=== PATIENT | female | born 1980 | race African-American/Black ===

== ENCOUNTER 2017-09-10 02:08 | Emergency (ER) | payer BC ==
[2017-09-10] MEDS ORDERED: Ketorolac INJ* 30 MG/ML 1 ML VIAL IV PUSH PRN (02:29)
[2017-09-10] MEDS ORDERED: Metoclopramide IV* 5 MG/ML 2 ML VIAL IV SLOW PU ONE (02:30)
[2017-09-10] MEDS ORDERED: NS 0.9% 1000 ML* 1,000 ML IV ONE (02:30)
[2017-09-10] MEDS ORDERED: diPHENhydraMINE IV* 50 MG/ML 1 ml VIAL (BENADRYL) IV ONE (02:30)
[2017-09-10] MEDS ORDERED: Ketorolac INJ* 30 MG/ML 1 ML VIAL IV PUSH ONE (03:07)
--- NOTE | 2017-09-10 05:26 | ED ---
Max Newman Tecjoon, scribed for La Sinclair MD on 09/10/17 at 0257 . Headache - HPI Summary HPI Summary: This patient is a 36 year old female BIBA to [facility] with a chief complaint of headache since 0030 today. Patient states she woke up with an excruciating headache on the right side of her head. The pain is rated 9/10 in severity. Symptoms aggravated by nothing. Symptoms alleviated by nothing. 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 Patient has a hx of headache. - History Of Current Complaint Chief Complaint: EDHeadache Stated Complaint: HEADACHE/NAUSEA Time Seen by Provider: 09/10/17 02:15 Hx Obtained From: Patient Hx Last Menstrual Period: 06/29/12 Onset/Duration: Sudden Onset, Started hours ago, Still Present Currently Pain Is: Current Pain Scale(0-10)= - 9, Severe Timing: Constant Location of Headache: Other: - right side of head Aggravating Factor: Nothing Allevating Factors: Nothing - Allergies/Home Medications Allergies/Adverse Reactions: Allergies Allergy/AdvReac Type Severity Reaction Status Date / Time etodolac Allergy See Comment Verified 09/10/17 02:20 shrimp Allergy Itching Verified 09/10/17 02:19 ENVIRONMENTAL/SEASONAL Allergy Severe Unknown Uncoded 06/24/16 11:26 Reaction Details PMH/Surg Hx/FS Hx/Imm Hx Previously Healthy: No Endocrine/Hematology History: Reports: Hx Diabetes - IDDM Cardiovascular History: Reports: Hx Hypertension - ON MEDS Denies: Hx Pacemaker/ICD, Other Cardiovascular Problems/Disorders Respiratory History: Reports: Hx Asthma - WILL BRING INHALERS, Other Respiratory Problems/Disorders - FREQUENT SINUS TROUBLE, POST NASAL DRIP GI History: Reports: Hx Gastroesophageal Reflux Disease Denies: Other GI Disorders History: Reports: Other Problems/Disorders - SOMETIMES PROTIEN IN URINE Denies: Hx Renal Disease Musculoskeletal History: Reports: Other Musculoskeletal History - TRIGGER FINGERS BILAT Sensory History: Denies: Hx Contacts or Glasses, Hx Hearing Aid Opthamlomology History: Denies: Hx Contacts or Glasses Neurological History: Reports: Hx Seizures - ONE SEIZURE MANY YEARS AGO, Other Neuro Impairments/Disorders - trigger finger LUZ WITH SURGERY Psychiatric History: Denies: Hx Panic Disorder - Surgical History Surgery Procedure, Year, and Place: triger finger surg [facility]. 2013 S[facility]US [facility]. 2012, [facility], [facility]. 2-3 MORE SINUS SURGERY. C SECTION 02/2016 Hx Anesthesia Reactions: No - Immunization History Date of Tetanus Vaccine: utd Date of Influenza Vaccine: fall 2016 Infectious Disease History: No Infectious Disease History: Denies: Traveled Outside the [place] in Last 30 Days - Family History Family History: Denies FHx of malignant hyperthermia or anesthesia reaction. - Social History Alcohol Use: None Hx Substance Use: No Substance Use Type: Reports: None Hx Tobacco Use: No Smoking Status (MU): Never Smoked Tobacco Have You Smoked in the Last Year: No Review of Systems Negative: Fever Positive: Headache All Other Systems Reviewed And Are Negative: Yes Physical Exam - Summary Physical Exam Summary: VITAL SIGNS: Reviewed. GENERAL: Patient is a well-developed and nourished female who is lying comfortable in the stretcher. Patient is not in any acute respiratory distress. HEAD AND FACE: No signs of trauma. No ecchymosis, hematomas or skull depressions. No sinus tenderness. EYES: PERRLA, EOMI x 2, No injected conjunctiva, no nystagmus. EARS: Hearing grossly intact. Ear canals and tympanic membranes are within normal limits. MOUTH: Oropharynx within normal limits. NECK: Supple, trachea is midline, no adenopathy, no JVD, no carotid bruit, no c- spine tenderness, neck with full ROM. CHEST: Symmetric, no tenderness at palpation LUNGS: Clear to auscultation bilaterally. No wheezing or crackles. CVS: Regular rate and rhythm, S1 and S2 present, no murmurs or gallops appreciated. ABDOMEN: Soft, non-tender. No signs of distention. No rebound no guarding, and no masses palpated. Bowel sounds are normal. EXTREMITIES: FROM in all major joints, no edema, no cyanosis or clubbing. NEURO: Alert and oriented x 3. No acute neurological deficits. Speech is normal and follows commands. SKIN: Dry and warm Triage Information Reviewed: Yes Vital Signs On Initial Exam: Initial Vitals Temp Pulse Resp BP Pulse Ox 98.4 F 83 12 162/83 99 09/10/17 02:16 18 02:16 18 02:16 09/10/17 02:16 09/10/17 02:16 Vital Signs Reviewed: Yes Diagnostics - Vital Signs Vital Signs Temp Pulse Resp BP Pulse Ox 09/10/17 02:16 98.4 F 83 12 162/83 99 - Laboratory Lab Statement: Any lab studies that have been ordered have been reviewed, and results considered in the medical decision making process. Headache Course/Dx - Course Course Of Treatment: This patient is a 36 year old female BIBA to [facility] with a chief complaint of headache since 0030 today. In the ED course the patient was given Toradol, Reglan, Benadryl. Patient will be diagnosed with headache and discharged with a recommendation to follow up with PCP in 3 days. The patient is agreeable with this plan. - Diagnoses Provider Diagnoses: Headache Discharge - Discharge Plan Condition: Stable Disposition: HOME Patient Education Materials: Acute Headache (ED) Referrals: Laya Rosenberg NP [Primary Care Provider] - 3 Days Additional Instructions: Return to the ED for any new or worsening symptoms. The documentation as recorded by the Max camargo Tecjoon accurately reflects the service I personally performed and the decisions made by Yahir toth Abdul, MD.
[2017-09-10 05:56] VITALS: BP 135/68
== END 2017-09-10 05:55 | disposition home or self-care (01) ==
LOC: ED 02:08
DX: R51 Headache (principal); Z88.8 Allergy status to other drugs, medicaments and biological substances
CPT/HCPCS: 96361; 96374; 96375; 99283; J1200; J1885; J2765

== ENCOUNTER 2017-11-19 07:50 | Emergency (ER) | payer BC ==
[2017-11-19] MEDS ORDERED: NS 0.9% 1000 ML* 1,000 ML IV ONE (08:30)
[2017-11-19] MEDS ORDERED: diPHENhydraMINE IV* 50 MG/ML 1 ml VIAL (BENADRYL) IV ONE (08:37)
[2017-11-19] MEDS ORDERED: Metoclopramide IV* 5 MG/ML 2 ML VIAL IV ONE (08:38)
[2017-11-19 08:46] LABS: ABS Basophils 0.1 10^3/ul (0-0.2); ABS Eosinophils 0.1 10^3/ul (0-0.6); ABS Lymphocytes 1.4 10^3/ul (1.0-4.8); ABS Monocytes 0.3 10^3/ul (0-0.8); ABS Neutrophils 5.8 10^3/ul (1.5-7.7); ABS Nucleated RBC 0 10^3/ul; Eosinophil % 1.4 % (0-6); Hematocrit 36 % (35-47); Hemoglobin 11.8 g/dl (12.0-16.0); Lymphocyte % 18.1 % (25-47); Mean Corpuscular HGB Conc 33 g/dl (31-36); Mean Corpuscular Hemoglobin 26 pg (27-31); Mean Corpuscular Volume 81 fL (80-97); Mean Platelet Volume 7.4 um3 (7.4-10.4); Nucleated Red Blood Cells % 0.2; Platelet Count 391 10^3/ul (150-450); Red Blood Count 4.47 10^6/ul (4.0-5.4); Red Cell Distribution Width 15 % (10.5-15); White Blood Count 7.6 10^3/ul (3.5-10.8)
[2017-11-19 09:07] LABS: EGFR Non-African American 37.3 (>60)
--- NOTE | 2017-11-19 09:07 | RAD ---
Indication: Hypertension. Asthma. Comparison: April 08, 2014 CT abdomen. November 30, 2013 chest radiograph Technique: Upright AP 0845 hours Report: Accounting for superimposed soft tissues with obese body habitus the lungs and pleural spaces are clear. Negative for pneumothorax. The heart, pulmonary vasculature, and mediastinal contours are unremarkable. RIGHT epicardial fat pad noted. IMPRESSION: No evidence for acute intrathoracic disease.
--- NOTE | 2017-11-19 09:11 | RAD ---
Indication: Hypertension. Headache. Comparison: June 25, 2016 Technique: Noncontrast CT vertex of skull through foramen magnum. Report: The sulci, ventricles, and basal cisterns are normal for age. Germain matter white matter differentiation is preserved without evidence for edema. No intra or extra axial hemorrhage, mass, or fluid collection detected. Unremarkable visualized orbital contents. Unremarkable calvarium and skull base. Unremarkable scalp. The visualized paranasal sinuses and mastoid air spaces are clear. IMPRESSION: Negative unenhanced head CT.
--- NOTE | 2017-11-19 09:24 | ED ---
Max Newman Tecjoon, scribed for Jimmy Colunga MD on 11/19/17 at 0831 . Headache - HPI Summary HPI Summary: This patient is a 37 year old female BIBA to [facility] with a chief complaint of headache and nausea since waking up this morning. Patient states that when she woke up, she couldnt get out of bed with a terrible headache. The pain is rated 8/10 in severity. Symptoms aggravated by nothing. Symptoms alleviated by nothing. 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 Patient additionally reports vomiting, numbness. Patient has a hx of HTN. - History Of Current Complaint Chief Complaint: EDHeadache Stated Complaint: HYPERTENSION Time Seen by Provider: 11/19/17 08:08 Hx Obtained From: Patient Hx Last Menstrual Period: 06/29/12 Onset/Duration: Started hours ago, Still Present Currently Pain Is: Current Pain Scale(0-10)= - 8 Timing: Constant Location of Headache: Diffuse Aggravating Factor: Nothing Allevating Factors: Nothing Associated Signs And Symptoms: Other (Noted In Comments) - nausea, vomiting, numbness - Allergies/Home Medications Allergies/Adverse Reactions: Allergies Allergy/AdvReac Type Severity Reaction Status Date / Time etodolac Allergy See Comment Verified 09/10/17 02:20 shrimp Allergy Itching Verified 09/10/17 02:19 ENVIRONMENTAL/SEASONAL Allergy Severe Unknown Uncoded 06/24/16 11:26 Reaction Details PMH/Surg Hx/FS Hx/Imm Hx Previously Healthy: No Endocrine/Hematology History: Reports: Hx Diabetes - IDDM Cardiovascular History: Reports: Hx Hypertension - ON MEDS Denies: Hx Pacemaker/ICD, Other Cardiovascular Problems/Disorders Respiratory History: Reports: Hx Asthma - WILL BRING INHALERS, Other Respiratory Problems/Disorders - FREQUENT SINUS TROUBLE, POST NASAL DRIP GI History: Reports: Hx Gastroesophageal Reflux Disease Denies: Other GI Disorders History: Reports: Other Problems/Disorders - SOMETIMES PROTIEN IN URINE Denies: Hx Renal Disease Musculoskeletal History: Reports: Other Musculoskeletal History - TRIGGER FINGERS BILAT Sensory History: Denies: Hx Contacts or Glasses, Hx Hearing Aid Opthamlomology History: Denies: Hx Contacts or Glasses Neurological History: Reports: Hx Seizures - ONE SEIZURE MANY YEARS AGO, Other Neuro Impairments/Disorders - trigger finger LUZ WITH SURGERY Psychiatric History: Denies: Hx Panic Disorder - Surgical History Surgery Procedure, Year, and Place: triger finger surg [facility]. 2013 [facility]US [facility]. 2012, [facility], [facility]. 2-3 MORE SINUS SURGERY. C SECTION 02/2016 Hx Anesthesia Reactions: No - Immunization History Date of Tetanus Vaccine: utd Date of Influenza Vaccine: fall 2016 Infectious Disease History: No Infectious Disease History: Denies: Traveled Outside the [place] in Last 30 Days - Family History Known Family History: Positive: Diabetes Family History: Denies FHx of malignant hyperthermia or anesthesia reaction. - Social History Lives: With Family Alcohol Use: None Hx Substance Use: No Substance Use Type: Reports: None Hx Tobacco Use: No Smoking Status (MU): Never Smoked Tobacco Have You Smoked in the Last Year: No Review of Systems Negative: Fever Positive: Vomiting, Nausea Positive: Headache, Numbness All Other Systems Reviewed And Are Negative: Yes Physical Exam - Summary Physical Exam Summary: GENERAL: Patient is a well developed and nourished female who is lying comfortable in the stretcher. Patient is not in any acute respiratory distress. HEAD AND FACE: Normocephalic EYES: PERRLA, EOMI x 2. EARS: Hearing grossly intact. MOUTH: Oropharynx within normal limits. NECK: Supple, trachea is midline, no adenopathy, no JVD, no carotid bruit. CHEST: Symmetric, no tenderness at palpation LUNGS: Clear to auscultation bilaterally. No wheezing or crackles. CVS: Regular rate and rhythm, S1 and S2 present, no murmurs or gallops appreciated. ABDOMEN: Soft, non-tender. Bowel sounds are normal. No abdominal abnormal pulsations. EXTREMITIES: Full ROM in all major joints, no edema, no cyanosis or clubbing. NEURO: Alert and oriented x 3. No acute neurological deficits. Speech is normal and follows commands. SKIN: Dry and warm Neuro exam extended: Cranial nerves 2-12 grossly intact, no dysmetria finger to nose, nml heel to castrejon Triage Information Reviewed: Yes Vital Signs On Initial Exam: Initial Vitals Temp Pulse Resp BP Pulse Ox 98.7 F 89 20 169/87 98 11/19/17 07:53 11/19/17 07:53 11/19/17 07:53 11/19/17 07:53 11/19/17 07:53 Vital Signs Reviewed: Yes Diagnostics - Vital Signs Vital Signs Temp Pulse Resp BP Pulse Ox 11/19/17 07:53 98.7 F 89 20 169/87 98 - Laboratory Lab Results: Lab Results 11/19/17 11/19/17 11/19/17 Range/Units 08:30 08:30 08:30 WBC 7.6 (3.5-10.8) 10^3/ul RBC 4.47 (4.0-5.4) 10^6/ul Hgb 11.8 L (12.0-16.0) g/dl Hct 36 (35-47) % MCV 81 (80-97) fL MCH 26 L (27-31) pg MCHC 33 (31-36) g/dl RDW 15 (10.5-15) % Plt Count 391 (150-450) 10^3/ul MPV 7.4 (7.4-10.4) um3 Neut % (Auto) 75.2 (38-83) % Lymph % (Auto) 18.1 L (25-47) % Jackson % (Auto) 4.4 (0-7) % Eos % (Auto) 1.4 (0-6) % Baso % (Auto) 0.9 (0-2) % Absolute Neuts (auto) 5.8 (1.5-7.7) 10^3/ul Absolute Lymphs (auto) 1.4 (1.0-4.8) 10^3/ul Absolute Monos (auto) 0.3 (0-0.8) 10^3/ul Absolute Eos (auto) 0.1 (0-0.6) 10^3/ul Absolute Basos (auto) 0.1 (0-0.2) 10^3/ul Absolute Nucleated RBC 0 10^3/ul Nucleated RBC % 0.2 APTT 27.5 (26.0-36.3) seconds VBG pH (7.33-7.43) VBG pCO2 (41-51) mmHg VBG pO2 (35-45) mmHg VBG HCO3 (24-28) mmol/L VBG O2 Saturation (70-80) % VBG Base Excess (0-4) Sodium 137 L (139-145) mmol/L Potassium 3.3 L (3.5-5.0) mmol/L Chloride 100 L (101-111) mmol/L Carbon Dioxide 29 (22-32) mmol/L Anion Gap 8 (2-11) mmol/L BUN 16 (6-24) mg/dL Creatinine 1.57 H (0.51-0.95) mg/dL Est GFR ( Amer) 47.9 (>60) Est GFR (Non-Af Amer) 37.3 (>60) BUN/Creatinine Ratio 10.2 (8-20) Glucose 198 H (70-100) mg/dL Lactic Acid (0.5-2.0) mmol/L Calcium 8.4 L (8.6-10.3) mg/dL Total Bilirubin 0.20 (0.2-1.0) mg/dL AST 22 (13-39) U/L ALT 15 (7-52) U/L Alkaline Phosphatase 115 H (34-104) U/L Troponin I 0.02 (<0.04) ng/mL C-Reactive Protein 31.02 H (< 5.00) mg/L Total Protein 7.2 (6.4-8.9) g/dL Albumin 3.2 (3.2-5.2) g/dL Globulin 4.0 (2-4) g/dL Albumin/Globulin Ratio 0.8 L (1-3) Beta HCG, Quant < 0.60 mIU/mL 11/19/17 11/19/17 Range/Units 08:30 08:45 WBC (3.5-10.8) 10^3/ul RBC (4.0-5.4) 10^6/ul Hgb (12.0-16.0) g/dl Hct (35-47) % MCV (80-97) fL MCH (27-31) pg MCHC (31-36) g/dl RDW (10.5-15) % Plt Count (150-450) 10^3/ul MPV (7.4-10.4) um3 Neut % (Auto) (38-83) % Lymph % (Auto) (25-47) % Jackson % (Auto) (0-7) % Eos % (Auto) (0-6) % Baso % (Auto) (0-2) % Absolute Neuts (auto) (1.5-7.7) 10^3/ul Absolute Lymphs (auto) (1.0-4.8) 10^3/ul Absolute Monos (auto) (0-0.8) 10^3/ul Absolute Eos (auto) (0-0.6) 10^3/ul Absolute Basos (auto) (0-0.2) 10^3/ul Absolute Nucleated RBC 10^3/ul Nucleated RBC % APTT (26.0-36.3) seconds VBG pH 7.44 H (7.33-7.43) VBG pCO2 46 (41-51) mmHg VBG pO2 20 L (35-45) mmHg VBG HCO3 28.3 H (24-28) mmol/L VBG O2 Saturation 39.7 L (70-80) % VBG Base Excess 6.1 H (0-4) Sodium (139-145) mmol/L Potassium (3.5-5.0) mmol/L Chloride (101-111) mmol/L Carbon Dioxide (22-32) mmol/L Anion Gap (2-11) mmol/L BUN (6-24) mg/dL Creatinine (0.51-0.95) mg/dL Est GFR ( Amer) (>60) Est GFR (Non-Af Amer) (>60) BUN/Creatinine Ratio (8-20) Glucose (70-100) mg/dL Lactic Acid 1.1 (0.5-2.0) mmol/L Calcium (8.6-10.3) mg/dL Total Bilirubin (0.2-1.0) mg/dL AST (13-39) U/L ALT (7-52) U/L Alkaline Phosphatase (34-104) U/L Troponin I (<0.04) ng/mL C-Reactive Protein (< 5.00) mg/L Total Protein (6.4-8.9) g/dL Albumin (3.2-5.2) g/dL Globulin (2-4) g/dL Albumin/Globulin Ratio (1-3) Beta HCG, Quant mIU/mL Result Diagrams: 11/19/17 08:30 11/19/17 08:30 Lab Statement: Any lab studies that have been ordered have been reviewed, and results considered in the medical decision making process. - Radiology CXR Xray Interpretation: No Acute Changes - CXR reveals, per radiologist, IMPRESSION : No evidence for acute intrathoracic disease. ED physician has reviewed this radiology report. Radiology Interpretation Completed By: Radiologist - CT CT Brain CT Interpretation: No Acute Changes - CT Brain reveals, per radiologist, IMPRESSION: Negative unenhanced head CT. The visualized paranasal sinuses and mastoid air spaces are clear. ED physician has reviewed this radiology report. CT Interpretation Completed By: Radiologist - EKG 0836 Cardiac Rate: NL EKG Rhythm: Sinus Rhythm - 79 BPM EKG Interpretation: NSR (79 BPM), left atrial enlargement Headache Course/Dx - Course Course Of Treatment: This patient is a 37 year old female BIBA to [facility] with a chief complaint of headache and nausea since waking up this morning. Patient states that when she woke up, she couldnt get out of bed and had a terrible headache. An EKG, taken at 0836, reveals NSR (79 BPM), left atrial enlargement. CT Brain reveals, per radiologist, IMPRESSION: Negative unenhanced head CT. The visualized paranasal sinuses and mastoid air spaces are clear. ED physician has reviewed this radiology report. CXR reveals, per radiologist, IMPRESSION: No evidence for acute intrathoracic disease. ED physician has reviewed this radiology report. Bloodwork obtained. Urinalysis obtained. Bloodwork is remarkable for a creatinine of 1.57, which is not far from baseline. Headache is much improved. In the ED course the patient was given Bendryl, Potassium Chloride, Reglan, IV fluids. Patient was much improved during re-eval. Patient is hemodynamically stable. Patient will be discharged with a diagnosis of headache. 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 The patient is agreeable with this plan. - Diagnoses Provider Diagnoses: Headache Discharge - Sign-Out/Discharge Documenting (check all that apply): Discharge/Admit/Transfer - Discharge Plan Condition: Stable Disposition: HOME Patient Education Materials: Acute Headache (ED) Referrals: Laya Rosenberg NP [Primary Care Provider] - 3 Days Additional Instructions: Return to the ED for any new or worsening symptoms. The documentation as recorded by the Max camargo Tecjoon accurately reflects the service I personally performed and the decisions made by , Jimmy Colunga MD.
[2017-11-19] MEDS ORDERED: Potassium Chlor TAB* 20 MEQ TAB.ER PO ONE (11:09)
[2017-11-19 11:13] VITALS: BP 145/88
== END 2017-11-19 11:49 | disposition home or self-care (01) ==
LOC: ED 07:50
DX: R51 Headache (principal); R11.2 Nausea with vomiting, unspecified; R20.0 Anesthesia of skin; I51.7 Cardiomegaly; Z32.02 Encounter for pregnancy test, result negative; E11.9 Type 2 diabetes mellitus without complications; Z79.4 Long term (current) use of insulin; I10 Essential (primary) hypertension; J45.909 Unspecified asthma, uncomplicated; K21.9 Gastro-esophageal reflux disease without esophagitis; R56.9 Unspecified convulsions
CPT/HCPCS: 36415; 70450; 71045; 80053; 82803; 83605; 84484; 84702; 85025; 85730; 86140; 93005; 96374; 96375; 99283; A9270-GY; J1200; J2765

== ENCOUNTER 2017-11-19 15:36 | Inpatient (IN) | payer BC ==
[2017-11-19] MEDS ORDERED: LORazepam INJ* 2 MG/ML 1 ML VIAL ONE (15:53)
[2017-11-19] MEDS ORDERED: NS 0.9% 1000 ML* 1,000 ML IV ONE ×2 (16:18→19:01)
[2017-11-19 16:55] LABS: ABS Basophils 0.2 10^3/ul (0-0.2); ABS Eosinophils 0 10^3/ul (0-0.6); ABS Monocytes 0.8 10^3/ul (0-0.8); ABS Neutrophils 11.8 10^3/ul (1.5-7.7); ABS Nucleated RBC 0 10^3/ul; Eosinophil % 0.1 % (0-6); Hematocrit 40 % (35-47); Hemoglobin 12.9 g/dl (12.0-16.0); Lymphocyte % 13.7 % (25-47); Mean Corpuscular HGB Conc 32 g/dl (31-36); Mean Corpuscular Hemoglobin 27 pg (27-31); Mean Corpuscular Volume 83 fL (80-97); Mean Platelet Volume 7.3 um3 (7.4-10.4); Nucleated Red Blood Cells % 0; Platelet Count 495 10^3/ul (150-450); Red Blood Count 4.84 10^6/ul (4.0-5.4); Red Cell Distribution Width 15 % (10.5-15); White Blood Count 14.8 10^3/ul (3.5-10.8)
[2017-11-19 17:33] LABS: EGFR Non-African American 32.2 (>60)
[2017-11-19] MEDS: levETIRAcetam IV* 1,000 MG in NS 0.9% 100 ML* 100 ML IVPB ONE ×2 (17:45→18:26)
[2017-11-19] MEDS ORDERED: Morphine VIAL* 4 MG/ML VIAL (1 ml vial) IV PRN (18:04)
[2017-11-19] MEDS ORDERED: Insulin REGULAR(*) 1 UNITS UNIT IV PUSH ONE (18:10)
[2017-11-19] MEDS ORDERED: Albuterol HFA INHALER* 8 gm MDI INH PRN (18:11)
[2017-11-19] MEDS ORDERED: Albuterol 2.5 MG/3 ML NEB.SOL* (0.083%) INH PRN (18:11)
--- NOTE | 2017-11-19 18:51 | ED ---
Jocy Newman Jason, scribed for Jimmy Colunga MD on 11/19/17 at 1701 . Neurological HPI - HPI Summary HPI Summary: This patient is a 37 year old F presenting to [facility] with a chief complaint of seizure like activity since this afternoon. The patient was evaluated this morning in [facility] for a headache and sent home after sx resolved and normal radiology reports and lab results. The patient then had seizure-like activity this afternoon at home. Her reports her hx of a seizure in 2004 and includes she does not take medicine. The patient rates the pain 0/10 in severity. Symptoms aggravated by nothing. Symptoms alleviated by nothing. - History of Current Complaint Stated Complaint: SEIZURE Time Seen by Provider: 11/19/17 15:49 Hx Obtained From: Patient, Family/Truck Repair Service Estimator - Hx Last Menstrual Period: 06/29/12 Onset/Duration: Sudden Onset Timing: Sudden Onset Pain Intensity: 0 Pain Scale Used: 0-10 Numeric Alleviating: Nothing Associated Signs and Symptoms: Positive: Nothing - Allergy/Home Medications Allergies/Adverse Reactions: Allergies Allergy/AdvReac Type Severity Reaction Status Date / Time etodolac Allergy See Comment Verified 09/10/17 02:20 shrimp Allergy Itching Verified 09/10/17 02:19 ENVIRONMENTAL/SEASONAL Allergy Severe Unknown Uncoded 06/24/16 11:26 Reaction Details Home Medications: Home Medications Insulin GLARGINE(*) [Lantus(*)] 54 units SUBCUT DAILY 11/19/17 [History Confirmed 11/19/17] Lisinopril TAB* [Prinivil TAB*] 40 mg PO DAILY 11/19/17 [History Confirmed 11/19] PMH/Surg Hx/FS Hx/Imm Hx Previously Healthy: No Endocrine/Hematology History: Reports: Hx Diabetes - IDDM Cardiovascular History: Reports: Hx Hypertension - ON MEDS Denies: Hx Pacemaker/ICD, Other Cardiovascular Problems/Disorders Respiratory History: Reports: Hx Asthma - WILL BRING INHALERS, Other Respiratory Problems/Disorders - FREQUENT SINUS TROUBLE, POST NASAL DRIP GI History: Reports: Hx Gastroesophageal Reflux Disease Denies: Other GI Disorders History: Reports: Other Problems/Disorders - SOMETIMES PROTIEN IN URINE Denies: Hx Renal Disease Musculoskeletal History: Reports: Other Musculoskeletal History - TRIGGER FINGERS BILAT Sensory History: Denies: Hx Contacts or Glasses, Hx Hearing Aid Opthamlomology History: Denies: Hx Contacts or Glasses Neurological History: Reports: Hx Seizures - ONE SEIZURE MANY YEARS AGO, Other Neuro Impairments/Disorders - trigger finger LUZ WITH SURGERY Psychiatric History: Denies: Hx Panic Disorder - Surgical History Surgery Procedure, Year, and Place: triger finger surg [facility] X2 LUZ. 2013 SINUS [facility]. 2012, SINUS, [facility]. 2-3 MORE SINUS SURGERY. C SECTION 02/2016 Hx Anesthesia Reactions: No - Immunization History Date of Tetanus Vaccine: utd Date of Influenza Vaccine: fall 2016 Infectious Disease History: Denies: Traveled Outside the [place] in Last 30 Days - Family History Known Family History: Positive: Diabetes Family History: Denies FHx of malignant hyperthermia or anesthesia reaction. - Social History Alcohol Use: None Hx Substance Use: No Substance Use Type: Reports: None Hx Tobacco Use: No Smoking Status (MU): Never Smoked Tobacco Have You Smoked in the Last Year: No Review of Systems Negative: Fever Neurological: Other - seizure All Other Systems Reviewed And Are Negative: Yes Physical Exam - Summary Physical Exam Summary: GENERAL: Patient is a well-developed and nourished female who is unresponsive secondary to post-ictal. Patient is not in any acute respiratory distress. HEAD AND FACE: Normocephalic EYES: PERRLA, EOMI x 2. EARS: Hearing grossly intact. MOUTH: Oropharynx within normal limits. NECK: Supple, trachea is midline, no adenopathy, no JVD, no carotid bruit. CHEST: Symmetric, no tenderness at palpation LUNGS: Clear to auscultation bilaterally. No wheezing or crackles. CVS: Regular rate and rhythm, S1 and S2 present, no murmurs or gallops appreciated. ABDOMEN: Soft, non-tender. Bowel sounds are normal. No abdominal abnormal pulsations. EXTREMITIES: Full ROM in all major joints, no edema, no cyanosis or clubbing. NEURO: post-ictal. SKIN: Dry and warm Triage Information Reviewed: Yes Vital Signs On Initial Exam: Initial Vitals Pulse Pulse Ox 144 100 11/19/17 16:11 11/19/17 16:11 Vital Signs Reviewed: Yes Diagnostics - Vital Signs Vital Signs Temp Pulse Resp BP Pulse Ox 11/19/17 18:00 110 19 100 11/19/17 17:30 100 11/19/17 17:21 37.1 C 145 20 219/103 100 11/19/17 17:00 119 22 100 11/19/17 16:47 143 19 206/116 100 11/19/17 16:15 143 219/103 100 11/19/17 16:11 144 100 - Laboratory Lab Results: Lab Results 11/19/17 11/19/17 11/19/17 Range/Units 16:45 16:45 16:45 WBC 14.8 H (3.5-10.8) 10^3/ul RBC 4.84 (4.0-5.4) 10^6/ul Hgb 12.9 (12.0-16.0) g/dl Hct 40 (35-47) % MCV 83 (80-97) fL MCH 27 (27-31) pg MCHC 32 (31-36) g/dl RDW 15 (10.5-15) % Plt Count 495 H D (150-450) 10^3/ul MPV 7.3 L (7.4-10.4) um3 Neut % (Auto) 79.9 (38-83) % Lymph % (Auto) 13.7 L (25-47) % Corson % (Auto) 5.3 (0-7) % Eos % (Auto) 0.1 (0-6) % Baso % (Auto) 1.0 (0-2) % Absolute Neuts (auto) 11.8 H (1.5-7.7) 10^3/ul Absolute Lymphs (auto) 2.0 (1.0-4.8) 10^3/ul Absolute Monos (auto) 0.8 (0-0.8) 10^3/ul Absolute Eos (auto) 0 (0-0.6) 10^3/ul Absolute Basos (auto) 0.2 (0-0.2) 10^3/ul Absolute Nucleated RBC 0 10^3/ul Nucleated RBC % 0 Sodium 132 L (139-145) mmol/L Potassium 3.3 L (3.5-5.0) mmol/L Chloride 95 L (101-111) mmol/L Carbon Dioxide 19 L (22-32) mmol/L Anion Gap 18 H (2-11) mmol/L BUN 18 (6-24) mg/dL Creatinine 1.78 H (0.51-0.95) mg/dL Est GFR ( Amer) 41.5 (>60) Est GFR (Non-Af Amer) 32.2 (>60) BUN/Creatinine Ratio 10.1 (8-20) Glucose 525 H* (70-100) mg/dL Lactic Acid 8.3 H* (0.5-2.0) mmol/L Calcium 8.7 (8.6-10.3) mg/dL Total Bilirubin 0.20 (0.2-1.0) mg/dL AST 18 (13-39) U/L ALT 16 (7-52) U/L Alkaline Phosphatase 130 H (34-104) U/L Total Protein 8.1 (6.4-8.9) g/dL Albumin 3.5 (3.2-5.2) g/dL Globulin 4.6 H (2-4) g/dL Albumin/Globulin Ratio 0.8 L (1-3) Result Diagrams: 11/19/17 16:45 11/19/17 16:45 Lab Statement: Any lab studies that have been ordered have been reviewed, and results considered in the medical decision making process. Re-Evaluation - Re-Evaluation First Eval Re-Evaluation Time: 16:30 Change: Improved - the patient is now awake. She is lethargic but the patient is talking to her daughter. Course/Dx - Course Course Of Treatment: In the ED course the patient was given IV fluids. The patient had an active tonic-clonic seizure in the bathroom as witnessed by staff. The patient was given 2 mg of Ativan IM. Upon reevaluation at 1630 the patient is now awake but lethargic secondary to being post-ictal. Labs reviewed and is remarkable for elevated lactate 2/2 to seizures, elevated glucose at 525. I consulted Dr. Wilkerson who recommended Keppra Load. Patient will be started on insulin ggt. Case discussed with hospitalist Dr. Healy. - Diagnoses Provider Diagnoses: Seizure, Hyperglycemia - Critical Care Time Critical Care Time: 30-74 min Discharge - Sign-Out/Discharge Documenting (check all that apply): Discharge/Admit/Transfer - Discharge Plan Condition: Stable Disposition: ADMITTED TO [facility] Referrals: Laya Rosenberg, SERVANDO [Primary Care Provider] - - Billing Disposition and Condition Condition: STABLE Disposition: [facility]OSP-[facility] The documentation as recorded by the Jocy camargo Jason accurately reflects the service I personally performed and the decisions made by me, Jimmy Colunga MD.
[2017-11-19] MEDS ORDERED: Magnesium Sulf 4 GM/100 ML IV* 4,000 MG/100 ML BAG IVPB ONE (18:55)
[2017-11-19] MEDS ORDERED: Ondansetron INJ* 2 MG/ML VIAL IV ONE (18:55)
[2017-11-19] MEDS ORDERED: KCL 20 MEQ/100 ML IVPREMIX* 20 MEQ/100 ML BAG IV SCH (19:00)
[2017-11-19] MEDS ORDERED: Insulin IVPB 100 units/100 ml 100 UNITS/100 ML UNIT IVPB SCH (19:00)
[2017-11-19] MEDS: NS 0.9% 1000 ML* 1,000 ML IV SCH ×2 (19:16→22:14)
[2017-11-19] MEDS: Potassium Chloride IV* 20 MEQ in NS 0.9% 100 ML* 100 ML IVPB SCH ×2 (20:23→23:21)
[2017-11-19] MEDS ORDERED: Dextrose 50% Syringe 50 ML* 25 GM/50 ML SYRINGE IV PUSH PRN (21:05)
[2017-11-19] MEDS: Metoclopramide TAB* 10 MG PO SCH (21:13)
[2017-11-19 21:25] LABS: EGFR Non-African American 42.2 (>60)
[2017-11-19] MEDS: hydrALAZINE IV* 20 MG/ML VIAL IV PRN (22:07)
--- NOTE | 2017-11-19 22:37 | HP ---
CC: Laya Valverde NP ADMISSION HISTORY AND PHYSICAL: DATE OF ADMISSION: 11/19/17 TIME OF MY EVALUATION: 6 p.m. PRIMARY CARE PROVIDER: Laya Valverde NP, [facility]. CHIEF COMPLAINT: Seizure/unconsciousness/multiple lab derangements and known hyperglycemia greater than 500 mg/dL. HISTORY OF PRESENT ILLNESS: Ms. Dee is a 37-year-old female with a medical history most notable for insulin dependent diabetes, who presents with after experiencing seizure activity at home. She presented to the emergency room earlier today complaining of a headache. She was worked up, including a Head CT. That CT scan did not show any intracranial abnormality. She was stabilized , her pain was relieved and she went home. There was some report of hypoglycemia early today including fingerstick of 40, but the patient was, subsequent to that, actually hyperglycemic. The patient later had approximately a 6-minute seizure, during which time EMS was activated by her family. The patient reported feeling that the seizure was going to happen and called her sister before losing consciousness. The patient was brought to the emergency room by EMS. She had a subsequent seizure in the ED that was witnessed. She was confused after the seizure ended and a nasal trumpet was urgently placed to protect her airway. Her initial labs demonstrated a lactic acid of 8.3 as well as a glucose of 525. Other electrolyte derangements will be described later. The patient was difficult for IV access and probably only received 0.5 L of fluid in the ED through a 22 guage IV as multiple peripheral attempts including ultrasound- guided attempt failed, necessitating right femoral line placement by me. This was done successfully and will be documented separately. The patient did receive 15 units of regular insulin peripherally through her IV as well as a Leggett was placed. The patient had received 2 mg of IV Ativan in response to her seizure and remained drwsy during my interview. Neurology consultation, a telephonic consultation, recommended loading with IV Keppra 1000 mg followed by 500 mg twice daily, but the patient's family adamantly refused on behalf of the patient who apparently articulated to someone at some point that she did not want that medication or any anti-seizure medication. Agreeing that the seizure was likely secondary to metabolic derangements, efforts were directed towards stabilizing her metabolic situation. The patient is being admitted to the ICU on insulin drip with mild DKA and hyperglycemia. I also note that her blood pressure was extremely elevated -- with systolic values greater than 200 mmHg, and efforts are underway at BP reduction as a cause of her seizure. PAST MEDICAL HISTORY: 1. Hypertension. 2. Rhinitis. 3. Insulin-dependent diabetes on injectable insulin. 4. Allergies. 5. Asthma. 6. Recurrent sinusitis. 7. Hypercholesterolemia. 8. Morbid obesity. 9. History of balloon maxillary surgery and maxillary antrostomies. 10. Additional medical history includes diabetic nephropathy at baseline. OUTPATIENT MEDICATIONS: 1. Lispro sliding scale between 0 and 60 units t.i.d. according to fingerstick. 2. Lantus insulin 54 units subcu daily. 3. Albuterol nebulizer 2.5 mg per 3 mL strength q.6 hours inhaled p.r.n. shortness of breath. 4. Ventolin HFA inhaler q.4 to 6 hours (2 puffs) p.r.n. shortness of breath. 5. Lisinopril 40 mg by mouth daily. 6. Reglan 10 mg by mouth q.6 hours p.r.n. 7. Singulair 10 mg by mouth daily. 8. Multivitamin 1 tablet by mouth once daily. ALLERGIES: ETODOLAC (TORADOL). FAMILY HISTORY: Reviewed, but not contributory based on this current presentation of acute hyperglycemic crisis in the setting of the headache along with seizure activity. SOCIAL HISTORY: Unable to obtain directly from the patient, but by records, nonsmoker and nondrinker. She is . She is accompanied by her . She has a child who is present in the emergency room. She is also accompanied by her mother and sister. PHYSICAL EXAMINATION VITAL SIGNS: Temperature 98.7 degrees Fahrenheit, pulse 120 to 140 and regular (sinus tach), respirations 19 to 22 and regular, oxygen saturation 100% on 4 L, blood pressure initially 219/103 with unclear baseline. HEENT: Oropharynx is clear. Mucous membranes are dry. NECK: Supple. No elevated JVD. The patient is supine. CHEST: Clear anteriorly and posteriorly. HEART: Regular rate and rhythm. No murmurs appreciated. ABDOMEN: Soft, nontender and obese. EXTREMITIES: Without clubbing, cyanosis, or edema. MUSCULOSKELETAL: I did not do a musculoskeletal exam and I did not assess gait. NEUROLOGICAL: Unable to assess secondary to the patient's obtundation following seizure and Ativan administration. PSYCH: Unable to assess secondary to the same. LYMPH: No adenopathy appreciated in my brief cursory exam for this system. SKIN: Dry and intact. No rashes, lesions, or breakdown. DIAGNOSTIC STUDIES/LABORATORY DATA: Sodium 132, potassium 3.3, chloride 95, bicarb 19, anion gap calculated at 18, creatinine 1.78 with baseline in the low to mid 1. BUN 18, BUN to creatinine ratio is currently 10, glucose 525, lactic acid 8.3 (elevated), calcium 8.7, albumin and total total protein are 3.5 and 8.1, respectively, alkaline phosphatase elevated at 130, AST and ALT are 18 and 16, respectively. White blood cell count elevated at 14.8 with a left shift, hemoglobin 12.9, platelets 495. ABG is pending. EKG is pending. Leggett catheter placed. Urinalysis pending.along with toxicology screen Head CT from earlier today shows no intracranial abnormality. IMPRESSION AND PLAN: Ms. Dee is a 37-year-old female who had a seizure of unclear etiology perhaps secondary to metabolic derangements as her blood sugar is now over 500. She has got an elevated lactic acid undoubtedly secondary to the seizure activity. The seizure was witnessed by staff and it was a recurrent seizure. The patient is being admitted to the ICU for DKA management as well as stabilization of her metabolic derangements and elevated blood pressure. The biggest problem is her profound dehydration and that is likely the cause of her dehydration. She will start with 3 L normal saline. I have ordered 60 mEq of potassium and 4 g of IV mag sulfate empirically. The patient will have a recheck of her electrolytes no later than 9 p.m. These orders were placed at 7: 15 p.m. The patient already received 15 units of regular insulin and we will start a drip at 0.1 units per kilogram and will be titrated and adjusted by protocol. The patient will be placed in the ICU as she is critically ill. Outpatient medications will be ordered and administered as tolerated. The patient will be seen by Neurology in consultation tomorrow morning. EEG ordered. TIME SPENT: Total time taken to admit Ms. Dee was 75 minutes; greater than half that time was spent at the bedside going over the history and physical examination with multiple intermittent conversations with the patient's family including a discussion about the need for a central line before its placement. CONDITION: Critical [id number]/[facility] #: [id number] MTDD
[2017-11-19 22:39] LABS: Urine Appearance Clear; Urine Blood 1+ (Negative); Urine Color Colorless; Urine Ketones Negative (Negative); Urine Protein 1+(30 mg/dL) (Negative); Urine Specific Gravity 1.003 (1.010-1.030); Urine Urobilinogen Negative (Negative)
[2017-11-19] MEDS ORDERED: Metoprolol Tartrate IV* 1 MG/ML 5 ML VIAL IV ONE (23:04)
[2017-11-19] MEDS ORDERED: Metoprolol Tartrate IV* 1 MG/ML 5 ML VIAL ONE (23:06)
[2017-11-19] MEDS: Heparin VIAL(*) 5000 UNITS/ML VIAL (FIVE THOUSAND) SUBCUT SCH (23:21)
[2017-11-20] MEDS: Potassium Chloride IV* 20 MEQ in NS 0.9% 100 ML* 100 ML IVPB SCH (01:27)
[2017-11-20] MEDS: niCARdipine 0.1MG/ML IVPREMIX* 20 MG/200 ML BAG IV SCH ×5 (01:35→14:09)
[2017-11-20 03:51] LABS: EGFR Non-African American 47.2 (>60)
[2017-11-20] MEDS: Metoclopramide TAB* 10 MG PO SCH ×4 (03:52→19:54)
[2017-11-20] MEDS ORDERED: Potassium Chlor TAB* 20 MEQ TAB.ER PO ONE (06:57)
[2017-11-20] MEDS: Heparin VIAL(*) 5000 UNITS/ML VIAL (FIVE THOUSAND) SUBCUT SCH ×3 (06:59→22:10)
[2017-11-20] MEDS: NS 0.9% 1000 ML* 1,000 ML IV SCH ×3 (06:59→22:30)
[2017-11-20 07:03] LABS: ABS Basophils 0.1 10^3/ul (0-0.2); ABS Eosinophils 0 10^3/ul (0-0.6); ABS Lymphocytes 2.3 10^3/ul (1.0-4.8); ABS Monocytes 0.7 10^3/ul (0-0.8); ABS Neutrophils 9.6 10^3/ul (1.5-7.7); ABS Nucleated RBC 0 10^3/ul; Eosinophil % 0.3 % (0-6); Hematocrit 32 % (35-47); Hemoglobin 10.9 g/dl (12.0-16.0); Mean Corpuscular HGB Conc 34 g/dl (31-36); Mean Corpuscular Hemoglobin 27 pg (27-31); Mean Corpuscular Volume 80 fL (80-97); Mean Platelet Volume 7.1 um3 (7.4-10.4); Nucleated Red Blood Cells % 0; Platelet Count 374 10^3/ul (150-450); Red Blood Count 4.01 10^6/ul (4.0-5.4); Red Cell Distribution Width 15 % (10.5-15); White Blood Count 12.7 10^3/ul (3.5-10.8)
[2017-11-20 07:25] LABS: EGFR Non-African American 47.2 (>60)
--- NOTE | 2017-11-20 08:46 | PN ---
Hospitalist Progress Note Date of Service: 11/19/17 . HOSPITALIST PROCEDURE NOTE: CENTRAL LINE - R FEMORAL SITE Urgent/Emergent procedure. Indication present for central line: multiple failed peripheral line attempts ( even ultrasound guided) / Failed PICC / urgent need for multiple IV agents, phlebotomy / critically ill patient Discussed with patient's , who agreed and consented based on risks & benefits explained. Subclavian location refused for fear of lung injury (by patient, previously, and her family now) IJ landmarks obscured. femoral site preferred for short term re-expansion of intravascular space - plan to discontinue after alternative IV established. Labs reviewed (no coagulopathy noted). Materials collected and room set up (in ED) Patient positioned and target site sterilized in the usual fashion with patient supine. Completed physician-led time out reviewing patient name, procedure, indications , laterality, goals, etc. ==> this done only verbally because of emergent circumstances. Multiple staff members assisted with sterile retraction of obese pannus and thigh. Site anesthetized with 2% lidocaine in usual fashion Larger finder needle delivered deeper lidocaine and got drawback (flash) from R femoral vein (characteristic deep red / venous color noted). CONSTRUCTION ENGINEER Arabella present with ultrasound and assisted with direct visualization of needle into vein. Wire inserted by Seldinger technique. Opening cut and SQ tissue dilated with dilator. Triple lumen catheter (pre-flushed) inserted over wire with low pressure blood return noted in all ports. Each port flushed and needle-less adaptors applied Line sutured in usual fashion and covered with tegaderm dressing with antibiotic impregnated pad over entry site. line functional and I gave clearance to use immediately for critical IVF... No complications noted at the time of this note.
--- NOTE | 2017-11-20 08:53 | PN ---
Subjective Date of Service: 11/20/17 Interval History: . Examined patient at bedside; discussed following items with patient and nurse: Pt still c/o headache BP very elevated, but normalized with nicardipine gtt --> starting norvasc this AM. Insulin gtt off early last evening and patient received SQ lantus at usual dose...will continue that and decrease POC glucose checks to Q4H. Glucose values have been in the low 100's...I added A1C and will d/w patient when back. 3L NS given in total; lactic acid normalized early last evening and ABG did not show acidosis...continue gently IVF...await echo results... Persistent hypokalemia (repleting) Persistent tachycardia (echo ordered; troponin values added on) Repeat Head CT ordered for ongoing headache Nasal trumpet removed overnight. swift remains for now; Good urine output noted. Labs have improved greatly and patient feels improved notwithstanding her continued headache. Plan for alternate IV access and then will remove femoral line to reduce chances for line infection. Family History: Unchanged from Admission Social History: Unchanged from Admission Past Medical History: Unchanged from Admission Objective Active Medications: . Acetaminophen (Tylenol Tab*) 650 mg PO Q4H PRN PRN Reason: FEVER/PAIN Albuterol (Ventolin 2.5 Mg/3 Ml Neb.Marisel*) 2.5 mg INH Q6H PRN PRN Reason: SHORTNESS OF BREATH Albuterol (Ventolin Hfa Inhaler*) 2 puff INH .Q4-6H PRN PRN Reason: SHORTNESS OF BREATH Amlodipine Besylate (Norvasc Tab*) 10 mg PO DAILY RONI Dextrose (D50w Syringe 50 Ml*) 25 gm IV PUSH .FOR FS < 60 - SS PRN PRN Reason: FS < 60 Heparin Sodium (Porcine) (Heparin Vial(*)) 5,000 units SUBCUT Q8HR RONI Last Admin: 11/20/17 06:59 Dose: 5,000 units Hydralazine HCl (Apresoline Iv*) 10 mg IV Q4H PRN PRN Reason: Systolic >170 Last Admin: 11/19/17 22:07 Dose: 10 mg Insulin Human Regular (Insulin Regular Ivpb) 100 units in 100 mls @ 8.618 mls/ hr IVPB .(INITIAL RATE) RONI; 0.1 UNITS/KG/HR PRN Reason: Protocol Last Admin: 11/19/17 20:17 Dose: 8.618 mls/hr Sodium Chloride (Ns 0.9% 1000 Ml*) 1,000 mls @ 125 mls/hr IV PER RATE RONI Last Admin: 11/20/17 06:59 Dose: 125 mls/hr Nicardipine/Sodium Chloride (Cardene 0.1mg/Ml Ivpremix*) 20 mg in 200 mls @ 50 mls/hr IV .(as Initial Rate) RONI PRN Reason: 5 MG/HR Last Admin: 11/20/17 07:01 Dose: 50 mls/hr Insulin Glargine (Lantus(*)) 54 units SUBCUT DAILY RONI Lisinopril (Prinivil Tab*) 40 mg PO DAILY RONI Metoclopramide HCl (Reglan Tab*) 10 mg PO Q6H RONI Last Admin: 11/20/17 07:28 Dose: Not Given Montelukast Sodium (Singulair Tab*) 10 mg PO QAM RONI Morphine Sulfate (Morphine Vial*) 2 mg IV Q4H PRN PRN Reason: PAIN Multivitamins/Minerals (Theragran/Minerals Tab*) 1 tab PO DAILY [facility] . Vital Signs - 8 hr 11/20/17 11/20/17 11/20/17 01:00 01:16 01:23 Temperature 100.2 F 100.2 F 100.2 F Pulse Rate 114 113 118 Respiratory 11 17 23 Rate Blood Pressure 169/89 87/72 182/86 (mmHg) O2 Sat by Pulse 99 97 99 Oximetry 11/20/17 11/20/17 11/20/17 01:31 01:45 02:00 Temperature 100.4 F 100.4 F 100.4 F Pulse Rate 116 120 120 Respiratory 17 20 20 Rate Blood Pressure 167/119 148/82 161/77 (mmHg) O2 Sat by Pulse 100 100 99 Oximetry 11/20/17 11/20/17 11/20/17 02:15 02:30 02:45 Temperature 100.4 F 100.4 F 100.2 F Pulse Rate 127 121 119 Respiratory 22 17 13 Rate Blood Pressure 170/82 164/74 149/74 (mmHg) O2 Sat by Pulse 100 100 99 Oximetry Oxygen Devices in Use Now: Nasal Cannula, OxyMask Appearance: NAD; fatigued. Eyes: No Scleral Icterus Ears/Nose/Mouth/Throat: NL Teeth, Lips, Gums Neck: NL Appearance and Movements; NL JVP Respiratory: Symmetrical Chest Expansion and Respiratory Effort Cardiovascular: NL Sounds; No Murmurs; No JVD Abdominal: NL Sounds; No Tenderness; No Distention, - - morbid obesity Lymphatic: No Cervical Adenopathy Extremities: No Edema Skin: No Rash or Ulcers Neurological: NL Sensation, - - still c/o headache and poor historian Lines/Tubes/Other Access: Clean, Dry and Intact Peripheral IV Nutrition: Taking PO's Result Diagrams: 11/20/17 06:50 11/20/17 06:50 Additional Lab and Data: . Microbiology and Other Data: Microbiology 11/19/17 20:00 Nasal Screen MRSA (PCR)([facility]) - Final Nasal Mrsa Not Detected Assess/Plan/Problems-Billing . Assessment: 37 yo female with IDDM - mild DKA, headache, seizure, malignant hypertension -- admitted for management of these issues. - Patient Problems (1) Seizure Current Visit: Yes Status: Acute Priority: High Code(s): R56.9 - UNSPECIFIED CONVULSIONS Comment: - Two seizures, both witnessed - Lactic acid > 8, but then cleared with aggressive IVF - Patient and family refused keppra after my clear recommendation to receive it - They want to wait and see if treating her DM and SIMS solve the problem. I objected to this, but they insisted NOT to receive that medication. They verbally understand I am telling them this portends a greater seizure risk and they accept that. - neurology consult; eeg ordered. - seizure precautions - repeat brain CT because of ongoing headache. (2) Malignant hypertension Current Visit: Yes Status: Acute Priority: High Code(s): I10 - ESSENTIAL ( PRIMARY) HYPERTENSION Comment: - accelerated hypertension- adding norvasc 10 mg PO daily - SBP improved with nicardipine - repeating head CT - add drug screen? (3) Headache Current Visit: Yes Status: Acute Priority: High Code(s): R51 - HEADACHE Comment: - secondary to htn...but continues with controlled htn - repeat head CT...perhaps early hemorrhage missed by first CT... - BP now stage I htn range...adding oral norvasc (10 mg) to facilitate weaning of nicardipine - lisinopril at 40 mg daily (max dose) (4) Diabetes mellitus, insulin dependent (IDDM), uncontrolled Current Visit: Yes Status: Acute Priority: High Code(s): E10.65 - TYPE 1 DIABETES MELLITUS WITH HYPERGLYCEMIA Comment: - glucose levels now in 100-200 range consistently - no further IV insulin after early last night - SQ lantus at 54 units daily (continuing) - diabetic diet. - A1C requested. (5) Morbid obesity with BMI of 40.0-44.9, adult Current Visit: Yes Status: Acute Priority: High Code(s): E66.01 - MORBID ( SEVERE) OBESITY DUE TO EXCESS CALORIES; Z68.41 - BODY MASS INDEX (BMI) 40.0-44.9 , ADULT Comment: - will discuss lifestyle modifications after critical illness resolved. (6) Diabetic nephropathy associated with type 2 diabetes mellitus Current Visit: Yes Status: Acute Priority: High Code(s): E11.21 - TYPE 2 DIABETES MELLITUS WITH DIABETIC NEPHROPATHY Comment: - JAYDON on board - HTN control
[2017-11-20] MEDS: Multivitamins/Minerals TAB PO SCH (08:55)
[2017-11-20] MEDS: Lisinopril TAB* 10 MG PO SCH (08:55)
[2017-11-20] MEDS: amLODIPine TAB* 5 MG PO SCH (08:55)
[2017-11-20] MEDS: Montelukast Sodium TAB* 10 MG PO SCH (08:56)
[2017-11-20] MEDS: Insulin GLARGINE(*) 1 UNITS UNIT SUBCUT SCH (08:56)
--- NOTE | 2017-11-20 09:33 | RAD ---
Indication: Ongoing headache. Elevated blood pressure, seizure. Comparison: November 19, 2017 CT Technique: Noncontrast CT vertex of skull through foramen magnum. Report: The sulci, ventricles, and basal cisterns are normal for age. Germain matter white matter differentiation is preserved without evidence for edema. No intra or extra axial hemorrhage, mass, or fluid collection detected. Unremarkable visualized orbital contents. Unremarkable calvarium and skull base. Unremarkable scalp. Partially visualized RIGHT maxillary sinus is remarkable for an air-fluid level and punctate gas bubble. The remaining visualized paranasal sinuses and mastoid air spaces are clear. IMPRESSION: 1. Negative unenhanced CT of the brain. 2. Stigmata of potential acute RIGHT maxillary sinusitis.
--- NOTE | 2017-11-20 09:47 | RAD ---
Indication: Positive SIRS criteria. Asthma. Comparison: November 19, 2017 Technique: Upright AP 2206 hours Report: Asymmetric LEFT greater than RIGHT lung alveolar consolidation.. Grossly clear pleural spaces. Negative for pneumothorax. Unchanged mild elevation of the RIGHT hemidiaphragm. Cardiomegaly. Unremarkable central pulmonary vasculature accounting for obesity, AP technique and probable suboptimal inspiration. IMPRESSION: Asymmetric LEFT greater than RIGHT lung alveolar consolidation concerning for pneumonia. Cardiomegaly without compelling evidence for pulmonary edema.
[2017-11-20] MEDS: diPHENhydraMINE PO* 25 MG PO PRN ×2 (11:37→19:54)
--- NOTE | 2017-11-20 17:44 | CONS ---
CC: Laya Valverde NP ... NEUROLOGY CONSULTATION: DATE OF CONSULT: 11/20/17 LOCATION: She is in an inpatient in ICU, bed 6. REFERRING PROVIDER: Dr. Healy. CHIEF COMPLAINT: Seizures. HISTORY OF PRESENT ILLNESS: Cesia Nunn is a 37-year-old woman, who has diabetes and chronic headaches. She developed nausea and vomiting yesterday and was seen in the emergency room and treated for her headaches. She had a CT of the brain interpreted as normal. She was given some diphenhydramine and was found to have a blood glucose of 40. She was discharged home after treatment of her headache and hypoglycemia. At home, she started vomiting again and started to have a more severe headache. Ultimately, 911 was called and she was brought into the emergency room. In the emergency room, she had another seizure observed by the staff. She had a blood sugar of 525 and was extremely hypertensive. She was given some hydration after difficulty obtaining IV access and also was given 1000 mg of Keppra IV. She has not had any further seizures. There was 1 remote history of a seizure after she had received some TORADOL for migraines. That is the only other seizure she has ever had. She had an MRI of the brain a couple of years ago for her chronic headaches, which was normal. I reviewed the images and I agree. The patient and her family were hesitant to continue anticonvulsants and so she has not been given any additional doses of Keppra. Currently, she is very sleepy having received some Benadryl for her chronic headaches. Her says she gets headaches pretty much every day and takes Excedrin and Benadryl frequently for them. PAST MEDICAL HISTORY: Notable for chronic migraines, insulin-dependent diabetes , hypertension, history of eclampsia, history of recurrent sinusitis, asthma, hyperlipidemia, multiple sinus surgeries, diabetic nephropathy. MEDICATIONS: At home, consist of: 1. Lantus insulin and sliding scale insulin. 2. Albuterol inhaler. 3. Ventolin inhaler. 4. Lisinopril 40 mg p.o. q. day. 5. Metoclopramide 10 mg p.o. q.6 hours as needed for nausea. 6. Singulair 10 mg p.o. q. day. 7. Multivitamin. ALLERGIES: She is allergic to TORADOL having had a seizure after it. REVIEW OF SYSTEMS: Mainly from the as she is extremely sleepy after having received IV Benadryl. There is no other history of episodes of loss of consciousness other than the one a couple of years ago on TORADOL. There is no history of heart disease. There is no family history of epilepsy. PHYSICAL EXAM: She is an obese, very lethargic woman, lying in the ICU bed. Most recent temperature 99.3 by Leggett probe, blood pressure 168/77, heart rate is running 100 to 110 and is in sinus on the monitor. Respiratory rate is about 18 and oxygen saturation is 97%. Neck is supple. Heart tones are distant , but I do not hear any murmurs. Oral mucosa is moist and tongue is atraumatic. I can get her briefly to open her eyes and pupils react briskly from about 5 to 3 mm. It is hard to keep her awake to see her fundi. Facial musculature is symmetric. Speech is mildly dysarthric. She is able to hold all of her limbs up without drift. There is no tremor. Reflexes are trace at the knees and otherwise absent at the ankles. Plantar responses are flexor bilaterally. She is oriented to person and place. She is very lethargic. DIAGNOSTIC STUDIES/LAB DATA: Includes a CT of the brain, which I reviewed and which looks normal and was interpreted as such. MRI of the brain from 06/25/16 was reviewed and that appeared normal as well. Other laboratory data notable for her most recent glucose being 101, it was 525 last evening when she came in. Lactic acid was 8.3 yesterday at presentation, down to 1.6 by last night. Sodium is normal at 139, was 132 when she came in. Potassium was 3.3 last evening and is again the same this morning. Creatinine 1.28 early this morning, it was 1.78 when she presented yesterday evening. Liver enzymes are normal. Blood gas yesterday: pH 7.46, PCO2 36, PO2 135. White blood cell count elevated yesterday evening at 14.8, down to 12.7 this morning. IMPRESSION AND PLAN: Impression is that of a seizure in the face of severe hyperglycemia, dehydration, possibly some acidosis. Also, severe hypertension. I do not think we need to continue anticonvulsants at this point, but I do think she should have an EEG, which Dr. Healy has already ordered, and also an MRI of her brain tomorrow. I would avoid giving her contrast with her diabetes and renal function. If her MRI is normal and her EEG does not show any epileptiform features, then I think it is reasonable to keep her off anticonvulsants. I will need to talk to her about driving when she is more alert. Even though this seizure might have been from metabolic derangement, she still should not drive for 6 months and report it to the DMV. I will follow her along with you. [id number]/[facility] #: [id number] PAM
--- NOTE | 2017-11-20 19:56 | ECHO ---
Patient: TAE SILVA [facility] Rec#: [id number] : 1980 Date: 11/20/2017 Age: 37y Height: 165.1 cm / 65.0 in Weight: 110.68 kg / 243.9 lbs Sex: F BSA: 2.15 Room#: [facility]6 Admit Date#: 11/20/2017 Type: Inpatient Referring: Giorgi Healy MD Reading: Bi Garrido MD Transit Mechanic: Laya Haile RDCS CC: Laya Valverde NP Transthoracic Echocardiogram Indication: Hypertension BP: 159/77 HR: 110 Rhythm: Tachycardia Findings History: DM,obesity,asthma,HTN,HLD. Technical Comments: The study quality is fair. Completed at 1043. The study is technically limited due to patient body habitus. Left Ventricle: The left ventricular chamber size is decreased. The left ventricle appears hyperdynamic. The estimated ejection fraction is greater than 65%. The assessment of diastolic function is non-diagnostic. Left Atrium: The left atrial chamber size is normal. Right Ventricle: The right ventricular cavity size is normal. The right ventricular global systolic function is normal. Right Atrium: The right atrial cavity size is normal. Aortic Valve: The aortic valve structure is not well visualized. The aortic valve is trileaflet. There is trace to mild aortic regurgitation. There is mild aortic stenosis. Mitral Valve: The mitral valve leaflets are mildly thickened. There is a trace of mitral regurgitation. There is no evidence of mitral stenosis. Tricuspid Valve: The tricuspid valve leaflets are normal. There is no evidence of tricuspid valve regurgitation. Unable to estimate the right ventricular systolic pressure. There is no tricuspid stenosis. Pulmonic Valve: The pulmonic valve appears normal. There is trace to mild pulmonic regurgitation. There is no pulmonic stenosis. Pericardium: A pericardial fat pad is visualized. Aorta: There is no dilatation of the ascending aorta. There is no dilatation of the aortic arch. There is no dilation of the aortic root. Pulmonary Artery: The main pulmonary artery appears normal. Venous: The venous system is not well visualized. Summary: There was not any prior study for comparison. Conclusions The left ventricular chamber size is decreased. The left ventricle appears hyperdynamic. The estimated ejection fraction is greater than 65%. There is trace to mild aortic regurgitation. There is mild aortic stenosis. There is a trace of mitral regurgitation. There is trace to mild pulmonic regurgitation. Measurements Name Value Normal Range RVIDd (AP) 2D 3.1 cm (0.9 - 2.6) RVDdMajor (2D) 3.1 cm (2.2 - 4.4) RAd ISD 4CH 4.1 cm (3.4 - 4.9) IVSd (2D) 1.3 cm (0.6 - 1) LVPWd (2D) 1.6 cm (0.6 - 1) LVIDd (2D) 3.4 cm (3.6 - 5.4) LVIDs (2D) 1.8 cm - LV FS (2D) 45 % (25 - 45) Aortic Annulus 1.4 cm (1.4 - 2.6) Ao root diameter (2D) 2.7 cm (2.1 - 3.5) Ascending Ao 2.4 cm (2.1 - 3.4) Aortic arch 2 cm (1.8 - 3.4) Descending Ao 1.3 cm - LA dimension (AP) 2D 3.2 cm (2.3 - 3.8) LAd ISD 4CH 4.6 cm (2.9 - 5.3) LA ISD 4CH W 3.3 cm (2.5 - 4.5) Name Value Normal Range LA ESV SP 4CH (A/L) 34 ml - LA ESV SP 2CH (A/L) 39 ml - LA ESV BP (A/L) 39 ml - LA ESV BP (A/L) index 18.27 ml/m2 - LA ESV SP 4CH (MOD) 33 ml - LA ESV SP 2CH (MOD) 37 ml - Name Value Normal Range MV E-wave Vmax 1.2 m/sec - MV deceleration time 114 msec - MV A-wave Vmax 1.1 m/sec - MV E:A ratio 1.11 ratio - LV septal e' Vmax 0.05 m/sec - LV lateral e' Vmax 0.09 m/sec - LV E:e' septal ratio 24 ratio - LV E:e' lateral ratio 13.33 ratio - Name Value Normal Range AV Vmax 2.3 m/sec - AV VTI 40.4 cm - AV peak gradient 20.72 mmHg - AV mean gradient 9.92 mmHg - LVOT Vmax 1.5 m/sec - LVOT VTI 25 cm - LVOT peak gradient 9.35 mmHg - LVOT mean gradient 4.87 mmHg - Name Value Normal Range PV Vmax 1.6 m/sec - PV peak gradient 10.11 mmHg -
[2017-11-20] MEDS: hydrALAZINE IV* 20 MG/ML VIAL IV PRN (20:06)
[2017-11-21] MEDS: Metoclopramide TAB* 10 MG PO SCH ×6 (00:41→19:42)
[2017-11-21] MEDS: diPHENhydraMINE PO* 25 MG PO PRN ×2 (01:57→16:28)
[2017-11-21] MEDS: Heparin VIAL(*) 5000 UNITS/ML VIAL (FIVE THOUSAND) SUBCUT SCH ×3 (06:04→21:01)
[2017-11-21] MEDS: hydrALAZINE IV* 20 MG/ML VIAL IV PRN ×4 (06:34→20:52)
[2017-11-21] MEDS: NS 0.9% 1000 ML* 1,000 ML IV SCH (07:01)
[2017-11-21] MEDS: Multivitamins/Minerals TAB PO SCH (08:58)
[2017-11-21] MEDS: Lisinopril TAB* 10 MG PO SCH (08:58)
[2017-11-21] MEDS: amLODIPine TAB* 5 MG PO SCH (08:58)
[2017-11-21] MEDS: Montelukast Sodium TAB* 10 MG PO SCH (08:59)
[2017-11-21 09:00] LABS: ABS Basophils 0.1 10^3/ul (0-0.2); ABS Eosinophils 0.2 10^3/ul (0-0.6); ABS Lymphocytes 2.6 10^3/ul (1.0-4.8); ABS Monocytes 0.4 10^3/ul (0-0.8); ABS Nucleated RBC 0 10^3/ul; Eosinophil % 1.9 % (0-6); Hematocrit 34 % (35-47); Hemoglobin 11.4 g/dl (12.0-16.0); Lymphocyte % 31.1 % (25-47); Mean Corpuscular HGB Conc 33 g/dl (31-36); Mean Corpuscular Hemoglobin 27 pg (27-31); Mean Corpuscular Volume 81 fL (80-97); Mean Platelet Volume 7.1 um3 (7.4-10.4); Nucleated Red Blood Cells % 0; Platelet Count 361 10^3/ul (150-450); Red Cell Distribution Width 16 % (10.5-15); White Blood Count 8.3 10^3/ul (3.5-10.8)
[2017-11-21 09:23] LABS: EGFR Non-African American 49.4 (>60)
--- NOTE | 2017-11-21 10:11 | RAD ---
Indication: Abnormal chest x-ray. CT of the chest was performed without IV contrast. Coronal and sagittal reconstructed images were obtained. Inferior thyroid lobes are unremarkable. No mediastinal or hilar adenopathy is noted. The heart is of normal size without evidence of pericardial effusion. The trachea and major bronchi appear patent. Lung deng demonstrate no evidence of pleural fluid, nodules or masses No retroperitoneal adenopathy is noted. Heart size and configuration. The axilla demonstrates no evidence of abnormal adenopathy. The visualized abdominal organs are unremarkable. There is cholelithiasis without biliary duct dilatation noted. No pleural fluid is identified. IMPRESSION: No evidence of abnormal consolidation. Cholelithiasis without biliary duct dilatation.
[2017-11-21] MEDS: Insulin GLARGINE(*) 1 UNITS UNIT SUBCUT SCH (10:29)
--- NOTE | 2017-11-21 11:10 | RAD ---
Indication: Seizures. Image sequences: Sagittal and axial T1, axial T2, FLAIR, diffusion and susceptibility weighted images of the brain were obtained. Sagittal and axial T1, axial T2, FLAIR, diffusion and susceptibility weighted images of the brain were obtained. Ventricular structures are midline. No midline shift is noted. The extra-axial spaces are unremarkable. FLAIR images demonstrates no evidence of vasogenic edema. The coronal images demonstrates no evidence of hippocampal abnormality. Posterior fossa and brainstem are unremarkable. No restriction of diffusion is noted. Susceptibility weighted images demonstrates no evidence of susceptibility artifact. IMPRESSION: NO INTRACRANIAL LESION IS NOTED.
[2017-11-21] MEDS: Metoprolol Tartrate IV* 1 MG/ML 5 ML VIAL IV PRN ×2 (11:56→19:32)
--- NOTE | 2017-11-21 15:23 | EEG ---
JAIL VIDEO/EEG MONITORING - Monitoring Introduction: INTRODUCTION: The EEG was monitored from 21 scalp electrodes. Nineteen electrodes consisted of the standard parasagittal, temporal and midline leads of the International 10 -20 system. In addition, special electrodes FT9 and FT10 were placed. EEG data were recorded on an [employer] system with simultaneous MPEG-4 digital video recording of patient behavior. EEG recording was in a monopolar montage with all electrodes referenced to FCz. Significant behavioral events were signaled by an event button, or putative electrical seizure events were detected by a computer program. All EEG data were reviewed in their entirety on a monitor with reconstruction of montages and adjustments of sensitivity and filtering. Simultaneous patient behavior was viewed on an adjacent monitor and correlated with the EEG. - Medications Active Medications: Acetaminophen (Tylenol Tab*) 650 mg PO Q4H PRN PRN Reason: FEVER/PAIN Albuterol (Ventolin 2.5 Mg/3 Ml Neb.Marisel*) 2.5 mg INH Q6H PRN PRN Reason: SHORTNESS OF BREATH Albuterol (Ventolin Hfa Inhaler*) 2 puff INH .Q4-6H PRN PRN Reason: SHORTNESS OF BREATH Amlodipine Besylate (Norvasc Tab*) 10 mg PO DAILY [facility] Last Admin: 11/21/17 08:58 Dose: 10 mg Dextrose (D50w Syringe 50 Ml*) 25 gm IV PUSH .FOR FS < 60 - SS PRN PRN Reason: FS < 60 Diphenhydramine HCl (Benadryl Po*) 25 mg PO Q6H PRN PRN Reason: headache Last Admin: 11/20/17 19:54 Dose: 25 mg Heparin Sodium (Porcine) (Heparin Vial(*)) 5,000 units SUBCUT Q8HR [facility] Last Admin: 11/21/17 14:49 Dose: 5,000 units Heparin Sodium (Porcine) (Heparin Flush Picc/Ml/Cvc(*)) 1 - 3 ml FLUSH 0600, 1800 [facility] PRN Reason: Protocol Last Admin: 11/21/17 06:06 Dose: Not Given Hydralazine HCl (Apresoline Iv*) 10 mg IV Q4H PRN PRN Reason: Systolic >170 Last Admin: 11/21/17 14:50 Dose: 10 mg Insulin Human Regular (Insulin Regular Ivpb) 100 units in 100 mls @ 8.618 mls/ hr IVPB .(INITIAL RATE) RONI; 0.1 UNITS/KG/HR PRN Reason: Protocol Last Admin: 11/19/17 20:17 Dose: 8.618 mls/hr Nicardipine/Sodium Chloride (Cardene 0.1mg/Ml Ivpremix*) 20 mg in 200 mls @ 50 mls/hr IV .(as Initial Rate) RONI PRN Reason: 5 MG/HR Last Admin: 11/20/17 14:09 Dose: 50 mls/hr Insulin Glargine (Lantus(*)) 54 units SUBCUT DAILY [facility] Last Admin: 11/21/17 10:29 Dose: 54 units Lisinopril (Prinivil Tab*) 40 mg PO DAILY [facility] Last Admin: 11/21/17 08:58 Dose: 40 mg Metoclopramide HCl (Reglan Tab*) 10 mg PO Q6H [facility] Last Admin: 11/21/17 14:34 Dose: Not Given Metoprolol Tartrate (Lopressor Iv*) 5 mg IV Q6H PRN PRN Reason: BLOOD PRESSURE Last Admin: 11/21/17 11:56 Dose: 5 mg Montelukast Sodium (Singulair Tab*) 10 mg PO QAM [facility] Last Admin: 11/21/17 08:59 Dose: 10 mg Morphine Sulfate (Morphine Vial*) 2 mg IV Q4H PRN PRN Reason: PAIN Multivitamins/Minerals (Theragran/Minerals Tab*) 1 tab PO DAILY [facility] Last Admin: 11/21/17 08:58 Dose: 1 tab - Description Background: The waking background showed appropriate organization with clearly defined anterior-posterior voltage and frequency gradients. There was a defined posterior dominant rhythm of [] Hertz, which was symmetrical and showed normal reactivity. Anteriorly, there was the expected pattern of lower voltage and more irregular theta and beta rhythms. The sleep background was appropriately organized with well-developed spindles and vertex waves indicative of stage 2 sleep. These sleep transients showed appropriate morphology and were bilaterally synchronous and symmetrical. Development of diffuse delta range frequencies with dropout of stage 2 architecture accompanied transition to slow wave sleep, and a lower voltage mixed frequency pattern associated with eye movements was consistent with REM sleep. No epileptiform abnormalities were recorded.
--- NOTE | 2017-11-21 15:37 | EEG ---
DETENTION VIDEO/EEG MONITORING - Monitoring Monitoring Start Date: 11/21/17 EEG Clinical Indication: Ms. Dee is a 37-year-old female with headaches, malignant hypertension who presented with two reported seizures. The EEG is ordered to evaluate for epileptiform abnormalities. Introduction: INTRODUCTION: The EEG was monitored from 21 scalp electrodes. Nineteen electrodes consisted of the standard parasagittal, temporal and midline leads of the International 10 -20 system. In addition, special electrodes FT9 and FT10 were placed. EEG data were recorded on an [employer] system with simultaneous MPEG-4 digital video recording of patient behavior. EEG recording was in a monopolar montage with all electrodes referenced to FCz. Significant behavioral events were signaled by an event button, or putative electrical seizure events were detected by a computer program. All EEG data were reviewed in their entirety on a monitor with reconstruction of montages and adjustments of sensitivity and filtering. Simultaneous patient behavior was viewed on an adjacent monitor and correlated with the EEG. - Medications Active Medications: Acetaminophen (Tylenol Tab*) 650 mg PO Q4H PRN PRN Reason: FEVER/PAIN Albuterol (Ventolin 2.5 Mg/3 Ml Neb.Marisel*) 2.5 mg INH Q6H PRN PRN Reason: SHORTNESS OF BREATH Albuterol (Ventolin Hfa Inhaler*) 2 puff INH .Q4-6H PRN PRN Reason: SHORTNESS OF BREATH Amlodipine Besylate (Norvasc Tab*) 10 mg PO DAILY [facility]CLUDE 234 BEDS AT [facility] Last Admin: 11/21/17 08:58 Dose: 10 mg Dextrose (D50w Syringe 50 Ml*) 25 gm IV PUSH .FOR FS < 60 - SS PRN PRN Reason: FS < 60 Diphenhydramine HCl (Benadryl Po*) 25 mg PO Q6H PRN PRN Reason: headache Last Admin: 11/20/17 19:54 Dose: 25 mg Heparin Sodium (Porcine) (Heparin Vial(*)) 5,000 units SUBCUT Q8HR [facility]S INCLUDE 234 BEDS AT THE [facility] Last Admin: 11/21/17 14:49 Dose: 5,000 units Heparin Sodium (Porcine) (Heparin Flush Picc/Ml/Cvc(*)) 1 - 3 ml FLUSH 0600, 1800 [facility] 234 BEDS AT THE [facility] PRN Reason: Protocol Last Admin: 11/21/17 06:06 Dose: Not Given Hydralazine HCl (Apresoline Iv*) 10 mg IV Q4H PRN PRN Reason: Systolic >170 Last Admin: 11/21/17 14:50 Dose: 10 mg Insulin Human Regular (Insulin Regular Ivpb) 100 units in 100 mls @ 8.618 mls/ hr IVPB .(INITIAL RATE) RONI; 0.1 UNITS/KG/HR PRN Reason: Protocol Last Admin: 11/19/17 20:17 Dose: 8.618 mls/hr Nicardipine/Sodium Chloride (Cardene 0.1mg/Ml Ivpremix*) 20 mg in 200 mls @ 50 mls/hr IV .(as Initial Rate) RONI PRN Reason: 5 MG/HR Last Admin: 11/20/17 14:09 Dose: 50 mls/hr Insulin Glargine (Lantus(*)) 54 units SUBCUT DAILY [facility]S INCLUDE 234 BEDS AT THE [facility] Last Admin: 11/21/17 10:29 Dose: 54 units Lisinopril (Prinivil Tab*) 40 mg PO DAILY [facility]S INCLUDE 234 BEDS AT THE [facility] Last Admin: 11/21/17 08:58 Dose: 40 mg Metoclopramide HCl (Reglan Tab*) 10 mg PO Q6H [facility]S INCLUDE 234 BEDS AT THE [facility] Last Admin: 11/21/17 14:34 Dose: Not Given Metoprolol Tartrate (Lopressor Iv*) 5 mg IV Q6H PRN PRN Reason: BLOOD PRESSURE Last Admin: 11/21/17 11:56 Dose: 5 mg Montelukast Sodium (Singulair Tab*) 10 mg PO QAM COUNTS INCLUDE 234 BEDS AT THE [facility] Last Admin: 11/21/17 08:59 Dose: 10 mg Morphine Sulfate (Morphine Vial*) 2 mg IV Q4H PRN PRN Reason: PAIN Multivitamins/Minerals (Theragran/Minerals Tab*) 1 tab PO DAILY [facility]S INCLUDE 234 BEDS AT THE [facility] Last Admin: 11/21/17 08:58 Dose: 1 tab - Description Background: The most prominent feature of this recorder were rare, sharply contoured waves in the left frontal region maximal at Fp1>Fp2 seen early during the recording. Also, there were occasional, intermittent, polymorphic, 3-5 Hz delta mixed with theta slowing throughout the recording and predominately seen in the frontal regions bilaterally, most prominently during sleep. Otherwise, the waking background showed appropriate organization with clearly defined anterior-posterior voltage and frequency gradients. There was a defined posterior dominant rhythm of [10] Hertz, which was symmetrical and showed normal reactivity. Anteriorly, there was the expected pattern of lower voltage and more irregular theta and beta rhythms. The sleep background was appropriately organized with well-developed spindles and vertex waves indicative of stage 2 sleep. These sleep transients showed appropriate morphology and were bilaterally synchronous and symmetrical. Development of diffuse delta range frequencies with dropout of stage 2 architecture accompanied transition to slow wave sleep, and a lower voltage mixed frequency pattern associated with eye movements was consistent with REM sleep. No clear epileptiform abnormalities or electrographic seizures were recorded.
[2017-11-21] MEDS ORDERED: Potassium Chlor TAB* 20 MEQ TAB.ER PO ONE (15:47)
--- NOTE | 2017-11-21 16:00 | PN ---
Subjective Date of Service: 11/21/17 Interval History: Pt seen and examined. Meds and labs reviewed. Pt still with uncontrolled BP. IV Metoprolol PRN was then ordered. A chest CT was done given previously abnormal CXR reported on presentation which did not suggest presence of consolidation in improving leukocytosis. No abx given. Please see detailed discussions below. ROS: Complains of baseline chronic SIMS. Denied dizziness, F/C, N/V, CP, SOB, increased cough, sputum production, abd pain, diarrhea, constipation, dysuria, myalgias, arthralgias, throat pain, and new skin lesions. The rest of the 14 point ROS are unremarkable. PHYSICAL EXAM: GEN APPEARANCE: Awake, not in acute distress, Obese HEENT: NC/AT, PERRLA, moist oral mucosa, (-) throat erythema NECK: Soft, supple, (-) cervical LAD, (-)JVD HEART: S1S2 WNL, RRR, No MRG CHEST: CTA, BL, GAE, No W/R/R ABD: Soft, ND/NT, NABS 4x Q EXT: No C/C/NLLE2+ SKIN: Warm to touch PSYCH: No active psychosis, hallucinations, depression, SI/HI Family History: Unchanged from Admission Social History: Unchanged from Admission Past Medical History: Unchanged from Admission Objective Active Medications: Acetaminophen (Tylenol Tab*) 650 mg PO Q4H PRN PRN Reason: FEVER/PAIN Albuterol (Ventolin 2.5 Mg/3 Ml Neb.Marisel*) 2.5 mg INH Q6H PRN PRN Reason: SHORTNESS OF BREATH Albuterol (Ventolin Hfa Inhaler*) 2 puff INH .Q4-6H PRN PRN Reason: SHORTNESS OF BREATH Amlodipine Besylate (Norvasc Tab*) 10 mg PO DAILY [facility] Last Admin: 11/21/17 08:58 Dose: 10 mg Dextrose (D50w Syringe 50 Ml*) 25 gm IV PUSH .FOR FS < 60 - SS PRN PRN Reason: FS < 60 Diphenhydramine HCl (Benadryl Po*) 25 mg PO Q6H PRN PRN Reason: headache Last Admin: 11/20/17 19:54 Dose: 25 mg Heparin Sodium (Porcine) (Heparin Vial(*)) 5,000 units SUBCUT Q8HR [facility]ON[facility] Last Admin: 11/21/17 14:49 Dose: 5,000 units Heparin Sodium (Porcine) (Heparin Flush Picc/Ml/Cvc(*)) 1 - 3 ml FLUSH 0600, 1800 RONI PRN Reason: Protocol Last Admin: 11/21/17 06:06 Dose: Not Given Hydralazine HCl (Apresoline Iv*) 10 mg IV Q4H PRN PRN Reason: Systolic >170 Last Admin: 11/21/17 14:50 Dose: 10 mg Insulin Human Regular (Insulin Regular Ivpb) 100 units in 100 mls @ 8.618 mls/ hr IVPB .(INITIAL RATE) RONI; 0.1 UNITS/KG/HR PRN Reason: Protocol Last Admin: 11/19/17 20:17 Dose: 8.618 mls/hr Nicardipine/Sodium Chloride (Cardene 0.1mg/Ml Ivpremix*) 20 mg in 200 mls @ 50 mls/hr IV .(as Initial Rate) RONI PRN Reason: 5 MG/HR Last Admin: 11/20/17 14:09 Dose: 50 mls/hr Insulin Glargine (Lantus(*)) 54 units SUBCUT DAILY [facility] Last Admin: 11/21/17 10:29 Dose: 54 units Lisinopril (Prinivil Tab*) 40 mg PO DAILY [facility] Last Admin: 11/21/17 08:58 Dose: 40 mg Metoclopramide HCl (Reglan Tab*) 10 mg PO Q6H [facility] Last Admin: 11/21/17 14:34 Dose: Not Given Metoprolol Tartrate (Lopressor Iv*) 5 mg IV Q6H PRN PRN Reason: BLOOD PRESSURE Last Admin: 11/21/17 11:56 Dose: 5 mg Montelukast Sodium (Singulair Tab*) 10 mg PO QAM [facility] Last Admin: 11/21/17 08:59 Dose: 10 mg Morphine Sulfate (Morphine Vial*) 2 mg IV Q4H PRN PRN Reason: PAIN Multivitamins/Minerals (Theragran/Minerals Tab*) 1 tab PO DAILY [facility] Last Admin: 11/21/17 08:58 Dose: 1 tab Potassium Chloride (Klor Con Er Tab*) 40 meq PO ONCE ONE Stop: 11/21/17 15:48 Vital Signs - 8 hr 0411/21/17 11/21/17 08:00 08:01 08:15 Temperature 99.7 F Pulse Rate 121 116 119 Respiratory 18 17 18 Rate Blood Pressure 187/91 198/101 (mmHg) O2 Sat by Pulse 100 100 100 Oximetry 11/21/17 11/21/17 11/21/17 08:31 08:45 09:00 Temperature Pulse Rate 127 Respiratory 13 18 Rate Blood Pressure 171/88 163/113 (mmHg) O2 Sat by Pulse 99 Oximetry 11/21/17 11/21/17 11/21/17 10:00 10:11 10:13 Temperature Pulse Rate 112 110 Respiratory 20 Rate Blood Pressure 189/96 (mmHg) O2 Sat by Pulse 99 98 Oximetry 11/21/17 11/21/17 11/21/17 10:15 10:30 10:45 Temperature Pulse Rate 109 116 121 Respiratory 17 15 Rate Blood Pressure 184/95 190/122 146/80 (mmHg) O2 Sat by Pulse 99 99 99 Oximetry 11/21/17 11/21/17 11/21/17 11:00 11:15 11:16 Temperature Pulse Rate 116 117 120 Respiratory 20 18 15 Rate Blood Pressure 184/94 189/101 180/99 (mmHg) O2 Sat by Pulse 100 99 100 Oximetry 11/21/17 11/21/17 11/21/17 11:30 11:34 11:43 Temperature Pulse Rate 116 118 118 Respiratory 17 24 19 Rate Blood Pressure 191/101 186/99 175/60 (mmHg) O2 Sat by Pulse 99 100 100 Oximetry 11/21/17 11/21/17 11/21/17 11:45 11:57 12:00 Temperature 98.4 F Pulse Rate 113 118 98 Respiratory 21 17 15 Rate Blood Pressure 186/108 197/97 (mmHg) O2 Sat by Pulse 99 100 97 Oximetry 11/21/17 11/21/17 11/21/17 12:02 12:15 12:30 Temperature Pulse Rate 96 96 93 Respiratory 20 22 17 Rate Blood Pressure 128/79 156/103 174/100 (mmHg) O2 Sat by Pulse 100 100 100 Oximetry 11/21/17 11/21/17 11/21/17 12:45 13:00 13:01 Temperature Pulse Rate 101 102 106 Respiratory 17 17 17 Rate Blood Pressure 167/98 180/98 (mmHg) O2 Sat by Pulse 100 100 100 Oximetry 11/21/17 11/21/17 11/21/17 13:15 13:42 13:45 Temperature Pulse Rate 100 99 101 Respiratory 15 20 16 Rate Blood Pressure 170/94 151/108 175/101 (mmHg) O2 Sat by Pulse 100 85 71 Oximetry 11/21/17 11/21/17 11/21/17 14:00 14:01 14:15 Temperature Pulse Rate Respiratory 20 16 16 Rate Blood Pressure 156/110 180/109 (mmHg) O2 Sat by Pulse Oximetry 11/21/17 11/21/17 11/21/17 14:16 14:30 14:45 Temperature Pulse Rate Respiratory 19 24 30 Rate Blood Pressure 176/90 147/87 170/85 (mmHg) O2 Sat by Pulse Oximetry 11/21/17 11/21/17 11/21/17 15:00 15:20 15:30 Temperature Pulse Rate Respiratory 24 24 18 Rate Blood Pressure 157/87 167/95 163/84 (mmHg) O2 Sat by Pulse Oximetry Oxygen Devices in Use Now: None, OxyMask Result Diagrams: 11/21/17 08:30 11/21/17 08:30 Additional Lab and Data: . Microbiology and Other Data: Microbiology 11/19/17 20:00 Nasal Screen MRSA (PCR)([facility]RILL) - Final Nasal Mrsa Not Detected Assess/Plan/Problems-Billing . Assessment: 37 yo female with IDDM - mild DKA, headache, seizure, malignant hypertension -- admitted for management of these issues. - Patient Problems (1) Seizure Current Visit: Yes Status: Acute Priority: High Code(s): R56.9 - UNSPECIFIED CONVULSIONS SNOMED Code(s): 19575333 Comment: - Likely due to severe lactic acidosis on admission - EEG did not reveal any epileptiform changes - MRI of head shows no intracranial lesion - Two seizures, both witnessed - Lactic acid > 8, but then cleared with aggressive IVF - Patient and family refused keppra after my clear recommendation to receive it - They want to wait and see if treating her DM and SIMS solve the problem. I objected to this, but they insisted NOT to receive that medication. They verbally understand I am telling them this portends a greater seizure risk and they accept that. - neurology consult; eeg ordered. - seizure precautions - repeat brain CT because of ongoing headache. (2) Malignant hypertension Current Visit: Yes Status: Acute Priority: High Code(s): I10 - ESSENTIAL ( PRIMARY) HYPERTENSION SNOMED Code(s): 41044757 Comment: - Will add PRN IV Metoprolol and Metoprolol tartrate 25 mg PO TID - accelerated hypertension - Norvasc added yesterday - SBP improved with nicardipine - repeating head CT - add drug screen? (3) Diabetes mellitus, insulin dependent (IDDM), uncontrolled Current Visit: Yes Status: Acute Priority: High Code(s): E10.65 - TYPE 1 DIABETES MELLITUS WITH HYPERGLYCEMIA SNOMED Code(s): 65628988 Comment: - Improved control - Continue current regimen - A1C of 7.5 (4) Headache Current Visit: Yes Status: Acute Priority: High Code(s): R51 - HEADACHE SNOMED Code(s): 03253010 Comment: - Pt does have chronic SIMS likely exacerbated by HTN - repeat head CT...perhaps early hemorrhage missed by first CT... - BP now stage I htn range...adding oral norvasc (10 mg) to facilitate weaning of nicardipine - lisinopril at 40 mg daily (max dose) (5) Morbid obesity with BMI of 40.0-44.9, adult Current Visit: Yes Status: Acute Priority: High Code(s): E66.01 - MORBID ( SEVERE) OBESITY DUE TO EXCESS CALORIES; Z68.41 - BODY MASS INDEX (BMI) 40.0-44.9 , ADULT SNOMED Code(s): 664146627 Comment: - Advised lifestyle modifications (6) DVT prophylaxis Current Visit: Yes Status: Acute Code(s): QRK9753 - SNOMED Code(s): 433887902 Comment: -Continue Heparin SQ Status and Disposition: --For PT eval --for possible D/C in 1-2 days --Change activity to OOB with assist --CT of chest did not reveal any evidence of consolidation consistent with PNA including improving leukocytosis in absence of abx
[2017-11-21] MEDS ORDERED: Metoprolol Tartrate TAB* 25 MG PO SCH (17:00)
[2017-11-21] MEDS: Acetaminophen TAB* 325 MG PO PRN (21:00)
--- NOTE | 2017-11-21 21:21 | EEG ---
ELECTROENCEPHALOGRAPHY: DATE OF STUDY: 11/21/17, from 12:49 p.m. to 1315 p.m. LOCATION: Inpatient recording. MEDICATION LIST: Please add medication from the list provided. Otherwise, she is currently takin. Metoclopramide. 2. Heparin. 3. Amlodipine. 4. Lantus. 5. Singulair. 6. Acetaminophen. 7. Ventolin. 8. Diphenhydramine. 9. Hydralazine. 10. Metoprolol. 11. Morphine. 12. Nicardipine. CLINICAL PROBLEM: The patient is a 37-year-old female with history of malignant hypertension, who presented with headaches and 2 breakthrough seizures. This EEG was obtained to evaluate for epileptiform abnormalities or electrographic seizures. STATE: Awake and sleep. REPORT: The most prominent feature of this recording were rare, moderate amplitude, sharply contoured slowing in the left frontal region and present early in the recording. Also, there were diffuse, 1-2 Hz theta and delta slowing with a frequency of 3-5 Hz seen most prominently during drowsy state. Otherwise, the waking background showed appropriate organization with clearly defined anterior-posterior voltage and frequency gradients. There was a defined posterior dominant rhythm of 10 Hz, which was symmetric and showed normal reactivity. The sleep background was appropriately organized with well-developed spindles and vertex waves indicative of stage 2 sleep. There were no epileptiform abnormalities recorded. CLINICAL IMPRESSION: This is an abnormal awake and sleep EEG due to the presence of occasional, intermittent, diffuse slowing of the background and rare sharply contoured slowing in the left more than right frontal region. Otherwise, the waking background was normal. These findings are suggestive of mild nonspecific encephalopathy and possible focal neuronal dysfunction involving the left frontal lobe. There were no clear epileptiform abnormalities or electrographic seizures. [id number]/[facility] #: [id number] [facility] CENTERLenard
[2017-11-21] MEDS ORDERED: Ibuprofen TAB* 400 MG PO PRN (23:54)
[2017-11-21] MEDS ORDERED: traMADol TAB* 50 MG PO ONE (23:57)
[2017-11-22] MEDS: Metoclopramide TAB* 10 MG PO SCH ×4 (00:11→19:47)
[2017-11-22] MEDS: Heparin VIAL(*) 5000 UNITS/ML VIAL (FIVE THOUSAND) SUBCUT SCH ×3 (05:50→22:28)
[2017-11-22] MEDS: Acetaminophen TAB* 325 MG PO PRN (05:52)
[2017-11-22 06:07] LABS: EGFR Non-African American 44.8 (>60)
[2017-11-22 06:17] LABS: ABS Basophils 0.1 10^3/ul (0-0.2); ABS Eosinophils 0.2 10^3/ul (0-0.6); ABS Lymphocytes 2.7 10^3/ul (1.0-4.8); ABS Monocytes 0.6 10^3/ul (0-0.8); ABS Neutrophils 4.7 10^3/ul (1.5-7.7); ABS Nucleated RBC 0 10^3/ul; Eosinophil % 2.8 % (0-6); Hematocrit 26 % (35-47); Hemoglobin 8.5 g/dl (12.0-16.0); Lymphocyte % 32.8 % (25-47); Mean Corpuscular HGB Conc 32 g/dl (31-36); Mean Corpuscular Hemoglobin 26 pg (27-31); Mean Corpuscular Volume 82 fL (80-97); Mean Platelet Volume 7.1 um3 (7.4-10.4); Nucleated Red Blood Cells % 0.1; Platelet Count 456 10^3/ul (150-450); Red Blood Count 3.21 10^6/ul (4.0-5.4); Red Cell Distribution Width 15 % (10.5-15); White Blood Count 8.3 10^3/ul (3.5-10.8)
[2017-11-22] MEDS: Montelukast Sodium TAB* 10 MG PO SCH (08:32)
[2017-11-22] MEDS: Lisinopril TAB* 10 MG PO SCH (08:32)
[2017-11-22] MEDS: Multivitamins/Minerals TAB PO SCH (08:32)
[2017-11-22] MEDS: amLODIPine TAB* 5 MG PO SCH (08:33)
[2017-11-22] MEDS: Insulin GLARGINE(*) 1 UNITS UNIT SUBCUT SCH (08:33)
[2017-11-22] MEDS ORDERED: Dextrose 50% Syringe 50 ML* 25 GM/50 ML SYRINGE IV PUSH PRN (09:02)
[2017-11-22 10:05] LABS: ABS Basophils 0 10^3/ul (0-0.2); ABS Eosinophils 0.2 10^3/ul (0-0.6); ABS Lymphocytes 2.4 10^3/ul (1.0-4.8); ABS Monocytes 0.4 10^3/ul (0-0.8); ABS Neutrophils 4.3 10^3/ul (1.5-7.7); ABS Nucleated RBC 0 10^3/ul; Eosinophil % 2.4 % (0-6); Hematocrit 37 % (35-47); Hemoglobin 11.8 g/dl (12.0-16.0); Lymphocyte % 32.7 % (25-47); Mean Corpuscular HGB Conc 32 g/dl (31-36); Mean Corpuscular Hemoglobin 26 pg (27-31); Mean Corpuscular Volume 82 fL (80-97); Mean Platelet Volume 6.5 um3 (7.4-10.4); Nucleated Red Blood Cells % 0; Platelet Count 391 10^3/ul (150-450); Red Blood Count 4.46 10^6/ul (4.0-5.4); Red Cell Distribution Width 16 % (10.5-15); White Blood Count 7.4 10^3/ul (3.5-10.8)
[2017-11-22 10:13] LABS: INR 0.87 (0.77-1.02)
[2017-11-22] MEDS ORDERED: Insulin LISPRO* 1 UNITS UNIT SUBCUT SCH ×2 (11:30→13:10)
--- NOTE | 2017-11-22 16:04 | PN ---
Subjective Date of Service: 11/22/17 Interval History: Pt seen and examined. Meds and labs reviewed. Pt's BP is now improved in control and so is her DM, however, Insulin regimen has been adjusted today. Please see below. ROS: Complains of baseline chronic SIMS. Denied dizziness, F/C, N/V, CP, SOB, increased cough, sputum production, abd pain, diarrhea, constipation, dysuria, myalgias, arthralgias, throat pain, and new skin lesions. The rest of the 14 point ROS are unremarkable. PHYSICAL EXAM: GEN APPEARANCE: Awake, not in acute distress, Obese HEENT: NC/AT, PERRLA, moist oral mucosa, (-) throat erythema NECK: Soft, supple, (-) cervical LAD, (-)JVD HEART: S1S2 WNL, RRR, No MRG CHEST: CTA, BL, GAE, No W/R/R ABD: Soft, ND/NT, NABS 4x Q EXT: No C/C/NLLE2+ SKIN: Warm to touch PSYCH: No active psychosis, hallucinations, depression, SI/HI Family History: Unchanged from Admission Social History: Unchanged from Admission Past Medical History: Unchanged from Admission Objective Active Medications: Acetaminophen (Tylenol Tab*) 650 mg PO Q4H PRN PRN Reason: FEVER/PAIN Last Admin: 11/22/17 05:52 Dose: 650 mg Albuterol (Ventolin 2.5 Mg/3 Ml Neb.Marisel*) 2.5 mg INH Q6H PRN PRN Reason: SHORTNESS OF BREATH Albuterol (Ventolin Hfa Inhaler*) 2 puff INH .Q4-6H PRN PRN Reason: SHORTNESS OF BREATH Amlodipine Besylate (Norvasc Tab*) 10 mg PO DAILY [facility] Last Admin: 11/22/17 08:33 Dose: 10 mg Dextrose (D50w Syringe 50 Ml*) 25 gm IV PUSH .FOR FS < 60 - SS PRN PRN Reason: FS < 60 Dextrose (D50w Syringe 50 Ml*) 12.5 gm IV PUSH .FOR FS < 60 - SS PRN PRN Reason: FS < 60 Diphenhydramine HCl (Benadryl Po*) 25 mg PO Q6H PRN PRN Reason: headache Last Admin: 11/21/17 16:28 Dose: 25 mg Heparin Sodium (Porcine) (Heparin Vial(*)) 5,000 units SUBCUT Q8HR [facility] Last Admin: 11/22/17 14:54 Dose: 5,000 units Heparin Sodium (Porcine) (Heparin Flush Picc/Ml/Cvc(*)) 1 - 3 ml FLUSH 0600, 1800 RONI PRN Reason: Protocol Last Admin: 11/22/17 05:49 Dose: 1 ml Hydralazine HCl (Apresoline Iv*) 10 mg IV Q4H PRN PRN Reason: Systolic >170 Last Admin: 11/21/17 20:52 Dose: 10 mg Insulin Glargine (Lantus(*)) 54 units SUBCUT DAILY [facility] Last Admin: 11/22/17 08:33 Dose: 54 units Insulin Human Lispro (Humalog*) 0 units SUBCUT AC [facility] Lisinopril (Prinivil Tab*) 40 mg PO DAILY [facility] Last Admin: 11/22/17 08:32 Dose: 40 mg Metoclopramide HCl (Reglan Tab*) 10 mg PO Q6H [facility] Last Admin: 11/22/17 12:39 Dose: Not Given Metoprolol Tartrate (Lopressor Iv*) 5 mg IV Q6H PRN PRN Reason: BLOOD PRESSURE Last Admin: 11/21/17 19:32 Dose: 5 mg Montelukast Sodium (Singulair Tab*) 10 mg PO QAM [facility] Last Admin: 11/22/17 08:32 Dose: 10 mg Morphine Sulfate (Morphine Vial*) 2 mg IV Q4H PRN PRN Reason: PAIN Multivitamins/Minerals (Theragran/Minerals Tab*) 1 tab PO DAILY [facility] Last Admin: 11/22/17 08:32 Dose: 1 tab Vital Signs - 8 hr 11/22/17 11/22/17 11:10 14:53 Temperature 98.2 F 98.0 F Pulse Rate 91 100 Respiratory 20 20 Rate Blood Pressure 178/82 154/85 (mmHg) O2 Sat by Pulse 100 99 Oximetry Oxygen Devices in Use Now: None Result Diagrams: 11/22/17 09:58 11/22/17 05:24 Additional Lab and Data: . Microbiology and Other Data: Microbiology 11/19/17 20:00 Nasal Screen MRSA (PCR)([facility]) - Final Nasal Mrsa Not Detected Assess/Plan/Problems-Billing . Assessment: 37 yo female with IDDM - mild DKA, headache, seizure, malignant hypertension -- admitted for management of these issues. - Patient Problems (1) Seizure Current Visit: Yes Status: Acute Priority: High Code(s): R56.9 - UNSPECIFIED CONVULSIONS SNOMED Code(s): 98127555 Comment: - Likely due to severe lactic acidosis on admission - EEG did not reveal any epileptiform changes - MRI of head shows no intracranial lesion - Two seizures, both witnessed - Lactic acid > 8, but then cleared with aggressive IVF - Patient and family refused keppra after my clear recommendation to receive it - They want to wait and see if treating her DM and SIMS solve the problem. I objected to this, but they insisted NOT to receive that medication. They verbally understand I am telling them this portends a greater seizure risk and they accept that. - neurology consult; eeg ordered. - seizure precautions - repeat brain CT because of ongoing headache. (2) Malignant hypertension Current Visit: Yes Status: Acute Priority: High Code(s): I10 - ESSENTIAL ( PRIMARY) HYPERTENSION SNOMED Code(s): 12132321 Comment: - Now resolved and under control--continue current regimen - accelerated hypertension - Norvasc added yesterday - SBP improved with nicardipine - repeating head CT - add drug screen? (3) Diabetes mellitus, insulin dependent (IDDM), uncontrolled Current Visit: Yes Status: Acute Priority: High Code(s): E10.65 - TYPE 1 DIABETES MELLITUS WITH HYPERGLYCEMIA SNOMED Code(s): 52915666 Comment: - Improved control - Continue current regimen - A1C of 7.5 (4) Headache Current Visit: Yes Status: Acute Priority: High Code(s): R51 - HEADACHE SNOMED Code(s): 80486460 Comment: - Pt does have chronic SIMS likely exacerbated by HTN - repeat head CT...perhaps early hemorrhage missed by first CT... - BP now stage I htn range...adding oral norvasc (10 mg) to facilitate weaning of nicardipine - lisinopril at 40 mg daily (max dose) (5) Morbid obesity with BMI of 40.0-44.9, adult Current Visit: Yes Status: Acute Priority: High Code(s): E66.01 - MORBID ( SEVERE) OBESITY DUE TO EXCESS CALORIES; Z68.41 - BODY MASS INDEX (BMI) 40.0-44.9 , ADULT SNOMED Code(s): 071671862 Comment: - Advised lifestyle modifications (6) DVT prophylaxis Current Visit: Yes Status: Acute Code(s): [id number] - SNOMED Code(s): 187864468 Comment: -Continue Heparin SQ Status and Disposition: --For PT eval --for possible D/C in 1-2 days --Change activity to OOB with assist --CT of chest did not reveal any evidence of consolidation consistent with PNA including improving leukocytosis in absence of abx
[2017-11-22] MEDS: Insulin LISPRO* 1 UNITS UNIT SUBCUT SCH (18:01)
[2017-11-22] MEDS: hydrALAZINE IV* 20 MG/ML VIAL IV PRN (20:32)
--- NOTE | 2017-11-22 22:35 | PN ---
PROGRESS NOTE: DATE OF SERVICE: 11/22/17 HISTORY: The patient is a 37-year-old female who presented to the hospital on 11/19/17 due to hyperglycemia and hypertensive urgency. The patient also had 2 seizures that were thought to be related to her metabolic disturbance. Since admission, the patient has not had any seizures. She is complaining of mild headache. Today, the headache is located on the right frontotemporal region, 3/10 in severity, nonradiating, pulsating pain, not associated with photophobia or phonophobia. She denied any nausea. She denied any visual disturbance. The headache has definitely improved with the reduction of the blood pressure. REVIEW OF SYSTEMS: She denied any chest pain, shortness of breath, palpitations or abdominal pain. She denied any swallowing difficulty. Please add her medications. PHYSICAL EXAMINATION: Please add her vitals. General: Well-nourished, well- developed obese female, in no acute distress. She is sitting comfortably in bed. Head: Normocephalic without obvious abnormality. No tenderness to the superficial temporalis artery bilaterally. No temporalis tenderness. No jaw claudication. Eyes: Conjunctivae and cornea are clear. Neck: Supple, symmetrical. No carotid bruits. Lungs: Clear to auscultation bilaterally, nonlabored. Cardio-vascular: Regular rate and rhythm. Normal S1, S2. Neurological Examination: Mental status, she is awake, alert, and oriented to person, place, time, and general circumstances. She would like to get up in rehab and start walking around, so she can feel better. Cranial Nerves: Pupils equal, round, reactive to light and accommodation. Normal extraocular muscle movements. Tongue is symmetric and midline. No fasciculation. Motor: No abnormal movements. No pronator drift. Upper and lower extremity strength is normal at 5/5. Reflexes are trace throughout and absent at the ankles bilaterally. Sensation is intact to light touch throughout. Coordination: Normal [id number], and did not assess gait at this time. IMAGING STUDIES: MRI of the brain was obtained on 11/21/17. This was without contrast and showed no acute intracranial lesion. I personally reviewed the image. She had an EEG completed on 11/21/17, those reported to show no clear epileptiform abnormalities or electrographic seizures, but did show occasional intermittent and diffuse slowing and rare sharply contoured slowing in the left more than the right frontal region. These findings are suggestive of mild nonspecific encephalopathy. ASSESSMENT: This is a 37-year-old female with history of uncontrolled hypertension and diabetes mellitus type 2, who presented with seizures. I suspect the seizures were induced due to her underlying metabolic disturbance and significantly elevated blood pressure. The sharply contoured waves seen on the left temporal region can be nonspecific, but may be related to a focal neuronal dysfunction. There was no structural abnormality on the MRI. There is no examination findings that explains her seizure or headaches. The patient refused to take Keppra, although I informed her today that if we do start her on Keppra, it would be only short term for 1-2 months. She still refused the medication. Seizure precautions were discussed in detail. She should not be driving until she is seizure free for at least 6 months. I urge her to closely monitor and control her blood glucose and hypertension. Anticipating discharge tomorrow if she continues to do well. I will sign off. She can follow up with an outpatient neurologist to make sure she has not had any breakthrough seizures. [id number]/[facility] #: [id number] [facility]ITALLenard
[2017-11-23] MEDS: Metoprolol Tartrate IV* 1 MG/ML 5 ML VIAL IV PRN (00:01)
[2017-11-23] MEDS: Metoclopramide TAB* 10 MG PO SCH ×3 (00:21→12:14)
[2017-11-23] MEDS: hydrALAZINE IV* 20 MG/ML VIAL IV PRN (01:24)
[2017-11-23] MEDS: Labetalol TAB* 100 MG PO SCH ×2 (03:08→08:36)
[2017-11-23] MEDS: Heparin VIAL(*) 5000 UNITS/ML VIAL (FIVE THOUSAND) SUBCUT SCH ×2 (05:53→14:43)
[2017-11-23 06:28] LABS: Hematocrit 33 % (35-47); Hemoglobin 10.8 g/dl (12.0-16.0); Mean Corpuscular HGB Conc 33 g/dl (31-36); Mean Corpuscular Hemoglobin 27 pg (27-31); Mean Corpuscular Volume 82 fL (80-97); Mean Platelet Volume 6.9 um3 (7.4-10.4); Platelet Count 385 10^3/ul (150-450); Red Blood Count 4.08 10^6/ul (4.0-5.4); Red Cell Distribution Width 15 % (10.5-15); White Blood Count 8.9 10^3/ul (3.5-10.8)
[2017-11-23 06:51] LABS: EGFR Non-African American 42.5 (>60)
[2017-11-23] MEDS: Insulin LISPRO* 1 UNITS UNIT SUBCUT SCH ×2 (08:35→12:12)
[2017-11-23] MEDS: Lisinopril TAB* 10 MG PO SCH (08:36)
[2017-11-23] MEDS: amLODIPine TAB* 5 MG PO SCH (08:36)
[2017-11-23] MEDS: Insulin GLARGINE(*) 1 UNITS UNIT SUBCUT SCH (08:36)
[2017-11-23] MEDS: Montelukast Sodium TAB* 10 MG PO SCH (08:36)
[2017-11-23] MEDS: Multivitamins/Minerals TAB PO SCH (08:36)
[2017-11-23 11:53] VITALS: BP 141/67
[2017-11-23] MEDS: Acetaminophen TAB* 325 MG PO PRN ×2 (12:34)
[2017-11-23] MEDS: diPHENhydraMINE PO* 25 MG PO PRN (14:39)
--- NOTE | 2017-11-24 07:51 | DS ---
CC: Dr. Marquez; Dr. Andres Wilkerson; Laya Valverde; DISCHARGE SUMMARY: DATE OF ADMISSION: 11/19/17 DATE OF DISCHARGE: 11/23/17 DISCHARGE DIAGNOSES: As follows: 1. Diabetic ketoacidosis, resolved. 2. Seizures thought to be due to severe lactic acidosis. 3. Malignant hypertension, resolved. 4. Diabetes mellitus. 5. Headache. 6. Morbid obesity. HISTORY OF PRESENT ILLNESS/HOSPITAL COURSE: Ms. Dee is a 37-year-old - [place] lady with a history of hypertension, IDDM and asthma, who presented to our facility on 11/19/17 with a chief complaint of seizures, question of mental status change or possible unconsciousness and severe lactic acidosis secondary to DKA. She was initially admitted to the ICU and was placed on an insulin drip, which was then subsequently titrated off and was placed back on her insulin regimen where she has done well. She has had an echocardiogram, which showed greater than 65% EF with possible diastolic dysfunction with no detectable wall motion abnormalities. Brain CT was done on presentation on 11/20, which was negative for any acute intracranial pathology, although there is some stigmata of acute right maxillary sinusitis. She was also sent for an MRI , which revealed no intracranial lesions that were noted. For the majority of her hospital course, her headache was thought to be due to her malignant hypertension. However, given chronic sinusitis, it is possible that this may be contributing. She had been advised to take her p.r.n. pain medications and given she does not have any leukocytosis nor subsequent evidence of significant bacterial infection, we did not place her on antibiotics to treat the sinusitis and it could be that this is just self limiting and viral and will defer with her primary care physician's opinion on reevaluation and followup. Her antihypertensives were adjusted. Neurology was also consulted for her seizures to see whether she will require prophylactic antiseizure medications and they did not believe at this time that this is warranted and hence will defer. The patient was advised lifestyle modifications prior to discharge. REVIEW OF SYSTEMS: General Appearance: Patient is obese. The patient denied any recent headaches, dizziness, fevers, chills, nausea, vomiting, chest pain, shortness of breath, increased coughing or sputum production, abdominal pain, diarrhea, constipation, pain and/or increased frequency and urination, myalgias , arthralgias, throat pain, or new skin lesions. The rest of the 14-point review of systems is otherwise unremarkable. PHYSICAL EXAMINATION: Reveals the following: Most recent vital signs as follows: Blood pressure 141/67, temperature of 97.4 degrees, 100 beats per minute heart rate, 16 per minute respiratory rate. General Appearance: The patient is awake, not in acute distress. HEENT: Normocephalic, atraumatic. PERRLA. Extraocular muscles intact. Negative for icterus. Moist oral mucosa. Negative throat erythema. Neck is soft, supple with no cervical lymphadenopathy. No JVD. Heart: S1, S2, within normal limits. Regular rate and rhythm. No murmurs, rubs, and gallops. Chest: Clear to auscultation bilaterally. Good air entry. No wheezes, rales, or rhonchi. Abdomen is soft, nondistended, nontender. Normoactive bowel bowel sounds x4. Extremities: No cyanosis, clubbing, or edema. Psychiatric: No active psychosis, depression, suicidal or homicidal ideation. Skin is warm to touch. [id number]/[facility] #: [id number] [facility]
== END 2017-11-23 15:00 | disposition home or self-care (01) | DRG 420 ==
LOC: ED 15:36 → ICU 18:04 → MEDTELE 11-21 18:05
PROVIDERS: ADMIT Internal Medicine; ATTEND Student in an Organized Health Care Education/Training Program
PROC: 06HM33Z Insertion of Infusion Device into Right Femoral Vein, Percutaneous Approach (ICD-10-PCS; 2017-11-20)
PROC: 4A10X4Z Monitoring of Central Nervous Electrical Activity, External Approach (ICD-10-PCS; principal; 2017-11-21)
DX: E11.10 Type 2 diabetes mellitus with ketoacidosis without coma (principal); Z68.41 Body mass index [BMI] 40.0-44.9, adult; R56.9 Unspecified convulsions; J45.909 Unspecified asthma, uncomplicated; I10 Essential (primary) hypertension; K21.9 Gastro-esophageal reflux disease without esophagitis; E78.00 Pure hypercholesterolemia, unspecified; E66.01 Morbid (severe) obesity due to excess calories; E11.21 Type 2 diabetes mellitus with diabetic nephropathy; E86.0 Dehydration; G43.909 Migraine, unspecified, not intractable, without status migrainosus; E87.6 Hypokalemia; R00.0 Tachycardia, unspecified; I16.0 Hypertensive urgency; J01.00 Acute maxillary sinusitis, unspecified; Z88.6 Allergy status to analgesic agent; Z91.013 Allergy to seafood; Z83.3 Family history of diabetes mellitus
CPT/HCPCS: 36415; 70450; 70551; 71045; 71250; 80048; 80053; 80307; 81003; 81015; 82607; 82728; 82746; 82803; 82947; 83036; 83540; 83550; 83605; 83735; 84439; 84443; 84484; 84702; 85025; 85027; 85610; 85730; 86140; 87040; 87086; 87641; 93005; 93306; 95819; 99285; A9270-GY; J0360; J1200; J1644; J1815; J2060; J2765; J3475; J3480; J3490

== ENCOUNTER 2018-02-02 10:51 | Observation (INO) | payer BC ==
[2018-02-02] MEDS ORDERED: oxyCODONE SR TAB(*) 10 MG TAB.SR ONE (12:16)
[2018-02-02] MEDS ORDERED: LORazepam TAB(*) 1 MG ONE (12:56)
[2018-02-02] MEDS ORDERED: Ondansetron ODT TAB* 4 MG ONE (12:56)
[2018-02-02] MEDS ORDERED: Scopolamine 1.5 mg* PATCH TRANSDERM ONE (13:00)
[2018-02-02] MEDS ORDERED: Clindamycin 900 MG IVPREMIX(* 900 MG/50 ML SDV IV ONE (13:00)
[2018-02-02] MEDS ORDERED: Naproxen TAB* 250 MG PO ONE (13:00)
[2018-02-02 13:13] LABS: EGFR Non-African American 39.9 (>60)
[2018-02-02] MEDS ORDERED: diPHENhydraMINE PO* 25 MG ONE (13:45)
[2018-02-02] MEDS ORDERED: Iodixanol* (CONTRAST) 320 MG/ML 100 ML SDV ONE ×2 (13:47→15:35)
[2018-02-02] MEDS ORDERED: Heparin 2 UNITS/ML IVPREMIX* 2,000 ML IV ONE (13:48)
[2018-02-02] MEDS ORDERED: Lidocaine 1% INJ* 10 MG/ML 30 ML SDV ONE ×2 (13:48→14:51)
[2018-02-02] MEDS ORDERED: methylPREDNISolone SOD 40 MG* 1 ML VIAL IV ONE (14:00)
[2018-02-02] MEDS ORDERED: Naloxone* 0.4 MG/ML 1 ML VIAL ONE (14:50)
[2018-02-02] MEDS ORDERED: Flumazenil* 0.1 MG/ML 5 ML MDV ONE (14:50)
[2018-02-02] MEDS ORDERED: fentaNYL* 50 MCG/ML 5 ML VIAL (250 MCG VIAL) ONE (14:50)
[2018-02-02] MEDS ORDERED: Midazolam* 1 MG/ML 10 ML VIAL (10 MG) ONE (14:50)
[2018-02-02] MEDS ORDERED: Ondansetron INJ* 2 MG/ML VIAL ONE ×2 (14:50→18:01)
[2018-02-02] MEDS ORDERED: nitroGLYCERIN DRIP* 25,000 MCG/250 ML BTL ONE (14:51)
[2018-02-02] MEDS ORDERED: HYDROmorphone PCA* 20 MG/20 ML PCA.SYRING ONE (15:53)
[2018-02-02] MEDS ORDERED: Iohexol 350 (CONTRAST) 200 ML MDV IV ONE (16:13)
[2018-02-02] MEDS ORDERED: Acetaminophen IV 1GM/100ML * 1,000 MG/100 ML VIAL IVPB ONE (16:30)
[2018-02-02] MEDS ORDERED: HYDROmorphone PCA* 20 MG/20 ML PCA.SYRING PCA SCH (17:00)
[2018-02-02] MEDS ORDERED: HYDROmorphone INJ* 0.5 MG/0.5 ML SYRINGE ONE (17:10)
[2018-02-02] MEDS ORDERED: HYDROmorphone INJ* 0.5 MG/0.5 ML SYRINGE IV ONE (17:30)
[2018-02-02] MEDS ORDERED: Dextrose 50% Syringe 50 ML* 25 GM/50 ML SYRINGE IV PUSH PRN (18:06)
[2018-02-02] MEDS ORDERED: Albuterol 2.5 MG/3 ML NEB.SOL* (0.083%) INH PRN (18:07)
[2018-02-02] MEDS ORDERED: Albuterol HFA INHALER* 8 gm MDI INH PRN (18:07)
--- NOTE | 2018-02-02 19:10 | RAD ---
CPT II Codes: G9500 Procedure(s) performed: * Pelvic arteriogram including the bilateral left external and common iliac arteries, bilateral internal iliac arteries and the bilateral uterine arteries. * Catheter arteriography of the bilateral uterine arteries. * Catheter embolization of the bilateral uterine arteries. Date of service: February 02, 2018 Indication for procedure: Anemia secondary to heavy menstrual bleeding, pelvic pain and distention in the presence of one large uterine fibroid. Comparison: MR pelvis January 19, 2018, pelvic ultrasound August 16, [address] abdomen pelvis April 08, 2014 Contrast: Visipaque 320 124 mL Fluoroscopy Time: 26.5 minutes Vessels Accessed: Percutaneous access was obtained with ultrasound guidance in the right common femoral artery in the retrograde direction towards the heart. Catheter arteriography was performed with the catheter tip in the following arteries: Left common iliac artery, left external iliac artery, Bilateral internal iliac arteries and Bilateral uterine arteries. Anesthesia: Conscious sedation with IV Fentanyl and Versed as well as local 1% lidocaine injected locally at the arteriotomy site. Conscious sedation time: Timeout: 1458 hours Case end: 1705 hours Total conscious sedation time: 2 hours and 7 minutes Additional medications: * 900 mcg IA nitroglycerin injected intermittently throughout the course of the procedure to alleviate arterial spasm. * Tylenol 1 g IV at the conclusion of the procedure * Prior to the procedure the patient received: Ativan 1 mg p.o. Naproxen sodium 250 mg p.o. OxyContin 10 mg p.o. Scopolamine patch 1.5 mg transdermal applied to the mastoid process. Zofran 4 mg IV Antibiotic prophylaxis was provided by Clindamycin 900 mg IV PROCEDURE NOTE AND INTRAPROCEDURAL IMAGING FINDINGS: Immediately prior to the procedure the patient signed consent after thoroughly discussing all risks and benefits. The patient was positioned on the fluoroscopy table in the supine position and the bilateral groins were shaved, prepped and draped in standard sterile fashion. Using fluoroscopic imaging the location of the right common femoral head was marked externally with a skin marker on the patient's groin. Utilizing sonographic guidance and palpation the right common femoral artery was cannulated overlying the right femoral head with an 21-gauge needle. An ultrasound image was saved. A microwire was slowly and smoothly advanced to the aortic bifurcation under fluoroscopic imaging. No buckling of the wire was visualized to indicate dissection. Over the wire a 5-Ecuadorean catheter was advanced into the artery, the inner stiffener removed and the microwire was replaced with a 0.035" Bentsen wire which was advanced into the aorta. Finally the 5 Ecuadorean catheter was exchanged for a 5 Ecuadorean sidearm sheath. Utilizing a 0.035" wire and 5-Ecuadorean C2 catheter the contralateral left common iliac artery was accessed. The wire was advanced under fluoroscopic control to the proximal left superficial femoral artery. The C2 catheter was removed and over the wire a 5 Ecuadorean Merit Impress catheter was advanced over the iliac bifurcation and the reverse curve was formed in the lower abdominal aorta. Utilizing the reverse curve catheter and the wire the ipsilateral right common iliac artery was selected. With the tip of the catheter in the proximal most portion of the right internal iliac artery, angiography was performed to detail the branches of the right internal iliac artery and to locate the ostium of the right uterine artery. Arteriograms in multiple oblique projections were performed to best discern the branch point of the uterine artery. Once the uterine artery was identified, a microcatheter and microwire were advanced into the parent catheter and, in conjunction with contrast angiography, the uterine artery was identified and selected with the microcatheter and wire system. Prior to embolization, contrast injection into the horizontal portion of the uterine artery demonstrated no large, obvious collateral blood flow to the ovary or a definite cervicovaginal branch descending inferiorly. Intra-arterial nitroglycerin was injected intermittently to alleviate arterial spasm. Under fluoroscopic control approximately 5 vials 500-700 um Embospheres and 1 vial 700-900 um Embospheres were slowly injected into the right uterine artery to near complete stasis. The microcatheter was pulled back into the more proximal descending portion of the uterine artery and contrast angiography depicted near complete stasis of the uterine artery. The 0.035" wire was reinserted into the 5-Ecuadorean catheter and the system was utilized to access the contralateral left internal iliac artery. With the tip of the 5 Ecuadorean Merit Impress catheter in the proximal most portion of the left internal iliac artery, angiography was performed to detail the branches of the left internal iliac artery and to locate the ostium of the left uterine artery. Arteriograms in multiple oblique projections were performed to best discern the branch point of the uterine artery. Once the uterine artery was identified, the microcatheter and microwire were advanced into the parent catheter and, in conjunction with contrast angiography, the uterine artery was identified and selected with the microcatheter and wire system. The left uterine artery is considerably diminutive relative to the right. Prior to embolization, contrast injection into the horizontal portion of the left uterine artery demonstrated no large, obvious collateral blood flow to the ovary or a definite cervicovaginal branch descending inferiorly. Intra-arterial nitroglycerin was injected intermittently to alleviate arterial spasm. Under fluoroscopic control approximately 3/4 vial 500-700 um Embospheres were slowly injected into the left uterine artery to near complete stasis. The microcatheter was pulled back into the more proximal descending portion of the uterine artery and contrast angiography depicted near complete stasis of the uterine artery. The 5-Ecuadorean catheter and 0.035" wire were utilized to access the left external iliac artery which allowed a safe removal of the 5-Ecuadorean Impress catheter. The wire was then removed from the sheath. Through the side arm of the 5-Ecuadorean access sheath with the tip located at the right external iliac artery and arteriogram was performed demonstrating widely patent flow through the right external iliac artery into the femoral profundus and proximal superficial femoral artery. The arteriotomy is well-positioned above the iliac bifurcation and below the inferior epigastric artery directly above the lateral portion of the right superior pubic ramus. The access sheath was removed and pressure was held at the common femoral arteriotomy for approximately 15 minutes. There were no signs of bleeding at the right groin access site and the site was dressed with sterile gauze and Tegaderm. The patient tolerated the procedure well and was transferred to the short stay recovery unit in stable condition for routine overnight observation and pain and nausea control. SUMMARY OF PROCEDURE, IMAGING FINDINGS AND INTERVENTIONS PERFORMED: 1. Diagnostic studies performed: * Arterial access was obtained at the right common femoral artery in the retrograde direction (i.e. towards the heart) with ultrasound guidance. A sonographic image was recorded. * Diagnostic catheter angiography (necessary to perform the appropriate interventions) was performed with the catheter tip in the right common iliac artery, right external iliac artery, bilateral internal iliac arteries and bilateral uterine arteries. * An arteriogram was performed through the access sheath with the tip in the right external iliac artery demonstrating appropriate arteriotomy site in the right common femoral artery. * Catheter arteriography was performed of the inferior most portion of the abdominal aorta, bilateral iliac arterial system and specifically the bilateral uterine arteries. 2. Interpretation of diagnostic studies performed: * The right uterine artery is greatly hypertrophied relative to the diminutive left uterine artery. * The right uterine artery provides the dominant arterial flow to the patient's large uterine fibroid. 3. Surgical interventions performed: * Near stasis embolization of the bilateral uterine arteries utilizing: * Right uterine artery: 5 vials 500-700 um Embospheres and 1 vial 700-900 um Embospheres * Left uterine artery: ~3/4 vial 500-700 um Embospheres 4. Interpretation of interventions performed: * Final arteriography demonstrated near complete stasis of the bilateral uterine arteries.. PLAN: 1. The patient will be admitted to short stay surgical unit for routine overnight observation including pain and nausea control. 2. Outpatient clinical and imaging follow-up according to the Interventional Radiology protocol with the following modifications: * Due to the patient's allergy to Etodolac she will not be receiving IV Toradol per the IR protocol standard. The patient will receive Naprosyn 250 mg p.o. q.8 hours. This was discussed with and advised by the [facility] pharmacy. * Tylenol 1 g IV q.8 hours.
--- NOTE | 2018-02-02 20:26 | HP ---
HOSPITAL MEDICINE HISTORY AND PHYSICAL: DATE OF ADMISSION: 02/02/18 ATTENDING PHYSICIAN: Dr. Aide Finch * (dictation provided by Opal Gonzales NP ). CHIEF COMPLAINT: Uterine leiomyomas. HISTORY OF PRESENT ILLNESS: Ms. Luiz Nunn is a 37-year-old female with a past medical history of insulin-dependent diabetes, asthma, morbid obesity, and hypertension, who presented to the hospital today for planned uterine fibroid embolization with Dr. Nevarez. Please see the documentation from Dr. Nevarez for complete details. In brief, the patient had been found to have uterine fibroids and opted to pursue embolization with Dr. Nevarez today. PAST MEDICAL HISTORY: 1. Insulin-dependent diabetes. 2. Hypertension. 3. Asthma. 4. Recurrent sinusitis. 5. Hypercholesterolemia. 6. Morbid obesity. 7. Chronic kidney disease. PAST SURGICAL HISTORY: History of balloon maxillary surgery and maxillary antrostomies. MEDICATIONS: 1. Lantus insulin 54 units subcutaneously at bedtime. 2. Tylenol 650 mg p.o. q.4 hours p.r.n. 3. Multivitamin with mineral 1 tab p.o. daily. 4. Singular 10 mg p.o. q.a.m. 5. Lisinopril 40 mg p.o. daily. 6. Lispro t.i.d. with meals. 7. Albuterol 2.5 mg inhaled q.6 hours p.r.n. 8. Labetalol 100 mg p.o. b.i.d. 9. Calcium with vitamin D 1 tab p.o. daily. 10. Albuterol 2 puffs inhaled four times a day p.r.n. ALLERGIES: To SHRIMP and ETODOLAC. FAMILY HISTORY: Reviewed and noncontributory. SOCIAL HISTORY: No report of alcohol, tobacco, or drug use. The patient states her would be the healthcare proxy. REVIEW OF SYSTEMS: A 14-point review of systems was completed with Ms. Dee and all those not mentioned above were negative. PHYSICAL EXAMINATION GENERAL: Ms. Luiz Nunn is lying in the bed in the immediate postprocedural period in the postanesthesia care unit. Her family is at the bedside. VITAL SIGNS: Pulse rate 93, respiratory rate 18, O2 saturation 100% on room air , blood pressure 153/81. LUNGS: Clear to auscultation bilaterally with no accessory muscle use and good aeration. HEART: S1, S2. No murmur, rub, or gallop, and regular. ABDOMEN: Soft, nontender with bowel sounds positive x4. EXTREMITIES: No cyanosis or edema. NEURO: She is drowsy, but awakens easily to voice. She answers all questions appropriately. There is no facial asymmetry or focal weakness. Extraocular movements are intact. SKIN: Intact. LABORATORY DATA: Sodium 136, potassium 4.4, chloride 103, serum bicarbonate 26 , BUN 17, creatinine 1.48, glucose 121. ASSESSMENT AND PLAN: Ms. Luiz Nunn is a 37-year-old female with past medical history of insulin-dependent diabetes, hypertension, hypercholesterolemia, and asthma, who presents today to the hospital for planned uterine fibroid embolization with Dr. Nevarez. Our plan is as follows: 1. Status post uterine fibroid embolization. Management will be under the direction of Dr. Nevarez. The patient will have pain medications including Dilaudid SAMPLE DISTRIBUTOR overnight. She does have an allergy to ETODOLAC and therefore cannot take Toradol. She will have Tylenol and naproxen available routinely. She will be transitioned over to oral narcotic medication regimen tomorrow. She will have antiemetics p.r.n. 2. Type 2 diabetes. We will check blood glucoses q.a.c. and h.s. with lispro sliding scale. She will have her home Lantus at a reduced dose tonight as she will likely have poor oral intake. 3. Asthma. No evidence of exacerbation. She will continue on her nebulizers as needed. 4. DVT prophylaxis. With heparin subcu. 5. Code status is full code. TIME SPENT: Approximately 60 minutes was spent on the admission of this patient , more than half time was spent with the patient at the bedside reviewing the events leading up to this hospitalization, performing the physical examination and reviewing my plan of care. OPAL GONZALES NP [id number]/CPS #: [id number] PAM
[2018-02-02] MEDS: Naproxen TAB* 250 MG PO SCH (20:52)
[2018-02-02] MEDS: Labetalol TAB* 100 MG PO SCH (20:53)
[2018-02-02] MEDS: Insulin GLARGINE(*) 1 UNITS UNIT SUBCUT SCH ×2 (20:55→23:51)
[2018-02-02] MEDS: Ondansetron INJ* 2 MG/ML VIAL IV SCH ×2 (20:56→23:54)
[2018-02-02] MEDS: NS 0.9% 1000 ML* 1,000 ML IV SCH (22:59)
[2018-02-02] MEDS: Acetaminophen IV 1GM/100ML * 1,000 MG/100 ML VIAL IVPB SCH (23:58)
[2018-02-03] MEDS: Naproxen TAB* 250 MG PO SCH ×2 (04:02→13:03)
[2018-02-03] MEDS: NS 0.9% 1000 ML* 1,000 ML IV SCH (04:08)
[2018-02-03] MEDS: Ondansetron INJ* 2 MG/ML VIAL IV SCH (05:49)
[2018-02-03] MEDS ORDERED: Insulin LISPRO* 1 UNITS UNIT SUBCUT SCH (07:30)
[2018-02-03] MEDS: Acetaminophen IV 1GM/100ML * 1,000 MG/100 ML VIAL IVPB SCH (07:43)
[2018-02-03 08:06] VITALS: BP 144/68
[2018-02-03] MEDS ORDERED: NS 0.9% 1000 ML* 1,000 ML IV ONE (08:26)
[2018-02-03] MEDS ORDERED: Insulin LISPRO* 1 UNITS UNIT SUBCUT ONE ×3 (08:35→15:06)
--- NOTE | 2018-02-03 08:56 | PN ---
Progress Note - Progress Note Date of Service: 02/03/18 SOAP: Subjective: Pain well controlled, 08/03 "cramping". Denies nausea or emesis. No appetite. + void. Carter "woozy" when standing and walking. Objective: Selected Entries 02/03/18 07:18 Temperature 97.2 F Temperature Temporal Artery Source Scan Pulse Rate 92 Respiratory 16 Rate Blood Pressure 144/68 (mmHg) Blood Pressure 86 Mean O2 Sat by Pulse 100 Oximetry Patient on Room No Air Laboratory Tests 02/02/18 02/03/18 02/03/18 20:37 07:44 08:09 POC Glucose (mg/dL) 132 H 437 H* Glucose Meter Confirm 431 H Mildly distressed due to POC glucose reads AAO x 3 Abdomen is soft, minimally tender Protuberant at the umbilicus Right groin is soft, nontender Dressing is CDI 2+ pulses in RLE RLE neuromuscular intact grossly Assessment: 37 YOF POD #1 Uterine Artery Fibroid Embolization with pain and nausea well controlled. Glucose spike that the patient attributes to eating crackers overnight. Plan: 1. Transition IV to PO meds. 2. Correct glucose managed by hospitalists (Stephanie Singleton [employer]IENT [employer] SERVICES CLERK at bedside during my evaluation). 3. Ambulate with assistance. 4. Add Clindamycin 600 mg Q 8 hours x 5 days
[2018-02-03] MEDS ORDERED: HYDROcodone/ACETAMIN 5-325 MG* 1 TAB PO PRN (08:59)
[2018-02-03] MEDS ORDERED: Multivitamins/Minerals TAB PO SCH (09:00)
[2018-02-03] MEDS ORDERED: Lisinopril TAB* 10 MG PO SCH (09:00)
[2018-02-03] MEDS ORDERED: Dextrose 50% Syringe 50 ML* 25 GM/50 ML SYRINGE IV PUSH PRN (09:02)
[2018-02-03] MEDS ORDERED: Insulin GLARGINE(*) 1 UNITS UNIT ONE (09:09)
[2018-02-03] MEDS ORDERED: Insulin GLARGINE(*) 1 UNITS UNIT SUBCUT ONE (09:10)
[2018-02-03] MEDS: Montelukast Sodium TAB* 10 MG PO SCH ×2 (09:44→09:50)
[2018-02-03] MEDS: Ondansetron ODT TAB* 4 MG PO SCH ×2 (09:44→15:01)
[2018-02-03] MEDS: Labetalol TAB* 100 MG PO SCH (09:44)
--- NOTE | 2018-02-03 10:42 | PN ---
Subjective Date of Service: 02/03/18 Interval History: patient very upset this morning d/t her blood sugar of 400. she usually uses lispro with carb counting. otherwise she reports she is doing well post-op. Objective Active Medications: Hydrocodone Bitart/Acetaminophen (Surprise 5-325 Tab*) 2 tab PO Q6H PRN PRN Reason: PAIN Stop: 02/10/18 08:58 Last Admin: 02/03/18 09:44 Dose: 2 tab Albuterol (Ventolin 2.5 Mg/3 Ml Neb.Marisel*) 2.5 mg INH Q6H PRN PRN Reason: SHORTNESS OF BREATH Albuterol (Ventolin Hfa Inhaler*) 2 puff INH QID PRN PRN Reason: SOB/WHEEZING Dextrose (D50w Syringe 50 Ml*) 12.5 gm IV PUSH .FOR FS < 60 - SS PRN PRN Reason: FS < 60 Dextrose (D50w Syringe 50 Ml*) 12.5 gm IV PUSH .FOR FS < 60 - SS PRN PRN Reason: FS < 60 Insulin Human Lispro (Humalog*) 0 units [facility]BCUT [facility]; Protocol Labetalol HCl (Trandate Tab*) 100 mg PO BID [facility] Last Admin: 02/03/18 09:44 Dose: 100 mg Lisinopril (Prinivil Tab*) 40 mg PO DAILY [facility] Last Admin: 02/03/18 09:44 Dose: 40 mg Montelukast Sodium (Singulair Tab*) 10 mg PO QAM [facility] Last Admin: 02/03/18 09:50 Dose: Not Given Multivitamins/Minerals (Theragran/Minerals Tab*) 1 tab PO DAILY [facility] Last Admin: 02/03/18 09:50 Dose: Not Given Naproxen (Naprosyn Tab*) 250 mg PO Q8H [facility] Stop: 02/07/18 19:59 Last Admin: 02/03/18 04:02 Dose: 250 mg Ondansetron HCl (Zofran Odt Tab*) 4 mg PO Q6H [facility] Stop: 02/10/18 08:59 Last Admin: 02/03/18 09:44 Dose: 4 mg Vital Signs - 8 hr 02/03/18 02/03/18 02/03/18 04:00 04:11 05:55 Temperature 98.4 F Pulse Rate 96 Respiratory 18 18 16 Rate Blood Pressure 137/80 (mmHg) O2 Sat by Pulse 100 100 100 Oximetry 02/03/18 02/03/18 07:18 09:44 Temperature 97.2 F Pulse Rate 92 Respiratory 16 18 Rate Blood Pressure 144/68 (mmHg) O2 Sat by Pulse 100 Oximetry Oxygen Devices in Use Now: Nasal Cannula Appearance: 37 yo female sitting up in bed A+O x3, Eyes: No Scleral Icterus, PERRLA Ears/Nose/Mouth/Throat: Mucous Membranes Moist Neck: NL Appearance and Movements; NL JVP Respiratory: Symmetrical Chest Expansion and Respiratory Effort, Clear to Auscultation Cardiovascular: NL Sounds; No Murmurs; No JVD, RRR, No Edema Abdominal: - - soft, mild tenderness, no guarding Extremities: No Edema, No Clubbing, Cyanosis Skin: No Rash or Ulcers, No Nodules or Sclerosis Neurological: Alert and Oriented x 3, NL Sensation, NL Muscle Strength and Tone Lines/Tubes/Other Access: Clean, Dry and Intact Peripheral IV Nutrition: Taking PO's Result Diagrams: 02/02/18 12:40 Assess/Plan/Problems-Billing Assessment: - Patient Problems (1) Status post embolization of uterine artery Comment: - POD #1 - doing well - Dispo per Dr. holland - discharge meds per Dr. Holland, bowel regimen (2) Diabetes type I Comment: - hyperglycenic today - suspect secondary to stroids given yesterday and is under stress - start patient back on her home regimen - lispro with carb counting. Switch lantus back to am schedule and give now. Pt is very knowledgable in regards to her diabetes management. FSBG coming down. can go home when better controlled (3) CKD (chronic kidney disease) Comment: baseline (4) Hypertension Comment: controlled. continue home meds (5) DVT prophylaxis Comment: -SCDs Status and Disposition: OBV. Plan for DC to home today
[2018-02-03] MEDS: Insulin LISPRO* 1 UNITS UNIT SUBCUT SCH ×2 (13:13→17:29)
--- NOTE | 2018-02-03 13:15 | PN ---
Progress Note - Progress Note Date of Service: 02/03/18 SOAP: Subjective: Patient seen and examined at bedside with her Toni present. No significant pain. No nausea or emesis. Has walked independently and taken shower. Tolerating food and fluids. No vaginal drainage or bleeding. Objective: Selected Entries 02/03/18 02/03/18 07:18 09:44 Temperature 97.2 F Pulse Rate 92 Respiratory 18 Rate Blood Pressure 144/68 (mmHg) Blood Pressure 86 Mean O2 Sat by Pulse 100 Oximetry Patient on Room No Air Laboratory Tests 02/03/18 02/03/18 02/03/18 09:26 10:37 11:39 POC Glucose (mg/dL) 397 H 349 H 314 H 02/03/18 12:53 POC Glucose (mg/dL) 319 H NAD, AAO x 3 Abd soft and NT Right groin is soft, NT Dressing is CDI 2+ pulses in RLE RLE neuromuscular intact grossly Assessment: 37 YOF POD #1 UFE with pain and nausea well controlled. Blood glucose continues to be high. Plan: 1. After blood glucose corrected, discharge to home. 2. Routine Interventional Radiology follow up will include RN clinic follow up telephone calls 02/06/18 and , 02/09/18. Follow up in the clinic in 6 weeks and 6 months. 3. Outpatient Rx regimen will include: Naproxen 250 mg PO every 8 hours x 3 days (please remind patient to drinks lots of water and take with food) AFTER 3 days, reduce to Naproxen 250 mg PO every 12 hours x 3 days [place] 5/325 1 or 2 tablets PO Q 6 hours PRN x 7 days, dispense #30 (thirty), no refills Zofran 4 mg PO Q 6 hours x 5 days, dispense #30, 1 refill Scopoloamine 1.5 mg TD patch: on the morning of Tuesday, replace current patch with new patch and wear x 3 days Clindamycin 600 mg PO every 8 hours x 5 days 4. Patient and her Toni advised to purchase laxative tea (E.g. Smooth Move) and drink one cup daily x 1 week to avoid constipation.
== END 2018-02-03 17:30 | disposition home or self-care (01) ==
LOC: CHICATH 10:51 → SSU 19:32
PROVIDERS: ADMIT Internal Medicine; ATTEND Internal Medicine
DX: N92.4 Excessive bleeding in the premenopausal period (principal); D25.9 Leiomyoma of uterus, unspecified; E11.9 Type 2 diabetes mellitus without complications; Z79.4 Long term (current) use of insulin; I10 Essential (primary) hypertension; J45.909 Unspecified asthma, uncomplicated; J32.9 Chronic sinusitis, unspecified; E66.2 Morbid (severe) obesity with alveolar hypoventilation; N18.9 Chronic kidney disease, unspecified
CPT/HCPCS: 36415; 37243; 75736; 76937; 80048; 82947; 84702; 99156; 99157; A9270-GY; C1769; C1884; C1887; C1894; G0378; J1170; J1644; J2250; J2310; J2405; J2920; J3010

== ENCOUNTER 2018-06-25 14:54 | Emergency (ER) | payer BC, OTHER ==
[2018-06-25 15:16] VITALS: BP 132/78
--- NOTE | 2018-06-25 15:34 | UC ---
Neck Pain HPI - HPI Summary HPI Summary: 37 year old female with history of diabetes, hypertension, and seizures presents with worsening neck pain x 1 day. Patient states she had seizures in October and has since been experiencing mild anterior neck pain with certain positions. Last night, patient states pain became significantly worse to the point of being unable to move neck. Patient states the pain is primarily in the anterior/lateral neck with no radiation. She rates the current severity at a 7/ 10 and describes the pain as sharp and achy, "like getting hit with something." Patient has a history of paresthesias in her bilateral hands for which she is being followed by PCP. Patient states approximately 2 weeks ago she had a sore throat associated with lymphadenopathy which has since resolved. Patient has a history of chronic sinusitis but denies any recent flares. Patient is not currently on any seizure control medications. Denies headaches, changes in vision, chest pain, SOB, nausea/vomiting. Endorses current neck pain and limited ROM of neck. - History of Current Complaint Chief Complaint: UCGeneralIllness Stated Complaint: NECK PAIN Time Seen by Provider: 06/25/18 15:03 Hx Obtained From: Patient Hx Last Menstrual Period: 06/24/18 ?: No Onset/Duration Of Injury/Symptoms: Months Timing: Intermittent Episodes Onset/Duration: Gradual Onset Severity: Moderate Pain Intensity: 7 Location: Discrete At: - anterior neck Character: Sharp, Aching Aggravating Factors: Position Alleviating Factors: Other: - ROM stretches Associated Signs & Symptoms: Positive: Negative - Risk Factors Meningitis Risk Factors: Immune Deficiency - Allergies/Home Medications Allergies/Adverse Reactions: Allergies Allergy/AdvReac Type Severity Reaction Status Date / Time shrimp Allergy Itching Verified 06/25/18 15:10 etodolac AdvReac fainting Verified 06/25/18 15:10 ENVIRONMENTAL/SEASONAL Allergy Unknown Uncoded 06/25/18 15:10 Reaction Details PMH/Surg Hx/FS Hx/Imm Hx Previously Healthy: No Endocrine History: Diabetes Cardiovascular History: Hypertension Respiratory History: Other - chronic sinusitis Psychological History: Other - history of seizures - Surgical History Surgical History: Yes Surgery Procedure, Year, and Place: triger finger surg [facility]. 2013 S[facility]US [facility]. 2012, [facility], [facility]. 2-3 MORE SINUS SURGERY. C SECTION 02/2016 - Family History Known Family History: Positive: Diabetes Family History: Denies FHx of malignant hyperthermia or anesthesia reaction. - Social History Alcohol Use: None Substance Use Type: None Smoking Status (MU): Never Smoked Tobacco Have You Smoked in the Last Year: No - Immunization History Most Recent Influenza Vaccination: fall 2016 Most Recent Pneumonia Vaccination: believes has had Review Of Systems Constitutional: Negative: Fever, Chills, Fatigue Skin: Positive: Negative Eyes: Negative: Photophobia, Blurred Vision ENT: Positive: Sore Throat. Negative: Ear Ache, Sinus Congestion Respiratory: Negative: Shortness Of Breath Cardiovascular: Negative: Chest Pain Gastrointestinal: Negative: Abdominal Pain, Vomiting, Nausea Neurological: Positive: Paresthesia Psychological: Positive: Negative All Other Systems Reviewed And Are Negative: Yes Physical Exam Triage Information Reviewed: Yes Appearance: Well-Appearing, No Pain Distress, Obese Vital Signs: Initial Vital Signs Temp 97.4 F 06/25/18 15:06 Pulse 91 06/25/18 15:06 Resp 18 06/25/18 15:06 BP 132/78 06/25/18 15:06 Pulse Ox 98 06/25/18 15:06 Vital Signs Reviewed: Yes Eye Exam: Normal Eyes: Positive: Conjunctiva Clear ENT: Positive: Hearing grossly normal, Tonsillar swelling, Uvula midline. Negative: Sinus tenderness Neck: Positive: Supple, No Lymphadenopathy, Tenderness @ - lateral, anterior neck, Other: - Some limitation of ear to shoulder on the left. Respiratory: Positive: Lungs clear, Normal breath sounds Cardiovascular: Positive: RRR, Pulses Normal Diagnostics - Radiology No standard instances Radiology Interpretation Completed By: Radiologist Summary of Radiographic Findings: Impression: slightly limited study. straightening of cerivical spine. Neck Pain Course/Dx - Course Course Of Treatment: 37 year old female with significant comorbidity presents with chronic neck pain since October after having seizure. She has not had any imaging since that time. X-rays today show no bony abnormalities. Concern would be for chronic ligamentous issues. Recommend outpatient MRI. Neurologically intact at present. No obvious swelling or thyromegaly on exam. Baseline creatinine 1.5 and so we will not prescribe NSAID. Muscle relaxer and referred to primary care physician for possible consideration of MRI. Patient' s blood sugars have been well-controlled since she instituted a 24-hour continuous blood sugar monitoring device. - Differential Dx/Diagnosis Provider Diagnosis: Chronic neck pain, CKD (chronic kidney disease), Diabetes type I Discharge - Sign-Out/Discharge Documenting (check all that apply): Patient Departure All imaging exams completed and their final reports reviewed: Yes - Discharge Plan Condition: Improved Disposition: HOME Prescriptions: Metaxalone [Skelaxin] 800 mg PO TID PRN #20 tablet PRN Reason: muscle pain/stiffness Patient Education Materials: Neck Pain (ED) Referrals: Quintin Larose KINDERGARTEN TUTOR [Primary Care Provider] - Additional Instructions: Call your primary care physician first thing in the morning to schedule follow- up. MRI scan may be appropriate for you've given the possibility of remote trauma. Return if worse, difficulty swallowing, numbness/weakness, new symptoms or other concerns. - Billing Disposition and Condition Condition: IMPROVED Disposition: Home - Attestation Statements Document Initiated by Fady: No
== END 2018-06-25 16:10 | disposition home or self-care (01) ==
LOC: UCEAST 14:54
DX: M54.2 Cervicalgia (principal); E10.22 Type 1 diabetes mellitus with diabetic chronic kidney disease; I12.9 Hypertensive chronic kidney disease with stage 1 through stage 4 chronic kidney disease, or unspecified chronic kidney disease; N18.9 Chronic kidney disease, unspecified; Z88.8 Allergy status to other drugs, medicaments and biological substances
CPT/HCPCS: 72050; 99212; G0463

== ENCOUNTER 2019-01-28 00:24 | Observation (INO) | payer BC ==
[2019-01-28 01:36] LABS: ABS Basophils 0.1 10^3/ul (0-0.2); ABS Eosinophils 0.3 10^3/ul (0-0.6); ABS Lymphocytes 2.9 10^3/ul (1.0-4.8); ABS Monocytes 0.5 10^3/ul (0-0.8); ABS Neutrophils 5.1 10^3/ul (1.5-7.7); Eosinophil % 3.4 %; Hematocrit 33 % (35-47); Hemoglobin 10.8 g/dL (12.0-16.0); Lymphocyte % 32.2 %; Mean Corpuscular HGB Conc 33 g/dL (31-36); Mean Corpuscular Hemoglobin 27 pg (27-31); Mean Corpuscular Volume 83 fL (80-97); Nucleated Red Blood Cells % 0.1; Platelet Count 379 10^3/uL (150-450); Red Blood Count 3.99 10^6 /uL (3.70-4.87); Red Cell Distribution Width 14 % (10-15); White Blood Count 8.9 10^3/uL (3.5-10.8)
[2019-01-28 01:41] LABS: INR 0.97 (0.82-1.09)
[2019-01-28 01:53] LABS: ALT 13 U/L (7-52); AST 14 U/L (13-39); Albumin 3.8 g/dL (3.2-5.2); Albumin/Globulin Ratio 0.9 (1-3); Alkaline Phosphatase 74 U/L (34-104); Anion Gap 7 mmol/L (2-11); BUN/Creatinine Ratio 13.8 (8-20); Blood Urea Nitrogen 25 mg/dL (6-24); CO2 Carbon Dioxide 25 mmol/L (22-32); Calcium 9.1 mg/dL (8.6-10.3); Chloride 105 mmol/L (101-111); EGFR African American 38.1 (>60); EGFR Non-African American 31.5 (>60); Globulin 4.1 g/dL (2-4); Glucose 118 mg/dL (70-100); Potassium 3.9 mmol/L (3.5-5.0); Sodium 137 mmol/L (135-145); Total Protein 7.9 g/dL (6.4-8.9)
[2019-01-28 04:14] LABS: HCG Pregnancy < 0.60 mIU/mL
[2019-01-28] MEDS ORDERED: Nitroglycerin TAB 0.4 MG* 0.4 MG TAB SL ONE (05:07)
[2019-01-28] MEDS ORDERED: Morphine 4 MG/ML VIAL (1 ml) 4 MG/ML VIAL IV ONE (05:31)
--- NOTE | 2019-01-28 06:23 | ED ---
HPI Chest Pain - HPI Summary HPI Summary: The patient is a 38 y/o F presenting to [facility] with a chief complaint of sudden onset mid-sternal chest pain that radiates into the left arm to the wrist starting a few days ago with worsening tonight. The chest aches started a few days ago with the arm pain starting at 2300. The pain is currently rated 7/10 in severity. 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 She additionally c/o nausea without vomiting, chills, and rhinorrhea. She denies fever, abd pain, diarrhea, constipation, dysuria, hematuria, and sore throat. Hx of DM, HLD, seizures, asthma, GERD. Nonsmoker, no EtOH, no substance use. - History of Current Complaint Chief Complaint: EDChestPainROMI Time Seen by Provider: 01/28/19 02:19 Hx Obtained From: Patient Hx Last Menstrual Period: 06/24/18 Onset/Duration: Started Days Ago, Still Present, Worse Since - tonight at 2300 Timing: Lasting Days Initial Severity: Mild Current Severity: Severe Pain Intensity: 7 Pain Scale Used: 0-10 Numeric Chest Pain Location: Mid Sternal Chest Pain Radiates: Yes Chest Pain Radiates To:: Arm - left Character: Dull/Aching Aggravating Factor(s): Nothing Alleviating Factor(s): Nothing Associated Signs and Symptoms: Positive: Other: - POSITIVE: nausea, chills, rhinorrhea; NEGATIVE: fever, vomiting, abd pain, diarrhea, constipation, dysuria , hematuria, sore throat - Additional Pertinent History Primary Care Physician: [id number] - Allergy/Home Medications Allergies/Adverse Reactions: Allergies Allergy/AdvReac Type Severity Reaction Status Date / Time shrimp Allergy Itching Verified 08/27/18 12:12 etodolac AdvReac fainting Verified 08/27/18 12:12 ENVIRONMENTAL/SEASONAL Allergy Unknown Uncoded 08/27/18 12:12 Reaction Details Home Medications: Home Medications Cholecalciferol (Vitamin D3) [Vitamin D3] 50,000 unit PO WEEKLY 01/28/19 [ History Confirmed 01/28/19] Fenofibrate 1 tab PO DAILY 01/28/19 [History Confirmed 01/28/19] PMH/Surg Hx/FS Hx/Imm Hx Endocrine/Hematology History: Reports: Hx Diabetes - IDDM Cardiovascular History: Reports: Hx Hypertension - ON MEDS Denies: Hx Pacemaker/ICD, Other Cardiovascular Problems/Disorders Respiratory History: Reports: Hx Asthma, Other Respiratory Problems/Disorders - FREQUENT SINUS TROUBLE, POST NASAL DRIP GI History: Reports: Hx Gastroesophageal Reflux Disease Denies: Other GI Disorders History: Reports: Other Problems/Disorders - SOMETIMES PROTIEN IN URINE Denies: Hx Renal Disease Musculoskeletal History: Reports: Other Musculoskeletal History - TRIGGER FINGERS BILAT Sensory History: Denies: Hx Contacts or Glasses, Hx Hearing Aid Opthamlomology History: Denies: Hx Contacts or Glasses Neurological History: Reports: Hx Seizures - ONE SEIZURE MANY YEARS AGO, Other Neuro Impairments/Disorders - trigger finger [facility] WITH SURGERY Psychiatric History: Denies: Hx Panic Disorder - Surgical History Surgery Procedure, Year, and Place: 2009/2010 triger finger surg [facility]7 [facility]. 2013 [facility]US [facility]. 2012, [facility], [facility]. 2-3 MORE SINUS SURGERY. C SECTION 02/2016 Hx Anesthesia Reactions: No - Immunization History Date of Tetanus Vaccine: utd Date of Influenza Vaccine: fall 2016 Infectious Disease History: No Infectious Disease History: Denies: Traveled Outside the [place] in Last 30 Days - Family History Known Family History: Positive: Diabetes Family History: Denies FHx of malignant hyperthermia or anesthesia reaction. - Social History Alcohol Use: None Hx Substance Use: No Substance Use Type: Reports: None Hx Tobacco Use: No Smoking Status (MU): Never Smoked Tobacco Have You Smoked in the Last Year: No Review of Systems Positive: Chills. Negative: Fever Positive: Nasal Discharge. Negative: Sore Throat Positive: Chest Pain - left-sided Positive: Nausea, Other - NEGATIVE: constipation. Negative: Abdominal Pain, Vomiting, Diarrhea Negative: dysuria, hematuria Positive: Other - left arm pain All Other Systems Reviewed And Are Negative: Yes Physical Exam - Summary Physical Exam Summary: Constitutional: Well-developed, Well-nourished, Alert. (-) Distressed Skin: Warm, Dry HENT: Normocephalic; Atraumatic Eyes: Conjunctiva normal Neck: Musculoskeletal ROM normal neck. (-) JVD, (-) Stridor, (-) Tracheal deviation Cardio: Rhythm regular, rate normal, Heart sounds normal; Intact distal pulses; The pedal pulses are 2+ and symmetric. Radial pulses are 2+ and symmetric. (-) Murmur Pulmonary/Chest wall: Tenderness to palpation of left anterior chest wall. Effort normal. (-) Respiratory distress, (-) Wheezes, (-) Rales Abd: Soft, (-) tenderness, (-) Distension, (-) Guarding, (-) Rebound Musculoskeletal: (-) Edema Lymph: (-) Cervical adenopathy Neuro: Alert, Oriented x3 Psych: Mood and affect Normal Triage Information Reviewed: Yes Vital Signs On Initial Exam: Initial Vitals Temp Pulse Resp BP Pulse Ox 98 F 97 20 146/73 100 01/28/19 00:34 01/28/19 00:34 01/28/19 00:34 01/28/19 00:34 01/28/19 00:34 Vital Signs Reviewed: Yes Diagnostics - Vital Signs Vital Signs Temp Pulse Resp BP Pulse Ox 01/28/19 06:00 97.6 F 01/28/19 05:57 18 01/28/19 05:29 86 19 113/49 99 01/28/19 05:26 87 12 100/54 99 01/28/19 05:01 82 15 97 01/28/19 04:59 101 19 124/78 95 01/28/19 04:29 79 14 118/75 99 01/28/19 04:01 76 17 99 01/28/19 03:59 82 13 121/63 99 01/28/19 03:29 105/70 01/28/19 03:15 89 14 126/64 100 01/28/19 03:00 82 17 99 01/28/19 02:29 94 18 126/67 100 01/28/19 02:01 80 14 99 01/28/19 01:59 79 13 92/50 99 01/28/19 01:29 85 16 106/65 100 01/28/19 01:01 85 17 99 01/28/19 00:59 85 9 135/57 99 01/28/19 00:58 88 95 01/28/19 00:34 98 F 97 20 146/73 100 - Laboratory Lab Results: Lab Results 01/28/19 01/28/19 01/28/19 Range/Units 01:29 01:29 01:29 WBC 8.9 (3.5-10.8) 10^3/uL RBC 3.99 (3.70-4.87) 10^6 /uL Hgb 10.8 L (12.0-16.0) g/dL Hct 33 L (35-47) % MCV 83 (80-97) fL MCH 27 (27-31) pg MCHC 33 (31-36) g/dL RDW 14 (10-15) % Plt Count 379 (150-450) 10^3/uL MPV 7.0 L (7.4-10.4) fL Neut % (Auto) 58.1 % Lymph % (Auto) 32.2 % Deuel % (Auto) 5.3 % Eos % (Auto) 3.4 % Baso % (Auto) 1.0 % Absolute Neuts (auto) 5.1 (1.5-7.7) 10^3/ul Absolute Lymphs (auto) 2.9 (1.0-4.8) 10^3/ul Absolute Monos (auto) 0.5 (0-0.8) 10^3/ul Absolute Eos (auto) 0.3 (0-0.6) 10^3/ul Absolute Basos (auto) 0.1 (0-0.2) 10^3/ul Absolute Nucleated RBC 0.0 10^3/ul Nucleated RBC % 0.1 INR (Anticoag Therapy) 0.97 (0.82-1.09) Sodium 137 (135-145) mmol/L Potassium 3.9 (3.5-5.0) mmol/L Chloride 105 (101-111) mmol/L Carbon Dioxide 25 (22-32) mmol/L Anion Gap 7 (2-11) mmol/L BUN 25 H (6-24) mg/dL Creatinine 1.81 H (0.51-0.95) mg/dL Est GFR ( Amer) 38.1 (>60) Est GFR (Non-Af Amer) 31.5 (>60) BUN/Creatinine Ratio 13.8 (8-20) Glucose 118 H (70-100) mg/dL POC Glucose (mg/dL) (70-100) mg/dL Calcium 9.1 (8.6-10.3) mg/dL Total Bilirubin 0.20 (0.2-1.0) mg/dL AST 14 (13-39) U/L ALT 13 (7-52) U/L Alkaline Phosphatase 74 (34-104) U/L Troponin I 0.00 (<0.04) ng/mL Total Protein 7.9 (6.4-8.9) g/dL Albumin 3.8 (3.2-5.2) g/dL Globulin 4.1 H (2-4) g/dL Albumin/Globulin Ratio 0.9 L (1-3) Beta HCG, Quant < 0.60 mIU/mL 01/28/19 01/28/19 Range/Units 02:43 03:50 WBC (3.5-10.8) 10^3/uL RBC (3.70-4.87) 10^6 /uL Hgb (12.0-16.0) g/dL Hct (35-47) % MCV (80-97) fL MCH (27-31) pg MCHC (31-36) g/dL RDW (10-15) % Plt Count (150-450) 10^3/uL MPV (7.4-10.4) fL Neut % (Auto) % Lymph % (Auto) % Deuel % (Auto) % Eos % (Auto) % Baso % (Auto) % Absolute Neuts (auto) (1.5-7.7) 10^3/ul Absolute Lymphs (auto) (1.0-4.8) 10^3/ul Absolute Monos (auto) (0-0.8) 10^3/ul Absolute Eos (auto) (0-0.6) 10^3/ul Absolute Basos (auto) (0-0.2) 10^3/ul Absolute Nucleated RBC 10^3/ul Nucleated RBC % INR (Anticoag Therapy) (0.82-1.09) Sodium (135-145) mmol/L Potassium (3.5-5.0) mmol/L Chloride (101-111) mmol/L Carbon Dioxide (22-32) mmol/L Anion Gap (2-11) mmol/L BUN (6-24) mg/dL Creatinine (0.51-0.95) mg/dL Est GFR ( Amer) (>60) Est GFR (Non-Af Amer) (>60) BUN/Creatinine Ratio (8-20) Glucose (70-100) mg/dL POC Glucose (mg/dL) 74 (70-100) mg/dL Calcium (8.6-10.3) mg/dL Total Bilirubin (0.2-1.0) mg/dL AST (13-39) U/L ALT (7-52) U/L Alkaline Phosphatase (34-104) U/L Troponin I 0.00 (<0.04) ng/mL Total Protein (6.4-8.9) g/dL Albumin (3.2-5.2) g/dL Globulin (2-4) g/dL Albumin/Globulin Ratio (1-3) Beta HCG, Quant mIU/mL Result Diagrams: 01/28/19 01:29 01/28/19 01:29 Lab Statement: Any lab studies that have been ordered have been reviewed, and results considered in the medical decision making process. - Radiology CXR Radiology Interpretation Completed By: Radiologist Summary of Radiographic Findings: No acute disease. ED physician has reviewed this report. - EKG 0029 Cardiac Rate: Tachycardia - 102 BPM EKG Rhythm: Sinus Tachycardia Summary of EKG Findings: Sinus tachycardia at 102 bpm, normal RI, normal QRS, normal QTc, normal axis, normal ST, normal T-waves. Re-Evaluation - Re-Evaluation First Eval Re-Evaluation Time: 05:30 Comment: The patient's pain has not been relieved with NTG. Second Eval Re-Evaluation Time: 06:00 Comment: I discussed admission with the patient. Chest Pain Course/Dx - Course Course Of Treatment: The patient is a 38 y/o F presenting to [facility] with a chief complaint of sudden onset mid-sternal chest pain starting a few days ago with worsening tonight with radiation to the left arm to wrist at 2300. She additionally c/o nausea without vomiting, chills, and rhinorrhea. She denies fever, abd pain, diarrhea, constipation, dysuria, hematuria, and sore throat. Hx of DM, HLD, seizures, asthma, GERD. Upon physical exam, the patient exhibits mild tenderness to palpation of anterior left wall. Blood work reveals hgb of 10.8, hct of 33, MPV of 7.0, anion gap of 25, creatinine of 1.81, glucose of 118 , globulin of 4.1, and albumin/globulin ratio of 0.9. EKG reveals sinus tachycardia at 102 bpm, normal RI, normal QRS, normal QTc, normal axis, normal ST, normal T-waves. CXR reveals no acute disease. In the ED course, the patient was administered NTG and Morphine. Since findings are negative, but the patient is still experiencing CP, I spoke with Dr. Arellano concerning admission; he accepts. She is diagnosed with chest pain. She agrees with admission. - Diagnoses Provider Diagnoses: Chest pain - Provider Notifications Discussed Care Of Patient With: Jesse Arellano - hospitalist Time Discussed With Above Provider: 06:00 Instructed by Provider To: Other - I spoke with Dr. Arellano concerning the patient ; he accepts for admission. Discharge - Sign-Out/Discharge Documenting (check all that apply): Patient Departure - Patient is accepted for admission by Dr. Arellano. Patient Received Moderate/Deep Sedation with Procedure: No - Discharge Plan Condition: Stable Disposition: ADMITTED TO [facility] Referrals: Quintin Larose, SOCIAL SCIENCES LECTURER [Primary Care Provider] - - Billing Disposition and Condition Condition: STABLE Disposition: Admitted to [facility] - Attestation Statements Document Initiated by Fady: Yes Documenting Scribe: Blanche Montano Provider For Whom Fady is Documenting (Include Credential): Dr. Kamilah Brewer MD Scribe Attestation: IBlanche, scribed for Dr. Kamilah Brewer MD on 01/28/19 at 0811. Scribe Documentation Reviewed: Yes Provider Attestation: The documentation as recorded by the Blanche camargo accurately reflects the service I personally performed and the decisions made by me, Dr. Kamilah Brewer MD Status of Scribbrea Document: Viewed
--- NOTE | 2019-01-28 06:38 | HP ---
History of Present Illness - History of Present Illness Reason for Visit: Chest Pain History of Present Illness: The patient is a 38 y/o F with PMHx of DM, HLD, seizures, asthma, GERD here due to chest pain. It is sudden onset mid-sternal chest pain that radiates into the left arm to the wrist starting a few days ago with worsening last night. The chest aches started a few days ago with the arm pain starting at 2300. The pain is currently rated 7/10 in severity. She hasn't taken any medications [employer]. She additionally c/o nausea without vomiting, chills, and rhinorrhea. She denies fever, abd pain, diarrhea, constipation, dysuria, hematuria, and sore throat. Past Medical History Diabetes type 1 since age 8. Hypertension Child Asthma now very mild only once every few years uses any medicaiton. Gastroesophageal Reflux Disease CKD Stage 3 with proteinuria TRIGGER FINGERS BILAT 8 surgical corrections ONE SEIZURE MANY YEARS AGO not on any medications Past Surgical History triger finger surg [facility] [place] X8 [facility]. Multiple Sinus surgeries via endoscopic route for sinusitus at [facility] [place]. C SECTION 02/2016 Fibroid embolization. - Past Social History Smoke: No Alcohol: None Drugs: None Lives: With Family Review of Systems - Measurements Intake and Output: Intake and Output Last 24 Hours 01/25/19 01/26/19 01/27/19 01/28/19 06:59 06:59 06:59 06:59 Weight 220 lb - Review of Systems Constitutional Symptoms: Negative: Fever HEENT: Positive: Sinus Problem Cardiology: Negative: Shortness of Breath, Palpitations Gastroenterology: Positive: Nausea Negative: Abdominal Pain, Vomiting Endocrinology: Positive: Diabetes Mellitus Neurology: Negative: Headache Objective Vital Signs - 8 hr 01/28/19 01/28/19 01/28/19 00:34 00:58 00:59 Temperature 98 F Pulse Rate 97 88 85 Respiratory 20 9 Rate Blood Pressure 146/73 135/57 (mmHg) O2 Sat by Pulse 100 95 99 Oximetry 01/28/19 01/28/19 01/28/19 01:01 01:29 01:59 Temperature Pulse Rate 85 85 79 Respiratory 17 16 13 Rate Blood Pressure 106/65 92/50 (mmHg) O2 Sat by Pulse 99 100 99 Oximetry 01/28/19 01/28/19 01/28/19 02:01 02:29 03:00 Temperature Pulse Rate 80 94 82 Respiratory 14 18 17 Rate Blood Pressure 126/67 (mmHg) O2 Sat by Pulse 99 100 99 Oximetry 01/28/19 01/28/19 01/28/19 03:15 03:29 03:59 Temperature Pulse Rate 89 82 Respiratory 14 13 Rate Blood Pressure 126/64 105/70 121/63 (mmHg) O2 Sat by Pulse 100 99 Oximetry 01/28/19 01/28/19 01/28/19 04:01 04:29 04:59 Temperature Pulse Rate 76 79 101 Respiratory 17 14 19 Rate Blood Pressure 118/75 124/78 (mmHg) O2 Sat by Pulse 99 99 95 Oximetry 01/28/19 01/28/19 01/28/19 05:01 05:26 05:29 Temperature Pulse Rate 82 87 86 Respiratory 15 12 19 Rate Blood Pressure 100/54 113/49 (mmHg) O2 Sat by Pulse 97 99 99 Oximetry 01/28/19 01/28/19 05:57 06:00 Temperature 97.6 F Pulse Rate Respiratory 18 Rate Blood Pressure (mmHg) O2 Sat by Pulse Oximetry Oxygen Devices in Use Now: None Eyes: No Scleral Icterus, PERRLA Ears/Nose/Mouth/Throat: NL Teeth, Lips, Gums Respiratory: Clear to Auscultation Cardiovascular: NL Sounds; No Murmurs; No JVD, RRR, No Edema Abdominal: NL Sounds; No Tenderness; No Distention, No Hepatosplenomegaly Extremities: No Edema Skin: No Rash or Ulcers Neurological: Alert and Oriented x 3, NL Sensation, NL Muscle Strength and Tone Result Diagrams: 01/28/19 01:29 01/28/19 01:29 Additional Lab and Data: Lab Results 01/28/19 01/28/19 01/28/19 Range/Units 01:29 01:29 01:29 WBC 8.9 (3.5-10.8) 10^3/uL RBC 3.99 (3.70-4.87) 10^6 /uL Hgb 10.8 L (12.0-16.0) g/dL Hct 33 L (35-47) % MCV 83 (80-97) fL MCH 27 (27-31) pg MCHC 33 (31-36) g/dL RDW 14 (10-15) % Plt Count 379 (150-450) 10^3/uL MPV 7.0 L (7.4-10.4) fL Neut % (Auto) 58.1 % Lymph % (Auto) 32.2 % Tama % (Auto) 5.3 % Eos % (Auto) 3.4 % Baso % (Auto) 1.0 % Absolute Neuts (auto) 5.1 (1.5-7.7) 10^3/ul Absolute Lymphs (auto) 2.9 (1.0-4.8) 10^3/ul Absolute Monos (auto) 0.5 (0-0.8) 10^3/ul Absolute Eos (auto) 0.3 (0-0.6) 10^3/ul Absolute Basos (auto) 0.1 (0-0.2) 10^3/ul Absolute Nucleated RBC 0.0 10^3/ul Nucleated RBC % 0.1 INR (Anticoag Therapy) 0.97 (0.82-1.09) Sodium 137 (135-145) mmol/L Potassium 3.9 (3.5-5.0) mmol/L Chloride 105 (101-111) mmol/L Carbon Dioxide 25 (22-32) mmol/L Anion Gap 7 (2-11) mmol/L BUN 25 H (6-24) mg/dL Creatinine 1.81 H (0.51-0.95) mg/dL Est GFR ( Amer) 38.1 (>60) Est GFR (Non-Af Amer) 31.5 (>60) BUN/Creatinine Ratio 13.8 (8-20) Glucose 118 H (70-100) mg/dL POC Glucose (mg/dL) (70-100) mg/dL Calcium 9.1 (8.6-10.3) mg/dL Total Bilirubin 0.20 (0.2-1.0) mg/dL AST 14 (13-39) U/L ALT 13 (7-52) U/L Alkaline Phosphatase 74 (34-104) U/L Troponin I 0.00 (<0.04) ng/mL Total Protein 7.9 (6.4-8.9) g/dL Albumin 3.8 (3.2-5.2) g/dL Globulin 4.1 H (2-4) g/dL Albumin/Globulin Ratio 0.9 L (1-3) Beta HCG, Quant < 0.60 mIU/mL 07/07/19 07/07/19 Range/Units 02:43 03:50 WBC (3.5-10.8) 10^3/uL RBC (3.70-4.87) 10^6 /uL Hgb (12.0-16.0) g/dL Hct (35-47) % MCV (80-97) fL MCH (27-31) pg MCHC (31-36) g/dL RDW (10-15) % Plt Count (150-450) 10^3/uL MPV (7.4-10.4) fL Neut % (Auto) % Lymph % (Auto) % Tama % (Auto) % Eos % (Auto) % Baso % (Auto) % Absolute Neuts (auto) (1.5-7.7) 10^3/ul Absolute Lymphs (auto) (1.0-4.8) 10^3/ul Absolute Monos (auto) (0-0.8) 10^3/ul Absolute Eos (auto) (0-0.6) 10^3/ul Absolute Basos (auto) (0-0.2) 10^3/ul Absolute Nucleated RBC 10^3/ul Nucleated RBC % INR (Anticoag Therapy) (0.82-1.09) Sodium (135-145) mmol/L Potassium (3.5-5.0) mmol/L Chloride (101-111) mmol/L Carbon Dioxide (22-32) mmol/L Anion Gap (2-11) mmol/L BUN (6-24) mg/dL Creatinine (0.51-0.95) mg/dL Est GFR ( Amer) (>60) Est GFR (Non-Af Amer) (>60) BUN/Creatinine Ratio (8-20) Glucose (70-100) mg/dL POC Glucose (mg/dL) 74 (70-100) mg/dL Calcium (8.6-10.3) mg/dL Total Bilirubin (0.2-1.0) mg/dL AST (13-39) U/L ALT (7-52) U/L Alkaline Phosphatase (34-104) U/L Troponin I 0.00 (<0.04) ng/mL Total Protein (6.4-8.9) g/dL Albumin (3.2-5.2) g/dL Globulin (2-4) g/dL Albumin/Globulin Ratio (1-3) Beta HCG, Quant mIU/mL Diagnostic Imaging: Chest X-ray: No evidence of any cardio-pulmonary disease. EKG Data: Sinus tachycardia at 102. When compared to previous EKG HR is now elevated. Assess/Plan/Problems-Billing Assessment: 38 y/o F with PMHx of DM, HLD, seizures, asthma, GERD here due to chest pain. - Patient Problems (1) Chest pain Current Visit: Yes Status: Acute Code(s): R07.9 - CHEST PAIN, UNSPECIFIED SNOMED Code(s): 29611890 Comment: Will get serial cardiac enzymes. ECHO. Check A1c and Lipid Panel. No stress test available on weekend. If 3rd troponin is negative along with normal ECHO may consider outpatient Stress. (2) CKD (chronic kidney disease) Current Visit: No Status: Acute Code(s): N18.9 - CHRONIC KIDNEY DISEASE, UNSPECIFIED SNOMED Code(s): 852430117 Comment: Minimally worsened creatinine compared to baseline. Repeat level in AM. (3) Diabetes type I Current Visit: No Status: Acute Comment: Restart home meds. Check A1c. (4) Hypertension Current Visit: No Status: Chronic Code(s): I10 - ESSENTIAL (PRIMARY) HYPERTENSION SNOMED Code(s): 93429829 Comment: Well controlled. Continue home meds (5) Hyperlipemia Current Visit: Yes Status: Acute Code(s): E78.5 - HYPERLIPIDEMIA, UNSPECIFIED SNOMED Code(s): 25824090 Comment: Continue Fibrate will check on lipid panel. (6) DVT prophylaxis Current Visit: No Status: Acute Code(s): NBU5186 - SNOMED Code(s): 058828346 Comment: SCD Allergies/Medications Medication: Albuterol HFA INHALER* [Ventolin HFA Inhaler*] 2 puff INH QID PRN 07/13/12 [ History Confirmed 01/28/19] Albuterol 2.5MG/3ML (0.083%)* [Ventolin 2.5 MG/3 ML NEB.RANCHO*] 2.5 mg INH Q6H PRN 05/25/16 [History Confirmed 01/28/19] Insulin Lispro [Humalog] 0 - 60 unit SUBCUT TID WITH MEALS MDD 60 units [History Confirmed 01/28/19] Multivitamins/Minerals TAB* [Theragran/minerals TAB*] 1 tab PO DAILY 05/25/16 [ History Confirmed 01/28/19] Insulin GLARGINE(*) [Lantus(*)] 64 units SUBCUT DAILY 11/19/17 [History Confirmed 01/28/19] Lisinopril TAB* [Prinivil TAB 10 MG*] 40 mg PO DAILY 11/19/17 [History Confirmed 01/28/19] Acetaminophen TAB* [Tylenol TAB*] 650 mg PO Q4H PRN #0 tab 11/23/17 [Rx Confirmed 01/28/19] Labetalol TAB* [Trandate TAB*] 100 mg PO BID 30 Days #60 tab 11/23/17 [Rx Confirmed 01/28/19] Calcium 500 + Vit D Caplet 1 tab PO DAILY 02/01/18 [History Confirmed 01/28/19] Cholecalciferol (Vitamin D3) [Vitamin D3] 50,000 unit PO WEEKLY 01/28/19 [ History Confirmed 01/28/19] Fenofibrate 1 tab PO DAILY 01/28/19 [History Confirmed 01/28/19] Allergies/Adverse Reactions: Allergies Allergy/AdvReac Type Severity Reaction Status Date / Time shrimp Allergy Itching Verified 08/27/18 12:12 etodolac AdvReac fainting Verified 08/27/18 12:12 ENVIRONMENTAL/SEASONAL Allergy Unknown Uncoded 08/27/18 12:12 Reaction Details
[2019-01-28] MEDS ORDERED: Acetaminophen TAB* 325 MG PO PRN (07:04)
[2019-01-28] MEDS ORDERED: Albuterol 2.5 MG/3 ML NEB.SOL* (0.083%) INH PRN (07:04)
[2019-01-28] MEDS ORDERED: Ergocalciferol CAP* 50000 UNIT PO SCH (07:15)
[2019-01-28 07:28] LABS: HDL Cholesterol 32.1 mg/dL
[2019-01-28 07:42] LABS: % Iron Saturation 6 % (15-55); Iron 22 ug/dL (50-212); Total Iron Binding Capacity 391 mcg/dL (250-450); Transferrin 279 mg/dL (203-362)
[2019-01-28 08:04] LABS: Ferritin 25.1 ng/mL (11-307)
[2019-01-28 08:07] LABS: Folate 7.24 ng/mL (>3.99)
[2019-01-28] MEDS ORDERED: Multivitamins/Minerals TAB PO SCH (09:00)
[2019-01-28] MEDS ORDERED: Calcium/Vitamin D TAB 250/125* TAB PO SCH (09:00)
[2019-01-28] MEDS ORDERED: Insulin GLARGINE(*) 1 UNITS UNIT SUBCUT SCH (09:00)
[2019-01-28] MEDS ORDERED: Labetalol TAB* 100 MG PO SCH (09:00)
[2019-01-28] MEDS ORDERED: Lisinopril TAB* 10 MG PO SCH (09:00)
[2019-01-28] MEDS: Insulin LISPRO* 1 UNITS UNIT SUBCUT SCH ×2 (09:50→14:34)
[2019-01-28 16:48] VITALS: BP 134/70
--- NOTE | 2019-01-28 16:52 | ECHO ---
*[facility]* [place] [address] Fax #: [phone] Patient: Cesia Angelo : 1980 Study Date: 01/28/2019 Age: 38 Gender: F HR: 89 bpm Height: 65 in /165.1 cm BSA: 2.06 m^2 Weight: 219.5 lb /99.8 kg BMI: 36.6 kg/m^2 *Steam Brush Operator: * Wendy Sampson RDCS RN *Referring Physician: * Jesse Arellano *Reading Physician: * Terence Johnston MD Indications: Chest Pain, unspecified. History: Asthma. Risk factors: Hypertension. Diabetes mellitus. Obese. Dyslipidemia. Conclusions Summary: 1. Left ventricle: The cavity size is normal. Wall thickness is mildly to moderately increased. Systolic function is normal. The estimated ejection fraction is 60-65%. Wall motion is normal; there are no regional wall motion abnormalities. 2. Mitral valve: There is trace to mild regurgitation. 3. Aortic valve: The findings are consistent with very mild stenosis. The mean systolic gradient is 7.0 mm Hg. The LVOT to aortic valve VTI ratio is 0.66. The valve area by the peak velocity method is 2.20 cm^2. 4. Tricuspid valve: There is trace regurgitation. 5. Pericardium, extracardiac: There is no pericardial effusion. 6. Compared to study of 11/20/17, there is no change. Study data: Procedure: Transthoracic echocardiography was performed. Image quality was fair. The study was technically limited due to body habitus. Complete 2D, spectral Doppler, and color flow Doppler. Location: Bedside. Patient status: Observation. Patient room number: 434. Rhythm: Normal sinus rhythm. Findings Left ventricle: The cavity size is normal. Wall thickness is mildly to moderately increased. Systolic function is normal. The estimated ejection fraction is 60-65%. Wall motion is normal; there are no regional wall motion abnormalities. There is no consistent Doppler evidence of clinically significant diastolic dysfunction. Right ventricle: The cavity size is normal. Systolic function is normal. Left atrium: The atrium is normal in size. Right atrium: The atrium is normal in size. Mitral valve: The leaflets are mildly thickened. There is no evidence of stenosis. There is trace to mild regurgitation. Aortic valve: Not well visualized. The findings are consistent with very mild stenosis. There is no regurgitation. Tricuspid valve: Not well visualized. There is no evidence of stenosis. There is trace regurgitation. Pulmonic valve: Not well visualized. There is no evidence of stenosis. There is trace to mild regurgitation. Aorta: Aortic root: The aortic root is not dilated. Ascending aorta: The ascending aorta is not dilated. Aortic arch: The aortic arch is not dilated. Pericardium: There is no pericardial effusion. Pulmonary arteries: Not well visualized. Systolic pressure can not be accurately estimated. Systemic veins: Inferior vena cava: The vessel is normal in size. The respirophasic diameter changes are in the normal range (>= 50%). Measurements Left ventricle Value Ref Aortic valve Value Ref NANCY, LAX 4.3 cm 3.8 - 5.2 Carissa diam, ED 2.0 cm ---- ESD, LAX 2.6 cm 2.2 - 3.5 Carissa diam/bsa, ED 1.0 cm/m^2 ---- FS, LAX 37 % 27 - 45 Peak v, S 1.7 m/sec ---- PW, ED (H) 1.3 cm 0.6 - 0.9 VTI, S 38.3 cm ---- IVS/PW, ED 1 Mean grad, S 7.0 mm Hg ---- PW/ID, ED 0.32 Peak grad, S 11.0 mm Hg ---- E', lat carissa, TDI 11.1 cm/sec >=10.0 LVOT/AV, VTI ratio 0.66 - --- E/e', lat carissa, 11 TRACY, VTI 1.90 cm^2 ---- TDI TRACY, Vmax 2.20 cm^2 ---- E', med carissa, TDI (L) 6.9 cm/sec >=7.0 E/e', med carissa, 18 Mitral valve Value Ref TDI Peak E 1.26 m/sec ---- E', avg, TDI 9.0 cm/sec Peak A 0.79 m/sec ---- E/e', avg, TDI 14 <=14 Decel time 243 ms - --- Peak grad, D 6.4 mm Hg ---- LVOT Value Ref Peak E/A ratio 1.6 ---- Diam, S 1.90 cm Area 2.8 cm^2 Pulmonic valve Value Ref Peak regina, S 1.33 m/sec Peak v, S 1.06 m/sec ---- VTI, S 25.2 cm Peak grad, S 4.0 mm Hg ---- Peak grad, S 7 mm Hg Mean grad, S 4 mm Hg Aortic root Value Ref SV 72 ml Root diam 2.6 cm <3.8 SV/bsa 35 ml/m^2 Ascending aorta Value Ref Ventricular septum Value Ref AAo AP diam, S 2.3 cm ---- IVS, ED (H) 1.3 cm 0.6 - 0.9 Aortic arch Value Ref Right ventricle Value Ref Arch diam 2.3 cm ---- NANCY minor ax, A4C 3.3 cm 1.9 - 3.5 mid Decending aorta Value Ref Dale peak regina 1.12 m/sec ---- Left atrium Value Ref AP dim, ES 3.70 cm 2.70 - Inferior vena cava Value Ref 3.80 Diam 1.8 cm ---- ML dim, A4C 3.5 cm SI dim, A4C 5.0 cm Vol/bsa, ES, 1-p 18 ml/m^2 11 - 40 A4C Vol/bsa, ES, A/L 21 ml/m^2 16 - 34 Right atrium Value Ref ML dim, ES, A4C 3.9 cm 2.6 - 4.4 SI dim, ES, A4C 4.7 cm 3.4 - 5.3 Estimated RAP 3 mm Hg Legend: (L) and (H) erika values outside specified reference range. Prepared and electronically signed by Terence Johnston MD 01/28/2019 16:51
--- NOTE | 2019-01-28 21:11 | DS ---
CC: Quintin Larose NP * DISCHARGE SUMMARY: DATE OF ADMISSION: 01/28/19 DATE OF DISCHARGE: 01/28/19 PRIMARY CARE PHYSICIAN: Quintin Larose NP. PRIMARY DIAGNOSIS: Musculoskeletal chest pain. SECONDARY DIAGNOSES: 1. Type 1 diabetes. 2. Hypertension. 3. Gastroesophageal reflux disease. 4. Chronic kidney disease. DISCHARGE MEDICATIONS: 1. Insulin glargine 64 units daily. 2. Insulin lispro based on sliding scale. 3. Labetalol 100 twice a day. 4. Lisinopril 40 mg daily. 5. Albuterol inhaler as needed for shortness of breath. 6. Fenofibrate 50 mg daily. 7. Vitamin D2 50,000 International Units weekly. 8. Multivitamin tablets daily. HISTORY OF PRESENT ILLNESS: Ms. Luiz Nunn is a 38-year-old woman with type 1 diabetes, hypertension, CKD, seizures, asthma and GERD, who presents with chest pain. She describes the pain as sudden onset but not progressive over the last couple of days, it is left-sided chest pain going to the left shoulder. She states that her family member was recently visiting and she had been helping the family member with her physical therapy exercises which did include a lot of upper extremity movements. She reports that since doing the exercises, she has been experiencing a non-exertional left-sided chest pain, which includes the front of her left shoulder. This pain is worse on movement of her arm and is worse when she presses on it. It is not worse with deep breath. She was able to ascend 2 flights of stairs recently carrying her child without worsening of the pain. She denies taking medications for this pain. She has no associated shortness of breath, nausea, vomiting, or diaphoresis. Given her history of overweight and diabetes, she figured she should present to emergency room to have her chest pain worked up. HOSPITAL COURSE: The patient was admitted under observation for serial troponins. All 3 troponins resulted 0.00. She also had a transthoracic echocardiogram on day of observation which was without significant change from echocardiogram done 1 year prior. By the time of discharge, the patient reports improvement in her pain without interventions. She states that she was given nitroglycerin in the emergency room, that did not change the quality of her pain. On day of discharge, a 10-point review of systems was performed and positive only for a [id number] left-sided chest and shoulder pain that have improved since yesterday on presentation. PHYSICAL EXAMINATION: Afebrile, heart rate 70s, blood pressure 134/70, respiratory rate 18, oxygen saturation 100% on room air. In general, she is a well-appearing young woman, in no acute distress, sitting up at the edge of bed , alert and interactive and answers questions appropriately. Neck: No JVD, supple. HEENT: Moist mucous membranes. OP clear. Lungs: Clear to auscultation bilaterally. Heart: Regular rate and rhythm. No murmurs, gallops , or rubs. Chest pain reproducible on deep palpation of left chest and left shoulder. Abdomen: Soft, nontender, and nondistended. Extremities: Warm and well perfused without edema. PERTINENT STUDIES AND LABS: Vitamin B12 of 377. Troponin 0.00 x3. HDL 32, LDL 129, triglycerides 169. Iron low at 22 with percent saturation 6 and ferritin 25. Hemoglobin A1c 6.5%. Creatinine 1.8. Hemoglobin 10.8 with MCV 83. Chest x-rays without radiographic evidence of acute cardiopulmonary disease. TTE: LV with cavity size normal and wall thickness mildly to moderately increased. Systolic function is normal with estimated EF 60% to 65% with normal wall motion. There are no regional wall motion abnormalities. Mitral valve with trace to mild regurgitation and aortic valve with findings consistent with mild stenosis. Tricuspid valve with trace regurgitation. Compared to studies from 11/20/17, there are no changes. DISCHARGE PLAN: The patient is to follow up closely with her primary care physician for ongoing management of her chronic medical problems. She had no changes to her medications during this visit. Her chest wall pain was thought to be musculoskeletal in nature and she was educated on the importance of proper exercise technique when undergoing exercise. She was extensively educated on return precaution which include, but are not limited to exertional chest pain, especially if it is associated with shortness of breath and diaphoresis. She is to continue a healthy diet, low in processed foods, low in carbohydrates with activities as tolerated. She is to follow up with her PCP for chronic medical issues. The patient was also called with her echo result as she left before results were in. She was also asked to resume her home iron for iron deficiency anemia seen while admitted to the hospital. DISPOSITION: Home. CONDITION: Good. TIME SPENT: Approximately 60 minutes was spent on discharge of this patient, more than half of which was spent with care coordination at bedside for interview and exam. [id number]/CPS #: [id number] PAM
== END 2019-01-28 17:30 | disposition home or self-care (01) ==
LOC: ED 00:24 → MEDTELE 07:15
PROVIDERS: ADMIT Internal Medicine; ATTEND Internal Medicine
DX: R07.89 Other chest pain (principal); M79.602 Pain in left arm; R11.0 Nausea; I12.9 Hypertensive chronic kidney disease with stage 1 through stage 4 chronic kidney disease, or unspecified chronic kidney disease; E10.22 Type 1 diabetes mellitus with diabetic chronic kidney disease; N18.9 Chronic kidney disease, unspecified; Z79.4 Long term (current) use of insulin; K21.9 Gastro-esophageal reflux disease without esophagitis; E87.5 Hyperkalemia; J45.909 Unspecified asthma, uncomplicated; G40.909 Epilepsy, unspecified, not intractable, without status epilepticus; Z79.899 Other long term (current) drug therapy
CPT/HCPCS: 36415; 71046; 80053; 80061; 82607; 82728; 82746; 83036; 83540; 83550; 84484; 84702; 85025; 85610; 93005; 93306; 96374; 99284; A9270-GY; G0378; J1815; J2270

== ENCOUNTER 2019-03-29 19:44 | Emergency (ER) | payer BC ==
[2019-03-29 19:56] VITALS: BP 129/51
--- NOTE | 2019-03-29 20:11 | UC ---
Cardiac HPI - HPI Summary HPI Summary: 38-year-old woman comes in with a chief complaint of chest pain this started at 1 PM this afternoon. The Left Side Radiates to the Left Shoulder. She did take aspirin 324 mg by mouth. She had similar pain back in January was seen in the emergency department and had a cardiac evaluation at that time and no cardiac cause was found at that time. Patient does have diabetes chronic kidney disease and also hypertension. At its worst the pain is 8.5 Out of 10. Does feel fatigued. - History of Current Complaint Chief Complaint: UCChestPain Stated Complaint: CHEST PAIN, NECK PAIN Time Seen by Provider: 03/29/19 19:54 Hx Last Menstrual Period: started 03/19 Pain Intensity: 8 - Allergy/Home Medications Allergies/Adverse Reactions: Allergies Allergy/AdvReac Type Severity Reaction Status Date / Time shrimp Allergy Itching Verified 03/29/19 19:57 etodolac AdvReac fainting Verified 03/29/19 19:57 ENVIRONMENTAL/SEASONAL Allergy Unknown Uncoded 03/29/19 19:57 Reaction Details Home Medications: Home Medications hydroCHLOROthiazide [Hydrochlorothiazide] 12.5 mg PO DAILY 03/29/19 [History Confirmed 03/29/19] PMH/Surg Hx/FS Hx/Imm Hx Previously Healthy: Yes - CKD Endocrine History: Diabetes Cardiovascular History: Hypertension - Surgical History Surgical History: Yes Surgery Procedure, Year, and Place: 2009/2010 triger finger surg [facility] X7 [facility]. 2013 SINUS [facility]. 2012, SINUS, [facility]. 2-3 MORE SINUS SURGERY. C SECTION 02/2016 - Family History Known Family History: Positive: Diabetes Family History: Denies FHx of malignant hyperthermia or anesthesia reaction. - Social History Alcohol Use: None Substance Use Type: None Smoking Status (MU): Never Smoked Tobacco Have You Smoked in the Last Year: No - Immunization History Most Recent Influenza Vaccination: fall 2016 Most Recent Pneumonia Vaccination: believes has had Review of Systems All Other Systems Reviewed And Are Negative: Yes Constitutional: Positive: Fatigue Skin: Positive: Negative Eyes: Positive: Negative ENT: Positive: Negative Respiratory: Positive: Negative Cardiovascular: Positive: Chest Pain Gastrointestinal: Positive: Negative Motor: Positive: Negative Neurovascular: Positive: Negative Musculoskeletal: Positive: Negative Neurological: Positive: Negative Psychological: Positive: Negative Is Patient Immunocompromised?: No Physical Exam Triage Information Reviewed: Yes Appearance: Well-Appearing, No Pain Distress, Well-Nourished Vital Signs: Initial Vital Signs Temp 98.3 F 03/29/19 19:52 Pulse 96 03/29/19 19:52 Resp 18 03/29/19 19:52 BP 129/51 03/29/19 19:52 Pulse Ox 99 03/29/19 19:52 Vital Signs Reviewed: Yes Eye Exam: Normal Eyes: Positive: Conjunctiva Clear Neck: Positive: Supple Respiratory: Positive: Lungs clear, Normal breath sounds, No respiratory distress Cardiovascular: Positive: RRR Musculoskeletal: Positive: Strength Intact, ROM Intact Neurological: Positive: Alert, Muscle Tone Normal Psychological: Positive: Age Appropriate Behavior Skin Exam: Normal Diagnostics - EKG Cardiac Rate: NL - AT 195 Cardiac Rhythm: Sinus: Normal - 86BPM Ectopy: None Summary of EKG Findings: ST elevation probable normal early repolarization pattern. Comparison to the January EKG I do not see any significant difference. - Assessment/Plan Course Of Treatment: I did not see any significant change from today's EKG from the January EKG however with the patient's risk factor I recommended further evaluation emergency Department. Patient preferred to go by POV. She started taken aspirin 324 mg Today. - Clinical Impression Provider Diagnosis: Chest pain Discharge ED - Sign-Out/Discharge Documenting (check all that apply): Patient Departure All imaging exams completed and their final reports reviewed: No Studies - Discharge Plan Condition: Stable Disposition: HOME-RECOMMEND TO ED Patient Education Materials: Chest Pain (ED) Referrals: Quintin Larose LABORATORY TESTER [Primary Care Provider] - Additional Instructions: GO DIRECTLY TO THE EMERGENCY DEPARTMENT FOR FURTHER EVALUATION OF YOUR CHEST PAIN. - Billing Disposition and Condition Condition: STABLE Disposition: Home-Recommend to ED
== END 2019-03-29 20:21 | disposition home health service (06) ==
LOC: UCEAST 19:44
DX: R07.9 Chest pain, unspecified (principal); I12.9 Hypertensive chronic kidney disease with stage 1 through stage 4 chronic kidney disease, or unspecified chronic kidney disease; E11.22 Type 2 diabetes mellitus with diabetic chronic kidney disease; N18.9 Chronic kidney disease, unspecified
CPT/HCPCS: 99212; G0463

== ENCOUNTER 2019-03-29 20:56 | Emergency (ER) | payer BC ==
--- NOTE | 2019-03-29 21:15 | ED ---
HPI Chest Pain - HPI Summary HPI Summary: Patient complains of left shoulder pain radiating to left neck and down left arm , rated 8.5 out of 10 starting at 1 PM today patient has history of same, here in January for same symptoms with negative cardiac workup. Patient took ASA 324 mg prior to arrival. Denies trauma, fever, cough, sore throat, SOB, diaphoresis , N/V/D, abdominal pain, change in urine, change in BM. Medical history is HTN , DM, CK D. Positive family cardiac history. Nonsmoker, denies EtOH or recreational drug use. - History of Current Complaint Chief Complaint: EDChestPainROMI Time Seen by Provider: 03/29/19 21:09 Hx Obtained From: Patient Hx Last Menstrual Period: started 03/19 Onset/Duration: Started Hours Ago Timing: Constant Initial Severity: Mild Current Severity: Moderate Pain Intensity: 8 Pain Scale Used: 0-10 Numeric Chest Pain Location: Left Anterior Chest Pain Radiates To:: Shoulder, Neck Character: Pressure/Squeezing Aggravating Factor(s): Nothing Alleviating Factor(s): Nothing Associated Signs and Symptoms: Positive: Chest Pain - Additional Pertinent History Primary Care Physician: [id number] - Allergy/Home Medications Allergies/Adverse Reactions: Allergies Allergy/AdvReac Type Severity Reaction Status Date / Time shrimp Allergy Itching Verified 03/29/19 19:57 etodolac AdvReac fainting Verified 03/29/19 19:57 ENVIRONMENTAL/SEASONAL Allergy Unknown Uncoded 03/29/19 19:57 Reaction Details PMH/Surg Hx/FS Hx/Imm Hx Endocrine/Hematology History: Reports: Hx Diabetes - IDDM Cardiovascular History: Reports: Hx Hypertension - ON MEDS Denies: Hx Pacemaker/ICD, Other Cardiovascular Problems/Disorders Respiratory History: Reports: Hx Asthma, Other Respiratory Problems/Disorders - FREQUENT SINUS TROUBLE, POST NASAL DRIP GI History: Reports: Hx Gastroesophageal Reflux Disease Denies: Other GI Disorders History: Reports: Other Problems/Disorders - SOMETIMES PROTIEN IN URINE Denies: Hx Renal Disease Musculoskeletal History: Reports: Other Musculoskeletal History - TRIGGER FINGERS BILAT Sensory History: Denies: Hx Contacts or Glasses, Hx Hearing Aid Opthamlomology History: Denies: Hx Contacts or Glasses Neurological History: Reports: Hx Seizures - ONE SEIZURE MANY YEARS AGO, Other Neuro Impairments/Disorders - trigger finger LUZ WITH SURGERY Denies: Hx Headaches Psychiatric History: Denies: Hx Panic Disorder - Surgical History Surgery Procedure, Year, and Place: 2009/2010 triger finger surg [facility]. 2013 S[facility]US [facility]. 2012, [facility], [facility]. 2-3 MORE SINUS SURGERY. C SECTION 02/2016 Hx Anesthesia Reactions: No - Immunization History Date of Tetanus Vaccine: utd Date of Influenza Vaccine: fall 2016 Infectious Disease History: No Infectious Disease History: Denies: Traveled Outside the [place] in Last 30 Days - Family History Known Family History: Positive: Diabetes Family History: Denies FHx of malignant hyperthermia or anesthesia reaction. - Social History Alcohol Use: None Hx Substance Use: No Substance Use Type: Reports: None Hx Tobacco Use: No Smoking Status (MU): Never Smoked Tobacco Have You Smoked in the Last Year: No Review of Systems Constitutional: Negative Eyes: Negative ENT: Negative Positive: Chest Pain Respiratory: Negative Gastrointestinal: Negative Genitourinary: Negative Musculoskeletal: Negative Skin: Negative Neurological: Negative Psychological: Normal All Other Systems Reviewed And Are Negative: Yes Physical Exam - Summary Physical Exam Summary: Chest pain near left shoulder reproducible with palpation. Triage Information Reviewed: Yes Vital Signs On Initial Exam: Initial Vitals Temp Pulse Resp BP Pulse Ox 97.0 F 72 18 112/81 98 03/29/19 21:03 03/29/19 21:03 03/29/19 21:03 03/29/19 21:03 03/29/19 21:03 Vital Signs Reviewed: Yes Appearance: Positive: Well-Appearing Skin: Positive: Warm Head/Face: Positive: Normal Head/Face Inspection Eyes: Positive: Normal Neck: Positive: Supple Respiratory/Lung Sounds: Positive: Clear to Auscultation Cardiovascular: Positive: Normal Abdomen Description: Positive: Nontender Musculoskeletal: Positive: Normal Neurological: Positive: Normal Psychiatric: Positive: Normal AVPU Assessment: Alert - [place] Coma Scale Best Eye Response: 4 - Spontaneous Best Motor Response: 6 - Obeys Commands Best Verbal Response: 5 - Oriented Coma Scale Total: 15 Diagnostics - Vital Signs Vital Signs Temp Pulse Resp BP Pulse Ox 03/29/19 21:03 97.0 F 72 18 112/81 98 - Laboratory Result Diagrams: 03/29/19 21:33 03/29/19 21:33 Lab Statement: Any lab studies that have been ordered have been reviewed, and results considered in the medical decision making process. Chest Pain Course/Dx - Course Course Of Treatment: Patient complains of left shoulder pain radiating to left neck and down left arm, rated 8.5 out of 10 starting at 1 PM today patient has history of same, here in January for same symptoms with negative cardiac workup. Patient took ASA 324 mg prior to arrival. Denies trauma, fever, cough, sore throat, SOB, diaphoresis, N/V/D, abdominal pain, change in urine, change in BM. Medical history is HTN, DM, CK D. Positive family cardiac history. Nonsmoker , denies EtOH or recreational drug use. Vital signs within normal limits. Labs at patient baseline were within normal limits. EKG sinus rhythm, early re- alicia, consistent with prior. PERC negative. - Diagnoses Provider Diagnoses: Atypical chest pain Discharge ED - Sign-Out/Discharge Documenting (check all that apply): Patient Departure Patient Received Moderate/Deep Sedation with Procedure: No - Discharge Plan Condition: Stable Disposition: HOME Patient Education Materials: Chest Pain (ED) Referrals: Quintin Larose NP [Primary Care Provider] - Ole Arnett MD [Medical Doctor] - Additional Instructions: Follow-up with your primary care doctor or financial coach Dr. Arnett for a possible stress test. Return to the ED for any new or worsening symptoms. - Billing Disposition and Condition Condition: STABLE Disposition: Home
[2019-03-29 21:42] LABS: ABS Basophils 0.1 10^3/ul (0-0.2); ABS Eosinophils 0.3 10^3/ul (0-0.6); ABS Monocytes 0.5 10^3/ul (0-0.8); ABS Neutrophils 5.1 10^3/ul (1.5-7.7); Eosinophil % 3.8 %; Hematocrit 32 % (35-47); Hemoglobin 10.7 g/dL (12.0-16.0); Lymphocyte % 33.1 %; Mean Corpuscular HGB Conc 33 g/dL (31-36); Mean Corpuscular Hemoglobin 27 pg (27-31); Mean Corpuscular Volume 83 fL (80-97); Nucleated Red Blood Cells % 0.1; Platelet Count 368 10^3/uL (150-450); Red Blood Count 3.91 10^6 /uL (3.70-4.87); Red Cell Distribution Width 14 % (10-15); White Blood Count 8.9 10^3/uL (3.5-10.8)
[2019-03-29 21:46] LABS: INR 0.88 (0.82-1.09)
[2019-03-29 21:58] LABS: Albumin 3.7 g/dL (3.2-5.2); Albumin/Globulin Ratio 0.9 (1-3); BUN/Creatinine Ratio 20.2 (8-20); Calcium 9.2 mg/dL (8.6-10.3); EGFR African American 38.8 (>60); EGFR Non-African American 32.1 (>60); Globulin 3.9 g/dL (2-4); Potassium 4.7 mmol/L (3.5-5.0); Total Bilirubin 0.2 mg/dL (0.2-1.0); Total Protein 7.6 g/dL (6.4-8.9)
[2019-03-30 01:20] VITALS: BP 131/73
== END 2019-03-30 01:16 | disposition home or self-care (01) ==
LOC: ED 20:56
DX: R07.89 Other chest pain (principal); E11.9 Type 2 diabetes mellitus without complications; I10 Essential (primary) hypertension; Z88.6 Allergy status to analgesic agent; Z91.013 Allergy to seafood
CPT/HCPCS: 36415; 71045; 80053; 84484; 85025; 85610; 93005; 99283

== ENCOUNTER 2019-04-23 14:02 | Emergency (ER) | payer BC ==
[2019-04-23 16:09] LABS: ABS Basophils 0.1 10^3/ul (0-0.2); ABS Eosinophils 0.2 10^3/ul (0-0.6); ABS Lymphocytes 2.2 10^3/ul (1.0-4.8); ABS Monocytes 0.4 10^3/ul (0-0.8); ABS Neutrophils 4.9 10^3/ul (1.5-7.7); Eosinophil % 2.9 %; Hematocrit 34 % (35-47); Hemoglobin 11.1 g/dL (12.0-16.0); Lymphocyte % 28.2 %; Mean Corpuscular HGB Conc 33 g/dL (31-36); Mean Corpuscular Hemoglobin 28 pg (27-31); Mean Corpuscular Volume 83 fL (80-97); Mean Platelet Volume 6.9 fL (7.4-10.4); Platelet Count 398 10^3/uL (150-450); Red Blood Count 4.05 10^6 /uL (3.70-4.87); Red Cell Distribution Width 14 % (10-15); White Blood Count 7.8 10^3/uL (3.5-10.8)
[2019-04-23 16:27] LABS: ALT 10 U/L (7-52); AST 12 U/L (13-39); Albumin 3.7 g/dL (3.2-5.2); Albumin/Globulin Ratio 0.9 (1-3); Alkaline Phosphatase 74 U/L (34-104); Blood Urea Nitrogen 27 mg/dL (6-24); C Reactive Protein 45.21 mg/L (<8.01); CO2 Carbon Dioxide 26 mmol/L (22-32); Calcium 9.2 mg/dL (8.6-10.3); Chloride 102 mmol/L (101-111); EGFR African American 41.2 (>60); Globulin 4.3 g/dL (2-4); Glucose 170 mg/dL (70-100); Sodium 132 mmol/L (135-145)
[2019-04-23 16:29] LABS: HCG Pregnancy < 0.60 mIU/mL
[2019-04-23 16:30] LABS: Anion Gap 4 mmol/L (2-11); Potassium 5.1 mmol/L (3.5-5.0)
[2019-04-23] MEDS ORDERED: NS 0.9% 1000 ML** 1,000 ML IV ONE (16:46)
[2019-04-23] MEDS ORDERED: Iodixanol* (CONTRAST) 320 MG/ML 100 ML SDV IV ONE (17:08)
[2019-04-23 17:23] LABS: Urine Appearance Clear; Urine Bilirubin Negative (Negative); Urine Blood Negative (Negative); Urine Color Yellow; Urine Glucose Negative (Negative); Urine Ketones Negative (Negative); Urine Nitrite Negative (Negative); Urine Protein Negative (Negative); Urine Urobilinogen Negative (Negative)
--- NOTE | 2019-04-23 17:32 | ED ---
GI/ HPI - HPI Summary HPI Summary: 38-year-old female presents with abdominal pain today. She states that it started around her umbilicus been radiated around her abdomen. pain was greatest in the epigastric region. No fevers. No nausea due to the pain. No vomiting. She states that she knows he has a hernia so she tried to reduce it is able to do so but had increasing pain. Since then pain has been decreasing. No urinary symptoms. No diarrhea constipation. No previous belly surgeries. Has a history of diabetes. No chest pain or shortness breath. - History of Current Complaint Chief Complaint: EDAbdPain Time Seen by Provider: 04/23/19 16:39 Stated Complaint: ABDOMINAL PAIN Hx Last Menstrual Period: started 03/19 Pain Intensity: 8 - Additional Pertinent History Primary Care Physician: ELICEO - Allergy/Home Medications Allergies/Adverse Reactions: Allergies Allergy/AdvReac Type Severity Reaction Status Date / Time shrimp Allergy Itching Verified 04/23/19 14:17 etodolac AdvReac fainting Verified 04/23/19 14:17 ENVIRONMENTAL/SEASONAL Allergy Unknown Uncoded 03/29/19 19:57 Reaction Details Home Medications: Home Medications Ferrous Sulfate TAB* 325 mg PO DAILY 04/23/19 [History Confirmed 04/23/19] Hydrochlorothiazide TAB* [Hydrodiuril TAB*] 12.5 mg PO DAILY 04/23/19 [History Confirmed 04/23/19] PMH/Surg Hx/FS Hx/Imm Hx Endocrine/Hematology History: Reports: Hx Diabetes - IDDM Cardiovascular History: Reports: Hx Hypertension - ON MEDS Denies: Hx Pacemaker/ICD, Other Cardiovascular Problems/Disorders Respiratory History: Reports: Hx Asthma, Other Respiratory Problems/Disorders - FREQUENT SINUS TROUBLE, POST NASAL DRIP GI History: Reports: Hx Gastroesophageal Reflux Disease Denies: Other GI Disorders History: Reports: Other Problems/Disorders - SOMETIMES PROTIEN IN URINE Denies: Hx Renal Disease Musculoskeletal History: Reports: Other Musculoskeletal History - TRIGGER FINGERS BILAT Sensory History: Denies: Hx Contacts or Glasses, Hx Hearing Aid Opthamlomology History: Denies: Hx Contacts or Glasses Neurological History: Reports: Hx Seizures - ONE SEIZURE MANY YEARS AGO, Other Neuro Impairments/Disorders - trigger finger LUZ WITH SURGERY Denies: Hx Headaches Psychiatric History: Denies: Hx Panic Disorder - Surgical History Surgery Procedure, Year, and Place: triger finger surg [facility]. 2013 [facility]. 2012, [facility], [facility]. 2-3 MORE S[facility]US SURGERY. C SECTION 02/2016 Hx Anesthesia Reactions: No - Immunization History Date of Tetanus Vaccine: utd Date of Influenza Vaccine: fall 2016 Infectious Disease History: No Infectious Disease History: Denies: Traveled Outside the [place] in Last 30 Days - Family History Known Family History: Positive: Diabetes Family History: Denies FHx of malignant hyperthermia or anesthesia reaction. - Social History Alcohol Use: None Hx Substance Use: No Substance Use Type: Reports: None Hx Tobacco Use: No Smoking Status (MU): Never Smoked Tobacco Have You Smoked in the Last Year: No Review of Systems Negative: Fever Negative: Chest Pain Negative: Shortness Of Breath Positive: Abdominal Pain, Nausea. Negative: Vomiting, Diarrhea All Other Systems Reviewed And Are Negative: Yes Physical Exam Triage Information Reviewed: Yes Vital Signs On Initial Exam: Initial Vitals Temp Pulse Resp BP Pulse Ox 98.1 F 82 16 115/69 100 04/23/19 14:13 04/23/19 14:13 04/23/19 14:13 04/23/19 14:13 04/23/19 14:13 Vital Signs Reviewed: Yes Appearance: Positive: Well-Appearing Skin: Positive: Warm, Dry Head/Face: Positive: Normal Head/Face Inspection Eyes: Positive: Normal, Conjunctiva Clear ENT: Positive: Pharynx normal Respiratory/Lung Sounds: Positive: Clear to Auscultation, Breath Sounds Present Cardiovascular: Positive: Normal, RRR Abdomen Description: Positive: Soft, Other: - tenderness periumbilical, hernia reduced Bowel Sounds: Positive: Present Musculoskeletal: Positive: Normal Neurological: Positive: Normal Psychiatric: Positive: Normal Diagnostics - Vital Signs Vital Signs Temp Pulse Resp BP Pulse Ox 04/23/19 16:44 97.2 F 74 97 04/23/19 15:47 97.6 F 72 16 106/62 100 04/23/19 14:13 98.1 F 82 16 115/69 100 - Laboratory Lab Results: Lab Results 04/23/19 04/23/19 04/23/19 Range/Units 15:57 15:57 16:50 WBC 7.8 (3.5-10.8) 10^3/uL RBC 4.05 (3.70-4.87) 10^6 /uL Hgb 11.1 L (12.0-16.0) g/dL Hct 34 L (35-47) % MCV 83 (80-97) fL MCH 28 (27-31) pg MCHC 33 (31-36) g/dL RDW 14 (10-15) % Plt Count 398 (150-450) 10^3/uL MPV 6.9 L (7.4-10.4) fL Neut % (Auto) 62.3 % Lymph % (Auto) 28.2 % [place] % (Auto) 5.5 % Eos % (Auto) 2.9 % Baso % (Auto) 1.1 % Absolute Neuts (auto) 4.9 (1.5-7.7) 10^3/ul Absolute Lymphs (auto) 2.2 (1.0-4.8) 10^3/ul Absolute Monos (auto) 0.4 (0-0.8) 10^3/ul Absolute Eos (auto) 0.2 (0-0.6) 10^3/ul Absolute Basos (auto) 0.1 (0-0.2) 10^3/ul Absolute Nucleated RBC 0.0 10^3/ul Nucleated RBC % 0.0 Sodium 132 L (135-145) mmol/L Potassium 5.1 H (3.5-5.0) mmol/L Chloride 102 (101-111) mmol/L Carbon Dioxide 26 (22-32) mmol/L Anion Gap 4 (2-11) mmol/L BUN 27 H (6-24) mg/dL Creatinine 1.69 H (0.51-0.95) mg/dL Est GFR ( Amer) 41.2 (>60) Est GFR (Non-Af Amer) 34.0 (>60) BUN/Creatinine Ratio 16.0 (8-20) Glucose 170 H (70-100) mg/dL Calcium 9.2 (8.6-10.3) mg/dL Total Bilirubin 0.30 (0.2-1.0) mg/dL AST 12 L (13-39) U/L ALT 10 (7-52) U/L Alkaline Phosphatase 74 (34-104) U/L C-Reactive Protein 45.21 H (<8.01) mg/L Total Protein 8.0 (6.4-8.9) g/dL Albumin 3.7 (3.2-5.2) g/dL Globulin 4.3 H (2-4) g/dL Albumin/Globulin Ratio 0.9 L (1-3) Lipase 24 (11.0-82.0) U/L Beta HCG, Quant < 0.60 mIU/mL Urine Color Yellow Urine Appearance Clear Urine pH 6.0 (5-9) Ur Specific [place] 1.010 (1.010-1.030) Urine Protein Negative (Negative) Urine Ketones Negative (Negative) Urine Blood Negative (Negative) Urine Nitrate Negative (Negative) Urine Bilirubin Negative (Negative) Urine Urobilinogen Negative (Negative) Ur Leukocyte Esterase Negative (Negative) Urine Glucose Negative (Negative) Result Diagrams: 04/23/19 15:57 04/23/19 15:57 Lab Statement: Any lab studies that have been ordered have been reviewed, and results considered in the medical decision making process. - Ultrasound No standard instances Ultrasound Interpretation Completed By: Radiologist Summary of Ultrasound Findings: IMPRESSION: Gallstones without ultrasound evidence of acute cholecystitis. Re-Evaluation - Re-Evaluation First Eval Re-Evaluation Time: 17:31 Change: Improved Comment: minimial pain in RUQ Second Eval Change: Improved Third Eval Re-Evaluation Time: 19:57 Change: Improved GIGU Course/Dx - Course Course Of Treatment: 38-year-old female presents with abdominal pain today. She states that it started around her umbilicus been radiated around her abdomen. pain was greatest in the epigastric region. No fevers. No nausea due to the pain. No vomiting. She states that she knows he has a hernia so she tried to reduce it is able to do so but had increasing pain. Since then pain has been decreasing. No urinary symptoms. No diarrhea constipation. No previous belly surgeries. Has a history of diabetes. No chest pain or shortness breath. On exam tenderness right upper quadrant. Initially was going to get a CT but was unable to get line. On reexam patient's pain has pre almost resolved. Nontender around the hernia her umbilicus. Hernia is reduced. u/s shows gall stones. will have follow up with surgery as scheduled. Patient understands agrees plan. - Diagnoses Differential Diagnoses - Female: Gall Bladder Disease, Gastroenteritis (Viral), Urinary Tract Infection Provider Diagnoses: Gallstones, Umbilical hernia, Abdominal pain Discharge ED - Sign-Out/Discharge Documenting (check all that apply): Patient Departure Patient Received Moderate/Deep Sedation with Procedure: No - Discharge Plan Condition: Good Disposition: HOME Patient Education Materials: Gallstones (ED) Referrals: Quintin Larose SPORTS MEDICINE TRAINER [Primary Care Provider] - Alvaro Dudley MD [Medical Doctor] - Additional Instructions: follow up with surgery as scheduled avoid heavy lifting take tyenlol every 6 hours as needed for pain Return to ED if develop any new or worsening symptoms - Billing Disposition and Condition Condition: GOOD Disposition: Home
[2019-04-23 20:10] VITALS: BP 154/84
== END 2019-04-23 20:00 | disposition home or self-care (01) ==
LOC: ED 14:02
DX: K80.80 Other cholelithiasis without obstruction (principal); K42.9 Umbilical hernia without obstruction or gangrene; R10.9 Unspecified abdominal pain; E11.9 Type 2 diabetes mellitus without complications; K21.9 Gastro-esophageal reflux disease without esophagitis; Z79.899 Other long term (current) drug therapy
CPT/HCPCS: 36415; 76705; 80053; 81003; 83690; 84702; 85025; 86140; 99284

== ENCOUNTER 2019-09-27 16:55 | Emergency (ER) | payer BC ==
[2019-09-27 17:31] LABS: Influenza A Molecular POSITIVE (Negative)
[2019-09-27] MEDS ORDERED: NS 0.9% 1000 ML** 1,000 ML IV ONE (20:11)
[2019-09-27] MEDS ORDERED: Ondansetron INJ* 2 MG/ML VIAL IV ONE (20:11)
--- NOTE | 2019-09-27 20:14 | ED ---
Influenza-Like Illness - HPI Summary HPI Summary: A little fluid in her lung the right 38-year-old female with a significant past medical history diabetes mellitus, asthma presents to the emergency department today complaining of nasal congestion, cough, nausea, vomiting, chest tightness for 4 days. Patient states she took Tylenol prior to arrival for alleviation of her fever. Patient states due to her nausea and vomiting she has had decreased oral intake of fluids or food. Patient is currently in no acute distress. Patient is nontoxic. Patient denies recent travel outside the [place]. Patient otherwise feels well and denies rash, pain with urination, shortness of breath. - History of Current Complaint Chief Complaint: EDFluSymptoms Time Seen by Provider: 09/27/19 20:04 Hx Obtained From: Patient Onset/Duration: Gradual Onset Associated Signs & Symptoms: Fever, Myalgia, Cough, Sore Throat, Nasal Congestion - Allergy/Home Medications Allergies/Adverse Reactions: Allergies Allergy/AdvReac Type Severity Reaction Status Date / Time shrimp Allergy Itching Verified 04/23/19 14:17 etodolac AdvReac fainting Verified 04/23/19 14:17 ENVIRONMENTAL/SEASONAL Allergy Unknown Uncoded 03/29/19 19:57 Reaction Details Home Medications: Home Medications Albuterol HFA INHALER* [Ventolin HFA Inhaler*] 2 puff INH QID PRN 07/13/12 [ History Confirmed 09/27/19] Albuterol 2.5MG/3ML (0.083%)* [Ventolin 2.5 MG/3 ML NEB.RANCHO*] 2.5 mg INH Q6H PRN 05/25/16 [History Confirmed 09/27/19] Insulin Lispro [Humalog 100 units/ml 5 ml x 3 Pens] 0 - 60 unit SUBCUT TID WITH MEALS MDD 100 units w/ titration priming 05/25/16 [History Confirmed 09/27/19] Multivitamins/Minerals TAB* [Theragran/minerals TAB*] 1 tab PO DAILY 05/25/16 [ History Confirmed 09/27/19] Insulin GLARGINE(*) [Lantus 100 units/ml 10 ml VIAL (*)] 60 units SUBCUT DAILY 11/19/17 [History Confirmed 09/27/19] Lisinopril TAB* [Prinivil TAB 10 MG*] 40 mg PO DAILY 11/19/17 [History Confirmed 09/27/19] Acetaminophen TAB* [Tylenol TAB*] 650 mg PO Q4H PRN #0 tab 11/23/17 [Rx Confirmed 09/27/19] Calcium Carbonate/Vitamin D3 [Calcium 500 + Vit D Caplet] 1 tab PO DAILY #0 06/11 [History Confirmed 09/27/19] Ferrous Sulfate TAB* 325 mg PO DAILY 04/23/19 [History Confirmed 09/27/19] Hydrochlorothiazide TAB* [Hydrodiuril TAB*] 12.5 mg PO QAM 04/23/19 [History Confirmed 09/27/19] Ondansetron ODT TAB* [Zofran 4 MG Odt TAB*] 4 mg PO Q6H PRN #12 tab.odt [Rx] PMH/Surg Hx/FS Hx/Imm Hx Endocrine/Hematology History: Reports: Hx Diabetes - IDDM Cardiovascular History: Reports: Hx Hypertension - ON MEDS Denies: Hx Pacemaker/ICD, Other Cardiovascular Problems/Disorders Respiratory History: Reports: Hx Asthma, Other Respiratory Problems/Disorders - FREQUENT SINUS TROUBLE, POST NASAL DRIP GI History: Reports: Hx Gastroesophageal Reflux Disease Denies: Other GI Disorders History: Reports: Other Problems/Disorders - SOMETIMES PROTIEN IN URINE Denies: Hx Renal Disease Musculoskeletal History: Reports: Other Musculoskeletal History - TRIGGER FINGERS BILAT Sensory History: Denies: Hx Contacts or Glasses, Hx Hearing Aid Opthamlomology History: Denies: Hx Contacts or Glasses Neurological History: Reports: Hx Seizures - ONE SEIZURE MANY YEARS AGO, Other Neuro Impairments/Disorders - trigger finger LUZ WITH SURGERY Denies: Hx Headaches Psychiatric History: Denies: Hx Panic Disorder - Surgical History Surgery Procedure, Year, and Place: 2009/2010 triger finger surg [facility]. 2013 [facility]. 2012, [facility]. 2-3 MORE SINUS SURGERY. C SECTION 02/2016 Hx Anesthesia Reactions: No - Immunization History Date of Tetanus Vaccine: utd Date of Influenza Vaccine: fall 2016 Infectious Disease History: No Infectious Disease History: Denies: Traveled Outside the [place] in Last 30 Days - Family History Known Family History: Positive: Diabetes Family History: Denies FHx of malignant hyperthermia or anesthesia reaction. - Social History Alcohol Use: None Hx Substance Use: No Substance Use Type: Reports: None Hx Tobacco Use: No Smoking Status (MU): Never Smoked Tobacco Have You Smoked in the Last Year: No Review of Systems Positive: Fever, Fatigue Positive: Sore Throat, Nasal Discharge Cardiovascular: Negative Respiratory: Negative Gastrointestinal: Negative Genitourinary: Negative Musculoskeletal: Negative Skin: Negative Neurological/Mental Status: Negative Psychological: Normal All Other Systems Reviewed And Are Negative: Yes Physical Exam Triage Information Reviewed: Yes Vital Signs On Initial Exam: Initial Vitals Temp Pulse Resp BP Pulse Ox 99.2 F 117 20 100/68 97 09/27/19 16:59 09/27/19 16:59 09/27/19 16:59 09/27/19 16:59 09/27/19 16:59 Vital Signs Reviewed: Yes Appearance: Positive: Well-Appearing, No Pain Distress, Well-Nourished Skin: Positive: Warm, Skin Color Reflects Adequate Perfusion Eyes: Positive: EOMI, ATA ENT: Positive: Hearing grossly normal Respiratory/Lung Sounds: Positive: Clear to Auscultation, Breath Sounds Present Cardiovascular: Positive: RRR, S1, S2 Abdomen Description: Positive: Nontender, Soft Bowel Sounds: Positive: Present Musculoskeletal: Positive: Strength/ROM Intact Neurological: Positive: Sensory/Motor Intact, Alert, Oriented to Person Place, Time, Normal Gait, Facial Symmetry, Speech Normal Psychiatric: Positive: Normal, Affect/Mood Appropriate AVPU Assessment: Alert Procedures - Sedation Patient Received Moderate/Deep Sedation with Procedure: No Diagnostics - Vital Signs Vital Signs Temp Pulse Resp BP Pulse Ox 09/27/19 19:01 97.7 F 102 22 100/65 99 09/27/19 16:59 99.2 F 117 20 100/68 97 - Laboratory Lab Results: Lab Results 09/27/19 Range/Units 17:05 Influenza A (Rapid) Positive H (Negative) Influenza B (Rapid) Not Reportable Lab Statement: Any lab studies that have been ordered have been reviewed, and results considered in the medical decision making process. Flu Symptom Course/Dx - Course Course Of Treatment: Patient was evaluated in the emergency department today for influenza-like illness. Vitals noted. Patient given Tylenol for fever and pain. Patient was given by mouth fluids as well as Zofran in the emergency department as well as an outpatient prescription. Patient is outside of window Tamiflu treatment. Patient is in no acute distress and does not appear toxic with stable vital signs. Patient discharged with outpatient follow-up. - Diagnoses Differential Diagnosis/HQI/PQRI: Positive: Influenza, Pneumonia, Upper Respiratory Infection Provider Diagnoses: Influenza A Discharge ED - Sign-Out/Discharge Documenting (check all that apply): Patient Departure - Discharge Plan Condition: Stable Disposition: HOME Prescriptions: Ondansetron ODT TAB* [Zofran 4 MG Odt TAB*] 4 mg PO Q6H PRN #12 tab.odt PRN Reason: Nausea Patient Education Materials: Influenza (ED) Referrals: Quintin Larose DIANETICIST [Primary Care Provider] - 3 Days Additional Instructions: You were seen in the emergency department today and diagnosed with influenza. This is an upper respiratory virus which causes cough, muscle aches, fever, nausea, trouble breathing. Viruses are self-limiting and will go away on their own. Be sure to stay hydrated and rest. You may take [id number] decongestants as needed for your symptoms as well as NyQuil at night to improve sleep. Take Tylenol every 6 hours as needed for fever. Please see your primary care physician in 5 days for further evaluation and management. Please do not return to work or school until 24 hours after your fever breaks. Please return to the emergency department immediately if you develop any new or worsening symptoms. - Billing Disposition and Condition Condition: STABLE Disposition: Home
[2019-09-27 20:33] VITALS: BP 110/69
[2019-09-27] MEDS ORDERED: Acetaminophen TAB* 325 MG PO ONE (22:11)
[2019-09-27] MEDS ORDERED: Ondansetron ODT TAB* 4 MG PO ONE (22:22)
[2019-09-27] MEDS ORDERED: Ondansetron TAB* 4 MG PO ONE (22:23)
[2019-09-27] MEDS ORDERED: Ondansetron TAB* 4 MG ONE (22:24)
== END 2019-09-27 22:30 | disposition home or self-care (01) ==
LOC: ED 16:55
DX: J10.1 Influenza due to other identified influenza virus with other respiratory manifestations (principal); R50.9 Fever, unspecified; R05 Cough; J02.9 Acute pharyngitis, unspecified; R09.81 Nasal congestion; E11.9 Type 2 diabetes mellitus without complications; Z79.4 Long term (current) use of insulin; I10 Essential (primary) hypertension; K21.9 Gastro-esophageal reflux disease without esophagitis
CPT/HCPCS: 99283; A9270-GY; J2405

== ENCOUNTER 2019-09-29 16:34 | Inpatient (IN) | payer BC ==
[2019-09-29] MEDS ORDERED: NS 0.9% 1000 ml BAG 2,000 ML IV ONE (16:46)
[2019-09-29] MEDS ORDERED: Albuterol 2.5mg/3 ml (0.083%) NEB.SOLN INH ONE (16:47)
[2019-09-29 17:11] LABS: Hematocrit 34 % (35-47); Hemoglobin 11.4 g/dL (12.0-16.0); Mean Corpuscular HGB Conc 34 g/dL (31-36); Mean Corpuscular Hemoglobin 28 pg (27-31); Mean Corpuscular Volume 83 fL (80-97); Mean Platelet Volume 7.6 fL (7.4-10.4); Platelet Count 267 10^3/uL (150-450); Red Blood Count 4.06 10^6 /uL (3.70-4.87); Red Cell Distribution Width 14 % (10-15); White Blood Count 21.3 10^3/uL (3.5-10.8)
[2019-09-29 17:28] LABS: Albumin 3.5 g/dL (3.2-5.2); Albumin/Globulin Ratio 0.7 (1-3); BUN/Creatinine Ratio 15.3 (8-20); C Reactive Protein 339.57 mg/L (<8.01); Calcium 9.5 mg/dL (8.6-10.3); EGFR African American 14.8 (>60); EGFR Non-African American 12.2 (>60); Globulin 4.7 g/dL (2-4); Potassium 4.2 mmol/L (3.5-5.0); Total Bilirubin 0.3 mg/dL (0.2-1.0); Total Protein 8.2 g/dL (6.4-8.9)
[2019-09-29 17:41] LABS: ABS Lymphocytes 0.7 10^3/ul (1.0-4.8); ABS Monocytes 1.6 10^3/ul (0-0.8); Lymphocyte % 3.3 %
[2019-09-29] MEDS ORDERED: Azithromycin 500 mg/250 ml NS 500 MG/250 ML BAG IVPB ONE (17:57)
[2019-09-29] MEDS ORDERED: cefTRIAXone ADVAN VIAL 1 GM in NS 0.9% 50 ML 50 ML IVPB ONE (19:24)
[2019-09-29] MEDS ORDERED: Dextrose 50% Syringe 50 ml 25 GM/50 ML SYRINGE IV PUSH PRN (19:48)
[2019-09-29] MEDS ORDERED: IPRATROPIUM ALBUTEROL INH PRN (19:49)
[2019-09-29] MEDS ORDERED: ALBUTEROL INH PRN (19:49)
[2019-09-29] MEDS ORDERED: IPRATROPIUM 0.5 MG INH PRN (19:49)
[2019-09-29] MEDS: Insulin LISPRO 100 units/ml(*) SUBCUT SCH (21:45)
[2019-09-29] MEDS: Enoxaparin 30 MG/0.3 ML SYR(*) SUBCUT SCH (21:46)
[2019-09-29] MEDS: Lactated Ringers 1000 ml BAG 1,000 ML IV SCH (22:01)
[2019-09-29 23:25] LABS: Urine Appearance Cloudy; Urine Bilirubin Negative (Negative); Urine Blood 1+ (Negative); Urine Color Yellow; Urine Glucose 1+(50 mg/dL) (Negative); Urine Ketones Trace (Negative); Urine Nitrite Negative (Negative); Urine Protein 2+(100 mg/dL) (Negative); Urine Specific Gravity 1.014 (1.010-1.030); Urine Urobilinogen Negative (Negative)
[2019-09-29 23:27] LABS: Urine Bacteria Absent (Absent); Urine Red Blood Cell 1+(3-5/hpf) (Absent); Urine Squamous Epithelial Cell Present (Absent); Urine White Blood Cell Trace(0-5/hpf) (Absent)
[2019-09-29 23:39] LABS: Urine Creatinine Concentration 200.11 mg/dL; Urine Sodium Concentration < 18 mmol/L
[2019-09-30] MEDS ORDERED: HYDROmorphone 0.5 MG/0.5 ML SYRINGE IV SLOW PU STA (00:20)
[2019-09-30] MEDS: Ondansetron 4 mg VIAL 2 MG/ML 2 ml VIAL IV PRN ×4 (05:25→19:51)
[2019-09-30 07:03] LABS: ABS Lymphocytes 0.7 10^3/ul (1.0-4.8); ABS Monocytes 1.5 10^3/ul (0-0.8); Hematocrit 30 % (35-47); Hemoglobin 10.1 g/dL (12.0-16.0); Lymphocyte % 3.9 %; Mean Corpuscular HGB Conc 34 g/dL (31-36); Mean Corpuscular Hemoglobin 28 pg (27-31); Mean Corpuscular Volume 83 fL (80-97); Mean Platelet Volume 7.2 fL (7.4-10.4); Platelet Count 219 10^3/uL (150-450); Red Blood Count 3.62 10^6 /uL (3.70-4.87); Red Cell Distribution Width 14 % (10-15); White Blood Count 17.1 10^3/uL (3.5-10.8)
[2019-09-30 07:21] LABS: BUN/Creatinine Ratio 16.3 (8-20); C Reactive Protein 340.8 mg/L (<8.01); Calcium 8.3 mg/dL (8.6-10.3); EGFR African American 16.5 (>60); EGFR Non-African American 13.6 (>60); Magnesium 1.8 mg/dL (1.9-2.7); Potassium 4.4 mmol/L (3.5-5.0)
[2019-09-30] MEDS ORDERED: Magnesium Sulfate 2 gm BAG 2 GM/50 ML BAG IVPB ONE (07:40)
[2019-09-30] MEDS: Lactated Ringers 1000 ml BAG 1,000 ML IV SCH ×2 (07:47→15:19)
[2019-09-30] MEDS ORDERED: Vancomycin per Pharmacy 1 EA NOTE FOLLOW UP PRN (07:52)
[2019-09-30] MEDS ORDERED: Vancomycin(*) 1,500 MG in NS 0.9% 250 ml 250 ML IVPB ONE (08:00)
[2019-09-30] MEDS: Insulin LISPRO 100 units/ml(*) SUBCUT SCH ×4 (08:11→21:14)
[2019-09-30] MEDS: DOXYcycline 100 MG in NS 0.9% 250 ml 250 ML IVPB SCH ×2 (08:12→21:02)
[2019-09-30] MEDS: cefTRIAXone ADVAN VIAL 1 GM in NS 0.9% 50 ML 50 ML IVPB SCH (20:08)
[2019-09-30] MEDS: Enoxaparin 30 MG/0.3 ML SYR(*) SUBCUT SCH (20:12)
[2019-09-30] MEDS ORDERED: diPHENhydraMINE 25 mg TAB PO ONE (21:33)
[2019-10-01] MEDS: Ondansetron 4 mg VIAL 2 MG/ML 2 ml VIAL IV PRN ×2 (04:35→12:33)
[2019-10-01] MEDS ORDERED: Vancomycin Random Level NOTE FOLLOW UP ONE (06:00)
[2019-10-01 06:19] LABS: ABS Lymphocytes 0.6 10^3/ul (1.0-4.8); ABS Monocytes 1.1 10^3/ul (0-0.8); Eosinophil % 0.1 %; Hematocrit 31 % (35-47); Lymphocyte % 3.5 %; Mean Corpuscular HGB Conc 32 g/dL (31-36); Mean Corpuscular Hemoglobin 28 pg (27-31); Mean Corpuscular Volume 86 fL (80-97); Mean Platelet Volume 7.7 fL (7.4-10.4); Platelet Count 248 10^3/uL (150-450); Red Blood Count 3.63 10^6 /uL (3.70-4.87); Red Cell Distribution Width 14 % (10-15)
[2019-10-01 06:33] LABS: BUN/Creatinine Ratio 16.9 (8-20); Calcium 8.6 mg/dL (8.6-10.3); EGFR African American 17.6 (>60); EGFR Non-African American 14.5 (>60); Potassium 4.7 mmol/L (3.5-5.0)
[2019-10-01 06:51] LABS: Vancomycin Random 13.3 mcg/mL
[2019-10-01] MEDS ORDERED: Insulin LISPRO 100 units/ml(*) SUBCUT SCH ×2 (08:16→08:45)
[2019-10-01] MEDS: DOXYcycline 100 MG in NS 0.9% 250 ml 250 ML IVPB SCH ×2 (08:20→21:57)
[2019-10-01] MEDS: Famotidine SUSP ORALSYR 8 MG/ML PO SCH (08:53)
[2019-10-01] MEDS: Insulin GLARGINE 100 un/ml (*) 10 ml VIAL SUBCUT SCH (08:53)
[2019-10-01] MEDS: Insulin LISPRO 100 units/ml(*) SUBCUT SCH ×5 (08:54→21:33)
[2019-10-01] MEDS ORDERED: Vancomycin(*) 1,250 MG IV x ONCE IVPB ONE (09:00)
[2019-10-01] MEDS: fentaNYL 100 mcg/2 ml 50 MCG/ML VIAL IV SLOW PU PRN ×2 (09:36→21:34)
[2019-10-01] MEDS: NS 0.9% 1000 ml BAG 1,000 ML IV SCH (12:03)
[2019-10-01] MEDS: cefTRIAXone ADVAN VIAL 1 GM in NS 0.9% 50 ML 50 ML IVPB SCH (21:28)
[2019-10-01] MEDS: Enoxaparin 30 MG/0.3 ML SYR(*) SUBCUT SCH (21:37)
[2019-10-02] MEDS: NS 0.9% 1000 ml BAG 1,000 ML IV SCH ×2 (04:14→20:07)
[2019-10-02] MEDS ORDERED: Vancomycin Random Level NOTE FOLLOW UP ONE (06:00)
[2019-10-02] MEDS: DOXYcycline 100 MG in NS 0.9% 250 ml 250 ML IVPB SCH (08:07)
[2019-10-02] MEDS: Insulin GLARGINE 100 un/ml (*) 10 ml VIAL SUBCUT SCH (09:53)
[2019-10-02] MEDS: Insulin LISPRO 100 units/ml(*) SUBCUT SCH ×4 (09:53→22:00)
[2019-10-02] MEDS: Famotidine SUSP ORALSYR 8 MG/ML PO SCH (09:54)
[2019-10-02 10:29] LABS: Hematocrit 27 % (35-47); Hemoglobin 8.9 g/dL (12.0-16.0); Mean Corpuscular HGB Conc 34 g/dL (31-36); Mean Corpuscular Hemoglobin 28 pg (27-31); Mean Corpuscular Volume 84 fL (80-97); Mean Platelet Volume 7.3 fL (7.4-10.4); Platelet Count 320 10^3/uL (150-450); Red Blood Count 3.18 10^6 /uL (3.70-4.87); Red Cell Distribution Width 14 % (10-15); White Blood Count 22.9 10^3/uL (3.5-10.8)
[2019-10-02 10:41] LABS: BUN/Creatinine Ratio 15.9 (8-20); Calcium 8.3 mg/dL (8.6-10.3); EGFR African American 23.3 (>60); EGFR Non-African American 19.3 (>60); Potassium 3.8 mmol/L (3.5-5.0)
[2019-10-02 10:47] LABS: Vancomycin Random 15.4 mcg/mL
[2019-10-02 10:50] LABS: ABS Eosinophils 0.1 10^3/ul (0-0.6); ABS Lymphocytes 0.9 10^3/ul (1.0-4.8); ABS Monocytes 1.9 10^3/ul (0-0.8); Eosinophil % 0.4 %; Lymphocyte % 4.1 %
[2019-10-02] MEDS ORDERED: Vancomycin per Pharmacy 1 EA NOTE FOLLOW UP SCH (11:00)
[2019-10-02] MEDS ORDERED: Vancomycin(*) 750 MG in NS 0.9% 250 ml 250 ML IVPB ONE (12:00)
[2019-10-02 18:45] LABS: Influenza A Molecular POSITIVE (Negative)
[2019-10-02] MEDS: IPRATROPIUM ALBUTEROL INH SCH ×2 (20:46→23:33)
[2019-10-02] MEDS: IPRATROPIUM 0.5 MG INH SCH ×2 (20:46→23:33)
[2019-10-02] MEDS: ALBUTEROL INH SCH ×2 (20:46→23:33)
[2019-10-02] MEDS ORDERED: hydrALAZINE 20 mg/ml 1 ML Vial IV IV SLOW PU PRN (20:58)
[2019-10-02] MEDS: Enoxaparin 30 MG/0.3 ML SYR(*) SUBCUT SCH (21:41)
[2019-10-03] MEDS: IPRATROPIUM 0.5 MG INH SCH ×4 (03:26→19:49)
[2019-10-03] MEDS: IPRATROPIUM ALBUTEROL INH SCH ×4 (03:26→19:49)
[2019-10-03] MEDS: ALBUTEROL INH SCH ×4 (03:26→19:49)
[2019-10-03 05:28] LABS: BUN/Creatinine Ratio 14.8 (8-20); Calcium 8.4 mg/dL (8.6-10.3); EGFR African American 27.9 (>60); Potassium 4.1 mmol/L (3.5-5.0)
[2019-10-03 05:46] LABS: Vancomycin Random 14.9 mcg/mL
[2019-10-03] MEDS ORDERED: Vancomycin Random Level NOTE FOLLOW UP ONE (06:00)
[2019-10-03 08:46] LABS: Hematocrit 27 % (35-47); Hemoglobin 8.8 g/dL (12.0-16.0); Mean Corpuscular HGB Conc 33 g/dL (31-36); Mean Corpuscular Hemoglobin 28 pg (27-31); Mean Corpuscular Volume 84 fL (80-97); Mean Platelet Volume 7.1 fL (7.4-10.4); Platelet Count 358 10^3/uL (150-450); Red Blood Count 3.16 10^6 /uL (3.70-4.87); Red Cell Distribution Width 14 % (10-15)
[2019-10-03] MEDS: Insulin GLARGINE 100 un/ml (*) 10 ml VIAL SUBCUT SCH (09:40)
[2019-10-03] MEDS: Insulin LISPRO 100 units/ml(*) SUBCUT SCH ×7 (09:41→22:14)
[2019-10-03 09:48] LABS: ABS Basophils 0.1 10^3/ul (0-0.2); ABS Eosinophils 0.1 10^3/ul (0-0.6); ABS Lymphocytes 1.2 10^3/ul (1.0-4.8); ABS Monocytes 2.4 10^3/ul (0-0.8); Eosinophil % 0.6 %; Lymphocyte % 6.5 %
[2019-10-03] MEDS: Famotidine SUSP ORALSYR 8 MG/ML PO SCH (09:51)
[2019-10-03] MEDS ORDERED: Vancomycin(*) 1,000 MG in NS 0.9% 250 ml 250 ML IV ONE (10:00)
[2019-10-03] MEDS: Enoxaparin 40 MG/0.4 ML SYR(*) SUBCUT SCH (21:51)
[2019-10-04] MEDS: IPRATROPIUM ALBUTEROL INH SCH ×4 (01:41→19:20)
[2019-10-04] MEDS: IPRATROPIUM 0.5 MG INH SCH ×4 (01:41→19:20)
[2019-10-04] MEDS: ALBUTEROL INH SCH ×4 (01:41→19:20)
[2019-10-04 05:53] LABS: Hematocrit 27 % (35-47); Hemoglobin 8.7 g/dL (12.0-16.0); Mean Corpuscular HGB Conc 33 g/dL (31-36); Mean Corpuscular Hemoglobin 28 pg (27-31); Mean Corpuscular Volume 85 fL (80-97); Mean Platelet Volume 6.9 fL (7.4-10.4); Platelet Count 431 10^3/uL (150-450); Red Blood Count 3.13 10^6 /uL (3.70-4.87); Red Cell Distribution Width 15 % (10-15); White Blood Count 18.5 10^3/uL (3.5-10.8)
[2019-10-04 05:57] LABS: ABS Basophils 0.1 10^3/ul (0-0.2); ABS Eosinophils 0.3 10^3/ul (0-0.6); ABS Lymphocytes 1.6 10^3/ul (1.0-4.8); ABS Monocytes 1.8 10^3/ul (0-0.8); Eosinophil % 1.5 %; Lymphocyte % 8.8 %
[2019-10-04] MEDS ORDERED: Vancomycin Random Level NOTE FOLLOW UP ONE (06:00)
[2019-10-04 06:07] LABS: BUN/Creatinine Ratio 12.9 (8-20); Calcium 8.5 mg/dL (8.6-10.3); EGFR African American 28.6 (>60); EGFR Non-African American 23.6 (>60); Potassium 3.9 mmol/L (3.5-5.0)
[2019-10-04 06:20] LABS: Vancomycin Random 14.2 mcg/mL
[2019-10-04] MEDS: Insulin LISPRO 100 units/ml(*) SUBCUT SCH ×6 (08:20→17:33)
[2019-10-04] MEDS: Famotidine SUSP ORALSYR 8 MG/ML PO SCH (08:58)
[2019-10-04] MEDS: Insulin GLARGINE 100 un/ml (*) 10 ml VIAL SUBCUT SCH (08:58)
[2019-10-04] MEDS: Vancomycin(*) 1,000 MG in NS 0.9% 250 ml 250 ML IV SCH (12:12)
[2019-10-04] MEDS ORDERED: Dextrose 50% Syringe 50 ml 25 GM/50 ML SYRINGE IV PUSH PRN (17:41)
[2019-10-04] MEDS: Enoxaparin 40 MG/0.4 ML SYR(*) SUBCUT SCH (20:25)
[2019-10-04] MEDS ORDERED: Insulin LISPRO 100 units/ml(*) SUBCUT ONE (21:00)
[2019-10-05] MEDS: Insulin LISPRO 100 units/ml(*) SUBCUT SCH ×5 (00:05→23:13)
[2019-10-05] MEDS: ALBUTEROL INH SCH ×4 (01:34→17:46)
[2019-10-05] MEDS: IPRATROPIUM ALBUTEROL INH SCH ×4 (01:34→17:46)
[2019-10-05] MEDS: IPRATROPIUM 0.5 MG INH SCH ×4 (01:34→17:46)
[2019-10-05 06:02] LABS: BUN/Creatinine Ratio 12.2 (8-20); Calcium 8.4 mg/dL (8.6-10.3); EGFR African American 30.2 (>60); Potassium 3.9 mmol/L (3.5-5.0)
[2019-10-05 09:07] LABS: ABS Basophils 0.1 10^3/ul (0-0.2); ABS Eosinophils 0.2 10^3/ul (0-0.6); ABS Lymphocytes 1.3 10^3/ul (1.0-4.8); ABS Monocytes 1.5 10^3/ul (0-0.8); Eosinophil % 1.4 %; Hematocrit 26 % (35-47); Hemoglobin 8.5 g/dL (12.0-16.0); Mean Corpuscular HGB Conc 33 g/dL (31-36); Mean Corpuscular Hemoglobin 28 pg (27-31); Mean Corpuscular Volume 85 fL (80-97); Mean Platelet Volume 6.6 fL (7.4-10.4); Platelet Count 517 10^3/uL (150-450); Red Blood Count 3.08 10^6 /uL (3.70-4.87); Red Cell Distribution Width 15 % (10-15); White Blood Count 16.4 10^3/uL (3.5-10.8)
[2019-10-05] MEDS: Famotidine SUSP ORALSYR 8 MG/ML PO SCH (09:10)
[2019-10-05] MEDS: Insulin GLARGINE 100 un/ml (*) 10 ml VIAL SUBCUT SCH (09:16)
[2019-10-05] MEDS: Vancomycin(*) 1,000 MG in NS 0.9% 250 ml 250 ML IV SCH (11:50)
[2019-10-05 12:19] LABS: C Reactive Protein 287.69 mg/L (<8.01)
[2019-10-05] MEDS: Enoxaparin 40 MG/0.4 ML SYR(*) SUBCUT SCH (20:59)
[2019-10-06] MEDS: ALBUTEROL INH SCH ×4 (02:47→18:08)
[2019-10-06] MEDS: IPRATROPIUM ALBUTEROL INH SCH ×4 (02:47→18:08)
[2019-10-06] MEDS: IPRATROPIUM 0.5 MG INH SCH ×4 (02:47→18:08)
[2019-10-06 05:25] LABS: ABS Basophils 0.1 10^3/ul (0-0.2); ABS Eosinophils 0.2 10^3/ul (0-0.6); ABS Lymphocytes 1.3 10^3/ul (1.0-4.8); ABS Monocytes 1.2 10^3/ul (0-0.8); Eosinophil % 1.6 %; Hematocrit 24 % (35-47); Hemoglobin 7.8 g/dL (12.0-16.0); Lymphocyte % 8.5 %; Mean Corpuscular HGB Conc 32 g/dL (31-36); Mean Corpuscular Hemoglobin 27 pg (27-31); Mean Corpuscular Volume 85 fL (80-97); Mean Platelet Volume 6.7 fL (7.4-10.4); Platelet Count 522 10^3/uL (150-450); Red Blood Count 2.87 10^6 /uL (3.70-4.87); Red Cell Distribution Width 15 % (10-15); White Blood Count 15.4 10^3/uL (3.5-10.8)
[2019-10-06 05:41] LABS: Anion Gap 11 mmol/L (2-11); BUN/Creatinine Ratio 12.1 (8-20); Blood Urea Nitrogen 26 mg/dL (6-24); CO2 Carbon Dioxide 23 mmol/L (22-32); Calcium 7.8 mg/dL (8.6-10.3); Chloride 101 mmol/L (101-111); EGFR African American 31.2 (>60); EGFR Non-African American 25.8 (>60); Glucose 155 mg/dL (70-100); Potassium 3.6 mmol/L (3.5-5.0); Sodium 135 mmol/L (135-145)
[2019-10-06] MEDS: Insulin GLARGINE 100 un/ml (*) 10 ml VIAL SUBCUT SCH (08:39)
[2019-10-06] MEDS: Famotidine SUSP ORALSYR 8 MG/ML PO SCH (08:39)
[2019-10-06] MEDS: Insulin LISPRO 100 units/ml(*) SUBCUT SCH ×4 (09:13→20:28)
[2019-10-06] MEDS ORDERED: Vancomycin Trough Check NOTE FOLLOW UP ONE (10:30)
[2019-10-06] MEDS: Vancomycin(*) 1,000 MG in NS 0.9% 250 ml 250 ML IV SCH (11:19)
[2019-10-06] MEDS ORDERED: Senna TAB 8.6 mg TAB PO PRN (15:49)
[2019-10-06 16:37] LABS: Total Iron Binding Capacity 154 mcg/dL (250-450); Transferrin 110 mg/dL (203-362)
[2019-10-06 16:38] LABS: % Iron Saturation 13 % (15-55); Iron < 20 ug/dL (50-212)
[2019-10-06 17:02] LABS: Folate 11.04 ng/mL (>3.99)
[2019-10-06] MEDS: IPRATROPIUM 0.5 MG INH PRN (18:04)
[2019-10-06] MEDS: IPRATROPIUM ALBUTEROL INH PRN (18:04)
[2019-10-06] MEDS: ALBUTEROL INH PRN (18:04)
[2019-10-06] MEDS: Enoxaparin 40 MG/0.4 ML SYR(*) SUBCUT SCH (20:20)
[2019-10-07] MEDS: ALBUTEROL INH SCH ×4 (01:45→19:39)
[2019-10-07] MEDS: IPRATROPIUM ALBUTEROL INH SCH ×4 (01:45→19:39)
[2019-10-07] MEDS: IPRATROPIUM 0.5 MG INH SCH ×4 (01:45→19:39)
[2019-10-07] MEDS: Famotidine SUSP ORALSYR 8 MG/ML PO SCH (09:22)
[2019-10-07] MEDS: Insulin GLARGINE 100 un/ml (*) 10 ml VIAL SUBCUT SCH (09:24)
[2019-10-07] MEDS: Insulin LISPRO 100 units/ml(*) SUBCUT SCH ×4 (09:25→22:32)
[2019-10-07 10:16] LABS: EGFR African American 31.9 (>60); EGFR Non-African American 26.4 (>60)
[2019-10-07] MEDS: Vancomycin(*) 1,000 MG in NS 0.9% 250 ml 250 ML IV SCH (12:14)
[2019-10-07] MEDS ORDERED: Polyethylene Glycol 3350 17 GM PACKET PO ONE (15:21)
[2019-10-07] MEDS: Enoxaparin 40 MG/0.4 ML SYR(*) SUBCUT SCH (19:45)
[2019-10-07] MEDS: IPRATROPIUM 0.5 MG INH PRN (22:21)
[2019-10-07] MEDS: IPRATROPIUM ALBUTEROL INH PRN (22:21)
[2019-10-07] MEDS: ALBUTEROL INH PRN (22:21)
[2019-10-08] MEDS: IPRATROPIUM 0.5 MG INH SCH ×4 (02:50→20:10)
[2019-10-08] MEDS: IPRATROPIUM ALBUTEROL INH SCH ×4 (02:50→20:10)
[2019-10-08] MEDS: ALBUTEROL INH SCH ×4 (02:50→20:10)
[2019-10-08] MEDS ORDERED: fentaNYL 100 mcg/2 ml 50 MCG/ML VIAL ONE (08:32)
[2019-10-08] MEDS ORDERED: Naloxone 0.4 mg VIAL 0.4 mg/ml 1 ml VIAL ONE (08:32)
[2019-10-08] MEDS ORDERED: Flumazenil 0.5 mg/5 ml 0.1 MG/ML 5 ml VIAL ONE (08:32)
[2019-10-08] MEDS ORDERED: Midazolam 5 mg/5 ml VIAL 1 mg/ml 5 ml VIAL (5 mg) ONE (08:32)
[2019-10-08] MEDS: Insulin LISPRO 100 units/ml(*) SUBCUT SCH ×3 (08:38→17:27)
[2019-10-08] MEDS: Insulin GLARGINE 100 un/ml (*) 10 ml VIAL SUBCUT SCH (11:18)
[2019-10-08] MEDS: Vancomycin(*) 1,000 MG in NS 0.9% 250 ml 250 ML IV SCH (11:19)
[2019-10-08] MEDS: Famotidine SUSP ORALSYR 8 MG/ML PO SCH (11:19)
[2019-10-08 14:37] LABS: ABS Basophils 0.1 10^3/ul (0-0.2); ABS Eosinophils 0.2 10^3/ul (0-0.6); ABS Monocytes 0.7 10^3/ul (0-0.8); Eosinophil % 2.5 %; Hematocrit 26 % (35-47); Hemoglobin 8.9 g/dL (12.0-16.0); Lymphocyte % 10.6 %; Mean Corpuscular HGB Conc 34 g/dL (31-36); Mean Corpuscular Hemoglobin 29 pg (27-31); Mean Corpuscular Volume 86 fL (80-97); Mean Platelet Volume 6.6 fL (7.4-10.4); Nucleated Red Blood Cells % 0.1; Platelet Count 703 10^3/uL (150-450); Red Blood Count 3.05 10^6 /uL (3.70-4.87); Red Cell Distribution Width 15 % (10-15); White Blood Count 9.6 10^3/uL (3.5-10.8)
[2019-10-08 16:27] VITALS: BP 170/68
[2019-10-09] MEDS ORDERED: Vancomycin Trough Check NOTE FOLLOW UP ONE (10:30)
== END 2019-10-08 19:00 | disposition home or self-care (01) | DRG 720 ==
LOC: ED 16:34 → ICU 19:40 → MED 10-01 12:44
PROVIDERS: ADMIT Family Medicine; ATTEND Pediatrics
PROC: B24BZZ4 Ultrasonography of Heart with Aorta, Transesophageal (ICD-10-PCS; principal; 2019-10-08)
DX: A41.02 Sepsis due to Methicillin resistant Staphylococcus aureus (principal); J10.08 Influenza due to other identified influenza virus with other specified pneumonia; J96.01 Acute respiratory failure with hypoxia; J15.212 Pneumonia due to Methicillin resistant Staphylococcus aureus; J69.0 Pneumonitis due to inhalation of food and vomit; N17.9 Acute kidney failure, unspecified; R65.20 Severe sepsis without septic shock; E10.22 Type 1 diabetes mellitus with diabetic chronic kidney disease; N18.3 Chronic kidney disease, stage 3 (moderate); E10.21 Type 1 diabetes mellitus with diabetic nephropathy; J45.909 Unspecified asthma, uncomplicated; I12.9 Hypertensive chronic kidney disease with stage 1 through stage 4 chronic kidney disease, or unspecified chronic kidney disease; E66.9 Obesity, unspecified; D47.3 Essential (hemorrhagic) thrombocythemia; D63.1 Anemia in chronic kidney disease; E10.65 Type 1 diabetes mellitus with hyperglycemia; K21.9 Gastro-esophageal reflux disease without esophagitis; Z79.4 Long term (current) use of insulin; Z88.8 Allergy status to other drugs, medicaments and biological substances; Z91.013 Allergy to seafood; E78.5 Hyperlipidemia, unspecified; Z91.048 Other nonmedicinal substance allergy status; Z68.36 Body mass index [BMI] 36.0-36.9, adult; Z79.899 Other long term (current) drug therapy

== ENCOUNTER 2019-10-09 15:22 | Inpatient (IN) | payer BC, OTHER ==
[2019-10-09] MEDS ORDERED: NS 0.9% 1000 ML** 2,000 ML IV ONE (15:35)
--- NOTE | 2019-10-09 15:46 | ED ---
Respiratory - HPI Summary HPI Summary: 38 year old F presenting to [facility] via EMS with a chief complaint of shortness of breath, chest pain, a fever, a cough, and a sore throat since 12 days ago. The patient rates the pain 9/10 in severity. Patient reports that she was discharged yesterday after being admitted for one week for influenza and bacterial pneumonia. She had an IV infusion of antibiotics today as an outpatient and felt worse. Per EMS the patient's oxygen saturation was 91% on room air and her sugar was in the 300s. She has no known contacts with anyone with COVID-19. She lives at home with her and child. The patient has a history of diabetes, MRSA, pneumonia, and asthma. She has an allergy to etodolac and shrimp. Medication list reviewed. Allergy list reviewed. Home Medications Medication Instructions Recorded Confirmed Type Insulin Lispro [Humalog 100 0 - 60 unit SUBCUT TID WITH MEALS 05/25/16 09/29/19 History units/ml 5 ml x 3 Pens] MDD 100 units w/ titration priming Insulin GLARGINE(*) [Lantus 100 60 units SUBCUT DAILY 11/19/17 09/29/19 History units/ml 10 ml VIAL (*)] Lisinopril TAB* [Prinivil TAB 10 40 mg PO DAILY 11/19/17 09/29/19 History MG*] Hydrochlorothiazide TAB* 12.5 mg PO QAM 04/23/19 09/29/19 History [Hydrodiuril TAB*] Acetaminophen TAB* [Tylenol TAB*] 975 mg PO Q8H PRN tab 10/08/19 Rx Albuterol HFA INHALER* [Ventolin 1 - 2 puff INH Q4H PRN #1 mdi 10/08/19 Rx HFA Inhaler*] Aspirin 81 mg CHEW TAB* 81 mg PO DAILY #30 tab.chew 10/08/19 Rx Ferrous Sulfate TAB* 325 mg PO DAILY #30 tab 10/08/19 Rx Lactobacillus Acidophilus* 1 cap PO DAILY #20 cap 10/08/19 Rx guaiFENesin ER TAB [Mucinex*] 1,200 mg PO BID #28 tab.er 10/08/19 Rx - History of Current Complaint Stated Complaint: FLU AND SOB PER EMS Hx Obtained From: Patient, EMS Onset/Duration: Lasting Days Timing: Constant Current Severity: Severe Pain Intensity: 9 Associated Signs and Symptoms: Fever, Chest Pain - Allergy/Home Medications Allergies/Adverse Reactions: Allergies Allergy/AdvReac Type Severity Reaction Status Date / Time shrimp Allergy Itching Verified 04/23/19 14:17 etodolac AdvReac fainting Verified 04/23/19 14:17 ENVIRONMENTAL/SEASONAL Allergy Unknown Uncoded 03/29/19 19:57 Reaction Details Home Medications: Home Medications Insulin Lispro [Humalog 100 units/ml 5 ml x 3 Pens] 0 - 60 unit SUBCUT TID WITH MEALS MDD 100 units w/ titration priming 05/25/16 [History Confirmed 10/09/19] Insulin GLARGINE(*) [Lantus 100 units/ml 10 ml VIAL (*)] 60 units SUBCUT DAILY 11/19/17 [History Confirmed 10/09/19] Lisinopril TAB* [Prinivil TAB 10 MG*] 40 mg PO DAILY 11/19/17 [History Confirmed 10/09/19] Hydrochlorothiazide TAB* [Hydrodiuril TAB*] 12.5 mg PO QAM 04/23/19 [History Confirmed 10/09/19] Acetaminophen TAB* [Tylenol TAB*] 975 mg PO Q8H PRN tab 10/08/19 [Rx Confirmed 10/09/19] Albuterol HFA INHALER* [Ventolin HFA Inhaler*] 1 - 2 puff INH Q4H PRN #1 mdi [Rx Confirmed 10/09/19] Aspirin 81 mg CHEW TAB* 81 mg PO DAILY #30 tab.chew 10/08/19 [Rx Confirmed 10/08] Ferrous Sulfate TAB* 325 mg PO DAILY #30 tab 10/08/19 [Rx Confirmed 10/09/19] Lactobacillus Acidophilus* 1 cap PO DAILY #20 cap 10/08/19 [Rx Confirmed ] guaiFENesin ER TAB [Mucinex*] 1,200 mg PO BID #28 tab.er 10/08/19 [Rx Confirmed 10/09/19] PMH/Surg Hx/FS Hx/Imm Hx Endocrine/Hematology History: Reports: Hx Diabetes - IDDM Cardiovascular History: Reports: Hx Angina, Hx Hypertension - ON MEDS Denies: Hx Coronary Artery Disease, Hx Hypercholesterolemia, Hx Myocardial Infarction, Hx Pacemaker/ICD, Hx Valvular Heart Disease, Other Cardiovascular Problems/Disorders Respiratory History: Reports: Hx Asthma, Other Respiratory Problems/Disorders - FREQUENT SINUS TROUBLE, POST NASAL DRIP Denies: Hx Chronic Obstructive Pulmonary Disease (COPD) GI History: Reports: Hx Gastroesophageal Reflux Disease Denies: Other GI Disorders History: Reports: Other Problems/Disorders - SOMETIMES PROTIEN IN URINE, reports mild elevated creatinine in the past Denies: Hx Renal Disease Musculoskeletal History: Reports: Other Musculoskeletal History - TRIGGER FINGERS BILAT Sensory History: Denies: Hx Contacts or Glasses, Hx Hearing Aid Opthamlomology History: Denies: Hx Contacts or Glasses Neurological History: Reports: Hx Seizures - 1 seizure many years ago, pt states BP and sugar were very high, Other Neuro Impairments/Disorders - trigger finger LUZ WITH SURGERY Denies: Hx Headaches Psychiatric History: Denies: Hx Panic Disorder - Surgical History Surgery Procedure, Year, and Place: triger finger surg [facility] X7 LUZ. 2013 SINUS [facility]. 2012, SINUS, [facility]. 2-3 MORE SINUS SURGERY. C SECTION 02/2016 Hx Anesthesia Reactions: No - Immunization History Date of Tetanus Vaccine: utd Date of Influenza Vaccine: fall 2016 Infectious Disease History: Yes Infectious Disease History: Reports: Hx of Known/Suspected MRSA Denies: Traveled Outside the [place] in Last 30 Days - Family History Known Family History: Positive: Diabetes Family History: Denies FHx of malignant hyperthermia or anesthesia reaction. - Social History Alcohol Use: None Hx Substance Use: No Substance Use Type: Reports: None Hx Tobacco Use: No Smoking Status (MU): Never Smoked Tobacco Have You Smoked in the Last Year: No Review of Systems Positive: Fever Positive: Sore Throat Positive: Chest Pain Positive: Shortness Of Breath, Cough All Other Systems Reviewed And Are Negative: Yes Physical Exam - Summary Physical Exam Summary: Constitutional: Well-developed, Well-nourished, Alert. (-) Distressed Skin: Warm, Dry HENT: Normocephalic; Atraumatic Eyes: Conjunctiva normal Neck: Musculoskeletal ROM normal neck. (-) JVD, (-) Stridor, (-) Tracheal deviation Cardio: Rhythm regular, rate normal, Heart sounds normal; Intact distal pulses; Radial pulses are 2+ and symmetric. (-) Murmur Pulmonary/Chest wall: Decreased breath sounds at the right base with coarse breath sounds overall. Abd: Soft, (-) tenderness, (-) Distension, (-) Guarding, (-) Rebound Musculoskeletal: (-) Edema Lymph: (-) Cervical adenopathy Neuro: Alert, Oriented x3 Psych: Mood and affect Normal Triage Information Reviewed: Yes Vital Signs On Initial Exam: Initial Vitals Temp Pulse Resp BP Pulse Ox 99.5 F 125 25 152/74 91 10/09/19 15:35 10/09/19 15:35 10/09/19 15:35 10/09/19 15:35 10/09/19 15:35 Vital Signs Reviewed: Yes Procedures - Sedation Patient Received Moderate/Deep Sedation with Procedure: No Diagnostics - Vital Signs Vital Signs Temp Pulse Resp BP Pulse Ox 10/09/19 15:35 99.5 F 125 25 152/74 91 - Laboratory Result Diagrams: 10/09/19 16:10 10/09/19 16:10 Lab Statement: Any lab studies that have been ordered have been reviewed, and results considered in the medical decision making process. - Radiology Chest x-ray Radiology Interpretation Completed By: Radiologist Summary of Radiographic Findings: Right inflammatory infiltrate with right pleural effusion similar to that seen. on previous exam. Left lung field is clear. ED physician has reviewed this report. - EKG 16:32 Cardiac Rate: Tachycardia - 110 BPM EKG Rhythm: Sinus Tachycardia Summary of EKG Findings: Flattening of T-Wave in lead 3. ED physician has reviewed and interpreted this EKG. Re-Evaluation - Re-Evaluation First Eval Re-Evaluation Time: 18:30 Comment: The patient is still tachycardic in the low 100s, very tachypneic. She is not comfortable with discharge and will be admitted. Disposition - Course Course Of Treatment: Patient is here with worsening shortness of breath after being discharged yesterday. Patient was admitted for bacteremia secondary MRSA and MRSA pneumonia. She received IV antibiotics today. However, patient was feeling worse this was yesterday. Upon arrival, patient was roughly 91% on room air. Patient was tachypneic. Patient had a chest x-ray showed no change from her prior but is grossly abnormal. Patient had water performers showed a working leukocytosis of 17. Given patient's worsening Rester status, patient was admitted to the hospital - Diagnoses Provider Diagnoses: Leukocytosis, Pneumonia, Diabetes, Hypoxemia - Physician Notifications Discussed Care Of Patient With: Edvin Walker Time Discussed With Above Provider: 18:02 Instructed by Provider To: Other - Discussed with Dr. Walker, infectious disease. [19:02] Discussed with Dr. Borrero who accepts the patient for admission. - Critical Care Time Critical Care Time: 30-74 min - 35 minutes Discharge ED - Sign-Out/Discharge Documenting (check all that apply): Patient Departure - Discharge Plan Condition: Stable Disposition: ADMITTED TO [facility] - Billing Disposition and Condition Condition: STABLE Disposition: Admitted to [facility] - Attestation Statements Document Initiated by Scribe: Yes Documenting Scribe: La Rider Provider For Whom Scribe is Documenting (Include Credential): Damaso Ruby MD Scribe Attestation: La Newman scribed for Damaso Ruby MD on 10/09/19 at 9879. Scribe Documentation Reviewed: Yes Provider Attestation: The documentation as recorded by the La camargo accurately reflects the service I personally performed and the decisions made by Damaso toth MD Status of Scribe Document: Viewed
[2019-10-09 16:52] LABS: ABS Basophils 0.1 10^3/ul (0-0.2); ABS Eosinophils 0.1 10^3/ul (0-0.6); ABS Lymphocytes 0.7 10^3/ul (1.0-4.8); ABS Monocytes 0.7 10^3/ul (0-0.8); ABS Neutrophils 16.1 10^3/ul (1.5-7.7); Eosinophil % 0.7 %; Hematocrit 27 % (35-47); Hemoglobin 8.4 g/dL (12.0-16.0); Lymphocyte % 3.9 %; Mean Corpuscular HGB Conc 32 g/dL (31-36); Mean Corpuscular Hemoglobin 27 pg (27-31); Mean Corpuscular Volume 86 fL (80-97); Mean Platelet Volume 6.7 fL (7.4-10.4); Platelet Count 596 10^3/uL (150-450); Red Cell Distribution Width 14 % (10-15); White Blood Count 17.7 10^3/uL (3.5-10.8)
[2019-10-09 17:11] LABS: ALT 16 U/L (7-52); Albumin 2.6 g/dL (3.2-5.2); Albumin/Globulin Ratio 0.6 (1-3); Alkaline Phosphatase 128 U/L (34-104); BUN/Creatinine Ratio 7.7 (8-20); Blood Urea Nitrogen 16 mg/dL (6-24); C Reactive Protein 98.84 mg/L (<8.01); CO2 Carbon Dioxide 24 mmol/L (22-32); Calcium 8.2 mg/dL (8.6-10.3); Chloride 101 mmol/L (101-111); EGFR African American 32.6 (>60); EGFR Non-African American 26.9 (>60); Globulin 4.7 g/dL (2-4); Glucose 205 mg/dL (70-100); Sodium 135 mmol/L (135-145); Total Protein 7.3 g/dL (6.4-8.9)
[2019-10-09 17:13] LABS: Troponin I 0.02 ng/mL (<0.03)
[2019-10-09 17:17] LABS: HCG Pregnancy 1.43 mIU/mL
[2019-10-09 17:48] LABS: Anion Gap 10 mmol/L (2-11)
[2019-10-09] MEDS ORDERED: Vancomycin(*) 1,500 MG in NS 0.9% 250 ML* 250 ML IVPB ONE (18:32)
[2019-10-09] MEDS ORDERED: Morphine 4 MG/ML VIAL (1 ml) 4 MG/ML VIAL IV ONE (19:01)
[2019-10-09] MEDS ORDERED: NS 0.9% 250 ML* 250 ML ONE (19:51)
[2019-10-09] MEDS ORDERED: Vancomycin(*) 1,000 MG in NS 0.9% 250 ML* 250 ML IVPB ONE (20:04)
[2019-10-09] MEDS ORDERED: Dextrose 50% Syringe 50 ML* 25 GM/50 ML SYRINGE IV PUSH PRN (20:04)
[2019-10-09] MEDS ORDERED: Albuterol 2.5 MG/3 ML NEB.SOL* (0.083%) INH PRN (20:13)
[2019-10-09] MEDS ORDERED: Vancomycin per Pharmacy* NOTE FOLLOW UP SCH (21:00)
[2019-10-09] MEDS: Morphine INJ* 4 MG/ML 1 ML SYRINGE (NEW SYRINGE VERSION) IV PRN (22:27)
[2019-10-09] MEDS: Heparin VIAL(*) 5000 UNITS/ML VIAL (FIVE THOUSAND) SUBCUT SCH (22:46)
--- NOTE | 2019-10-09 22:47 | HP ---
CC: Dr. Gottlieb; Dr. Mcnulty; Quintin Larose NP* HISTORY AND PHYSICAL: DATE OF ADMISSION: 10/09/19 PRIMARY CARE PROVIDER: Quintin Larose NP CONSULTING ID SPECIALIST: Dr. Mcnulty. CONSULTING POURER BULL LADLE: Dr. Gottlieb. MY ATTENDING PHYSICIAN WHILE IN THE HOSPITAL: Dr. Finch* (report being dictated by Mandeep Mendiola NP). CHIEF COMPLAINT: 1. Cough. 2. Myalgias. 3. Not feeling well. HISTORY OF PRESENT ILLNESS: Ms. Luiz Nunn is a 38-year-old female patient, who was admitted on 09/29/19 was here until the 10/08/19, was discharged yesterday. She ultimately was diagnosed with a flu in the beginning of the month , was discharged initially from our ER, came back, was found to have pneumonia, ultimately found to have some staph bacteremia and most likely a right lower lobe and right middle lobe pneumonia secondary to staph. She was discharged yesterday. She underwent transesophageal echocardiogram that did not show any vegetations. She was sent out on . She initially did well, however, quickly realized that she was becoming more short of breath with minimal exertion again, even short of breath at rest, feeling palpitations and her heart beating fast. She was coughing. She was concerned because of the breathing getting worse again. She called the ambulance and when the ambulance got there, at rest her heart was 125. The patient came back to the ER and was noted that her sats were in the low 90s on room air. She was slightly tachypneic in the 20s, at times in the 30s with minimal exertion and she was tachycardic. She had a low-grade fever of 99.5 and because of these findings, we were asked to evaluate. Her chest x-ray appeared to be similar to her discharge chest x-ray. She does admit to having pain in her chest when she coughs, takes a deep breath, particularly along the right side. She denies having any abdominal pain, no nausea, no vomiting, and she denied any diarrhea and she just admits to not feeling well, fatigued, and general malaise. She has not had any recent travel. She has not had any contact with people with COVID-19. Because of her worsening status clinically, we were asked to evaluate for admission. PAST MEDICAL HISTORY: Significant for: 1. Right lower lobe pneumonia secondary to staph. 2. Thrombocytosis. 3. Diabetes, type 1, on chronic insulin. 4. CKD, stage 3. 5. Hyperlipidemia. 6. History of seizure in the setting of DKA. PAST SURGICAL HISTORY: She has had: 1. Trigger finger release. 2. Sinus surgery. 3. . 4. Uterine fibroid embolization. MEDICATIONS: Home meds, again, they have not changed since she was discharged just yesterday, they include, 1. Guaifenesin 1200 mg p.o. b.i.d. 2. Lactobacillus 1 tablet daily. 3. Ferrous sulfate 325 mg daily. 4. Aspirin 81 mg daily. 5. Albuterol inhaler 1 to 2 puffs every 4 hours as needed. 6. Tylenol 975 mg every 8 hours as needed. 7. Lisinopril 40 mg daily. 8. Lispro sliding scale t.i.d. with meals. 9. Lantus 60 units subcu daily. 10. Hydrochlorothiazide 12.5 mg daily. 11. Dalvance; she received 1000 mg today. ALLERGIES TO MEDICATIONS: Include ETODOLAC and SHRIMP. FAMILY HISTORY: Her mother, she says, is healthy. Father had a history of heart failure. SOCIAL HISTORY: She does not smoke. She does not drink. Surrogate decision maker is her , Cameron. REVIEW OF SYSTEMS: There is again, she admits to fevers at home. She denied any significant weight change. No double vision, no ear discharge. She denied having any rhinorrhea. No sore throat. No thyroid enlargement. There is chest pain from HPI. There is no orthopnea, there is dyspnea on exertion. There is no nausea, no vomiting. No dysuria, no frequency. No seizure, no loss of consciousness. No pruritus and no skin ulceration. Review of 14 systems completed, all others negative. PHYSICAL EXAMINATION GENERAL: At this time, Ms. Dee is a 38-year-old female patient. She is sitting in the ED stretcher. She does not appear to be in any acute distress. VITAL SIGNS: Blood pressure 147/84, pulse 105, respirations 24, O2 sat 97% on 2 L, temperature 99.5. HEENT: Head is atraumatic and normocephalic. Eyes: EOMs are intact. Sclerae anicteric, not pale. Throat: Oral mucosa appears to be moist. No oropharyngeal erythema. NECK: Supple. LUNGS: She had wheezing heard in the right upper lobe. Her breath sounds were diminished to the right middle and right lower lobe. She has clear breath sounds on the left upper and lower lobes. She had equal diaphragmatic expansion. HEART: Sounds S1 and S2. She is tachycardic. No murmurs, rubs, or gallops. ABDOMEN: Soft, flat, nontender. Bowel sounds present. EXTREMITIES: Pulses are 2+ throughout. She is moving all 4 extremities, 5/5 strength. NEUROLOGIC: She is awake, she is alert, oriented x3. Security Nurse are equal. No focal deficits. SKIN: Intact. DIAGNOSTIC STUDIES/LAB DATA: Labs reveal a WBC of 17.7, which is up from her WBC at discharge that was 9; RBC of 3.10; hemoglobin 8.4; hematocrit of 27; platelet count 596. She did have a sodium of 135, potassium pending, chloride 101, bicarb 24, BUN 16, creatinine 2.07 which is near her baseline, glucose of 205, lactate 0.9, calcium 8.2. Total bili 0.3, AST pending, ALT 16, alk phos 128. Troponin 0.02. CRP of 98. Albumin 2.6. Beta hCG 1.43. She had a chest x-ray obtained today, which again does show a right lower lobe pneumonia, which looks unchanged from the x-ray from yesterday. Radiology read as right inflammatory infiltrate with right pleural effusion similar to that seen on previous exam. Left lung field is clear. She had an EKG obtained today as well. Sinus tachycardia, rate of 110. No ST elevation. She had J-point elevation at V2 and V3 with upsloping ST segments. When you review the previous EKG that appeared to be similar. She had a transesophageal echocardiogram done yesterday, which showed EF of 60% to 65%. PFO is not demonstrated. No vegetation on the mitral or aortic valve or tricuspid valve. No pericardial effusion noted. Old medical records were reviewed. ASSESSMENT AND PLAN: Ms. Dee is a 38-year-old female patient coming back to the ER after being discharged yesterday. In the ER today, she was noted to be more short of breath, coughing again, complaining of malaise and arthralgias. She was noted to be tachycardic, slightly tachypneic, and a low-grade fever. Because of this, we were asked to evaluate for admission. She will be admitted under inpatient status for: 1. Right lower lobe pneumonia with evidence of sepsis. Given the white count, tachycardia, and tachypnea, her blood pressure is stable, so I am not giving her the 30 cc/kg bolus. I am going to place her back on vancomycin. She clearly had documented staphylococcus in her blood and most likely has a pneumonia secondary to staphylococcus. COVID PCR was ordered in the ER. After discussion with the ID, the test was canceled given the other reasons for her clinical picture. At this this point, I would certainly place her on vancomycin , I am going to repeat the CT of the chest. I am going to have Pulmonology and ID evaluate this patient. Again, I will get sputum culture, legionella antigen , Streptococcus pneumoniae antigen as well. If the CT shows any drainable collections, we will certainly have Pulmonology do this or if there are any new pleural effusions or worsening pleural effusions, we may need to consider chest tube for possible empyema to get source control. I have also ordered per the recommendations of Pulmonology Mucomyst every 4 hours along with DuoNeb. We are going to be doing MetaNeb and aggressive pulmonary toileting will be ordered and we will continue to follow. I have also ordered Dulera. I am hesitant to use steroids in the setting of her type 1 diabetes. 2. Type 1 diabetes. Continue the Lantus. She will be on carb counting. 3. Chronic kidney disease. Creatinine stable. 4. Hypertension. I will continue her meds with the exception of the hydrochlorothiazide at this point and we will again continue to follow. 5. Hyperlipidemia. Continue with current medical regimen. 6. History of seizure. Again, it probably was provoked by the diabetic ketoacidosis, but I will put her on seizure precautions. 7. DVT prophylaxis. She is certainly high risk. I am placing her on heparin subcu. 8. Code status. Full code. 9. Fluids, electrolytes, and nutrition. She can have a consistent carb diet. TIME SPENT: Time spent on the admission was 60 minutes, greater than half the time was spent [id number] with the patient obtaining my history of physical; the other half time was spent going over the plan of care with the patient and implementing plan of care. I did discuss the plan of care with my attending, Dr. Finch; she is in agreement. MANDEEP MENDIOLA NP [id number]/CPS #: [id number] PAM
[2019-10-09] MEDS: Acetylcysteine INH SOL* 200 MG/ML 4 ML VIAL (for Resp Thpy) INH SCH (22:54)
[2019-10-09] MEDS: Mometasone/Formoter 200/5 MDI INH SCH (23:05)
[2019-10-09] MEDS: Albuterol/Ipratropium NEB.SOL* Albuterol 2.5 MG/Ipratropium 0.5 MG 3 ML INH SCH (23:05)
[2019-10-09] MEDS: Insulin LISPRO* 1 UNITS UNIT SUBCUT SCH (23:58)
[2019-10-10 00:03] LABS: Urine Appearance Clear; Urine Bilirubin Negative (Negative); Urine Blood 1+ (Negative); Urine Color Straw; Urine Glucose Negative (Negative); Urine Ketones Negative (Negative); Urine Nitrite Negative (Negative); Urine Protein 1+(30 mg/dL) (Negative); Urine Specific Gravity 1.006 (1.010-1.030); Urine Urobilinogen Negative (Negative)
[2019-10-10 00:04] LABS: Urine Bacteria Absent (Absent); Urine Red Blood Cell 1+(3-5/hpf) (Absent); Urine Squamous Epithelial Cell Present (Absent); Urine White Blood Cell 2+(11-20/hpf) (Absent)
[2019-10-10] MEDS: Albuterol/Ipratropium NEB.SOL* Albuterol 2.5 MG/Ipratropium 0.5 MG 3 ML INH SCH ×4 (03:14→19:40)
[2019-10-10] MEDS: Acetylcysteine INH SOL* 200 MG/ML 4 ML VIAL (for Resp Thpy) INH SCH ×2 (03:20→07:23)
[2019-10-10] MEDS: Acetaminophen TAB* 325 MG PO PRN ×2 (03:34→10:13)
[2019-10-10] MEDS: Heparin VIAL(*) 5000 UNITS/ML VIAL (FIVE THOUSAND) SUBCUT SCH ×2 (05:38→13:32)
[2019-10-10] MEDS: Morphine INJ* 4 MG/ML 1 ML SYRINGE (NEW SYRINGE VERSION) IV PRN ×3 (05:38→23:46)
[2019-10-10] MEDS: Mometasone/Formoter 200/5 MDI INH SCH ×2 (07:22→19:39)
[2019-10-10] MEDS: Acetylcysteine INHALATION SOL* 200 MG/ML NEB.SOLN 10 ML INH SCH ×3 (08:03→19:40)
[2019-10-10] MEDS ORDERED: Insulin GLARGINE(*) 1 UNITS UNIT SUBCUT SCH (09:00)
[2019-10-10] MEDS: Insulin LISPRO* 1 UNITS UNIT SUBCUT SCH ×4 (10:06→22:30)
[2019-10-10] MEDS: Aspirin 81 mg CHEW TAB* 81 MG TAB.CHEW PO SCH (10:13)
[2019-10-10] MEDS: Insulin GLARGINE(*) 1 UNITS UNIT SUBCUT SCH (10:14)
[2019-10-10] MEDS: NS 0.9% 1000 ML** 1,000 ML IV SCH (10:26)
[2019-10-10 10:35] LABS: Activated Partial Thrombo Time 16.6 seconds (26.0-38.0); INR 1.26 (0.82-1.09)
--- NOTE | 2019-10-10 12:02 | CONS ---
CONSULTATION REPORT: DATE OF CONSULT: 10/10/19 PRIMARY CARE PROVIDER: Quintin Larose NP PROVIDER REQUESTING CONSULTATION: Mandeep Mendiola NP CONSULTING SERVICE: Infectious Diseases. PROVIDER: Torsten Tavarez NP ATTENDING PROVIDER: Dr. Moi Mcnulty.* (DICTATED BY TORSTEN TAVAREZ NP) REASON FOR CONSULTATION: Shortness of breath in the setting of recent influenza A and postinfluenza MRSA pneumonia. IMPRESSION: 1. Postinfluenza Methicillin-resistant Staphylococcus aureus pneumonia with a parapneumonia effusion. During her last admission had been noted to have a significant right-sided pneumonia with Methicillin-resistant Staphylococcus aureus bacteremia, Methicillin- resistant Staphylococcus aureus in her sputum. Overall, the patient was doing well. She was discharged home and after our doing some exertion going up her stairs after an infusion yesterday, she developed increased shortness of breath. She continues to have fatigue, low- grade fever of 100.3 overnight, previously had been having intermittent low- grade fevers in the hospital prior to her discharge on Tuesday. Noted to have intermittent tachypnea, requiring oxygen supplementation, but her O2 sat is 98% on 2 L via nasal cannula. Overall her CRP is trending down, it peaked at 340 and was 98.[address] on [address] Chest CT showing an improved right lung multifocal pneumonia and associated intervally enlarged pleural effusion. Additionally, she had a chest x-ray showing right inflammatory infiltrate with right pleural effusion similar to that seen on previous exam. 2. Methicillin-resistant Staphylococcus aureus bacteremia. Presented to the hospital previously on 09/29/19, was bacteremic at that time. Her bacteremia persisted, but her cultures did clear with last cultures on 10/04/19. She had a transthoracic echocardiogram and a transesophageal echocardiogram during her admission showing no signs of endocarditis or vegetations. Overall, her leukocytosis is improving. It had been down to 9.6 on 10/08/19 and is 17.7 on admission yesterday. Her thrombocytosis has improved from the day prior to admission and her CRP continues to trend down. 3. Recent influenza A, last serology on 10/02/19, she was still positive. She did not have a repeat serology at this time. She completed at least 8 days of Tamiflu. 4. Diabetes mellitus type 1. 5. Chronic kidney disease, stage 3. 6. Obesity. BMI is approximately 36. 7. Acute hypoxic respiratory failure. She is currently 98% on 2 L via nasal cannula. This is in the setting of influenza A and postinfluenza Methicillin- resistant Staphylococcus aureus pneumonia. RECOMMENDATIONS/PLAN: She received a dose of Dalvance yesterday. This could provide 2 to 3 weeks of antibiotic coverage for the MRSA bacteremia, postinfluenza MRSA pneumonia. Will plan to resume Vancomycin in the morning to ensure she has antibiotic coverage for pneumonia. She previously completed a course of Tamiflu. She has not had HIV testing since 2016, recommend checking for HIV. The patient has agreed with this. Recommend discussing the case with Dr. Gottlieb as she will need to have a thoracentesis. HISTORY OF PRESENT ILLNESS: Ms. Luiz Nunn is a 38-year-old female with past medical history significant for diabetes mellitus type 1, chronic kidney disease stage 3, hyperlipidemia, asthma, seizures in the setting of a DKA; who was previously hospitalized from 09/29/19 through 10/08/19 for MRSA bacteremia in the setting of postinfluenza MRSA pneumonia and influenza A. She was treated with vancomycin and was having a slow improvement. She initially continued to have intermittent fevers, but this was improving. Her leukocytosis had resolved on the day of discharge. She had a transthoracic and transesophageal echocardiogram showing no signs of vegetation or endocarditis. She was felt to be ready for discharge and was set up to have a Dalvance infusion on the day after discharge. She presented to the hospital yesterday and had a dose of Dalvance outpatient. She returned home and after going up a flight of stairs to get into her apartment, she had noticed that she was short of breath and had continued to feel significantly fatigued. She represented to the hospital. She continues to report intermittent fevers and chills, continued shortness of breath, continued fatigue. She denies any nausea; vomiting; diarrhea; urinary symptoms such as urgency, frequency, dysuria. She also reports some neck and back discomfort reporting this as generalized aching. She has not had any recent travel. She denies any prosthetic material such as a pacemaker or artificial joints. Platelet count 596, white blood cell count 17.7. She had repeat blood cultures which are pending. Urine antigens for legionella and S. pneumoniae negative. She had a repeat chest CT showing an improved right lung multifocal pneumonia and associated intervally enlarged pleural effusion. Additionally, she had a chest x-ray showing right inflammatory infiltrate with right pleural effusion similar to that seen on previous exam. Left lung field is clear. She was referred to the hospital service for admission. While in the hospital, she has received vancomycin. Again, she continues to report intermittent fevers, last low-grade fever early this morning of 100.3. She continues to require supplemental oxygen, tachycardic on admission. She continues to have shortness of breath, fatigue. PAST MEDICAL HISTORY: 1. Diabetes mellitus type 1. 2. Chronic kidney disease, stage 3. 3. Hyperlipidemia. 4. Seizures in the setting of DKA. 5. Asthma. PAST SURGICAL HISTORY: 1. Status post trigger finger release. 2. Status post sinus surgery. 3. Status post section. 4. Status post uterine fibroid embolization. MEDICATIONS: Home medications: 1. Guaifenesin 1200 mg by mouth twice daily. 2. Lisinopril 40 mg by mouth daily. 3. Lactobacillus 1 tablet by mouth daily. 4. Humalog insulin sliding scale with meals. 5. Glargine insulin 60 units subcutaneous daily. 6. Hydrochlorothiazide 12.5 mg by mouth every morning. 7. Ferrous sulfate 325 mg by mouth daily. 8. Aspirin 81 mg by mouth daily. 9. Albuterol HFA inhaler 1 to 2 puffs inhalation every 4 hours as needed for shortness of breath or wheeze. 10. Acetaminophen 975 mg by mouth every 8 hours as needed. 11. Dalvance 1000 mg IV once received dose on 10/09/19. ALLERGIES: SHRIMP, ETODOLAC, and ENVIRONMENTAL ALLERGIES. FAMILY HISTORY: Denies family history of recurrent or resistant infections. Father with a history of heart disease. Denies family history of cancer or diabetes. SOCIAL HISTORY: Denies tobacco, alcohol, or recreational drug use. REVIEW OF SYSTEMS: I performed a 10-point review of systems. All the pertinent positives and negatives are mentioned in the history of present illness. The remaining review of systems are negative. PHYSICAL EXAM: Vital Signs: Temperature 98.8, heart rate 88, respiratory rate 20, O2 sat 98% on 2 L via nasal cannula, blood pressure 157/71. General Appearance: Alert, appears to be in no acute distress, resting in bed. Head: Normocephalic and atraumatic. ENT: Extraocular movements are intact. No subconjunctival hemorrhage. Moist mucous membranes. Neck: Supple. No lymphadenopathy. She has no nuchal rigidity. Neurological: Alert and oriented. Cranial nerves II through are XII grossly intact. Cardiovascular: Regular rate and rhythm. S1 and S2 present. No murmurs, rubs, or gallops heard. Respiratory: Lungs are diminished on the right, but otherwise clear. Abdomen: Bowel sounds present. Abdomen: Soft and nontender, obese. Extremities: No lower extremity edema. DP/PT pulses are 2+ and symmetric. Musculoskeletal: No clubbing or cyanosis noted. Exhibits good strength in all extremities. Psychological: Calm and cooperative. Skin: No rashes or abnormalities seen. DIAGNOSTIC STUDIES/LAB DATA: Sodium 135, potassium test not performed, chloride 101, CO2 of 24, BUN 16, creatinine 2.07, glucose 205. White blood cell count 17.7, hemoglobin 8.4, hematocrit 27, platelet count 596. CRP 98.84. Urine antigens for legionella and S. pneumoniae are negative and blood cultures pending at this time. Please see impressions and recommendations outlined above, recommendations have been discussed with Otilia Manzanares NP. The case has been discussed with my attending Dr. Moi Mcnulty, who agrees with the plan of care. Reviewed by TORSTEN TAVAREZ, [place] 1937. [id number]/[facility] #: [id number] PAM
[2019-10-10] MEDS: Acetaminophen TAB* 325 MG PO SCH ×2 (13:31→22:29)
[2019-10-10] MEDS ORDERED: Dextrose 50% Syringe 50 ML* 25 GM/50 ML SYRINGE IV PUSH PRN (14:07)
[2019-10-10] MEDS ORDERED: Insulin LISPRO* 1 UNITS UNIT SUBCUT ONE (14:07)
[2019-10-10] MEDS ORDERED: Vancomycin Trough Check NOTE FOLLOW UP ONE (15:30)
--- NOTE | 2019-10-10 15:47 | PN ---
Subjective Date of Service: 10/10/19 Interval History: Patient was fatigued, short of breath a rest. When she lays on her right side, she becomes shaky, even more short of breath. Denies feeling feverish or chilled , lightheaded, dizzy. Denies chest pain, abdominal pain, nausea, vomiting, issues moving bowel or bladder. Family History: Unchanged from Admission Social History: Unchanged from Admission Past Medical History: Unchanged from Admission Objective Active Medications: Acetaminophen (Tylenol Tab*) 975 mg PO TID [facility] Last Admin: 10/10/19 13:31 Dose: Not Given Acetylcysteine (Mucomyst Inhalation Marisel*) 400 mg INH [id number] AWAKE [facility] Last Admin: 10/10/19 12:33 Dose: 400 mg Albuterol (Ventolin 2.5 Mg/3 Ml Neb.Marisel*) 2.5 mg INH Q2H PRN PRN Reason: SOB/WHEEZING Albuterol/Ipratropium (Duoneb (Albuterol 2.5 Mg/Ipratropium 0.5 Mg)) 1 neb INH [id number] AWAKE [facility] Last Admin: 10/10/19 12:33 Dose: 1 neb Aspirin (Aspirin 81 Mg Chew Tab*) 81 mg PO DAILY [facility] Last Admin: 10/10/19 10:13 Dose: 81 mg Dextrose (D50w Syringe 50 Ml*) 12.5 gm IV PUSH .FOR FS < 60 - SS PRN PRN Reason: FS < 60 Heparin Sodium (Porcine) (Heparin Vial(*)) 5,000 units SUBCUT Q8HR [facility] Last Admin: 10/10/19 13:32 Dose: 5,000 units Sodium Chloride (Ns 0.9% 1000 Ml) 1,000 mls @ 100 mls/hr IV PER RATE [facility] Last Admin: 10/10/19 10:26 Dose: 100 mls/hr Vancomycin HCl 1,000 mg/ (Sodium Chloride) 250 mls @ 166.667 mls/hr IV Q24H [facility] Insulin Glargine (Lantus(*)) 50 units SUBCUT DAILY [facility] Last Admin: 10/10/19 10:14 Dose: 50 units Insulin Human Lispro (Humalog*) 0 units SUBCUT ACHS [facility]; Protocol Last Admin: 10/10/19 12:08 Dose: 3 units Miconazole Nitrate (Miconazole Vag Supp*) 200 mg VAGINAL BEDTIME RONI Stop: 10/12/19 21:01 Mometasone Furoate/Formoterol Fumar (Dulera 200/5 Mdi*) 2 puff INH BID RONI Last Admin: 10/10/19 07:22 Dose: 2 puff Morphine Sulfate (Morphine Inj (Syringe)*) 4 mg IV Q4H PRN PRN Reason: PAIN - SEVERE Last Admin: 10/10/19 05:38 Dose: 4 mg Ondansetron HCl (Zofran Inj*) 4 mg IV Q6H PRN PRN Reason: NAUSEA Pharmacy Profile Note (Vancomycin Trough Check) 1 note FOLLOW UP 07 ONE Stop: 10/12/19 07:31 Vital Signs - 8 hr 10/10/19 10/10/19 10/10/19 07:45 09:20 12:01 Temperature 97.7 F 99.5 F 98.2 F Pulse Rate 89 94 84 Respiratory 22 32 20 Rate Blood Pressure 129/61 129/62 142/64 (mmHg) O2 Sat by Pulse 99 97 100 Oximetry 10/10/19 12:34 Temperature Pulse Rate 84 Respiratory 20 Rate Blood Pressure (mmHg) O2 Sat by Pulse 99 Oximetry Oxygen Devices in Use Now: Nasal Cannula - 2L Appearance: This is a well developed young female seen resting in bed in mild distress. Eyes: No Scleral Icterus, PERRLA Ears/Nose/Mouth/Throat: NL Teeth, Lips, Gums, Clear Oropharnyx, Mucous Membranes Moist Neck: NL Appearance and Movements; NL JVP, Trachea Midline Respiratory: Symmetrical Chest Expansion and Respiratory Effort, - - Diminished in right lower snd middle lung deng. Cardiovascular: NL Sounds; No Murmurs; No JVD, RRR, No Edema Abdominal: NL Sounds; No Tenderness; No Distention Lymphatic: No Cervical Adenopathy Extremities: No Edema, No Clubbing, Cyanosis Skin: No Rash or Ulcers, No Nodules or Sclerosis Neurological: Alert and Oriented x 3 Lines/Tubes/Other Access: Clean, Dry and Intact Peripheral IV Nutrition: Taking PO's Result Diagrams: 10/09/19 16:10 10/09/19 16:10 Microbiology and Other Data: Microbiology 10/09/19 23:40 Legionella Urinary Antigen - Final Urine Negative Legionella Antigen Streptococcus pneumoniae Ag Screen - Final Negative S. pneumo Antigen Assess/Plan/Problems-Billing Assessment: This is a 38 year old female with a past medical history of Dm type 1, CKD stage 3 and HTN who was admitted on 10/09/19 for sepsis secondary to right lower lobe pneumonia. - Patient Problems (1) MRSA pneumonia Current Visit: Yes Status: Acute Code(s): J15.212 - PNEUMONIA DUE TO METHICILLIN RESISTANT STAPHYLOCOCCUS AUREUS SNOMED Code(s): 784576423411650 Comment: - Had received a one time dose of Dalvance the day prior to admission. Continuing vancomycin this admission. - Will undergo a right sided thoracentesis today with IR due to large right pleural effusion. - Continues to require supplemental oxygen - Encouraged incentive spirometer and flutter valve. - Cont Vanco per ID. - Pulmonary consulted. - Metanebs ordered per pulm rec (2) Acute kidney injury superimposed on CKD Current Visit: Yes Status: Acute Code(s): N17.9 - ACUTE KIDNEY FAILURE, UNSPECIFIED; N18.9 - CHRONIC KIDNEY DISEASE, UNSPECIFIED SNOMED Code(s): 00413361 Comment: - Slightly elevated above her baseline at 2.07 on 10/09/19, improving since previous admission. -has CKD d/t diabetic nephropathy, baseline Cr is ~1.5 -appears to be prerenal in setting of dehydration (3) Vaginal candidiasis Current Visit: Yes Status: Acute Code(s): B37.3 - CANDIDIASIS OF VULVA AND VAGINA SNOMED Code(s): 24340131 Comment: - Starting three days ago she began to report intermittant intense itching in/around her vagina. States that he is prone to yeast infections with antibiotics. Noted no visual discharge, but inner labia/introitis is slightly reddened. Starting on miconazole suppositoryx3 days. (4) Acute respiratory failure Current Visit: Yes Status: Acute Code(s): J96.00 - ACUTE RESPIRATORY FAILURE , UNSP W HYPOXIA OR HYPERCAPNIA SNOMED Code(s): 00568860 Comment: -Requiring supplemental O2 via nasal cannujla to maintain sats. -2/2 pneumonia. (5) Diabetes type I Current Visit: Yes Status: Acute Comment: - Finger sticks ACHS - Cont carb counting sliding scale as this is what she does at home - Cont insulin glargine 50U daily per home (6) Thrombocytosis Current Visit: Yes Status: Acute Comment: - Likely 2/2 infection, is improving - Continue asa until platelets back to normal. (7) Hypertension Current Visit: Yes Status: Chronic Code(s): I10 - ESSENTIAL (PRIMARY) HYPERTENSION SNOMED Code(s): 31362181 Comment: - HCTZ and lisinopril on hold for now due to rehydration and kidney function elevated beyond baseline. (8) Seizure Current Visit: No Status: Acute Priority: High Code(s): R56.9 - UNSPECIFIED CONVULSIONS SNOMED Code(s): 44778068 Comment: - Had seizures during her last DKA. Has had non since, does not require antiseizure medication. On seizure precautions. (9) DVT prophylaxis Current Visit: Yes Status: Acute Code(s): DSM0368 - SNOMED Code(s): 566218778 Comment: - Lovenox (10) Full code status Current Visit: Yes Status: Acute Code(s): Z78.9 - OTHER SPECIFIED HEALTH STATUS SNOMED Code(s): 363082009 Status and Disposition: Condition: Guarded Dispo: Admit inpatient to N.
[2019-10-10] MEDS ORDERED: Vancomycin(*) 1,000 MG in NS 0.9% 250 ML* 250 ML IV SCH (16:00)
--- NOTE | 2019-10-10 16:16 | PN ---
Progress Note - Progress Note Date of Service: 10/10/19 - Pulm f/u note Note: patient seen and examined at bedside. Patient known to me from recent in patient evaluation when she was admitted with mRSA bacteremia after influenza infection. Patient also with MRSA pneumonia. Patient was initiated on vancomycin. CT scan during recent hospitalization showed dense consolidation involving entire right lung. Patient had improvement, was discharged home. Patient returned back last night with symptoms of worsening shortness of breath and cough. Patient also reports significant malaise. Patient had follow-up CT chest that showed slight interval improvement in right- sided pneumonia and improvement in the consolidation. She still has significant consolidation in the right lower lobe. Patient also noted to have new finding of right pleural effusion Active Medications Generic Name Dose Route Start Last Admin Trade Name Freq PRN Reason Stop Dose Admin Acetaminophen 975 mg 10/10/19 14:00 10/10/19 13:31 Tylenol Tab* PO Not Given TID RONI Acetylcysteine 400 mg 10/10/19 08:00 10/10/19 12:33 Mucomyst Inhalation Marisel* INH 400 mg [id number] AWAKE RONI Administration Albuterol 2.5 mg 10/09/19 20:13 Ventolin 2.5 Mg/3 Ml Neb.Marisel* INH Q2H PRN SOB/WHEEZING Albuterol/Ipratropium 1 neb 10/10/19 13:00 10/10/19 12:33 Duoneb (Albuterol 2.5 Mg/Ipratropium 0.5 Mg) INH 1 neb [id number] AWAKE RONI Administration Aspirin 81 mg 10/10/19 09:00 10/10/19 10:13 Aspirin 81 Mg Chew Tab* PO 81 mg DAILY RONI Administration Dextrose 12.5 gm 10/10/19 14:07 D50w Syringe 50 Ml* IV PUSH .FOR FS < 60 - SS PRN FS < 60 Enoxaparin Sodium 40 mg 10/10/19 16:00 Lovenox(*) SUBCUT Q24H RONI Sodium Chloride 1,000 mls @ 100 mls/hr 10/10/19 10:15 10/10/19 10:26 Ns 0.9% 1000 Ml IV 100 mls/hr PER RATE RONI Administration Vancomycin HCl 1,000 mg/ 250 mls @ 166.667 mls/hr 10/11/19 08:00 Sodium Chloride IV Q24H [facility] Insulin Glargine 50 units 10/10/19 10:00 10/10/19 10:14 Lantus(*) SUBCUT 50 units DAILY RONI Administration Insulin Human Lispro 0 units 10/09/19 21:00 10/10/19 12:08 Humalog* SUBCUT 3 units ACHS RONI Administration Protocol Miconazole Nitrate 200 mg 10/10/19 21:00 Miconazole Vag Supp* VAGINAL 10/12/19 21:01 BEDTIME [facility] Mometasone Furoate/Formoterol Fumar 2 puff 10/09/19 21:00 10/10/19 07:22 Dulera 200/5 Mdi* INH 2 puff BID RONI Administration Morphine Sulfate 4 mg 10/09/19 20:04 10/10/19 05:38 Morphine Inj (Syringe)* IV 4 mg Q4H PRN Administration PAIN - SEVERE Ondansetron HCl 4 mg 10/09/19 20:04 Zofran Inj* IV Q6H PRN NAUSEA Pharmacy Profile Note 1 note 10/12/19 07:30 Vancomycin Trough Check FOLLOW UP 10/12/19 07:31 0730 ONE Vital Signs Temp Pulse Resp BP Pulse Ox 98.2 F 84 20 142/64 99 10/10/19 12:01 10/10/19 12:34 10/10/19 12:34 10/10/19 12:01 10/10/19 12:34 O/E: obese female in bed in no apparent distress HEENT: Pupils equal and reactive to light,, mucous membranes moist Lungs: Diminished breath sounds on the right side CVS:S1, S2 present Abdomen: obese, bowel sounds present Extremities: normal range of motion Skin no rash Neuro: no focal deficits Laboratory Results - last 24 hr 10/09/19 10/09/19 10/09/19 16:10 16:10 16:10 WBC 17.7 H RBC 3.10 L Hgb 8.4 L Hct 27 L MCV 86 MCH 27 MCHC 32 RDW 14 Plt Count 596 H D MPV 6.7 L Neut % (Auto) 91.1 Lymph % (Auto) 3.9 Adams % (Auto) 3.9 Eos % (Auto) 0.7 Baso % (Auto) 0.4 Absolute Neuts (auto) 16.1 H Absolute Lymphs (auto) 0.7 L Absolute Monos (auto) 0.7 Absolute Eos (auto) 0.1 Absolute Basos (auto) 0.1 Absolute Nucleated RBC 0.0 Nucleated RBC % 0.0 INR (Anticoag Therapy) APTT Sodium 135 Potassium TNP Chloride 101 Carbon Dioxide 24 Anion Gap 10 BUN 16 Creatinine 2.07 H Est GFR ( Amer) 32.6 Est GFR (Non-Af Amer) 26.9 BUN/Creatinine Ratio 7.7 L Glucose 205 H POC Glucose (mg/dL) Lactic Acid 0.9 Calcium 8.2 L Total Bilirubin 0.30 AST TNP ALT 16 Alkaline Phosphatase 128 H Troponin I 0.02 C-Reactive Protein 98.84 H B-Natriuretic Peptide Total Protein 7.3 Albumin 2.6 L Globulin 4.7 H Albumin/Globulin Ratio 0.6 L Beta HCG, Quant 1.43 Urine Color Urine Appearance Urine pH Ur Specific Hobbs Urine Protein Urine Ketones Urine Blood Urine Nitrate Urine Bilirubin Urine Urobilinogen Ur Leukocyte Esterase Urine WBC (Auto) Urine RBC (Auto) Ur Squamous Epith Cells Urine Bacteria Urine Glucose 10/09/19 10/09/19 10/09/19 16:10 22:36 23:07 WBC RBC Hgb Hct MCV MCH MCHC RDW Plt Count MPV Neut % (Auto) Lymph % (Auto) Adams % (Auto) Eos % (Auto) Baso % (Auto) Absolute Neuts (auto) Absolute Lymphs (auto) Absolute Monos (auto) Absolute Eos (auto) Absolute Basos (auto) Absolute Nucleated RBC Nucleated RBC % INR (Anticoag Therapy) APTT Sodium Potassium Chloride Carbon Dioxide Anion Gap BUN Creatinine Est GFR ( Amer) Est GFR (Non-Af Amer) BUN/Creatinine Ratio Glucose POC Glucose (mg/dL) 82 103 H Lactic Acid Calcium Total Bilirubin AST ALT Alkaline Phosphatase Troponin I C-Reactive Protein B-Natriuretic Peptide 71 Total Protein Albumin Globulin Albumin/Globulin Ratio Beta HCG, Quant Urine Color Urine Appearance Urine pH Ur Specific Hobbs Urine Protein Urine Ketones Urine Blood Urine Nitrate Urine Bilirubin Urine Urobilinogen Ur Leukocyte Esterase Urine WBC (Auto) Urine RBC (Auto) Ur Squamous Epith Cells Urine Bacteria Urine Glucose 10/09/19 10/10/19 10/10/19 23:40 07:40 10:18 WBC RBC Hgb Hct MCV MCH MCHC RDW Plt Count MPV Neut % (Auto) Lymph % (Auto) Adams % (Auto) Eos % (Auto) Baso % (Auto) Absolute Neuts (auto) Absolute Lymphs (auto) Absolute Monos (auto) Absolute Eos (auto) Absolute Basos (auto) Absolute Nucleated RBC Nucleated RBC % INR (Anticoag Therapy) 1.26 H APTT 16.6 L Sodium Potassium Chloride Carbon Dioxide Anion Gap BUN Creatinine Est GFR ( Amer) Est GFR (Non-Af Amer) BUN/Creatinine Ratio Glucose POC Glucose (mg/dL) 87 Lactic Acid Calcium Total Bilirubin AST ALT Alkaline Phosphatase Troponin I C-Reactive Protein B-Natriuretic Peptide Total Protein Albumin Globulin Albumin/Globulin Ratio Beta HCG, Quant Urine Color Straw Urine Appearance Clear Urine pH 5.0 Ur Specific Hobbs 1.006 L Urine Protein 1+(30 mg/dl) A Urine Ketones Negative Urine Blood 1+ A Urine Nitrate Negative Urine Bilirubin Negative Urine Urobilinogen Negative Ur Leukocyte Esterase Trace A Urine WBC (Auto) 2+(11-20/hpf) A Urine RBC (Auto) 1+(3-5/hpf) A Ur Squamous Epith Cells Present A Urine Bacteria Absent Urine Glucose Negative 10/10/19 11:45 WBC RBC Hgb Hct MCV MCH MCHC RDW Plt Count MPV Neut % (Auto) Lymph % (Auto) Adams % (Auto) Eos % (Auto) Baso % (Auto) Absolute Neuts (auto) Absolute Lymphs (auto) Absolute Monos (auto) Absolute Eos (auto) Absolute Basos (auto) Absolute Nucleated RBC Nucleated RBC % INR (Anticoag Therapy) APTT Sodium Potassium Chloride Carbon Dioxide Anion Gap BUN Creatinine Est GFR ( Amer) Est GFR (Non-Af Amer) BUN/Creatinine Ratio Glucose POC Glucose (mg/dL) 200 H Lactic Acid Calcium Total Bilirubin AST ALT Alkaline Phosphatase Troponin I C-Reactive Protein B-Natriuretic Peptide Total Protein Albumin Globulin Albumin/Globulin Ratio Beta HCG, Quant Urine Color Urine Appearance Urine pH Ur Specific Hobbs Urine Protein Urine Ketones Urine Blood Urine Nitrate Urine Bilirubin Urine Urobilinogen Ur Leukocyte Esterase Urine WBC (Auto) Urine RBC (Auto) Ur Squamous Epith Cells Urine Bacteria Urine Glucose I/R: 38 year old female with a past medical history of DM type 1, CKD stage 3 and HTN who was readmitted on 10/09/19 for Worsening shortness of breath, cough. Patient recently diagnosed with influenza and post influenza MRSA pneumonia and bacteremia Patient with significant involvement of the right lung with dense consolidation involving entire right lung Patient was on vancomycin, was discharged home to complete antibiotic patient return with worsening shortness of breath and cough Patient with shortness of breath with minimal exertion Patient also hypoxemic with exertion Repeat CT chest was reviewed-slight improvement in the dense consolidation in the right lung, new finding of right pleural effusion Concern for parapneumonic effusion on the right side Discussed with interventional radiology regarding fluid aspiration for diagnostic purposes Patient to have ultrasound-guided thoracentesis by Dr. Nevarez procedure risks and complications were discussed in detail with the patient Fluid to be sent for cultures, cell count, LDH, protein Continue with antibiotics Continue with Mucomyst and nebulizers with metanebs Continue with O2 supplementation Patient might need oxygen upon discharge D/w Otilia Lucas
[2019-10-10] MEDS ORDERED: Acetaminophen TAB* 325 MG PO ONE (18:49)
[2019-10-10] MEDS: Enoxaparin(*) 40 MG/0.4 ML SYR SUBCUT SCH (19:03)
[2019-10-10 19:23] LABS: Body Fluid Source Pleural Fluid
[2019-10-10 20:49] LABS: Body Fluid Other Cells 6
[2019-10-10] MEDS: Miconazole VAG SUPP* 200 MG SUP VAGINAL SCH (22:29)
[2019-10-11] MEDS: Morphine INJ* 4 MG/ML 1 ML SYRINGE (NEW SYRINGE VERSION) IV PRN (03:45)
[2019-10-11 06:00] LABS: Calcium 7.7 mg/dL (8.6-10.3); EGFR African American 28.4 (>60); EGFR Non-African American 23.5 (>60); Potassium 3.6 mmol/L (3.5-5.0)
[2019-10-11 06:08] LABS: ABS Basophils 0.1 10^3/ul (0-0.2); ABS Eosinophils 0.2 10^3/ul (0-0.6); ABS Lymphocytes 0.8 10^3/ul (1.0-4.8); ABS Monocytes 0.5 10^3/ul (0-0.8); ABS Neutrophils 5.7 10^3/ul (1.5-7.7); Eosinophil % 2.8 %; Hematocrit 27 % (35-47); Hemoglobin 8.7 g/dL (12.0-16.0); Lymphocyte % 10.8 %; Mean Corpuscular HGB Conc 32 g/dL (31-36); Mean Corpuscular Hemoglobin 27 pg (27-31); Mean Corpuscular Volume 85 fL (80-97); Mean Platelet Volume 6.4 fL (7.4-10.4); Nucleated Red Blood Cells % 0.1; Platelet Count 557 10^3/uL (150-450); Red Blood Count 3.17 10^6 /uL (3.70-4.87); Red Cell Distribution Width 14 % (10-15); White Blood Count 7.2 10^3/uL (3.5-10.8)
[2019-10-11] MEDS: HYDROmorphone INJ* 0.5 MG/0.5 ML SYRINGE IV SLOW PU PRN ×4 (08:39→21:27)
[2019-10-11] MEDS: Albuterol/Ipratropium NEB.SOL* Albuterol 2.5 MG/Ipratropium 0.5 MG 3 ML INH SCH ×4 (08:41→20:25)
[2019-10-11] MEDS: Mometasone/Formoter 200/5 MDI INH SCH ×2 (08:41→20:29)
[2019-10-11] MEDS: Acetaminophen TAB* 325 MG PO SCH ×3 (08:41→21:03)
[2019-10-11] MEDS: Aspirin 81 mg CHEW TAB* 81 MG TAB.CHEW PO SCH (08:42)
[2019-10-11] MEDS: NS 0.9% 1000 ML** 1,000 ML IV SCH (08:47)
[2019-10-11] MEDS: Vancomycin(*) 1,000 MG in NS 0.9% 250 ML* 250 ML IV SCH (08:48)
[2019-10-11] MEDS: Acetylcysteine INHALATION SOL* 200 MG/ML NEB.SOLN 10 ML INH SCH ×4 (08:56→20:25)
[2019-10-11] MEDS: Insulin GLARGINE(*) 1 UNITS UNIT SUBCUT SCH (10:04)
[2019-10-11] MEDS: Insulin LISPRO* 1 UNITS UNIT SUBCUT SCH ×4 (10:05→21:16)
--- NOTE | 2019-10-11 13:18 | PN ---
Subjective Date of Service: 10/11/19 Interval History: Patient is still feeling poorly, patient has severely decreased exercise tolerance and palpitations with chest pressure when ambulating. Patient also has intermittent chills, which is usually associated with increased pain. Patient denies known fevers. Patient has intermittent cough without hemoptysis. Patient denies N/V, abdominal pain, diarrhea, or other pain. Family History: Unchanged from Admission Social History: Unchanged from Admission Past Medical History: Unchanged from Admission Objective Active Medications: Acetaminophen (Tylenol Tab*) 975 mg PO TID [facility] Last Admin: 10/11/19 08:41 Dose: 975 mg Acetylcysteine (Mucomyst Inhalation Marisel*) 400 mg INH [id number] AWAKE [facility] Last Admin: 10/11/19 08:56 Dose: 400 mg Albuterol (Ventolin 2.5 Mg/3 Ml Neb.Marisel*) 2.5 mg INH Q2H PRN PRN Reason: SOB/WHEEZING Albuterol/Ipratropium (Duoneb (Albuterol 2.5 Mg/Ipratropium 0.5 Mg)) 1 neb INH [id number] AWAKE [facility] Last Admin: 10/11/19 08:41 Dose: 1 neb Aspirin (Aspirin 81 Mg Chew Tab*) 81 mg PO DAILY [facility] Last Admin: 10/11/19 08:42 Dose: 81 mg Dextrose (D50w Syringe 50 Ml*) 12.5 gm IV PUSH .FOR FS < 60 - SS PRN PRN Reason: FS < 60 Enoxaparin Sodium (Lovenox(*)) 40 mg SUBCUT Q24H [facility] Last Admin: 10/10/19 19:03 Dose: 40 mg Hydromorphone HCl (Dilaudid Inj*) 0.5 mg IV SLOW PU Q4H PRN PRN Reason: PAIN - SEVERE Last Admin: 10/11/19 12:35 Dose: 0.5 mg Sodium Chloride (Ns 0.9% 1000 Ml) 1,000 mls @ 100 mls/hr IV PER RATE [facility] Last Admin: 10/11/19 08:47 Dose: 100 mls/hr Vancomycin HCl 1,000 mg/ (Sodium Chloride) 250 mls @ 166.667 mls/hr IV Q24H [facility] Last Admin: 10/11/19 08:48 Dose: 166.667 mls/hr Insulin Glargine (Lantus(*)) 50 units SUBCUT DAILY [facility] Last Admin: 10/11/19 10:04 Dose: 50 units Insulin Human Lispro (Humalog*) 0 units SUBCUT ACHS [facility]; Protocol Last Admin: 10/11/19 10:05 Dose: 16 units Miconazole Nitrate (Miconazole Vag Supp*) 200 mg VAGINAL BEDTIME RONI Stop: 10/12/19 21:01 Last Admin: 10/10/19 22:29 Dose: 200 mg Mometasone Furoate/Formoterol Fumar (Dulera 200/5 Mdi*) 2 puff INH BID [facility] Last Admin: 10/11/19 08:41 Dose: 2 puff Ondansetron HCl (Zofran Inj*) 4 mg IV Q6H PRN PRN Reason: NAUSEA Oxycodone HCl (Roxycodone Tab*) 5 mg PO Q6H PRN PRN Reason: PAIN - MODERATE Pharmacy Profile Note (Vancomycin Trough Check) 1 note FOLLOW UP 07 ONE Stop: 10/12/19 07:31 Vital Signs - 8 hr 10/11/19 10/11/19 10/11/19 08:28 08:39 08:49 Temperature 102.5 F Pulse Rate 102 102 Respiratory 16 16 14 Rate Blood Pressure 159/65 (mmHg) O2 Sat by Pulse 98 98 Oximetry 10/11/19 10/11/19 10/11/19 10:06 11:02 12:35 Temperature 98.5 F Pulse Rate 122 Respiratory 16 16 16 Rate Blood Pressure 148/69 (mmHg) O2 Sat by Pulse 95 Oximetry Oxygen Devices in Use Now: Nasal Cannula Appearance: Patient is a 38yo female who appears stated age and is sitting in the bed with slight shivering and tachypnea. Eyes: No Scleral Icterus, PERRLA Ears/Nose/Mouth/Throat: NL Teeth, Lips, Gums, Clear Oropharnyx, Mucous Membranes Moist Neck: NL Appearance and Movements; NL JVP, Trachea Midline Respiratory: Symmetrical Chest Expansion and Respiratory Effort, - - Decreased breath sounds in RLL. No other adventitous lung sounds. Cardiovascular: RRR, No Edema, - - Tachycardia. Abdominal: NL Sounds; No Tenderness; No Distention, No Hepatosplenomegaly Lymphatic: No Cervical Adenopathy Extremities: No Edema, No Clubbing, Cyanosis Skin: No Rash or Ulcers, No Nodules or Sclerosis Neurological: Alert and Oriented x 3, NL Sensation, NL Muscle Strength and Tone , - - CN II-XII intact. Result Diagrams: 10/11/19 05:34 10/11/19 05:34 Microbiology and Other Data: Microbiology 10/09/19 23:40 Legionella Urinary Antigen - Final Urine Negative Legionella Antigen Streptococcus pneumoniae Ag Screen - Final Negative S. pneumo Antigen Assess/Plan/Problems-Billing Assessment: This is a 38 year old female with a past medical history of Dm type 1, CKD stage 3 and HTN who was admitted on 10/09/19 for sepsis secondary to right lower lobe pneumonia which correlated to known pneumonia from MRSA and flu superinfection. - Patient Problems (1) Acute respiratory failure Current Visit: Yes Status: Acute Code(s): J96.00 - ACUTE RESPIRATORY FAILURE , UNSP W HYPOXIA OR HYPERCAPNIA SNOMED Code(s): 35280852 Comment: - Requiring supplemental O2 via nasal cannula to maintain sats. - 2/2 pneumonia presumably - Likely able to be weaned down to RA today (2) Acute kidney injury superimposed on CKD Current Visit: Yes Status: Acute Code(s): N17.9 - ACUTE KIDNEY FAILURE, UNSPECIFIED; N18.9 - CHRONIC KIDNEY DISEASE, UNSPECIFIED SNOMED Code(s): 59330910 Comment: - Slightly elevated above her baseline at - Has CKD d/t diabetic nephropathy, baseline Cr is ~1.5, this may be worsened after severe NAZIA at last admission with likely ATN - Worsened today, continue fluids and monitor. (3) Anemia Current Visit: No Status: Acute Code(s): D64.9 - ANEMIA, UNSPECIFIED SNOMED Code(s): 212334493 Comment: - Likely due to CAMILLE and CKD - Possibly also contributed to by AOCD - Continue Oral Iron - Monitor outpatient, judicious blood draws. (4) Diabetes type I Current Visit: Yes Status: Acute Comment: - Finger sticks ACHS - Cont carb counting sliding scale as this is what she does at home - Cont insulin glargine 50U daily per home - Good control. (5) MRSA pneumonia Current Visit: Yes Status: Acute Code(s): J15.212 - PNEUMONIA DUE TO METHICILLIN RESISTANT STAPHYLOCOCCUS AUREUS SNOMED Code(s): 906689590262537 Comment: - Had received a one time dose of Dalvance the day prior to admission. Continuing vancomycin this admission. - S/P Thoracentesis without subjective improvement - Encouraged incentive spirometer and flutter valve. - Cont Vanco per ID. - Pulmonary consulted. - Metanebs ordered per pulmonary Recommendation - Awaiting thoracentesis results. (6) Thrombocytosis Current Visit: Yes Status: Acute Comment: - Likely 2/2 infection, is improving - Stop Aspirin (7) Vaginal candidiasis Current Visit: Yes Status: Acute Code(s): B37.3 - CANDIDIASIS OF VULVA AND VAGINA SNOMED Code(s): 30168252 Comment: - Starting three days ago she began to report intermittant intense itching in/around her vagina. - Starting on miconazole suppository x3 days. (10/09-10/11) (8) Hypertension Current Visit: Yes Status: Chronic Code(s): I10 - ESSENTIAL (PRIMARY) HYPERTENSION SNOMED Code(s): 26178568 Comment: - HCTZ and lisinopril on hold for now due to rehydration and kidney function elevated beyond baseline. (9) Influenza A Current Visit: No Status: Acute Code(s): J10.1 - FLU DUE TO OTH IDENT INFLUENZA VIRUS W OTH RESP MANIFEST SNOMED Code(s): 510840096 Comment: - Completed Tamiflu - MRSA PNA bacterial superinfection. (10) Tachycardia Current Visit: Yes Status: Acute Code(s): R00.0 - TACHYCARDIA, UNSPECIFIED SNOMED Code(s): 2940363 Comment: - Persistent tachycardia, particularly with activity - Continue fluids, EKG pending - Echo previously unremarkable - PE unlikely at this time, consider V/Q scan if no further improvement on antibiotics (11) DVT prophylaxis Current Visit: Yes Status: Acute Code(s): RXE0253 - SNOMED Code(s): 957280823 Comment: - Lovenox (12) Full code status Current Visit: Yes Status: Acute Code(s): Z78.9 - OTHER SPECIFIED HEALTH STATUS SNOMED Code(s): 862423088 Status and Disposition: Condition: Stable Dispo: Admit inpatient to .
[2019-10-11] MEDS ORDERED: Lorazepam PYXIS KEY PRN (13:19)
[2019-10-11] MEDS: LORazepam INJ* 2 MG/ML 1 ML VIAL IV PUSH PRN ×2 (14:05→21:28)
[2019-10-11] MEDS: Enoxaparin(*) 40 MG/0.4 ML SYR SUBCUT SCH (15:51)
[2019-10-11] MEDS ORDERED: Ibuprofen TAB* 600 MG PO ONE (16:49)
--- NOTE | 2019-10-11 16:49 | PN ---
Progress Note - Progress Note Date of Service: 10/11/19 - Pulm f/u note Note: Pt seen and examined at bedside. Pt reports feeling slightly better. Active Medications Generic Name Dose Route Start Last Admin Trade Name Freq PRN Reason Stop Dose Admin Acetaminophen 975 mg 10/10/19 14:00 10/11/19 15:50 Tylenol Tab* PO 975 mg TID RONI Administration Acetylcysteine 400 mg 10/10/19 08:00 10/11/19 14:32 Mucomyst Inhalation Marisel* INH Not Given [id number] AWAKE RONI Albuterol 2.5 mg 10/09/19 20:13 Ventolin 2.5 Mg/3 Ml Neb.Marisel* INH Q2H PRN SOB/WHEEZING Albuterol/Ipratropium 1 neb 10/10/19 13:00 10/11/19 14:32 Duoneb (Albuterol 2.5 Mg/Ipratropium 0.5 Mg) INH Not Given RT.[id number] AWAKE [facility] Dextrose 12.5 gm 10/10/19 14:07 D50w Syringe 50 Ml* IV PUSH .FOR FS < 60 - SS PRN FS < 60 Enoxaparin Sodium 40 mg 10/10/19 16:00 10/11/19 15:51 Lovenox(*) SUBCUT 40 mg Q24H RONI Administration Hydromorphone HCl 0.5 mg 10/11/19 07:47 10/11/19 12:35 Dilaudid Inj* IV SLOW PU 0.5 mg Q4H PRN Administration PAIN - SEVERE Vancomycin HCl 1,000 mg/ 250 mls @ 166.667 mls/hr 10/11/19 08:00 10/11/19 08: 48 Sodium Chloride IV 166.667 mls/hr Q24H RONI Administration Insulin Glargine 50 units 10/10/19 10:00 10/11/19 10:04 Lantus(*) SUBCUT 50 units DAILY RONI Administration Insulin Human Lispro 0 units 10/09/19 21:00 10/11/19 15:51 Humalog* SUBCUT Not Given ACHS COUNT INCLUDES [facility] Protocol Lorazepam 0.5 mg 10/11/19 13:19 10/11/19 14:05 Ativan Inj* IV PUSH 0.5 mg Q4H PRN Administration Anxiety/Shivering Miconazole Nitrate 200 mg 10/10/19 21:00 10/10/19 22:29 Miconazole Vag Supp* VAGINAL 10/12/19 21:01 200 mg BEDTIME RONI Administration Miscellaneous 1 ea 10/11/19 13:19 Ativan Pyxis Goins N/A .ATIVAN IV GOINS PRN PYXIS GOINS Mometasone Furoate/Formoterol Fumar 2 puff 10/09/19 21:00 10/11/19 08:41 Dulera 200/5 Mdi* INH 2 puff BID RONI Administration Ondansetron HCl 4 mg 10/09/19 20:04 Zofran Inj* IV Q6H PRN NAUSEA Oxycodone HCl 5 mg 10/11/19 07:48 Roxycodone Tab* PO Q6H PRN PAIN - MODERATE Pharmacy Profile Note 1 note 10/12/19 07:30 Vancomycin Trough Check FOLLOW UP 10/12/19 07:31 0730 ONE Vital Signs Temp Pulse Resp BP Pulse Ox 103.1 F 119 26 166/71 99 10/11/19 16:11 10/11/19 16:11 10/11/19 16:11 10/11/19 16:11 10/11/19 16:11 O/E: Pt in NAD HEENT: PERRLA Lungs: Diminished on rt CVS: S1, S2+ Ext: Normal ROM Skin: NO rash Neuro: No focal deficits Laboratory Results - last 24 hr 10/10/19 10/10/19 10/11/19 18:27 22:12 05:34 WBC RBC Hgb Hct MCV MCH MCHC RDW Plt Count MPV Neut % (Auto) Lymph % (Auto) [place] % (Auto) Eos % (Auto) Baso % (Auto) Absolute Neuts (auto) Absolute Lymphs (auto) Absolute Monos (auto) Absolute Eos (auto) Absolute Basos (auto) Absolute Nucleated RBC Nucleated RBC % Sodium 137 Potassium 3.6 Chloride 105 Carbon Dioxide 24 Anion Gap 8 BUN 14 Creatinine 2.33 H Est GFR ( Amer) 28.4 Est GFR (Non-Af Amer) 23.5 BUN/Creatinine Ratio 6.0 L Glucose 98 POC Glucose (mg/dL) 196 H Calcium 7.7 L Fluid Source Pleural fluid Fluid Volume 45 Fluid Color Yellow Fluid Appearance Cloudy Fluid WBC 589 Fluid RBC 4622 Fluid Tot Cell Count 100 Fluid Neutrophils 86 Fluid Lymphocytes 14 Fluid Other Cells 6 10/11/19 10/11/19 10/11/19 05:34 08:45 12:27 WBC 7.2 RBC 3.17 L Hgb 8.7 L Hct 27 L MCV 85 MCH 27 MCHC 32 RDW 14 Plt Count 557 H MPV 6.4 L Neut % (Auto) 78.3 Lymph % (Auto) 10.8 [place] % (Auto) 7.2 Eos % (Auto) 2.8 Baso % (Auto) 0.9 Absolute Neuts (auto) 5.7 Absolute Lymphs (auto) 0.8 L Absolute Monos (auto) 0.5 Absolute Eos (auto) 0.2 Absolute Basos (auto) 0.1 Absolute Nucleated RBC 0.0 Nucleated RBC % 0.1 Sodium Potassium Chloride Carbon Dioxide Anion Gap BUN Creatinine Est GFR ( Amer) Est GFR (Non-Af Amer) BUN/Creatinine Ratio Glucose POC Glucose (mg/dL) 113 H 115 H Calcium Fluid Source Fluid Volume Fluid Color Fluid Appearance Fluid WBC Fluid RBC Fluid Tot Cell Count Fluid Neutrophils Fluid Lymphocytes Fluid Other Cells I/R: 38 year old female with a past medical history of DM type 1, CKD stage 3 and HTN who was readmitted on 10/09/19 for worsening shortness of breath, cough. Patient recently diagnosed with influenza and post influenza MRSA pneumonia and bactiremia Patient with significant involvement of the right lung with dense consolidation involving entire right lung Patient was on vancomycin, was discharged home to complete antibiotic, returned with worsening shortness of breath and cough Repeat CT chest-slight improvement in the dense consolidation in the right lung , new finding of right pleural effusion Concern for parapneumonic effusion on the right side Pt underwent ultrasound-guided thoracentesis 10/09- 350cc of marli colored fluid was removed Cultures positive for MRSA ? concern for complicated parapneumonic effusion. GLucose, protein, LDH are pending Continue with antibiotics Continue with Mucomyst and nebulizers with metanebs Continue with O2 supplementation Will need to reassess pleural space 10/11 with U/S If fluid reaccumulates, will need chest tube
[2019-10-11] MEDS: Miconazole VAG SUPP* 200 MG SUP VAGINAL SCH (21:05)
[2019-10-12] MEDS: Acetylcysteine INHALATION SOL* 200 MG/ML NEB.SOLN 10 ML INH SCH ×4 (01:25→19:25)
[2019-10-12] MEDS: Albuterol/Ipratropium NEB.SOL* Albuterol 2.5 MG/Ipratropium 0.5 MG 3 ML INH SCH ×4 (01:29→19:25)
[2019-10-12] MEDS: HYDROmorphone INJ* 0.5 MG/0.5 ML SYRINGE IV SLOW PU PRN ×3 (01:58→17:40)
[2019-10-12] MEDS: LORazepam INJ* 2 MG/ML 1 ML VIAL IV PUSH PRN ×2 (05:40→17:40)
[2019-10-12] MEDS ORDERED: Vancomycin Trough Check NOTE FOLLOW UP ONE (07:30)
[2019-10-12] MEDS: Acetaminophen TAB* 325 MG PO SCH ×3 (07:55→21:01)
[2019-10-12] MEDS: Mometasone/Formoter 200/5 MDI INH SCH ×2 (08:43→19:24)
--- NOTE | 2019-10-12 09:50 | PN ---
Subjective Date of Service: 10/12/19 Interval History: Patient feels her pain continues in her right upper back and right chest. The pain fluctuates. She says it feels worse when she moves. She does not feel short of breath at rest most of the time. She feels short of breath with minimal exertion, including sitting up. Reports chills. Denies abdominal pain, nausea, vomiting, diarrhea. Family History: Unchanged from Admission Social History: Unchanged from Admission Past Medical History: Unchanged from Admission Objective Active Medications: Acetaminophen (Tylenol Tab*) 975 mg PO TID [facility] Last Admin: 10/12/19 07:55 Dose: 975 mg Acetylcysteine (Mucomyst Inhalation Marisel*) 400 mg INH [id number] AWAKE [facility] Last Admin: 10/12/19 08:42 Dose: 400 mg Albuterol (Ventolin 2.5 Mg/3 Ml Neb.Marisel*) 2.5 mg INH Q2H PRN PRN Reason: SOB/WHEEZING Albuterol/Ipratropium (Duoneb (Albuterol 2.5 Mg/Ipratropium 0.5 Mg)) 1 neb INH RT.[id number] AWAKE [facility] Last Admin: 10/12/19 08:42 Dose: 1 neb Dextrose (D50w Syringe 50 Ml*) 12.5 gm IV PUSH .FOR FS < 60 - SS PRN PRN Reason: FS < 60 Enoxaparin Sodium (Lovenox(*)) 40 mg SUBCUT Q24H [facility] Last Admin: 10/11/19 15:51 Dose: 40 mg Hydromorphone HCl (Dilaudid Inj*) 0.5 mg IV SLOW PU Q4H PRN PRN Reason: severe pain breakthrough Vancomycin HCl 1,000 mg/ (Sodium Chloride) 250 mls @ 166.667 mls/hr IV Q24H [facility] Last Admin: 10/11/19 08:48 Dose: 166.667 mls/hr Sodium Chloride (Ns 0.9% 1000 Ml) 1,000 mls @ 100 mls/hr IV PER RATE [facility] Insulin Glargine (Lantus(*)) 50 units SUBCUT DAILY [facility] Last Admin: 10/11/19 10:04 Dose: 50 units Insulin Human Lispro (Humalog*) 0 units SUBCUT ACHS [facility]; Protocol Last Admin: 10/11/19 21:16 Dose: Not Given Lorazepam (Ativan Inj*) 0.5 mg IV PUSH Q4H PRN PRN Reason: Anxiety/Shivering Last Admin: 10/12/19 05:40 Dose: 0.5 mg Miconazole Nitrate (Miconazole Vag Supp*) 200 mg VAGINAL BEDTIME RONI Stop: 10/12/19 21:01 Last Admin: 10/11/19 21:05 Dose: 200 mg Miscellaneous (Ativan Pyxis Goins) 1 ea N/A .ATIVAN IV GOINS PRN PRN Reason: PYXIS GOINS Mometasone Furoate/Formoterol Fumar (Dulera 200/5 Mdi*) 2 puff INH BID RONI Last Admin: 10/12/19 08:43 Dose: 2 puff Ondansetron HCl (Zofran Inj*) 4 mg IV Q6H PRN PRN Reason: NAUSEA Oxycodone HCl (Roxycodone Tab*) 5 mg PO Q6H PRN PRN Reason: PAIN - MODERATE Oxycodone HCl (Roxycodone Tab*) 10 mg PO Q6H PRN PRN Reason: PAIN - SEVERE Vital Signs - 8 hr 10/12/19 10/12/19 10/12/19 01:58 03:20 05:39 Temperature 98.4 F Pulse Rate 90 Respiratory 24 20 24 Rate Blood Pressure 141/67 (mmHg) O2 Sat by Pulse 99 Oximetry 10/12/19 10/12/19 10/12/19 05:40 06:40 07:34 Temperature Pulse Rate Respiratory 24 22 30 Rate Blood Pressure (mmHg) O2 Sat by Pulse Oximetry 10/12/19 08:45 Temperature Pulse Rate 98 Respiratory 117 Rate Blood Pressure (mmHg) O2 Sat by Pulse 16 Oximetry Oxygen Devices in Use Now: Nasal Cannula Appearance: Young, obese black female, sitting on edge of hospital bed, somewhat tachypneic but overal appearing comfortable Eyes: No Scleral Icterus, - - PERRL Ears/Nose/Mouth/Throat: Mucous Membranes Moist Neck: Trachea Midline Respiratory: Symmetrical Chest Expansion and Respiratory Effort, Clear to Auscultation, - - not using accessory muscles with respirations Cardiovascular: NL Sounds; No Murmurs; No JVD, RRR Abdominal: - - abd soft/nontender/nondistended Extremities: No Edema, No Clubbing, Cyanosis Skin: No Rash or Ulcers Neurological: Alert and Oriented x 3 Result Diagrams: 10/11/19 05:34 10/12/19 11:02 Microbiology and Other Data: Microbiology 10/09/19 23:40 Legionella Urinary Antigen - Final Urine Negative Legionella Antigen Streptococcus pneumoniae Ag Screen - Final Negative S. pneumo Antigen Assess/Plan/Problems-Billing Assessment: This is a 38 year old female with a past medical history of Dm type 1, CKD stage 3 and HTN, who was recently hospitalized for MRSA bacteremia secondary to pneumonia, re-admitted on 10/09/19 for sepsis secondary to right lower lobe pneumonia. - Patient Problems (1) MRSA pneumonia Current Visit: Yes Status: Acute Code(s): J15.212 - PNEUMONIA DUE TO METHICILLIN RESISTANT STAPHYLOCOCCUS AUREUS SNOMED Code(s): 133315544279825 Comment: - Recent hospitalization found to have MRSA pneumonia in setting of influenza A based on sputum culture. Had received a one time dose of Dalvance the day prior to this current admission. Continuing vancomycin this hospitalization per ID recommendation. - Encourage incentive spirometer and flutter valve - Pulmonology consulted, metanebs recommended - Consolidation does appear improved since prior hospitalization, but now with new pleural effusion further described below (2) Parapneumonic effusion Current Visit: Yes Status: Acute Code(s): J18.9 - PNEUMONIA, UNSPECIFIED ORGANISM; J91.8 - PLEURAL EFFUSION IN OTHER CONDITIONS CLASSIFIED ELSEWHERE SNOMED Code(s): 99268410 Comment: - right sided pleural effusion, new during this hospitalization - pleural fluid culture positive for MRSA - S/P thoracentesis 10/10/19. 275 cc fluid removed - US chest today with small pleural effusion, seems fluid is not reaccumulating quickly (3) Acute respiratory failure Current Visit: Yes Status: Acute Code(s): J96.00 - ACUTE RESPIRATORY FAILURE , UNSP W HYPOXIA OR HYPERCAPNIA SNOMED Code(s): 87553687 Comment: - Requiring 2L supplemental O2 via nasal cannula - 2/2 pneumonia and pleural effusion - Attempt to wean O2 today - We discussed how mobility is important to the pulmonary toilet (4) MRSA bacteremia Current Visit: No Status: Acute Code(s): R78.81 - BACTEREMIA; B95.62 - METHICILLIN RESIS STAPH INFCT CAUSING DISEASES CLASSD ELSR SNOMED Code(s): 09816577698483480 Comment: - Diagnosed during previous recent hospitalization - SAHIL performed during last hospitaliation 10/08/19 without evidence of vegetation - 2/2 MRSA pneumonia - Continue vanco - Leukocytosis has improved but remains febrile (5) Acute kidney injury superimposed on CKD Current Visit: Yes Status: Acute Code(s): N17.9 - ACUTE KIDNEY FAILURE, UNSPECIFIED; N18.9 - CHRONIC KIDNEY DISEASE, UNSPECIFIED SNOMED Code(s): 68423479 Comment: - Has CKD d/t diabetic nephropathy, baseline Cr is ~1.5 - Had ATN during recent hospitalization - BUN/Cr is continuing to rise - Starting IVF - Checking a FeNa (6) Diabetes type I Current Visit: Yes Status: Acute Comment: - Finger sticks ACHS - Cont carb counting sliding scale as this is what she does at home - Cont insulin glargine 50U daily per home - Hyperglycemic to 300s today but has had good BG control overall (7) Anemia Current Visit: No Status: Acute Code(s): D64.9 - ANEMIA, UNSPECIFIED SNOMED Code(s): 598492980 Comment: - Likely anemia of chronic disease related to CKD (8) Vaginal candidiasis Current Visit: Yes Status: Acute Code(s): B37.3 - CANDIDIASIS OF VULVA AND VAGINA SNOMED Code(s): 69079609 Comment: - possibly related to IV antibiotics course - miconazole suppository x3 days (10/09-10/11) - vaginal complaints resolved today (9) Hypertension Current Visit: Yes Status: Chronic Code(s): I10 - ESSENTIAL (PRIMARY) HYPERTENSION SNOMED Code(s): 66624283 Comment: - HCTZ and lisinopril on hold for now due to rehydration and NAZIA (10) DVT prophylaxis Current Visit: Yes Status: Acute Code(s): WFY6775 - SNOMED Code(s): 656592240 Comment: - Lovenox (11) Full code status Current Visit: Yes Status: Acute Code(s): Z78.9 - OTHER SPECIFIED HEALTH STATUS SNOMED Code(s): 669836589 Status and Disposition: Inpatient, pending further medical improvement
[2019-10-12] MEDS: Insulin LISPRO* 1 UNITS UNIT SUBCUT SCH ×3 (09:57→21:02)
[2019-10-12] MEDS: Insulin GLARGINE(*) 1 UNITS UNIT SUBCUT SCH (09:57)
[2019-10-12] MEDS ORDERED: Polyethylene Glycol 3350* 17 GM PACKET PO PRN (11:05)
[2019-10-12 11:29] LABS: Anion Gap 8 mmol/L (2-11); BUN/Creatinine Ratio 5.7 (8-20); Blood Urea Nitrogen 17 mg/dL (6-24); CO2 Carbon Dioxide 20 mmol/L (22-32); Calcium 7.2 mg/dL (8.6-10.3); Chloride 102 mmol/L (101-111); EGFR African American 21.5 (>60); EGFR Non-African American 17.8 (>60); Glucose 322 mg/dL (70-100); Potassium 3.7 mmol/L (3.5-5.0); Sodium 130 mmol/L (135-145)
[2019-10-12 11:59] LABS: Vancomycin Trough 14.6 mcg/mL
[2019-10-12 12:06] LABS: Lactate Dehydrogenase, BF 122 U/L
[2019-10-12] MEDS: oxyCODONE TAB* 5 MG TAB PO PRN ×3 (12:09→21:01)
[2019-10-12 12:20] LABS: HIV 4th Generation Nonreactive (Nonreactive)
[2019-10-12] MEDS ORDERED: Vancomycin per Pharmacy* NOTE FOLLOW UP PRN (12:28)
[2019-10-12] MEDS ORDERED: Insulin LISPRO* 1 UNITS UNIT SUBCUT ONE ×2 (13:00)
[2019-10-12 13:48] LABS: Fluid Type, Glucose PLEURAL
[2019-10-12 13:52] LABS: Fluid Type, Protein, Total PLEURAL
[2019-10-12] MEDS ORDERED: Albuterol HFA INHALER* 8 gm MDI INH PRN (15:33)
[2019-10-12] MEDS: Lidocaine PATCH 5%* 1 PATCH TRANSDERM PRN (17:01)
[2019-10-12] MEDS: NS 0.9% 1000 ML** 1,000 ML IV SCH (17:46)
[2019-10-12] MEDS: Vancomycin(*) 1,000 MG in NS 0.9% 250 ML* 250 ML IV SCH ×2 (17:48→21:04)
[2019-10-12] MEDS: Enoxaparin(*) 30 MG/0.3 ML SYR SUBCUT SCH (17:56)
[2019-10-12] MEDS ORDERED: HYDROmorphone INJ* 0.5 MG/0.5 ML SYRINGE IV ONE (21:00)
[2019-10-12] MEDS: Lidocaine Patch REMOVE* 1 NOTE MISC SCH (21:04)
[2019-10-12] MEDS ORDERED: Al Hydrox/Mg Hydrox/Simet LIQ* 30 ML UDC PO PRN (23:35)
[2019-10-13] MEDS: Insulin LISPRO* 1 UNITS UNIT SUBCUT SCH ×5 (00:06→20:22)
[2019-10-13] MEDS: Miconazole VAG SUPP* 200 MG SUP VAGINAL SCH (00:16)
[2019-10-13] MEDS: Albuterol/Ipratropium NEB.SOL* Albuterol 2.5 MG/Ipratropium 0.5 MG 3 ML INH SCH ×4 (02:06→19:34)
[2019-10-13] MEDS: Acetylcysteine INHALATION SOL* 200 MG/ML NEB.SOLN 10 ML INH SCH ×4 (02:12→19:34)
[2019-10-13] MEDS: HYDROmorphone INJ* 0.5 MG/0.5 ML SYRINGE IV SLOW PU PRN ×3 (02:45→20:01)
[2019-10-13 03:59] LABS: Urine Creatinine Concentration 70.58 mg/dL
[2019-10-13 05:23] LABS: BUN/Creatinine Ratio 5.6 (8-20); Calcium 7.2 mg/dL (8.6-10.3); EGFR African American 20.9 (>60); EGFR Non-African American 17.3 (>60); Potassium 3.6 mmol/L (3.5-5.0)
[2019-10-13] MEDS: NS 0.9% 1000 ML** 1,000 ML IV SCH ×4 (05:51→23:01)
[2019-10-13] MEDS: Mometasone/Formoter 200/5 MDI INH SCH ×2 (07:26→19:53)
[2019-10-13] MEDS: Acetaminophen TAB* 325 MG PO SCH ×3 (08:00→20:02)
[2019-10-13] MEDS: Lidocaine PATCH 5%* 1 PATCH TRANSDERM PRN (08:01)
[2019-10-13] MEDS: oxyCODONE TAB* 5 MG TAB PO PRN ×4 (08:08→22:17)
[2019-10-13] MEDS: Insulin GLARGINE(*) 1 UNITS UNIT SUBCUT SCH (11:00)
--- NOTE | 2019-10-13 11:03 | PN ---
Subjective Date of Service: 10/13/19 Interval History: Ms. Luiz Nunn is feeling a little better today. Still feeling very SOB with exertion, even with just standing. She was unsteady on her feet coming back from the bathroom. No associated dizziness. Still having chest wall pain, but it is improved with pain medication. Feeling very tired overall. Nursing reports continued tachycardia and tachypnea. Family History: Unchanged from Admission Social History: Unchanged from Admission Past Medical History: Unchanged from Admission Objective Active Medications: Acetaminophen (Tylenol Tab*) 975 mg PO TID RONI Acetylcysteine (Mucomyst Inhalation Marisel*) 400 mg INH [id number] AWAKE RONI Al Hydrox/Mg Hydrox/Simethicone (Maalox Plus*) 30 ml PO Q4H PRN INDIGESTION Albuterol (Ventolin 2.5 Mg/3 Ml Neb.Marisel*) 2.5 mg INH Q2H PRN SOB/WHEEZING Albuterol (Ventolin Hfa Inhaler*) 2 puff INH Q4H PRN SOB/WHEEZING Albuterol/Ipratropium (Duoneb (Albuterol 2.5 Mg/Ipratropium 0.5 Mg)) 1 neb INH [id number] AWAKE [facility] Dextrose (D50w Syringe 50 Ml*) 12.5 gm IV PUSH .FOR FS < 60 - SS PRN FS < 60 Enoxaparin Sodium (Lovenox(*)) 30 mg SUBCUT Q24H RONI Hydromorphone HCl (Dilaudid Inj*) 0.5 mg IV SLOW PU Q4H PRN severe pain breakthrough Vancomycin HCl 1,000 mg/ (Sodium Chloride) 250 mls @ 166.667 mls/hr IV Q24H RONI Sodium Chloride (Ns 0.9% 1000 Ml) 1,000 mls @ 125 mls/hr IV PER RATE RONI Insulin Glargine (Lantus(*)) 50 units SUBCUT DAILY RONI Insulin Human Lispro (Humalog*) 0 units SUBCUT ACHS RONI; Protocol Lidocaine (Lidoderm 5% Patch*) 1 patch TRANSDERM DAILY PRN PAIN - MILD Lorazepam (Ativan Inj*) 0.5 mg IV PUSH Q4H PRN Anxiety/Shivering Mometasone Furoate/Formoterol Fumar (Dulera 200/5 Mdi*) 2 puff INH BID RONI Ondansetron HCl (Zofran Inj*) 4 mg IV Q6H PRN NAUSEA Oxycodone HCl (Roxycodone Tab*) 5 mg PO Q6H PRN PAIN - MODERATE Oxycodone HCl (Roxycodone Tab*) 10 mg PO Q6H PRN PAIN - SEVERE Polyethylene Glycol/Electrolytes (Miralax (17 Gm Dose Lawson)) 17 gm PO DAILY PRN CONSTIPATION Vital Signs - 8 hr 10/13/19 10/13/19 10/13/19 03:15 06:19 07:23 Temperature 99.4 F Pulse Rate 119 109 Respiratory 23 28 17 Rate Blood Pressure 176/76 (mmHg) O2 Sat by Pulse 100 99 Oximetry Oxygen Devices in Use Now: Nasal Cannula - 2L Appearance: Young adult female sitting in bed, dyspneic, but in NAD Ears/Nose/Mouth/Throat: Mucous Membranes Moist Neck: NL Appearance and Movements; NL JVP, Trachea Midline Respiratory: Symmetrical Chest Expansion and Respiratory Effort, - - Fine crackles and very diminished RML and RLL, otherwise clear throughout Cardiovascular: NL Sounds; No Murmurs; No JVD, - - Regular, tachycardic Extremities: - - Mild nonpitting BLE Neurological: Alert and Oriented x 3 Lines/Tubes/Other Access: Clean, Dry and Intact Peripheral IV Nutrition: Taking PO's Result Diagrams: 10/11/19 05:34 10/13/19 04:54 Assess/Plan/Problems-Billing Assessment: Ms. Luiz Nunn is a 38 yo F with PMH of DM type 1, CKD stage 3, HTN; recently hospitalized for MRSA bacteremia secondary to pneumonia, readmitted on 10/09/19 for sepsis secondary to right lower lobe pneumonia and found to have pleural effusion. - Patient Problems (1) MRSA pneumonia Code(s): J15.212 - PNEUMONIA DUE TO METHICILLIN RESISTANT STAPHYLOCOCCUS AUREUS Comment: - Recent hospitalization found to have MRSA pneumonia in setting of influenza A based on sputum culture; had received a one time dose of Dalvance the day prior to this current admission - Encourage incentive spirometer and flutter valve - ID consulted - Pulmonology consulted; metanebs recommended - Consolidation does appear improved since prior hospitalization, but now with new pleural effusion further described below - Continue vanco (2) Parapneumonic effusion Code(s): J18.9 - PNEUMONIA, UNSPECIFIED ORGANISM; J91.8 - PLEURAL EFFUSION IN OTHER CONDITIONS CLASSIFIED ELSEWHERE Comment: - Right sided pleural effusion, new during this hospitalization - Still having right-sided chest wall pain, improved with pain medication - S/p thoracentesis 10/10/19. 275 cc fluid removed - Pleural fluid culture positive for MRSA - US chest today with small pleural effusion, seems fluid is not reaccumulating quickly - Continue vanco (3) Acute respiratory failure Code(s): J96.00 - ACUTE RESPIRATORY FAILURE, UNSP W HYPOXIA OR HYPERCAPNIA Comment: - Requiring 2L - 2/2 pneumonia and pleural effusion - Wean as tolerated (4) MRSA bacteremia Code(s): R78.81 - BACTEREMIA; B95.62 - METHICILLIN RESIS STAPH INFCT CAUSING DISEASES CLASSD ELSWHR Comment: - Diagnosed during previous recent hospitalization - SAHIL performed during last hospitaliation 10/08/19 without evidence of vegetation - 2/2 MRSA pneumonia - ID following - Continue vanco (5) Acute kidney injury superimposed on CKD Code(s): N17.9 - ACUTE KIDNEY FAILURE, UNSPECIFIED; N18.9 - CHRONIC KIDNEY DISEASE, UNSPECIFIED Comment: - Has CKD d/t diabetic nephropathy, baseline Cr is ~1.5 - Had ATN during recent hospitalization; ?vanco-related - BUN/Cr is continuing to rise - Continue IVF - Checking a FeNa (6) Tachycardia Code(s): R00.0 - TACHYCARDIA, UNSPECIFIED Comment: - Persistent tachycardia, particularly with activity - EKG showing sinus tach - Echo previously unremarkable - PE unlikely at this time, consider V/Q scan if no further improvement on antibiotics - Continue IVF (7) Thrombocytosis Comment: - Improving - Likely 2/2 infection (8) Diabetes type I Comment: - Occasionally hyperglycemic to 300s but has had good BG control overall - Continue Lantus, Lispro SS (9) Anemia Code(s): D64.9 - ANEMIA, UNSPECIFIED Comment: - Stable - Likely anemia of chronic disease related to CKD (10) Vaginal candidiasis Code(s): B37.3 - CANDIDIASIS OF VULVA AND VAGINA Comment: - Vaginal complaints resolved - Likely related to IV antibiotics - Completed 3 day course of miconazole suppository (10/09-10/11) (11) Hypertension Code(s): I10 - ESSENTIAL (PRIMARY) HYPERTENSION Comment: - HCTZ and lisinopril on hold for now due to rehydration and NAZIA (12) DVT prophylaxis Comment: - Lovenox (13) Full code status Code(s): Z78.9 - OTHER SPECIFIED HEALTH STATUS Comment: Status and Disposition: Inpatient. Anticipate d/c home when medically stable. Attending: Radha Lombardi
[2019-10-13] MEDS: Enoxaparin(*) 30 MG/0.3 ML SYR SUBCUT SCH (15:49)
[2019-10-13] MEDS: Vancomycin(*) 1,000 MG in NS 0.9% 250 ML* 250 ML IV SCH (15:49)
[2019-10-13] MEDS ORDERED: Bismuth Subsalicylate* 30 ML/527 MG ML PO PRN (16:14)
[2019-10-13] MEDS ORDERED: NS 0.9% 1000 ML** 1,000 ML IV ONE (20:34)
[2019-10-13] MEDS: amLODIPine TAB* 5 MG PO SCH (21:17)
[2019-10-13] MEDS: hydrALAZINE IV* 20 MG/ML VIAL IV SLOW PU PRN (21:17)
[2019-10-13] MEDS: Lidocaine Patch REMOVE* 1 NOTE MISC SCH (22:11)
[2019-10-14] MEDS: HYDROmorphone INJ* 0.5 MG/0.5 ML SYRINGE IV SLOW PU PRN ×4 (01:20→20:58)
[2019-10-14] MEDS: Acetylcysteine INHALATION SOL* 200 MG/ML NEB.SOLN 10 ML INH SCH ×4 (02:04→18:58)
[2019-10-14] MEDS: Albuterol/Ipratropium NEB.SOL* Albuterol 2.5 MG/Ipratropium 0.5 MG 3 ML INH SCH ×4 (02:05→18:58)
[2019-10-14] MEDS ORDERED: Acetaminophen TAB* 325 MG PO ONE (03:45)
[2019-10-14] MEDS: LORazepam INJ* 2 MG/ML 1 ML VIAL IV PUSH PRN ×2 (04:03→17:37)
[2019-10-14] MEDS: oxyCODONE TAB* 5 MG TAB PO PRN ×3 (04:04→16:53)
[2019-10-14] MEDS ORDERED: Calcium Gluconate INJ* 2 GM in NS 0.9% 100 ML* 100 ML IV ONE (04:05)
[2019-10-14] MEDS: hydrALAZINE IV* 20 MG/ML VIAL IV SLOW PU PRN (04:21)
[2019-10-14] MEDS: Mometasone/Formoter 200/5 MDI INH SCH ×4 (05:14→19:29)
[2019-10-14] MEDS: Insulin LISPRO* 1 UNITS UNIT SUBCUT SCH ×4 (09:09→20:45)
[2019-10-14] MEDS: Insulin GLARGINE(*) 1 UNITS UNIT SUBCUT SCH (09:17)
[2019-10-14] MEDS: Acetaminophen TAB* 325 MG PO SCH ×3 (09:18→20:58)
[2019-10-14] MEDS: amLODIPine TAB* 5 MG PO SCH (09:18)
[2019-10-14] MEDS ORDERED: Furosemide IV* 10 MG/ML 2 ML VIAL (20 MG) IV SLOW PU ONE (10:48)
[2019-10-14] MEDS: Famotidine SUSP ORALSYR 8 MG/ML PO SCH (13:25)
--- NOTE | 2019-10-14 13:34 | PN ---
Subjective Date of Service: 10/14/19 Interval History: Ms. Luiz Nunn is still feeling poor. SOB may be slightly improved, but it is difficult for her to determine as she still feels very SOB even with just standing. Denies cough. She feels as though her arms are swollen. Nursing reports new edema, continued tachycardia. Family History: Unchanged from Admission Social History: Unchanged from Admission Past Medical History: Unchanged from Admission Objective Active Medications: Acetaminophen (Tylenol Tab*) 975 mg PO TID RONI Acetylcysteine (Mucomyst Inhalation Marisel*) 400 mg INH [id number] AWAKE RONI Albuterol (Ventolin Hfa Inhaler*) 2 puff INH Q4H PRN SOB/WHEEZING Albuterol/Ipratropium (Duoneb (Albuterol 2.5 Mg/Ipratropium 0.5 Mg)) 1 neb INH [id number] AWAKE RONI Amlodipine Besylate (Norvasc Tab*) 5 mg PO DAILY [facility] Dextrose (D50w Syringe 50 Ml*) 12.5 gm IV PUSH .FOR FS < 60 - SS PRN FS < 60 Enoxaparin Sodium (Lovenox(*)) 30 mg SUBCUT Q24H RONI Famotidine (Pepcid Susp 8mg/Ml) 20 mg PO DAILY RONI Hydralazine HCl (Apresoline Iv*) 5 mg IV SLOW PU Q6H PRN SYSTOLIC BP GREATER THAN Hydromorphone HCl (Dilaudid Inj*) 0.5 mg IV SLOW PU Q4H PRN severe pain breakthrough Vancomycin HCl 1,000 mg/ (Sodium Chloride) 250 mls @ 166.667 mls/hr IV Q24H [facility] Insulin Glargine (Lantus(*)) 50 units SUBCUT DAILY RONI Insulin Human Lispro (Humalog*) 0 units SUBCUT ACHS RONI; Protocol Lidocaine (Lidoderm 5% Patch*) 1 patch TRANSDERM DAILY PRN PAIN - MILD Lorazepam (Ativan Inj*) 0.5 mg IV PUSH Q4H PRN Anxiety/Shivering Mometasone Furoate/Formoterol Fumar (Dulera 200/5 Mdi*) 2 puff INH BID RONI Ondansetron HCl (Zofran Inj*) 4 mg IV Q6H PRN NAUSEA Oxycodone HCl (Roxycodone Tab*) 10 mg PO Q6H PRN PAIN - SEVERE Polyethylene Glycol/Electrolytes (Miralax (17 Gm Dose Lawson)) 17 gm PO DAILY PRN CONSTIPATION Vital Signs - 8 hr 10/14/19 10/14/19 10/14/19 06:00 07:51 09:17 Temperature 99.2 F Pulse Rate 119 Respiratory 26 24 24 Rate Blood Pressure 141/66 (mmHg) O2 Sat by Pulse 99 Oximetry 10/14/19 10/14/19 10/14/19 10:38 11:06 13:04 Temperature Pulse Rate 120 Respiratory 28 24 24 Rate Blood Pressure (mmHg) O2 Sat by Pulse 97 Oximetry Oxygen Devices in Use Now: Nasal Cannula - 2L Appearance: Young adult female sitting in bed, dyspneic, but in NAD Ears/Nose/Mouth/Throat: Mucous Membranes Moist Neck: NL Appearance and Movements; NL JVP, Trachea Midline Respiratory: Symmetrical Chest Expansion and Respiratory Effort, - - Very diminished with crackles to RML and RLL, otherwise clear Cardiovascular: NL Sounds; No Murmurs; No JVD, - - Regular rhythm, tachycardic Extremities: - - +1 BUE and BLE Neurological: Alert and Oriented x 3 Lines/Tubes/Other Access: Clean, Dry and Intact Peripheral IV Nutrition: Taking PO's Result Diagrams: 10/11/19 05:34 10/13/19 04:54 Assess/Plan/Problems-Billing Assessment: Ms. Luiz Nunn is a 38 yo F with PMH of DM type 1, CKD stage 3, HTN; recently hospitalized for MRSA bacteremia secondary to pneumonia, readmitted on 10/09/19 for sepsis secondary to right lower lobe pneumonia and found to have pleural effusion. - Patient Problems (1) MRSA pneumonia Code(s): J15.212 - PNEUMONIA DUE TO METHICILLIN RESISTANT STAPHYLOCOCCUS AUREUS Comment: - Recent hospitalization found to have MRSA pneumonia in setting of influenza A based on sputum culture; had received a one time dose of Dalvance the day prior to this current admission - Encourage incentive spirometer and flutter valve - ID consulted - Pulmonology consulted; metanebs recommended - Consolidation does appear improved since prior hospitalization, but now with new pleural effusion further described below - Change from vanco to linezolid (2) Parapneumonic effusion Code(s): J18.9 - PNEUMONIA, UNSPECIFIED ORGANISM; J91.8 - PLEURAL EFFUSION IN OTHER CONDITIONS CLASSIFIED ELSEWHERE Comment: - No significant clinical improvement or worsening - Right sided pleural effusion, new during this hospitalization - Still having right-sided chest wall pain, improved with pain medication - S/p thoracentesis 10/10/19, 275mL fluid removed - Pleural fluid culture positive for MRSA - Repeat chest US with small pleural effusion, seems fluid is not reaccumulating quickly - Change from vanco to linezolid (3) MRSA bacteremia Code(s): R78.81 - BACTEREMIA; B95.62 - METHICILLIN RESIS STAPH INFCT CAUSING DISEASES CLASSD ELSWHR Comment: - Diagnosed during previous recent hospitalization - SAHIL performed during last hospitaliation 10/08/19 without evidence of vegetation - 2/2 MRSA pneumonia - ID following - Change from vanco to linezolid (4) Acute kidney injury superimposed on CKD Code(s): N17.9 - ACUTE KIDNEY FAILURE, UNSPECIFIED; N18.9 - CHRONIC KIDNEY DISEASE, UNSPECIFIED Comment: - Has CKD d/t diabetic nephropathy, baseline Cr is ~1.5 - Had ATN during recent hospitalization; ?vanco-related - FENa 1.4%, indicates intrinsic, likely ATN - BUN/Cr is continuing to rise - Stop IVF d/t edema - Will change from vanco to linezolid (5) Acute respiratory failure Code(s): J96.00 - ACUTE RESPIRATORY FAILURE, UNSP W HYPOXIA OR HYPERCAPNIA Comment: - Requiring 2L - 2/2 pneumonia and pleural effusion - Wean as tolerated (6) Tachycardia Code(s): R00.0 - TACHYCARDIA, UNSPECIFIED Comment: - Persistent tachycardia, particularly with activity - EKG showing sinus tach - Echo previously unremarkable - Will check VQ d/t continued tachycardia (7) Thrombocytosis Comment: - Improving - Likely 2/2 infection (8) Diabetes type I Comment: - Occasionally hyperglycemic to 300s but has had good BG control overall - Continue Lantus, Lispro SS (9) Anemia Code(s): D64.9 - ANEMIA, UNSPECIFIED Comment: - Stable - Likely anemia of chronic disease related to CKD (10) Vaginal candidiasis Code(s): B37.3 - CANDIDIASIS OF VULVA AND VAGINA Comment: - Vaginal complaints resolved - Likely related to IV antibiotics - Completed 3 day course of miconazole suppository (10/09-10/11) (11) Hypertension Code(s): I10 - ESSENTIAL (PRIMARY) HYPERTENSION Comment: - HCTZ and lisinopril on hold for now due to NAZIA (12) DVT prophylaxis Comment: - Lovenox (13) Full code status Code(s): Z78.9 - OTHER SPECIFIED HEALTH STATUS Comment: Status and Disposition: Inpatient. Anticipate d/c home when medically stable. Attending: Radha Lombardi
[2019-10-14 15:24] LABS: ABS Eosinophils 0.3 10^3/ul (0-0.6); ABS Lymphocytes 0.5 10^3/ul (1.0-4.8); ABS Monocytes 0.3 10^3/ul (0-0.8); ABS Neutrophils 4.9 10^3/ul (1.5-7.7); Eosinophil % 5.6 %; Hematocrit 23 % (35-47); Hemoglobin 7.4 g/dL (12.0-16.0); Lymphocyte % 8.8 %; Mean Corpuscular HGB Conc 32 g/dL (31-36); Mean Corpuscular Hemoglobin 28 pg (27-31); Mean Corpuscular Volume 85 fL (80-97); Mean Platelet Volume 6.5 fL (7.4-10.4); Platelet Count 355 10^3/uL (150-450); Red Blood Count 2.71 10^6 /uL (3.70-4.87); Red Cell Distribution Width 15 % (10-15); White Blood Count 6.1 10^3/uL (3.5-10.8)
[2019-10-14] MEDS: Linezolid 600 MG IVPREMIX(*) 600 MG/300 ML BAG IVPB SCH (15:37)
[2019-10-14] MEDS: Enoxaparin(*) 30 MG/0.3 ML SYR SUBCUT SCH (15:37)
[2019-10-14 15:39] LABS: BUN/Creatinine Ratio 5.8 (8-20); Calcium 7.4 mg/dL (8.6-10.3); Potassium 3.5 mmol/L (3.5-5.0)
[2019-10-14] MEDS: Ondansetron INJ* 2 MG/ML VIAL IV PRN (16:53)
[2019-10-14] MEDS: Lidocaine Patch REMOVE* 1 NOTE MISC SCH (20:59)
[2019-10-15] MEDS: oxyCODONE TAB* 5 MG TAB PO PRN ×4 (00:12→23:13)
[2019-10-15] MEDS: Acetylcysteine INHALATION SOL* 200 MG/ML NEB.SOLN 10 ML INH SCH ×4 (01:11→20:36)
[2019-10-15] MEDS: Albuterol/Ipratropium NEB.SOL* Albuterol 2.5 MG/Ipratropium 0.5 MG 3 ML INH SCH ×4 (01:11→20:10)
[2019-10-15] MEDS: Linezolid 600 MG IVPREMIX(*) 600 MG/300 ML BAG IVPB SCH ×2 (02:00→14:56)
[2019-10-15] MEDS: HYDROmorphone INJ* 0.5 MG/0.5 ML SYRINGE IV SLOW PU PRN ×3 (02:01→14:57)
[2019-10-15 05:57] LABS: Hematocrit 24 % (35-47); Hemoglobin 7.8 g/dL (12.0-16.0); Mean Corpuscular HGB Conc 33 g/dL (31-36); Mean Corpuscular Hemoglobin 28 pg (27-31); Mean Corpuscular Volume 85 fL (80-97); Mean Platelet Volume 6.5 fL (7.4-10.4); Platelet Count 363 10^3/uL (150-450); Red Blood Count 2.77 10^6 /uL (3.70-4.87); Red Cell Distribution Width 15 % (10-15); White Blood Count 6.5 10^3/uL (3.5-10.8)
[2019-10-15 06:11] LABS: EGFR African American 15.2 (>60); EGFR Non-African American 12.6 (>60)
[2019-10-15 06:21] LABS: BUN/Creatinine Ratio 5.7 (8-20); Calcium 7.4 mg/dL (8.6-10.3); EGFR African American 15.2 (>60); EGFR Non-African American 12.5 (>60)
[2019-10-15 06:55] LABS: ABS Eosinophils 0.4 10^3/ul (0-0.6); ABS Lymphocytes 0.6 10^3/ul (1.0-4.8); ABS Monocytes 0.4 10^3/ul (0-0.8); ABS Neutrophils 5.1 10^3/ul (1.5-7.7); Eosinophil % 6.2 %; Lymphocyte % 9.1 %; Polychromasia 1+
[2019-10-15] MEDS ORDERED: CALCIUM GLUCONATE 1GM/50ML NS 1 GM/50 ML BAG IV ONE (08:14)
[2019-10-15] MEDS: Mometasone/Formoter 200/5 MDI INH SCH ×2 (09:10→20:18)
[2019-10-15] MEDS: Insulin GLARGINE(*) 1 UNITS UNIT SUBCUT SCH (09:52)
[2019-10-15] MEDS: amLODIPine TAB* 5 MG PO SCH (09:52)
[2019-10-15] MEDS: Famotidine SUSP ORALSYR 8 MG/ML PO SCH (09:53)
[2019-10-15] MEDS: Acetaminophen TAB* 325 MG PO SCH ×3 (09:53→20:38)
--- NOTE | 2019-10-15 11:03 | PN ---
Progress Note - Progress Note Date of Service: 10/15/19 SOAP: Subjective: CC: MRSA PNA and parapneumonic effusion HPI: Ms. Luiz Nunn is a 38 yo female with PMH significant for DM1, HTN, CKD 3, HLD, asthma, GERD, seizure in the setting of DKA; who presented to the hospital for shortness of breath after recent dx MRSA bacteremia, MRSA PNA, and Influenza. Denies fever, chills, nausea, vomiting, diarrhea, or urinary symptoms. She states that she continues to have shortness of breath, worse with exertion and occasional cough. Reports "shaking" more times than not. Objective: Vital Signs - 8 hr 10/15/19 10/15/19 10/15/19 04:04 07:15 07:41 Temperature 97.9 F Pulse Rate 126 Respiratory 20 28 28 Rate Blood Pressure 151/57 (mmHg) O2 Sat by Pulse 98 Oximetry Physical Exam: General: NAD, laying in bed Neurological: Alert and Oriented HEENT: Moist MM Cardiovascular: Heart rate regular Respiratory: Lung sounds clear, diminished on the right Abdominal: Bowel sounds present; ABD soft, non tender and obese MSK: No tenderness to the spine or back Skin: No rash Laboratory Results 10/15/19 10/15/19 10/15/19 05:42 05:42 05:42 WBC 6.5 RBC 2.77 L Hgb 7.8 L Hct 24 L MCV 85 MCH 28 MCHC 33 RDW 15 Plt Count 363 MPV 6.5 L Neut % (Auto) 78.5 Lymph % (Auto) 9.1 Morrow % (Auto) 6.0 Eos % (Auto) 6.2 Baso % (Auto) 0.2 Absolute Neuts (auto) 5.1 Absolute Lymphs (auto) 0.6 L Absolute Monos (auto) 0.4 Absolute Eos (auto) 0.4 Absolute Basos (auto) 0.0 Absolute Nucleated RBC 0.0 Immature Gran % 8.0 Neutrophils % 70.0 Band Neutrophils % 8.0 Lymphocytes % 10.0 Monocytes % 6.0 Eosinophils % 6.0 Nucleated RBC % 0.0 Normal RBC Morphology Not Reportable Polychromasia 1+ Sodium 131 L Potassium 4.0 Chloride 102 Carbon Dioxide 21 L Anion Gap 8 BUN 23 23 Creatinine 4.01 H 4.02 H Est GFR ( Amer) 15.2 15.2 Est GFR (Non-Af Amer) 12.6 12.5 BUN/Creatinine Ratio 5.7 L Glucose 176 H Calcium 7.4 L Microbiology 10/09/19 16:10 Aerobic Blood Culture - Final Blood Venous No Growth Day 5 Anaerobic Blood Culture - Final No Growth Day 5 10/09/19 16:10 Aerobic Blood Culture - Final Blood Venous No Growth Day 5 Anaerobic Blood Culture - Final No Growth Day 5 10/10/19 18:27 Sterile Body Fluid Culture - Final Pleural Fluid MRSA Sterile Body Fluid Culture - Final MRSA Skin and Soft Tissue MRSA/MSSA (PCR - Final Mrsa Positive S.aureus Positive 10/09/19 23:40 Urine Culture - Final Urine Pseudomonas Aeruginosa 10/10/19 18:06 Gram Stain - Final Body Fluid - Pleura 10/09/19 23:40 Legionella Urinary Antigen - Final Urine Negative Legionella Antigen Streptococcus pneumoniae Ag Screen - Final Negative S. pneumo Antigen Assessment: 1. Parapneumonic effusion in the setting of post influenza MRSA PNA. Sputum culture with MRSA and MRSA bacteremia during last admission. S/P thoracentesis, culture with MRSA. Blood cultures with no growth to date. Continues to have intermittent fevers, last 102 on 10/13. Leukocytosis has resolved. 2. MRSA bacteremia. Initially with 3/4 bottles positive on 09/29/19. Persistent positive blood cultures, last cultures obtained on 10/08 with no growth to date. TTE with no signs of vegetation. SAHIL with no signs of endocarditis. No prosthetic material present. Suspect the source is PNA. 3. Asymptomatic bacteriuria. Urine culture with pseudomonas, asymptomatic. 4. Acute hypoxic respiratory failure. Continues to require supplemental oxygen. 5. Recent Influenza A. Received 5 days of Tamiflu during last admission. 6. DM1. 7. CKD, stage 3. Now with acute on chronic NZAIA. 8. Obesity. BMI 37.4. Plan: Continue Linezolid (day 12 of ABX since blood cultures cleared).
[2019-10-15] MEDS: Insulin LISPRO* 1 UNITS UNIT SUBCUT SCH ×4 (11:43→23:13)
[2019-10-15] MEDS: Lidocaine PATCH 5%* 1 PATCH TRANSDERM PRN (13:28)
[2019-10-15] MEDS: Heparin VIAL(*) 5000 UNITS/ML VIAL (FIVE THOUSAND) SUBCUT SCH ×2 (13:30→20:39)
--- NOTE | 2019-10-15 13:49 | PN ---
Subjective Date of Service: 10/15/19 Interval History: Ms. Luiz Nunn is feeling okay this morning. Sometimes she feels improved, but most of the time she is still very SOB with minimal exertion. She is concerned that she is taking so long to recover. Denies CP, cough, N/V. No concerns from nursing. Family History: Unchanged from Admission Social History: Unchanged from Admission Past Medical History: Unchanged from Admission Objective Active Medications: Acetaminophen (Tylenol Tab*) 975 mg PO TID RONI Acetylcysteine (Mucomyst Inhalation Marisel*) 400 mg INH [id number] AWAKE RONI Albuterol (Ventolin Hfa Inhaler*) 2 puff INH Q4H PRN SOB/WHEEZING Albuterol/Ipratropium (Duoneb (Albuterol 2.5 Mg/Ipratropium 0.5 Mg)) 1 neb INH [id number] AWAKE RONI Amlodipine Besylate (Norvasc Tab*) 5 mg PO DAILY RONI Dextrose (D50w Syringe 50 Ml*) 12.5 gm IV PUSH .FOR FS < 60 - SS PRN FS < 60 Heparin Sodium (Porcine) (Heparin Vial(*)) 5,000 units SUBCUT Q8HR RONI Hydralazine HCl (Apresoline Iv*) 5 mg IV SLOW PU Q6H PRN SYSTOLIC BP GREATER THAN Hydromorphone HCl (Dilaudid Inj*) 0.5 mg IV SLOW PU Q4H PRN severe pain breakthrough Linezolid (Zyvox 600 Mg Ivpremix(*)) 600 mg in 300 mls @ 300 mls/hr IVPB Q12H [facility] Insulin Glargine (Lantus(*)) 50 units SUBCUT DAILY RONI Insulin Human Lispro (Humalog*) 0 units SUBCUT ACHS RONI; Protocol Lidocaine (Lidoderm 5% Patch*) 1 patch TRANSDERM DAILY PRN PAIN - MILD Lorazepam (Ativan Inj*) 0.5 mg IV PUSH Q4H PRN Anxiety/Shivering Mometasone Furoate/Formoterol Fumar (Dulera 200/5 Mdi*) 2 puff INH BID RONI Ondansetron HCl (Zofran Inj*) 4 mg IV Q6H PRN NAUSEA Oxycodone HCl (Roxycodone Tab*) 10 mg PO Q6H PRN PAIN - SEVERE Polyethylene Glycol/Electrolytes (Miralax (17 Gm Dose Lawson)) 17 gm PO DAILY PRN CONSTIPATION Vital Signs - 8 hr 10/15/19 10/15/19 10/15/19 07:15 07:41 09:13 Temperature 97.9 F Pulse Rate 126 122 Respiratory 28 28 20 Rate Blood Pressure 151/57 (mmHg) O2 Sat by Pulse 98 98 Oximetry 10/15/19 10/15/19 09:15 10:02 Temperature Pulse Rate 120 Respiratory 20 28 Rate Blood Pressure (mmHg) O2 Sat by Pulse 98 Oximetry Oxygen Devices in Use Now: Nasal Cannula - 2L Appearance: Middle-aged female sitting in bed, dyspneic, but in NAD Ears/Nose/Mouth/Throat: Mucous Membranes Moist Neck: NL Appearance and Movements; NL JVP, Trachea Midline Respiratory: Symmetrical Chest Expansion and Respiratory Effort, - - Very diminished RML and RLL, otherwise clear Cardiovascular: NL Sounds; No Murmurs; No JVD, - - Tachycardic but regular Abdominal: NL Sounds; No Tenderness; No Distention Extremities: - - +1 BUE and BLE, improved from yesterday Neurological: Alert and Oriented x 3 Lines/Tubes/Other Access: Clean, Dry and Intact Peripheral IV Nutrition: Taking PO's Result Diagrams: 10/15/19 05:42 10/15/19 05:42 Assess/Plan/Problems-Billing Assessment: Ms. Luiz Nunn is a 38 yo F with PMH of DM type 1, CKD stage 3, HTN; recently hospitalized for MRSA bacteremia secondary to pneumonia, readmitted on 10/09/19 for sepsis secondary to right lower lobe pneumonia and found to have pleural effusion. - Patient Problems (1) MRSA pneumonia Code(s): J15.212 - PNEUMONIA DUE TO METHICILLIN RESISTANT STAPHYLOCOCCUS AUREUS Comment: - Recent hospitalization found to have MRSA pneumonia in setting of influenza A based on sputum culture; had received a one time dose of Dalvance the day prior to this current admission - ID consulted - Pulmonology consulted; metanebs recommended - Consolidation does appear improved since prior hospitalization, but now with new pleural effusion further described below - Encourage incentive spirometer and flutter valve - Continue linezolid (2) Parapneumonic effusion Code(s): J18.9 - PNEUMONIA, UNSPECIFIED ORGANISM; J91.8 - PLEURAL EFFUSION IN OTHER CONDITIONS CLASSIFIED ELSEWHERE Comment: - Mild clinical improvement - Right sided pleural effusion, new during this hospitalization - Still having right-sided chest wall pain, improved with pain medication - S/p thoracentesis 10/10/19, 275mL fluid removed - Pleural fluid culture positive for MRSA - Repeat chest US with small pleural effusion and repeat CXR looks improved, so seems asa though fluid is not reaccumulating quickly - Recheck chest US today; may need to perform another thora tomorrow per Chery' s recommendations - Continue linezolid (3) MRSA bacteremia Code(s): R78.81 - BACTEREMIA; B95.62 - METHICILLIN RESIS STAPH INFCT CAUSING DISEASES CLASSD ELSWHR Comment: - Diagnosed during previous recent hospitalization - SAHIL performed during last hospitaliation 10/08/19 without evidence of vegetation - 2/2 MRSA pneumonia - ID following - Continue linezolid (4) Acute kidney injury superimposed on CKD Code(s): N17.9 - ACUTE KIDNEY FAILURE, UNSPECIFIED; N18.9 - CHRONIC KIDNEY DISEASE, UNSPECIFIED Comment: - Has CKD d/t diabetic nephropathy, baseline Cr is ~1.5 - Had ATN during recent hospitalization; ?vanco-related - FENa 1.4%, indicates intrinsic, likely ATN - BUN/Cr is continuing to rise - Appreciate Nephrology consult - Will d/c Lovenox and famotidine as these could contribute to NAZIA (5) Acute respiratory failure Code(s): J96.00 - ACUTE RESPIRATORY FAILURE, UNSP W HYPOXIA OR HYPERCAPNIA Comment: - Requiring 2L - 2/2 pneumonia and pleural effusion - Wean as tolerated (6) Tachycardia Code(s): R00.0 - TACHYCARDIA, UNSPECIFIED Comment: - Persistent tachycardia, particularly with activity - EKG showing sinus tach - Echo previously unremarkable - VQ show intermediate probability of PE, but VQ mismatch may just be d/t pneumonia - LLE US negative for DVT on 10/10 - Will check RLE US today; as long as US is negative, PE can likely be ruled out (7) Thrombocytosis Comment: - Resolved - Likely 2/2 infection (8) Diabetes type I Comment: - Good BG control overall - Continue Lantus, Lispro SS (9) Anemia Code(s): D64.9 - ANEMIA, UNSPECIFIED Comment: - Stable - Likely anemia of chronic disease related to CKD (10) Vaginal candidiasis Code(s): B37.3 - CANDIDIASIS OF VULVA AND VAGINA Comment: - Vaginal complaints resolved - Likely related to IV antibiotics - Completed 3 day course of miconazole suppository (10/09-10/11) (11) Hypertension Code(s): I10 - ESSENTIAL (PRIMARY) HYPERTENSION Comment: - HCTZ and lisinopril on hold for now due to NAZIA (12) DVT prophylaxis Comment: - Heparin SQ (13) Full code status Code(s): Z78.9 - OTHER SPECIFIED HEALTH STATUS Comment: Status and Disposition: Inpatient. Anticipate d/c home when medically stable, pending clinical course. Attending: Radha Lombardi
[2019-10-15] MEDS ORDERED: Vancomycin Trough Check NOTE FOLLOW UP ONE (14:30)
--- NOTE | 2019-10-15 15:43 | CONSULT ---
Consult Consult: Consult requested for: NAZIA & Fluid overload. Consult requested by: Sintia Torres, Hospitalist Performed by Dr. Kun Dalton, [facility] Nephrology 10/15/2019 38 YO AAF Known Type 1 DM since age 8 on insulin and continuous Glucose monitoring. She was admitted to [facility] with shortness of breath, chest pain, fever & cough~031/ 7 Prior to that she was admitted for 10 days 09/28- with influenza and MRSA pneumonia, with complete Rt lung consolidation. F/U CT Chest showed new RT Para pneumonic PLEF. s/p IR fluid aspiration~10/09 by IR with 275 cc Pleural fluid that was positive for MRSA Today shes still SOB with minimal exertion. Sleepy doses off while talking to her. Has new edema. Denied NV. No IVC or NSAIDs. She was treated with Vancomycin and switched to Linezolid. Of note, sCr baseline 1.7-1.8~05/2019 NAZIA with sCr 4.11~09/28 improved 2.07~10/09/2019 Since this admission, sCr is progressively worsening, 2.33~10/10, 2.97~10/11, 3.04~10/12, 3.64~10/13, 4.01~10/14. She has worsening Anemia, Hb 7.8. Of note UA 11-20 WBCs & 3-5 RBCs Vancomycin trough never supra therapeutic, was 13-15. Had 1 dose of Dalbavancin PMH: DM 1 CKD stage 3 HTN HLD Asthma GERD Hx of remote Seizure Hx of DKA HomeMeds: Medication Instructions Recorded Confirmed Type Insulin Lispro [Humalog 100 0 - 60 unit SUBCUT TID WITH MEALS 05/25/16 10/09/19 History units/ml 5 ml x 3 Pens] MDD 100 units w/ titration priming Insulin GLARGINE(*) [Lantus 100 60 units SUBCUT DAILY 11/19/17 10/09/19 History units/ml 10 ml VIAL (*)] Lisinopril TAB* [Prinivil TAB 10 40 mg PO DAILY 11/19/17 10/09/19 History MG*] Hydrochlorothiazide TAB* 12.5 mg PO QAM 04/23/19 10/09/19 History [Hydrodiuril TAB*] Hospital Meds: Acetaminophen Acetylcysteine Albuterol Albuterol/Ipratropium Amlodipine Dextrose Heparin Sodium Hydralazine Hydromorphone Linezolid Insulin Glargine Insulin Human Lispro Lidocaine Lorazepam Mometasone Ondansetron Oxycodone Allergies: shrimp Allergy etodolac Social History: Denied Alcohol, smoking. No IVDA. has 1 daughter Family History: Negative for Dialysis, ESRD or Renal Transplant. Positive for HTN & DM Surgical History:Umbilical Hernia Repair 12-Point Review of System obtained: Constitutional: SOB Eyes No blurry vision. No red eye CV: SOB at rest & exertion, chest pain & edema Respiratory: SOB at rest cough no wheezing G.I: no diarrhea no nausea no vomiting no pain no blood per rectum no burning no obstruction symptoms Skin no rash Neurology No seizures or neurologic deficit Endocrine uncontrolled diabetes, no heat or cold intolerance Hem/Lymphatic no bleeding no lymph nodes swelling Immune/Allergy no allergic reactions Musculoskeletal: No arthritis, no swelling Psych no anxiety no depression no hallucination Objective: Vital Signs Temp 99.7 F 10/15/19 11:15 Pulse 120 10/15/19 13:58 Resp 28 10/15/19 14:57 BP 125/46 10/15/19 11:15 Pulse Ox 98 10/15/19 13:58 Intake & Output 10/14/19 10/15/19 10/15/19 18:59 06:59 18:59 Intake Total 420 1280 560 Output Total 1000 0 1400 Balance -580 1280 -840 Weight 102.058 kg Intake: IV Fluids 20 30 NS 20 30 IVPB 300 300 50 ABX - LINEZOLID 300 300 calcium gluconate 50 Oral 120 960 480 Output: Urine 1000 0 1400 Other: # Bowel Movements 0 # Voids 1 10 Point multi system exam: Constitutional Alert Oriented x 3 HEENT: No Conjunctivitis Abdomen Soft Abdomen No Ascites Heart: NSR, Mild LE Edema, No murmur Lungs: Crackles Extremities: Mild edema, no rash Skin no rash Neurology No deficit. CN intact Hem/Lymph: no palpable lymph nodes Musculoskeletal: No joint swelling Laboratory Reviewed Sodium 131 mmol/L (135-145) L 10/15/19 05:42 Potassium 4.0 mmol/L (3.5-5.0) 10/15/19 05:42 BUN 23 mg/dL (6-24) 10/15/19 05:42 Creatinine 4.02 mg/dL (0.51-0.95) H 10/15/19 05:42 Calcium 7.4 mg/dL (8.6-10.3) L 10/15/19 05:42 AST TNP 10/09/19 16:10 ALT 16 U/L (7-52) 10/09/19 16:10 Imaging: Assessment and Plan: *NAZIA on CKD, recurrent, likely septic ATN in a setting of MRSA PNA and MRSA Para pneumonic PLEF. Could be AIN as UA shows WBCs Cant R/O GN ether. GN serology ordered. If sCr keeps increasing, may need a kidney Biopsy. *Electrolytes Ok *No indication for HD yet. *Fluid overload and edema, avoid IVF and no indication for diuretics. *On opiates, sleepy, advise holding off Hydromorphone or decreasing the dose as she's in NAZIA. She was informed about lab/radiology results & prognosis. All questions were answered. She was made part of the treatment plan.
--- NOTE | 2019-10-15 16:09 | PN ---
Progress Note - Progress Note Date of Service: 10/15/19 - Pulm f/u note Note: Pt seen and examined at bedside. Pt reports feeling fatigued. Has remained tachycardic, fever last night, low grade this am Active Medications Generic Name Dose Route Start Last Admin Trade Name Freq PRN Reason Stop Dose Admin Acetaminophen 975 mg 10/10/19 14:00 10/15/19 13:35 Tylenol Tab* PO 975 mg TID RONI Administration Acetylcysteine 400 mg 10/10/19 08:00 10/15/19 13:58 Mucomyst Inhalation Marisel* INH 400 mg [id number] AWAKE RONI Administration Albuterol 2 puff 10/12/19 15:33 Ventolin Hfa Inhaler* INH Q4H PRN SOB/WHEEZING Albuterol/Ipratropium 1 neb 10/10/19 13:00 10/15/19 13:58 Duoneb (Albuterol 2.5 Mg/Ipratropium 0.5 Mg) INH 1 neb [id number] AWAKE RONI Administration Amlodipine Besylate 5 mg 10/13/19 21:00 10/15/19 09:52 Norvasc Tab* PO 5 mg DAILY RONI Administration Dextrose 12.5 gm 10/10/19 14:07 D50w Syringe 50 Ml* IV PUSH .FOR FS < 60 - SS PRN FS < 60 Heparin Sodium (Porcine) 5,000 units 10/15/19 14:00 10/15/19 13:30 Heparin Vial(*) SUBCUT 5,000 units Q8HR RONI Administration Hydralazine HCl 5 mg 10/13/19 20:33 10/14/19 04:21 Apresoline Iv* IV SLOW PU 5 mg Q6H PRN Administration SYSTOLIC BP GREATER THAN: Hydromorphone HCl 0.5 mg 10/12/19 09:43 10/15/19 14:57 Dilaudid Inj* IV SLOW PU 0.5 mg Q4H PRN Administration severe pain breakthrough Linezolid 600 mg in 300 mls @ 300 mls/hr 10/14/19 14:00 10/15/19 14:56 Zyvox 600 Mg Ivpremix(*) IVPB 300 mls/hr Q12H RONI Administration Insulin Glargine 50 units 10/10/19 10:00 10/15/19 09:52 Lantus(*) SUBCUT 50 units DAILY RONI Administration Insulin Human Lispro 0 units 10/09/19 21:00 10/15/19 13:30 Humalog* SUBCUT 9 unit ACHS RONI Administration Protocol Lidocaine 1 patch 10/12/19 09:44 10/15/19 13:28 Lidoderm 5% Patch* TRANSDERM 1 patch DAILY PRN Administration PAIN - MILD Lorazepam 0.5 mg 10/11/19 13:19 10/14/19 17:37 Ativan Inj* IV PUSH 0.5 mg Q4H PRN Administration Anxiety/Shivering Miscellaneous 1 ea 10/11/19 13:19 Ativan Pyxis Goins N/A .ATIVAN IV GOINS PRN PYXIS GOINS Mometasone Furoate/Formoterol Fumar 2 puff 10/09/19 21:00 10/15/19 09:10 Dulera 200/5 Mdi* INH 2 puff BID RONI Administration Ondansetron HCl 4 mg 10/09/19 20:04 10/14/19 16:53 Zofran Inj* IV 4 mg Q6H PRN Administration NAUSEA Oxycodone HCl 10 mg 10/12/19 09:43 10/15/19 07:41 Roxycodone Tab* PO 10 mg Q6H PRN Administration PAIN - SEVERE Pharmacy Profile Note 1 note 10/12/19 21:00 10/14/19 20:59 Lidocaine Patch Remove* N/A Not Given 2100 RONI Polyethylene Glycol/Electrolytes 17 gm 10/12/19 11:05 Miralax (17 Gm Dose Lawson) PO DAILY PRN CONSTIPATION Vital Signs Temp Pulse Resp BP Pulse Ox 99.7 F 120 28 125/46 98 10/15/19 11:15 10/15/19 13:58 10/15/19 14:57 10/15/19 11:15 10/15/19 13:58 O/E: Pt in NAD HEENT: PERRLA Lungs: Dimnsihed on right side CVS: S1, S2+ Abd: Obese, BS+ Ext: Normal ROM Skin: NO rash Neuro: Alert, awake, no focal deficits Laboratory Results - last 24 hr 10/10/19 10/10/19 10/14/19 18:27 18:27 17:23 WBC RBC Hgb Hct MCV MCH MCHC RDW Plt Count MPV Neut % (Auto) Lymph % (Auto) Hand % (Auto) Eos % (Auto) Baso % (Auto) Absolute Neuts (auto) Absolute Lymphs (auto) Absolute Monos (auto) Absolute Eos (auto) Absolute Basos (auto) Absolute Nucleated RBC Immature Gran % Neutrophils % Band Neutrophils % Lymphocytes % Monocytes % Eosinophils % Nucleated RBC % Normal RBC Morphology Polychromasia Hem Pathologist Commnt Sodium Potassium Chloride Carbon Dioxide Anion Gap BUN Creatinine Est GFR ( Amer) Est GFR (Non-Af Amer) BUN/Creatinine Ratio Glucose POC Glucose (mg/dL) 124 H Calcium Ionized Calcium Fluid Cell Count Rvw By Miscellaneous Test 7.0 10/14/19 10/15/19 10/15/19 20:42 05:42 05:42 WBC 6.5 RBC 2.77 L Hgb 7.8 L Hct 24 L MCV 85 MCH 28 MCHC 33 RDW 15 Plt Count 363 MPV 6.5 L Neut % (Auto) 78.5 Lymph % (Auto) 9.1 Hand % (Auto) 6.0 Eos % (Auto) 6.2 Baso % (Auto) 0.2 Absolute Neuts (auto) 5.1 Absolute Lymphs (auto) 0.6 L Absolute Monos (auto) 0.4 Absolute Eos (auto) 0.4 Absolute Basos (auto) 0.0 Absolute Nucleated RBC 0.0 Immature Gran % 8.0 Neutrophils % 70.0 Band Neutrophils % 8.0 Lymphocytes % 10.0 Monocytes % 6.0 Eosinophils % 6.0 Nucleated RBC % 0.0 Normal RBC Morphology Not Reportable Polychromasia 1+ Hem Pathologist Commnt Sodium Potassium Chloride Carbon Dioxide Anion Gap BUN 23 Creatinine 4.01 H Est GFR ( Amer) 15.2 Est GFR (Non-Af Amer) 12.6 BUN/Creatinine Ratio Glucose POC Glucose (mg/dL) 132 H Calcium Ionized Calcium Fluid Cell Count Rvw By Miscellaneous Test 10/15/19 10/15/19 10/15/19 05:42 05:42 07:45 WBC RBC Hgb Hct MCV MCH MCHC RDW Plt Count MPV Neut % (Auto) Lymph % (Auto) Hand % (Auto) Eos % (Auto) Baso % (Auto) Absolute Neuts (auto) Absolute Lymphs (auto) Absolute Monos (auto) Absolute Eos (auto) Absolute Basos (auto) Absolute Nucleated RBC Immature Gran % Neutrophils % Band Neutrophils % Lymphocytes % Monocytes % Eosinophils % Nucleated RBC % Normal RBC Morphology Polychromasia Hem Pathologist Commnt Sodium 131 L Potassium 4.0 Chloride 102 Carbon Dioxide 21 L Anion Gap 8 BUN 23 Creatinine 4.02 H Est GFR ( Amer) 15.2 Est GFR (Non-Af Amer) 12.5 BUN/Creatinine Ratio 5.7 L Glucose 176 H POC Glucose (mg/dL) 183 H Calcium 7.4 L Ionized Calcium 1.05 L Fluid Cell Count Rvw By Miscellaneous Test 10/15/19 13:33 WBC RBC Hgb Hct MCV MCH MCHC RDW Plt Count MPV Neut % (Auto) Lymph % (Auto) Hand % (Auto) Eos % (Auto) Baso % (Auto) Absolute Neuts (auto) Absolute Lymphs (auto) Absolute Monos (auto) Absolute Eos (auto) Absolute Basos (auto) Absolute Nucleated RBC Immature Gran % Neutrophils % Band Neutrophils % Lymphocytes % Monocytes % Eosinophils % Nucleated RBC % Normal RBC Morphology Polychromasia Hem Pathologist Commnt Sodium Potassium Chloride Carbon Dioxide Anion Gap BUN Creatinine Est GFR ( Amer) Est GFR (Non-Af Amer) BUN/Creatinine Ratio Glucose POC Glucose (mg/dL) 286 H Calcium Ionized Calcium Fluid Cell Count Rvw By Miscellaneous Test U/S chest: Small rt pl effusion, no complexities I/R: 38 year old female with a past medical history of DM type 1, CKD stage 3 and HTN who was readmitted on 10/09/19 for worsening shortness of breath, cough. Patient recently diagnosed with influenza and post influenza MRSA pneumonia and bactiremia Patient with significant involvement of the right lung with dense consolidation involving entire right lung Patient was on vancomycin, was discharged home to complete antibiotic, returned with worsening shortness of breath and cough Repeat CT chest-slight improvement in the dense consolidation in the right lung , new finding of right pleural effusion Concern for parapneumonic effusion on the right side Pt underwent ultrasound-guided thoracentesis 10/09- 250cc of marli colored fluid was removed Cultures positive for MRSA, LDH, glucose normal, pH slightly low Exudative effusion, however not concerning for empyema Given positive MRSA on pleural fluid, will need to drain the fluid to avoid complications in pleural space in the future Continue with antibiotics, was switched to Linezolid given worsening renal function Continue with Mucomyst and nebulizers with metanebs Continue with O2 supplementation Pt to have pig tail for drainage of pleural fluid by IR c/w nebs, mucus clearance techniques
[2019-10-15] MEDS: Ondansetron INJ* 2 MG/ML VIAL IV PRN (17:06)
[2019-10-15] MEDS ORDERED: Acetylcysteine INH SOL* 200 MG/ML 4 ML VIAL (for Resp Thpy) INH SCH (19:25)
[2019-10-15] MEDS: Acetylcysteine INH SOL* 200 MG/ML 4 ML VIAL (for Resp Thpy) INH SCH (20:13)
[2019-10-15] MEDS: LORazepam INJ* 2 MG/ML 1 ML VIAL IV PUSH PRN (20:40)
[2019-10-15 21:45] LABS: Urine Appearance Cloudy; Urine Bilirubin Negative (Negative); Urine Blood 1+ (Negative); Urine Color Yellow; Urine Glucose Negative (Negative); Urine Ketones Negative (Negative); Urine Nitrite Negative (Negative); Urine Protein 2+(100 mg/dL) (Negative); Urine Specific Gravity 1.009 (1.010-1.030); Urine Urobilinogen Negative (Negative)
[2019-10-15 21:46] LABS: Urine Bacteria Absent (Absent); Urine Red Blood Cell Trace(0-2/hpf) (Absent); Urine Squamous Epithelial Cell Present (Absent); Urine White Blood Cell Trace(0-5/hpf) (Absent)
[2019-10-15 21:59] LABS: Urine Creatinine Concentration 73.38 mg/dL
[2019-10-15] MEDS: Lidocaine Patch REMOVE* 1 NOTE MISC SCH (23:19)
[2019-10-16] MEDS: Acetylcysteine INH SOL* 200 MG/ML 4 ML VIAL (for Resp Thpy) INH SCH ×4 (01:30→19:53)
[2019-10-16] MEDS: Albuterol/Ipratropium NEB.SOL* Albuterol 2.5 MG/Ipratropium 0.5 MG 3 ML INH SCH ×4 (01:30→19:52)
[2019-10-16] MEDS: Linezolid 600 MG IVPREMIX(*) 600 MG/300 ML BAG IVPB SCH ×2 (02:35→12:50)
[2019-10-16] MEDS: oxyCODONE TAB* 5 MG TAB PO PRN ×3 (05:07→19:57)
[2019-10-16] MEDS: Heparin VIAL(*) 5000 UNITS/ML VIAL (FIVE THOUSAND) SUBCUT SCH ×3 (05:09→21:00)
[2019-10-16] MEDS: Mometasone/Formoter 200/5 MDI INH SCH ×2 (08:07→19:53)
--- NOTE | 2019-10-16 09:00 | PN ---
Progress Note - Progress Note Date of Service: 10/16/19 - Pulmonary f/u Note: Pt seen and examined at bedside. Pt reports feeling slightly better. Pt reports being able to sleep well last night. Less tachycardic today, O2 requirement at 2L/min. Pain is better controlled today Active Medications Generic Name Dose Route Start Last Admin Trade Name Freq PRN Reason Stop Dose Admin Acetaminophen 975 mg 10/10/19 14:00 10/15/19 20:38 Tylenol Tab* PO 975 mg TID RONI Administration Acetylcysteine 400 mg 10/15/19 20:30 10/16/19 08:07 Acetylcysteine Inh Marisel* INH 400 mg [id number] AWAKE RONI Administration Albuterol 2 puff 10/12/19 15:33 10/15/19 18:13 Ventolin Hfa Inhaler* INH 2 puff Q4H PRN Administration SOB/WHEEZING Albuterol/Ipratropium 1 neb 10/10/19 13:00 10/16/19 08:06 Duoneb (Albuterol 2.5 Mg/Ipratropium 0.5 Mg) INH 1 neb [id number] AWAKE RONI Administration Amlodipine Besylate 5 mg 10/13/19 21:00 10/15/19 09:52 Norvasc Tab* PO 5 mg DAILY RONI Administration Dextrose 12.5 gm 10/10/19 14:07 D50w Syringe 50 Ml* IV PUSH .FOR FS < 60 - SS PRN FS < 60 Heparin Sodium (Porcine) 5,000 units 10/15/19 14:00 10/16/19 05:09 Heparin Vial(*) SUBCUT 5,000 units Q8HR RONI Administration Hydralazine HCl 5 mg 10/13/19 20:33 10/14/19 04:21 Apresoline Iv* IV SLOW PU 5 mg Q6H PRN Administration SYSTOLIC BP GREATER THAN: Linezolid 600 mg in 300 mls @ 300 mls/hr 10/14/19 14:00 10/16/19 02:35 Zyvox 600 Mg Ivpremix(*) IVPB 300 mls/hr Q12H RONI Administration Insulin Glargine 50 units 10/10/19 10:00 10/15/19 09:52 Lantus(*) SUBCUT 50 units DAILY RONI Administration Insulin Human Lispro 0 units 10/09/19 21:00 10/15/19 23:13 Humalog* SUBCUT 4 unit ACHS RONI Administration Protocol Lidocaine 1 patch 10/12/19 09:44 10/15/19 13:28 Lidoderm 5% Patch* TRANSDERM 1 patch DAILY PRN Administration PAIN - MILD Lorazepam 0.5 mg 10/11/19 13:19 10/15/19 20:40 Ativan Inj* IV PUSH 0.5 mg Q4H PRN Administration Anxiety/Shivering Miscellaneous 1 ea 10/11/19 13:19 Ativan Pyxis Goins N/A .ATIVAN IV GOINS PRN PYXIS GOINS Mometasone Furoate/Formoterol Fumar 2 puff 10/09/19 21:00 10/16/19 08:07 Dulera 200/5 Mdi* INH 2 puff BID RONI Administration Ondansetron HCl 4 mg 10/09/19 20:04 10/15/19 17:06 Zofran Inj* IV 4 mg Q6H PRN Administration NAUSEA Oxycodone HCl 10 mg 10/12/19 09:43 10/16/19 05:07 Roxycodone Tab* PO 10 mg Q6H PRN Administration PAIN - SEVERE Pharmacy Profile Note 1 note 10/12/19 21:00 10/15/19 23:19 Lidocaine Patch Remove* N/A 1 note 2100 RONI Administration Polyethylene Glycol/Electrolytes 17 gm 10/12/19 11:05 Miralax (17 Gm Dose Lawson) PO DAILY PRN CONSTIPATION Vital Signs Temp Pulse Resp BP Pulse Ox 99.1 F 122 17 143/65 94 10/16/19 02:48 10/16/19 08:41 10/16/19 08:41 10/16/19 02:48 10/16/19 08:41 O/E: Pt in NAD HEENT: PERRLA Lungs: Diminished on right side, crackles+ CVS: S1, S2+ Abd: Soft, BS+ Ext: Normal ROM Skin: No rash Neuro: No focal deficits Laboratory Results - last 24 hr 10/10/19 10/10/19 10/15/19 18:27 18:27 05:42 Hem Pathologist Commnt POC Glucose (mg/dL) Urine Color Urine Appearance Urine pH Ur Specific Eaton Urine Protein Urine Ketones Urine Blood Urine Nitrate Urine Bilirubin Urine Urobilinogen Ur Leukocyte Esterase Urine WBC (Auto) Urine RBC (Auto) Ur Squamous Epith Cells Urine Bacteria Ur Creatinine Concen Ur Total Protein Conc Urine Glucose Fluid Cell Count Rvw By Miscellaneous Test 7.0 10/15/19 10/15/19 10/15/19 13:33 19:36 21:00 Hem Pathologist Commnt POC Glucose (mg/dL) 286 H 275 H Urine Color Yellow Urine Appearance Cloudy Urine pH 5.0 Ur Specific Eaton 1.009 L Urine Protein 2+(100 mg/dl) A Urine Ketones Negative Urine Blood 1+ A Urine Nitrate Negative Urine Bilirubin Negative Urine Urobilinogen Negative Ur Leukocyte Esterase Negative Urine WBC (Auto) Trace(0-5/hpf) Urine RBC (Auto) Trace(0-2/hpf) Ur Squamous Epith Cells Present A Urine Bacteria Absent Ur Creatinine Concen Ur Total Protein Conc Urine Glucose Negative Fluid Cell Count Rvw By Miscellaneous Test 10/15/19 10/15/19 10/16/19 21:00 22:31 03:48 Hem Pathologist Commnt POC Glucose (mg/dL) 283 H 174 H Urine Color Urine Appearance Urine pH Ur Specific Eaton Urine Protein Urine Ketones Urine Blood Urine Nitrate Urine Bilirubin Urine Urobilinogen Ur Leukocyte Esterase Urine WBC (Auto) Urine RBC (Auto) Ur Squamous Epith Cells Urine Bacteria Ur Creatinine Concen 73.38 Ur Total Protein Conc 255 Urine Glucose Fluid Cell Count Rvw By Miscellaneous Test U/S chest: Small rt pl effusion, no complexities I/R: 38 year old female with a past medical history of DM type 1, CKD stage 3 and HTN who was readmitted on 10/09/19 for worsening shortness of breath, cough. Patient recently diagnosed with influenza and post influenza MRSA pneumonia and bactiremia Patient with significant involvement of the right lung with dense consolidation involving entire right lung Patient was on vancomycin, was discharged home to complete antibiotic, returned with worsening shortness of breath and cough Repeat CT chest-slight improvement in the dense consolidation in the right lung , new finding of right pleural effusion Concern for parapneumonic effusion on the right side Pt underwent ultrasound-guided thoracentesis 10/09- 250cc of marli colored fluid was removed Cultures positive for MRSA, LDH, glucose normal, pH slightly low Exudative effusion, however not concerning for empyema Given positive MRSA on pleural fluid, will need to drain the fluid to avoid complications in pleural space in the future Continue with antibiotics, was switched to Linezolid given worsening renal function Continue with Mucomyst and nebulizers with metanebs Continue with O2 supplementation Pt to have pig tail for drainage of pleural fluid by IR c/w nebs, mucus clearance techniques Metanebs q 4 hrs OOB to chair DVT px: SCD`s and Heparin sq D/w Sintia Brian
[2019-10-16] MEDS: Acetaminophen TAB* 325 MG PO SCH ×2 (09:26→12:49)
[2019-10-16] MEDS: amLODIPine TAB* 5 MG PO SCH (09:27)
[2019-10-16] MEDS: Insulin GLARGINE(*) 1 UNITS UNIT SUBCUT SCH (09:27)
[2019-10-16] MEDS: Insulin LISPRO* 1 UNITS UNIT SUBCUT SCH ×4 (10:24→20:50)
[2019-10-16 11:10] LABS: ABS Basophils 0.1 10^3/ul (0-0.2); ABS Eosinophils 0.6 10^3/ul (0-0.6); ABS Lymphocytes 0.7 10^3/ul (1.0-4.8); ABS Monocytes 0.3 10^3/ul (0-0.8); ABS Neutrophils 5.4 10^3/ul (1.5-7.7); Eosinophil % 8.7 %; Hematocrit 22 % (35-47); Hemoglobin 7.3 g/dL (12.0-16.0); Lymphocyte % 9.5 %; Mean Corpuscular HGB Conc 33 g/dL (31-36); Mean Corpuscular Hemoglobin 28 pg (27-31); Mean Corpuscular Volume 84 fL (80-97); Mean Platelet Volume 6.5 fL (7.4-10.4); Platelet Count 347 10^3/uL (150-450); Red Blood Count 2.61 10^6 /uL (3.70-4.87); Red Cell Distribution Width 15 % (10-15)
--- NOTE | 2019-10-16 11:30 | PN ---
Subjective Date of Service: 10/16/19 Interval History: Ms. Luiz Nunn is feeling a little better today. She is still feeling SOB with virtually any exertion. No cough. She is scared to have a PICC line because she does not want something that close to her heart. No concerns from nursing, but there was difficulty obtaining labs today as the patient is a very difficult stick. Family History: Unchanged from Admission Social History: Unchanged from Admission Past Medical History: Unchanged from Admission Objective Active Medications: Acetaminophen (Tylenol Tab*) 975 mg PO TID RONI Acetylcysteine (Acetylcysteine Inh Marisel*) 400 mg INH [id number] AWAKE RONI Albuterol (Ventolin Hfa Inhaler*) 2 puff INH Q4H PRN SOB/WHEEZING Albuterol/Ipratropium (Duoneb (Albuterol 2.5 Mg/Ipratropium 0.5 Mg)) 1 neb INH [id number] AWAKE RONI Amlodipine Besylate (Norvasc Tab*) 5 mg PO DAILY RONI Dextrose (D50w Syringe 50 Ml*) 12.5 gm IV PUSH .FOR FS < 60 - SS PRN FS < 60 Heparin Sodium (Porcine) (Heparin Vial(*)) 5,000 units SUBCUT Q8HR RONI Hydralazine HCl (Apresoline Iv*) 5 mg IV SLOW PU Q6H PRN SYSTOLIC BP GREATER THAN Linezolid (Zyvox 600 Mg Ivpremix(*)) 600 mg in 300 mls @ 300 mls/hr IVPB Q12H RONI Insulin Glargine (Lantus(*)) 50 units SUBCUT DAILY RONI Insulin Human Lispro (Humalog*) 0 units SUBCUT ACHS RONI; Protocol Lidocaine (Lidoderm 5% Patch*) 1 patch TRANSDERM DAILY PRN PAIN - MILD Lorazepam (Ativan Inj*) 0.5 mg IV PUSH Q4H PRN Anxiety/Shivering Mometasone Furoate/Formoterol Fumar (Dulera 200/5 Mdi*) 2 puff INH BID RONI Ondansetron HCl (Zofran Inj*) 4 mg IV Q6H PRN NAUSEA Oxycodone HCl (Roxycodone Tab*) 10 mg PO Q6H PRN PAIN - SEVERE Polyethylene Glycol/Electrolytes (Miralax (17 Gm Dose Lawson)) 17 gm PO DAILY PRN CONSTIPATION Vital Signs - 8 hr 10/16/19 10/16/19 10/16/19 05:07 07:15 08:39 Temperature 98.2 F Pulse Rate 117 122 Respiratory 24 20 18 Rate Blood Pressure 153/58 (mmHg) O2 Sat by Pulse 94 94 Oximetry 10/16/19 10/16/19 08:41 09:00 Temperature Pulse Rate 122 Respiratory 17 20 Rate Blood Pressure (mmHg) O2 Sat by Pulse 94 Oximetry Oxygen Devices in Use Now: Nasal Cannula - 1L Appearance: Young adult female sitting in bed in NAD Ears/Nose/Mouth/Throat: Mucous Membranes Moist Neck: NL Appearance and Movements; NL JVP, Trachea Midline Respiratory: Symmetrical Chest Expansion and Respiratory Effort, - - Diminished with fine crackles to RML and RLL, otherwise clear Cardiovascular: NL Sounds; No Murmurs; No JVD, RRR Abdominal: NL Sounds; No Tenderness; No Distention Extremities: - - +1 BUE and BLE Neurological: Alert and Oriented x 3 Lines/Tubes/Other Access: Clean, Dry and Intact Peripheral IV Nutrition: Taking PO's Result Diagrams: 10/16/19 10:40 10/15/19 05:42 Assess/Plan/Problems-Billing Assessment: Ms. Luiz Nunn is a 38 yo F with PMH of DM type 1, CKD stage 3, HTN; recently hospitalized for MRSA bacteremia secondary to pneumonia, readmitted on 10/09/19 for sepsis secondary to right lower lobe pneumonia and found to have pleural effusion. - Patient Problems (1) MRSA pneumonia Code(s): J15.212 - PNEUMONIA DUE TO METHICILLIN RESISTANT STAPHYLOCOCCUS AUREUS Comment: - Recent hospitalization found to have MRSA pneumonia in setting of influenza A based on sputum culture; had received a one time dose of Dalvance the day prior to this current admission - ID consulted - Pulmonology consulted; metanebs recommended - Consolidation does appear improved since prior hospitalization, but now with new pleural effusion further described below - Encourage incentive spirometer and flutter valve - Continue linezolid (2) Parapneumonic effusion Code(s): J18.9 - PNEUMONIA, UNSPECIFIED ORGANISM; J91.8 - PLEURAL EFFUSION IN OTHER CONDITIONS CLASSIFIED ELSEWHERE Comment: - Mild clinical improvement - Right sided pleural effusion, new during this hospitalization - Still having right-sided chest wall pain, improved with pain medication - S/p thoracentesis 10/10/19, 275mL fluid removed - Pleural fluid culture positive for MRSA - US today reveals that the effusion size is unchanged from 10/12 - Chery recommending that a pigtail drain be placed to ensure complete drainage of effusion; hopefully pigtail will be placed by IR today, still waiting to hear back - Continue linezolid (3) MRSA bacteremia Code(s): R78.81 - BACTEREMIA; B95.62 - METHICILLIN RESIS STAPH INFCT CAUSING DISEASES CLASSD ELSWHR Comment: - Diagnosed during previous recent hospitalization - SAHIL performed during last hospitaliation 10/08/19 without evidence of vegetation - 2/2 MRSA pneumonia - ID following - Continue linezolid (4) Acute kidney injury superimposed on CKD Code(s): N17.9 - ACUTE KIDNEY FAILURE, UNSPECIFIED; N18.9 - CHRONIC KIDNEY DISEASE, UNSPECIFIED Comment: - Has CKD d/t diabetic nephropathy, baseline Cr is ~1.5 - Had ATN during recent hospitalization; ?vanco-related - FENa 1.4%, indicates intrinsic, likely ATN - BUN/Cr is continuing to rise - Appreciate Nephrology consult - Labs pending for full workup (5) Acute respiratory failure Code(s): J96.00 - ACUTE RESPIRATORY FAILURE, UNSP W HYPOXIA OR HYPERCAPNIA Comment: - Requiring 1L - 2/2 pneumonia and pleural effusion - Wean as tolerated (6) Anemia Code(s): D64.9 - ANEMIA, UNSPECIFIED Comment: - H&H down, but remains stable - Likely anemia of chronic disease related to CKD with superimposed infection causing further drop - Will transfuse for Hgb < 7 (7) Tachycardia Code(s): R00.0 - TACHYCARDIA, UNSPECIFIED Comment: - Persistent tachycardia, particularly with activity - EKG showing sinus tach - Echo previously unremarkable - VQ show intermediate probability of PE, but VQ mismatch may just be d/t pneumonia - LLE US negative for DVT on 10/10; RLE US negative for DVT on 10/14 - PE can likely be ruled out - Suspect this is a stress response to infection in a patient who has a high resting HR at baseline (8) Thrombocytosis Comment: - Resolved - Likely 2/2 infection (9) Diabetes type I Comment: - Good BG control overall - Continue Lantus, Lispro SS (10) Vaginal candidiasis Code(s): B37.3 - CANDIDIASIS OF VULVA AND VAGINA Comment: - Vaginal complaints resolved - Likely related to IV antibiotics - Completed 3 day course of miconazole suppository (10/09-10/11) (11) Hypertension Code(s): I10 - ESSENTIAL (PRIMARY) HYPERTENSION Comment: - HCTZ and lisinopril on hold for now due to NAZIA (12) DVT prophylaxis Comment: - Heparin SQ (13) Full code status Code(s): Z78.9 - OTHER SPECIFIED HEALTH STATUS Comment: Status and Disposition: Inpatient. Anticipate d/c home when medically stable, pending clinical course. Attending: Luis Cordova
[2019-10-16 11:31] LABS: Rheumatoid Factor < 10 IU/mL (<15)
[2019-10-16 12:52] LABS: Anion Gap 10 mmol/L (2-11); BUN/Creatinine Ratio 5.8 (8-20); Blood Urea Nitrogen 27 mg/dL (6-24); C Reactive Protein 185.31 mg/L (<8.01); CO2 Carbon Dioxide 19 mmol/L (22-32); Calcium 7.3 mg/dL (8.6-10.3); Chloride 103 mmol/L (101-111); Creatine Kinase 41 U/L (10-223); EGFR African American 12.8 (>60); EGFR Non-African American 10.6 (>60); Glucose 112 mg/dL (70-100); Sodium 132 mmol/L (135-145)
[2019-10-16 13:01] LABS: Erythrocyte Sed Rate > 120 mm/Hr (0-19)
[2019-10-16 14:04] LABS: Hepatitis B Surface Antigen Nonreactive (Nonreactive)
--- NOTE | 2019-10-16 14:19 | PN ---
Progress Note - Progress Note Date of Service: 10/16/19 Note: Inpatient Nephrology FU Note: Performed by Dr. Kun Dalton, [facility] Nephrology 10/16/2019 38 YO AAF MRSA pneumonia and MRSA Parapneumonic Rt PLEF, scheduled for pigtail drain on Linezolid In NAZIA CKD, sCr baseline 1.7-1.8~05/2019 Progressive recurrent NAZIA 2.33~10/10, 2.97~10/11, 3.04~10/12, 3.64~10/13, 4.01~ 10/14 & 4.66~10/15 Previous NAZIA peak sCr 4.11~09/28 improved 2.07~10/09/2019 Worsening Anemia, Hb 7.3 Of note UPCR 3.5 g/d & repeat UA No WBCs & RBCs. GN serology sent and pending. Worsening inflammation as CRP 185~10/16/2019 Was 98.9`10/08. ESR >120 I spoke to her , Toni at , about the critical illness she has and the severity and recurrent nature of her NAZIA, and she may need Kidney Biopsy and HD. Volume status Has Edema Today, still has SOB, but feels less sleepy and better off of Dilauded. Hospital Meds: Acetaminophen Acetylcysteine Albuterol Albuterol/Ipratropium Amlodipine Dextrose Heparin Sodium Hydralazine Linezolid 600 mg BID Glargine Lispro Lidocaine Lorazepam Mometasone Furoate/Formoterol Fumar Ondansetron Oxycodone Objective: Vital Signs Temp 98.2 F 10/16/19 07:15 Pulse 122 10/16/19 08:41 Resp 20 10/16/19 12:58 BP 153/58 10/16/19 07:15 Pulse Ox 94 10/16/19 08:41 Intake & Output 10/15/19 10/16/19 10/16/19 18:59 06:59 18:59 Intake Total 1020 325 180 Output Total 1400 Balance -380 325 180 Intake: IV Fluids 30 20 NS 30 20 IVPB 50 305 ABX - LINEZOLID 305 calcium gluconate 50 Oral 940 0 180 Output: Urine 1400 Other: Estimated Void Large # Bowel Movements 0 # Voids 1 0 10 Point multi system exam: Constitutional Alert Oriented x 3 HEENT: No Conjunctivitis Abdomen Soft Abdomen No Ascites Heart: NSR, Mild LE Edema, No murmur Lungs: Crackles Extremities: Mild edema, no rash Skin no rash Neurology No deficit. CN intact Hem/Lymph: no palpable lymph nodes Musculoskeletal: No joint swelling Laboratory Reviewed Sodium 132 mmol/L (135-145) L 10/16/19 10:40 Potassium 4.0 mmol/L (3.5-5.0) 10/16/19 10:40 BUN 27 mg/dL (6-24) H 10/16/19 10:40 Creatinine 4.66 mg/dL (0.51-0.95) H 10/16/19 10:40 Calcium 7.3 mg/dL (8.6-10.3) L 10/16/19 10:40 AST TNP 10/09/19 16:10 ALT 16 U/L (7-52) 10/09/19 16:10 Assessment and Plan: NAZIA on CKD, recurrent, likely septic ATN. Repeat UA clear, unlikely AIN Cant R/O GN, GN serology pending. Post infectious GN is a possibility. Has 3 g/d on UPCR, possibly overestimating her Proteinuria as she's in NAZIA. DKD 2/2 to DM I is likely cause for CKD. I advise Kidney Biopsy Electrolytes Ok No indication for HD yet. Seems very likely soon though. She and her were informed about lab/radiology results & prognosis. All questions were answered. They were made part of the treatment plan.
[2019-10-16 14:21] LABS: Hepatitis B Surface Ab Immune (Immune); Hepatitis C Antibody Negative (Negative)
[2019-10-16] MEDS ORDERED: fentaNYL* 50 MCG/ML 2 ML VIAL (100 MCG VIAL) ONE (14:28)
[2019-10-16 17:13] LABS: Mean Platelet Volume 6.3 fL (7.4-10.4); Platelet Count 338 10^3/uL (150-450)
[2019-10-16 17:26] LABS: Activated Partial Thrombo Time 32.1 seconds (26.0-38.0); INR 1.09 (0.82-1.09)
[2019-10-16] MEDS: Lidocaine Patch REMOVE* 1 NOTE MISC SCH (21:00)
[2019-10-16] MEDS: hydrALAZINE IV* 20 MG/ML VIAL IV SLOW PU PRN (21:34)
[2019-10-16] MEDS ORDERED: Morphine 4 MG/ML VIAL (1 ml) 4 MG/ML VIAL IV ONE (21:40)
[2019-10-16] MEDS ORDERED: Morphine INJ* 4 MG/ML 1 ML SYRINGE (NEW SYRINGE VERSION) IV ONE (21:50)
--- NOTE | 2019-10-16 23:22 | PN ---
Hospitalist Progress Note Date of Service: 10/16/19 Called to bedside to as patient noted to be SOB and having increased tachycardia. Patient resp rate 26 hr 130, Bp sytolic 180's. Patient complaints of pain to the pigtail site. Lungs diminished in right based. Crackles noted. 4 mg Morphine ordered. repeat cxr ordered. Small PTX noted on cxr 1830 and on cxr from 2200 unchanged. Called to Pulm and discussed findings and exam findings. At this point they recommend hooking the pigtail up to a pleuravac to suction. Will make up man to pleurvac and to suction per pulm recommendations. Patient updated on plan of care.
[2019-10-17] MEDS: Albuterol/Ipratropium NEB.SOL* Albuterol 2.5 MG/Ipratropium 0.5 MG 3 ML INH SCH ×4 (01:21→20:06)
[2019-10-17] MEDS: Acetylcysteine INH SOL* 200 MG/ML 4 ML VIAL (for Resp Thpy) INH SCH ×4 (01:21→20:14)
[2019-10-17] MEDS: oxyCODONE TAB* 5 MG TAB PO PRN ×4 (02:04→21:11)
[2019-10-17] MEDS: Linezolid 600 MG IVPREMIX(*) 600 MG/300 ML BAG IVPB SCH ×2 (02:05→14:11)
[2019-10-17 05:46] LABS: INR 1.01 (0.82-1.09)
[2019-10-17] MEDS: Insulin LISPRO* 1 UNITS UNIT SUBCUT SCH ×4 (06:24→20:24)
[2019-10-17 06:40] LABS: ABS Eosinophils 0.9 10^3/ul (0-0.6); ABS Lymphocytes 0.9 10^3/ul (1.0-4.8); ABS Monocytes 0.4 10^3/ul (0-0.8); ABS Neutrophils 5.8 10^3/ul (1.5-7.7); Eosinophil % 10.7 %; Hematocrit 23 % (35-47); Hemoglobin 7.4 g/dL (12.0-16.0); Lymphocyte % 10.7 %; Mean Corpuscular HGB Conc 33 g/dL (31-36); Mean Corpuscular Hemoglobin 27 pg (27-31); Mean Corpuscular Volume 83 fL (80-97); Mean Platelet Volume 6.2 fL (7.4-10.4); Platelet Count 341 10^3/uL (150-450); Red Cell Distribution Width 15 % (10-15)
[2019-10-17 06:56] LABS: BUN/Creatinine Ratio 6.3 (8-20); Calcium 7.6 mg/dL (8.6-10.3); EGFR African American 11.9 (>60); EGFR Non-African American 9.8 (>60); Potassium 3.9 mmol/L (3.5-5.0)
[2019-10-17] MEDS: Mometasone/Formoter 200/5 MDI INH SCH ×2 (07:09→20:06)
[2019-10-17] MEDS ORDERED: Desmopressin Acetate* 4 MCG/ML 10 ML VIAL IVPB ONE ×2 (08:30)
[2019-10-17] MEDS ORDERED: NS 0.9% IVPB ONE (08:30)
[2019-10-17] MEDS ORDERED: DESMOPRESSIN ACETATE IVPB ONE (08:30)
[2019-10-17] MEDS ORDERED: fentaNYL* 50 MCG/ML 2 ML VIAL (100 MCG VIAL) ONE (09:43)
--- NOTE | 2019-10-17 10:39 | PN ---
Progress Note - Progress Note Date of Service: 10/17/19 - Pulm f/u note Note: Pt seen and examined at bedside. Pt reports improvement in pain. Feels tired. Had chest tube placed last night and 200cc fluid removed so far. Is NPO for kidney biopsy Active Medications Generic Name Dose Route Start Last Admin Trade Name Freq PRN Reason Stop Dose Admin Acetaminophen 650 mg 10/16/19 16:11 Tylenol Tab* PO Q4H PRN MILD PAIN or TEMP > 100.4 Acetylcysteine 400 mg 10/15/19 20:30 10/17/19 07:09 Acetylcysteine Inh Marisel* INH 400 mg [id number] AWAKE RONI Administration Albuterol 2 puff 10/12/19 15:33 10/15/19 18:13 Ventolin Hfa Inhaler* INH 2 puff Q4H PRN Administration SOB/WHEEZING Albuterol/Ipratropium 1 neb 10/10/19 13:00 10/17/19 07:10 Duoneb (Albuterol 2.5 Mg/Ipratropium 0.5 Mg) INH 1 neb [id number] AWAKE RONI Administration Amlodipine Besylate 5 mg 10/13/19 21:00 10/16/19 09:27 Norvasc Tab* PO 5 mg DAILY RONI Administration Dextrose 12.5 gm 10/10/19 14:07 10/17/19 09:25 D50w Syringe 50 Ml* IV PUSH 12.5 gm .FOR FS < 60 - SS PRN Administration FS < 60 Ferrous Sulfate 15 mg 10/17/19 11:00 Ferrous Sulfate Drops* PO DAILY RONI Hydralazine HCl 5 mg 10/13/19 20:33 10/16/19 21:34 Apresoline Iv* IV SLOW PU 5 mg Q6H PRN Administration SYSTOLIC BP GREATER THAN: Linezolid 600 mg in 300 mls @ 300 mls/hr 10/14/19 14:00 10/17/19 02:05 Zyvox 600 Mg Ivpremix(*) IVPB 300 mls/hr Q12H RONI Administration Insulin Glargine 50 units 10/10/19 10:00 10/16/19 09:27 Lantus(*) SUBCUT 50 units DAILY RONI Administration Insulin Human Lispro 0 units 10/09/19 21:00 10/17/19 06:24 Humalog* SUBCUT Not Given ACHS [facility] Protocol Lidocaine 1 patch 10/12/19 09:44 10/15/19 13:28 Lidoderm 5% Patch* TRANSDERM 1 patch DAILY PRN Administration PAIN - MILD Mometasone Furoate/Formoterol Fumar 2 puff 10/09/19 21:00 10/17/19 07:09 Dulera 200/5 Mdi* INH 2 puff BID RONI Administration Ondansetron HCl 4 mg 10/09/19 20:04 10/15/19 17:06 Zofran Inj* IV 4 mg Q6H PRN Administration NAUSEA Oxycodone HCl 10 mg 10/12/19 09:43 10/17/19 02:04 Roxycodone Tab* PO 10 mg Q6H PRN Administration PAIN - SEVERE Pharmacy Profile Note 1 note 10/12/19 21:00 10/16/19 21:00 Lidocaine Patch Remove* N/A Not Given 2100 RONI Polyethylene Glycol/Electrolytes 17 gm 10/12/19 11:05 Miralax (17 Gm Dose Lawson) PO DAILY PRN CONSTIPATION Vital Signs Temp Pulse Resp BP Pulse Ox 99.4 F 117 18 139/59 98 10/17/19 07:15 10/17/19 07:15 10/17/19 07:15 10/17/19 07:15 10/17/19 07:15 O/E: Pt in NAD HEENT: PERRLA Lungs: Diminished on rt, rt chest tube + CVS: S1, S2+ Abd: obese, BS+ Ext: Normal ROM, anasarca+ Skin: No rash Neuro: No focal deficits Laboratory Results - last 24 hr 10/16/19 10/16/19 10/16/19 10:40 10:40 10:40 WBC 7.0 RBC 2.61 L Hgb 7.3 L Hct 22 L MCV 84 MCH 28 MCHC 33 RDW 15 Plt Count 347 MPV 6.5 L Neut % (Auto) 76.8 Lymph % (Auto) 9.5 [place] % (Auto) 4.2 Eos % (Auto) 8.7 Baso % (Auto) 0.8 Absolute Neuts (auto) 5.4 Absolute Lymphs (auto) 0.7 L Absolute Monos (auto) 0.3 Absolute Eos (auto) 0.6 Absolute Basos (auto) 0.1 Absolute Nucleated RBC 0.0 Nucleated RBC % 0.0 ESR > 120 H INR (Anticoag Therapy) APTT Sodium 132 L Potassium 4.0 Chloride 103 Carbon Dioxide 19 L Anion Gap 10 BUN 27 H Creatinine 4.66 H Est GFR ( Amer) 12.8 Est GFR (Non-Af Amer) 10.6 BUN/Creatinine Ratio 5.8 L Glucose 112 H POC Glucose (mg/dL) Calcium 7.3 L Total Creatine Kinase 41 C-Reactive Protein 185.31 H Vancomycin Trough Rheumatoid Factor < 10 Hepatitis B Antibody Immune Hep Bs Antigen Nonreactive Hepatitis C Antibody Negative Hepatitis C Ab Index 0.14 HIV 1&2 Ab/P24 Ag 4thGn Cancelled 10/16/19 10/16/19 10/16/19 12:16 16:58 16:58 WBC RBC Hgb Hct MCV MCH MCHC RDW Plt Count 338 MPV 6.3 L Neut % (Auto) Lymph % (Auto) [place] % (Auto) Eos % (Auto) Baso % (Auto) Absolute Neuts (auto) Absolute Lymphs (auto) Absolute Monos (auto) Absolute Eos (auto) Absolute Basos (auto) Absolute Nucleated RBC Nucleated RBC % ESR INR (Anticoag Therapy) 1.09 APTT 32.1 Sodium Potassium Chloride Carbon Dioxide Anion Gap BUN Creatinine Est GFR ( Amer) Est GFR (Non-Af Amer) BUN/Creatinine Ratio Glucose POC Glucose (mg/dL) 97 Calcium Total Creatine Kinase C-Reactive Protein Vancomycin Trough Rheumatoid Factor Hepatitis B Antibody Hep Bs Antigen Hepatitis C Antibody Hepatitis C Ab Index HIV 1&2 Ab/P24 Ag 4thGn 10/16/19 10/17/19 10/17/19 20:43 01:18 03:40 WBC RBC Hgb Hct MCV MCH MCHC RDW Plt Count MPV Neut % (Auto) Lymph % (Auto) [place] % (Auto) Eos % (Auto) Baso % (Auto) Absolute Neuts (auto) Absolute Lymphs (auto) Absolute Monos (auto) Absolute Eos (auto) Absolute Basos (auto) Absolute Nucleated RBC Nucleated RBC % ESR INR (Anticoag Therapy) APTT Sodium Potassium Chloride Carbon Dioxide Anion Gap BUN Creatinine Est GFR ( Amer) Est GFR (Non-Af Amer) BUN/Creatinine Ratio Glucose POC Glucose (mg/dL) 99 111 H Calcium Total Creatine Kinase C-Reactive Protein Vancomycin Trough 9.9 Rheumatoid Factor Hepatitis B Antibody Hep Bs Antigen Hepatitis C Antibody Hepatitis C Ab Index HIV 1&2 Ab/P24 Ag 4thGn 10/17/19 10/17/19 10/17/19 05:28 06:33 06:34 WBC 8.0 RBC 2.70 L Hgb 7.4 L Hct 23 L MCV 83 MCH 27 MCHC 33 RDW 15 Plt Count 341 MPV 6.2 L Neut % (Auto) 73.5 Lymph % (Auto) 10.7 [place] % (Auto) 4.7 Eos % (Auto) 10.7 Baso % (Auto) 0.4 Absolute Neuts (auto) 5.8 Absolute Lymphs (auto) 0.9 L Absolute Monos (auto) 0.4 Absolute Eos (auto) 0.9 H Absolute Basos (auto) 0.0 Absolute Nucleated RBC 0.0 Nucleated RBC % 0.0 ESR INR (Anticoag Therapy) 1.01 APTT Sodium 130 L Potassium 3.9 Chloride 101 Carbon Dioxide 20 L Anion Gap 9 BUN 31 H Creatinine 4.96 H Est GFR ( Amer) 11.9 Est GFR (Non-Af Amer) 9.8 BUN/Creatinine Ratio 6.3 L Glucose 63 L POC Glucose (mg/dL) Calcium 7.6 L Total Creatine Kinase C-Reactive Protein Vancomycin Trough Rheumatoid Factor Hepatitis B Antibody Hep Bs Antigen Hepatitis C Antibody Hepatitis C Ab Index HIV 1&2 Ab/P24 Ag 4thGn 10/17/19 08:52 WBC RBC Hgb Hct MCV MCH MCHC RDW Plt Count MPV Neut % (Auto) Lymph % (Auto) [place] % (Auto) Eos % (Auto) Baso % (Auto) Absolute Neuts (auto) Absolute Lymphs (auto) Absolute Monos (auto) Absolute Eos (auto) Absolute Basos (auto) Absolute Nucleated RBC Nucleated RBC % ESR INR (Anticoag Therapy) APTT Sodium Potassium Chloride Carbon Dioxide Anion Gap BUN Creatinine Est GFR ( Amer) Est GFR (Non-Af Amer) BUN/Creatinine Ratio Glucose POC Glucose (mg/dL) 64 L Calcium Total Creatine Kinase C-Reactive Protein Vancomycin Trough Rheumatoid Factor Hepatitis B Antibody Hep Bs Antigen Hepatitis C Antibody Hepatitis C Ab Index HIV 1&2 Ab/P24 Ag 4thGn U/S chest: Small rt pl effusion, no complexities CXR: Persistent tiny rt apical PTX, consolidation in rt lung I/R: 38 year old female with a past medical history of DM type 1, CKD stage 3 and HTN who was readmitted on 10/09/19 for worsening shortness of breath, cough. Patient recently diagnosed with influenza and post influenza MRSA pneumonia and bactiremia Patient with significant involvement of the right lung with dense consolidation involving entire right lung Patient was on vancomycin, was discharged home to complete antibiotic, returned with worsening shortness of breath and cough Repeat CT chest-slight improvement in the dense consolidation in the right lung , new finding of right pleural effusion Concern for parapneumonic effusion on the right side Pt underwent ultrasound-guided thoracentesis 10/09- 250cc of marli colored fluid was removed Cultures positive for MRSA, LDH, glucose normal, pH slightly low Exudative effusion, however not concerning for empyema Given positive MRSA on pleural fluid, and recurrence, will need to drain the fluid to avoid complications in pleural space in the future Continue with antibiotics, was switched to Linezolid given worsening renal function Continue with Mucomyst and nebulizers with metanebs Continue with O2 supplementation Pig tail for drainage of pleural fluid by IR 10/16/19, 200cc fluid since placement Small apical PTX noted, will c/w low suction and pleurevac drainage Edema worsening, might need HD Pt to have kidney biopsy today Bl sugar slightly on low end, pt is diabetic, will start D5W at 50cc/hr until she is able to eat c/w nebs, mucus clearance techniques Metanebs q 4 hrs OOB to chair DVT px: SCD`s and Heparin sq
[2019-10-17] MEDS: amLODIPine TAB* 5 MG PO SCH (11:50)
[2019-10-17] MEDS: Insulin GLARGINE(*) 1 UNITS UNIT SUBCUT SCH (11:50)
[2019-10-17] MEDS: Ferrous Sulfate DROPS* 15 MG/ML PO SCH (11:51)
[2019-10-17] MEDS ORDERED: Cefepime ADVAN(*) 1 GM in NS 0.9% 50 ML* 50 ML IVPB SCH (12:00)
[2019-10-17 12:50] LABS: Urine Kappa Total Light Chain 26.3 mg/dL (<0.9000); Urine Kappa/Lambda Light Chain 2.82
[2019-10-17] MEDS: CEFEPIME IV SCH (13:05)
[2019-10-17] MEDS: DEXTROSE IV SCH (13:05)
--- NOTE | 2019-10-17 13:20 | PN ---
Progress Note - Progress Note Date of Service: 10/17/19 Note: Inpatient Nephrology FU Note: Performed by Dr. Kun Dalton, [facility] Nephrology 10/17/2019 38 YO AAF MRSA pneumonia and MRSA Parapneumonic Rt PLEF, s/p pigtail drain s/p 800 cc drained. On Linezolid & Cefepime In NZAIA on CKD, sCr baseline 1.7-1.8~05/2019 Progressive recurrent NAZIA sCr trend: 3.64~10/13 4.01~10/14 4.66~10/15 4.96~10/16 s/p Kidney Biopsy today. GN serology so far ESR >120, HbsAg, HCVAb & HIV negative NAZIA likely ATN & she'll likely need HD soon. Previous NAZIA peak sCr 4.11~09/28 improved 2.07~10/09/2019 Worsening Anemia, Hb 7.4 I spoke again to her , Toni at , and updated him that results from Kidney Biopsy will take 1-2 days, and she will likely need HD soon. Volume status Has worsening Edema Still febrile, tachycardia and SOB Hospital Meds: Acetaminophen Acetylcysteine Albuterol Albuterol/Ipratropium Amlodipine Dextrose Ferrous Sulfate Hydralazine Linezolid 600 mg BID Cefepime Insulin Glargine Insulin Human Lispro Lidocaine Mometasone Ondansetron Oxycodone Objective: Vital Signs Temp 101.8 F 10/17/19 12:51 Pulse 120 10/17/19 12:51 Resp 22 10/17/19 12:51 BP 124/59 10/17/19 12:51 Pulse Ox 98 10/17/19 12:51 Intake & Output 10/16/19 10/17/19 10/17/19 18:59 06:59 18:59 Intake Total 2950 540 0 Output Total 775 450 Balance 2175 90 0 Intake: IV Fluids 30 NS 30 IVPB 300 300 ABX - LINEZOLID 300 300 Oral 2620 240 0 Output: Urine 775 450 Other: # Bowel Movements 0 # Voids 0 10 Point multi system exam: Constitutional Alert Oriented x 3 HEENT: No Conjunctivitis Abdomen Soft Abdomen No Ascites Heart: Sinus Tach, Increasing LE Edema, No murmur Lungs: Crackles Extremities: + edema, no rash Skin no rash Neurology No deficit. CN intact Hem/Lymph: no palpable lymph nodes Musculoskeletal: No joint swelling Laboratory Reviewed Sodium 130 mmol/L (135-145) L 10/17/19 06:33 Potassium 3.9 mmol/L (3.5-5.0) 10/17/19 06:33 BUN 31 mg/dL (6-24) H 10/17/19 06:33 Creatinine 4.96 mg/dL (0.51-0.95) H 10/17/19 06:33 Calcium 7.6 mg/dL (8.6-10.3) L 10/17/19 06:33 AST TNP 10/09/19 16:10 ALT 16 U/L (7-52) 10/09/19 16:10 Assessment and Plan: NAZIA on CKD, recurrent, likely septic ATN. s/p Kidney Biopsy today, results 1-2 days Rest of GN serology pending. Electrolytes Ok May need HD soon for Volume and worsening NAZIA Advise low threshold to transfer to MICU, for SIRS and tachycardia and SOB. She and her were informed about lab/radiology results & prognosis. All questions were answered. They were made part of the treatment plan.
[2019-10-17 13:28] LABS: HIV 4th Generation Nonreactive (Nonreactive)
[2019-10-17 13:45] LABS: Proteinase 3 <0.2 U
[2019-10-17 14:43] LABS: Complement C3 127 mg/dL (75 - 175)
--- NOTE | 2019-10-17 15:20 | PN ---
Progress Note - Progress Note Date of Service: 10/17/19 - Late entry from 1150 SOAP: Subjective: CC: MRSA PNA and parapneumonic effusion HPI: Ms. Luiz Nunn is a 38 yo female with PMH significant for DM1, HTN, CKD 3, HLD, asthma, GERD, seizure in the setting of DKA; who presented to the hospital for shortness of breath after recent dx MRSA bacteremia, MRSA PNA, and Influenza. Denies fever, chills, nausea, vomiting, diarrhea, or urinary symptoms. She states that she continues to have shortness of breath, worse with exertion and occasional cough. Breathing may be improved since pigtail was placed. Reports "shaking" 1-3 times daily. Objective: Vital Signs 10/17/19 10/17/19 10/17/19 08:00 11:50 12:30 Temperature 99.3 F Pulse Rate 125 Respiratory 18 28 18 Rate Blood Pressure 153/67 (mmHg) O2 Sat by Pulse 93 Oximetry Physical Exam: General: NAD, laying in bed Neurological: Alert and Oriented HEENT: Moist MM Cardiovascular: Heart rate regular Respiratory: Lung sounds clear, diminished on the right Abdominal: Bowel sounds present; ABD soft, non tender and obese Skin: No rash Laboratory Results 10/17/19 10/17/19 10/17/19 06:33 06:34 08:52 WBC 8.0 RBC 2.70 L Hgb 7.4 L Hct 23 L MCV 83 MCH 27 MCHC 33 RDW 15 Plt Count 341 MPV 6.2 L Neut % (Auto) 73.5 Lymph % (Auto) 10.7 Mayes % (Auto) 4.7 Eos % (Auto) 10.7 Baso % (Auto) 0.4 Absolute Neuts (auto) 5.8 Absolute Lymphs (auto) 0.9 L Absolute Monos (auto) 0.4 Absolute Eos (auto) 0.9 H Absolute Basos (auto) 0.0 Absolute Nucleated RBC 0.0 Nucleated RBC % 0.0 Sodium 130 L Potassium 3.9 Chloride 101 Carbon Dioxide 20 L Anion Gap 9 BUN 31 H Creatinine 4.96 H Est GFR ( Amer) 11.9 Est GFR (Non-Af Amer) 9.8 BUN/Creatinine Ratio 6.3 L Glucose 63 L POC Glucose (mg/dL) 64 L Calcium 7.6 L Microbiology 10/15/19 21:00 Urine Culture - Preliminary Urine Pseudomonas Aeruginosa 03/17/20 16:10 Aerobic Blood Culture - Final Blood Venous No Growth Day 5 Anaerobic Blood Culture - Final No Growth Day 5 10/09/19 16:10 Aerobic Blood Culture - Final Blood Venous No Growth Day 5 Anaerobic Blood Culture - Final No Growth Day 5 10/10/19 18:27 Sterile Body Fluid Culture - Final Pleural Fluid MRSA Sterile Body Fluid Culture - Final MRSA Skin and Soft Tissue MRSA/MSSA (PCR - Final Mrsa Positive S.aureus Positive 10/09/19 23:40 Urine Culture - Final Urine Pseudomonas Aeruginosa 10/10/19 18:06 Gram Stain - Final Body Fluid - Pleura 10/09/19 23:40 Legionella Urinary Antigen - Final Urine Negative Legionella Antigen Streptococcus pneumoniae Ag Screen - Final Negative S. pneumo Antigen Assessment: 1. Parapneumonic effusion in the setting of post influenza MRSA PNA. Sputum culture with MRSA and MRSA bacteremia during last admission. S/P thoracentesis, culture with MRSA. Blood cultures with no growth to date. Continues to have intermittent fevers, last T max 100.8 yesterday. Leukocytosis has resolved. 2. MRSA bacteremia. Initially with 3/4 bottles positive on 09/29/19. Persistent positive blood cultures, last cultures obtained on 10/08 with no growth to date. TTE with no signs of vegetation. SAHIL with no signs of endocarditis. No prosthetic material present. Suspect the source is PNA. 3. UTI. Initial urine culture on 10/08 with pseudomonas, asymptomatic. Repeat urine culture on 10/14 with < 100K pseudomonas. 4. Acute hypoxic respiratory failure. Continues to require supplemental oxygen. 5. DM1. 6. CKD, stage 3. Now with acute on chronic NAZIA. ? secondary to recent vancomycin use. 7. Obesity. BMI 37.4. Plan: Continue Linezolid (day 14 of ABX since blood cultures cleared) and cefepime ( day 1). Will order a renal ultrasound to rule out renal abscess.
--- NOTE | 2019-10-17 15:40 | PN ---
Subjective Date of Service: 10/17/19 Interval History: Ms. Luiz Nunn is feeling a little better today. At some points she feels the SOB is improved, then at other times she feels as SOB as she was previously. She thinks the pigtail gave her some relief. Denies CP, cough. Decreased appetite. No concerns from nursing. Family History: Unchanged from Admission Social History: Unchanged from Admission Past Medical History: Unchanged from Admission Objective Active Medications: Acetaminophen (Tylenol Tab*) 650 mg PO Q4H PRN MILD PAIN or TEMP > 100.4 Acetylcysteine (Acetylcysteine Inh Marisel*) 400 mg INH [id number] AWAKE RONI Albuterol (Ventolin Hfa Inhaler*) 2 puff INH Q4H PRN SOB/WHEEZING Albuterol/Ipratropium (Duoneb (Albuterol 2.5 Mg/Ipratropium 0.5 Mg)) 1 neb INH [id number] AWAKE RONI Amlodipine Besylate (Norvasc Tab*) 5 mg PO DAILY RONI Dextrose (D50w Syringe 50 Ml*) 12.5 gm IV PUSH .FOR FS < 60 - SS PRN FS < 60 Ferrous Sulfate (Ferrous Sulfate Drops*) 15 mg PO DAILY RONI Hydralazine HCl (Apresoline Iv*) 5 mg IV SLOW PU Q6H PRN SYSTOLIC BP GREATER THAN Linezolid (Zyvox 600 Mg Ivpremix(*)) 600 mg in 300 mls @ 300 mls/hr IVPB Q12H RONI Cefepime HCl (Maxipime 1 Gm In Dextrose Duplex (*)) 1 gm in 50 mls @ 100 mls/ hr IV 1200 RONI Insulin Glargine (Lantus(*)) 50 units SUBCUT DAILY RONI Insulin Human Lispro (Humalog*) 0 units SUBCUT ACHS RONI; Protocol Lidocaine (Lidoderm 5% Patch*) 1 patch TRANSDERM DAILY PRN PAIN - MILD Mometasone Furoate/Formoterol Fumar (Dulera 200/5 Mdi*) 2 puff INH BID RONI Ondansetron HCl (Zofran Inj*) 4 mg IV Q6H PRN NAUSEA Oxycodone HCl (Roxycodone Tab*) 10 mg PO Q6H PRN PAIN - SEVERE Polyethylene Glycol/Electrolytes (Miralax (17 Gm Dose Lawson)) 17 gm PO DAILY PRN CONSTIPATION Vital Signs - 8 hr 10/17/19 10/17/19 10/17/19 08:00 11:00 11:50 Temperature Pulse Rate 125 Respiratory 18 22 28 Rate Blood Pressure 125/75 (mmHg) O2 Sat by Pulse 100 Oximetry 10/17/19 10/17/19 10/17/19 12:30 12:42 12:47 Temperature 99.3 F 99.2 F Pulse Rate 125 123 122 Respiratory 18 28 15 Rate Blood Pressure 153/67 166/62 (mmHg) O2 Sat by Pulse 93 96 97 Oximetry 10/17/19 12:51 Temperature 101.8 F Pulse Rate 120 Respiratory 22 Rate Blood Pressure 124/59 (mmHg) O2 Sat by Pulse 98 Oximetry Oxygen Devices in Use Now: Nasal Cannula - 2L Appearance: Young adult female lying in bed, dyspneic, but in NAD Ears/Nose/Mouth/Throat: Mucous Membranes Moist Neck: NL Appearance and Movements; NL JVP, Trachea Midline Respiratory: Symmetrical Chest Expansion and Respiratory Effort, - - Very diminished to absent on the right, left is clear Cardiovascular: NL Sounds; No Murmurs; No JVD, RRR Abdominal: NL Sounds; No Tenderness; No Distention Extremities: - - +1 generalized Neurological: Alert and Oriented x 3 Lines/Tubes/Other Access: Clean, Dry and Intact PICC Line Nutrition: Taking PO's Result Diagrams: 10/17/19 06:34 10/17/19 06:33 Assess/Plan/Problems-Billing Assessment: Ms. Luiz Nunn is a 38 yo F with PMH of DM type 1, CKD stage 3, HTN; recently hospitalized for MRSA bacteremia secondary to pneumonia, readmitted on 10/09/19 for sepsis secondary to right lower lobe pneumonia and found to have pleural effusion. - Patient Problems (1) Parapneumonic effusion Code(s): J18.9 - PNEUMONIA, UNSPECIFIED ORGANISM; J91.8 - PLEURAL EFFUSION IN OTHER CONDITIONS CLASSIFIED ELSEWHERE Comment: - Mild clinical improvement - Right sided pleural effusion, new during this hospitalization - Still having right-sided chest wall pain, improved with pain medication - S/p thoracentesis 10/10/19, 275mL fluid removed - Pleural fluid culture positive for MRSA - US 10/15 reveals that the effusion size is unchanged from 10/12 - Pgitail drain placed 10/15 to try to drain remaining fluid; developed small pneumothorax; now connected to PleurEvac on low wall suction per Chery recs, draining small to moderate amount of straw-colored fluid - Continue linezolid (2) MRSA pneumonia Code(s): J15.212 - PNEUMONIA DUE TO METHICILLIN RESISTANT STAPHYLOCOCCUS AUREUS Comment: - Recent hospitalization found to have MRSA pneumonia in setting of influenza A based on sputum culture; had received a one time dose of Dalvance the day prior to this current admission - ID consulted - Pulmonology consulted; metanebs recommended - Consolidation does appear improved since prior hospitalization, but now with new pleural effusion further described above - Encourage incentive spirometer and flutter valve - Continue linezolid (3) MRSA bacteremia Code(s): R78.81 - BACTEREMIA; B95.62 - METHICILLIN RESIS STAPH INFCT CAUSING DISEASES CLASSD ELSWHR Comment: - Diagnosed during previous recent hospitalization - SAHIL performed during last hospitaliation 10/08/19 without evidence of vegetation - 2/2 MRSA pneumonia - ID following - Continue linezolid (4) Acute kidney injury superimposed on CKD Code(s): N17.9 - ACUTE KIDNEY FAILURE, UNSPECIFIED; N18.9 - CHRONIC KIDNEY DISEASE, UNSPECIFIED Comment: - Still producing sufficient amount of urine - Has CKD d/t diabetic nephropathy, baseline Cr is ~1.5 - Had ATN during recent hospitalization; ?vanco-related - FENa 1.4%, indicates intrinsic, likely ATN - BUN/Cr continue to rise - Appreciate Nephrology consult; suspects septic ATN - Kidney biopsy 10/16 and other labs pending for full workup - May require HD in the near future d/t volume overload and worsening creatintine (5) UTI (urinary tract infection) Comment: - Previous culture on 10/08 grew <25k colonies Pseudomonas, but repeat culture on 10/14 now growing >100k colonies Psuedomonas - Start cefepime (renal dosing) (6) Acute respiratory failure Code(s): J96.00 - ACUTE RESPIRATORY FAILURE, UNSP W HYPOXIA OR HYPERCAPNIA Comment: - Requiring 2L, but sating in the high 90s, so suspect she could be easily weaned - At this point, oxygen is providing comfort as the patient is quite anxious - 2/2 pneumonia and pleural effusion - Wean as tolerated (7) Anemia Code(s): D64.9 - ANEMIA, UNSPECIFIED Comment: - H&H down, but remains stable - Likely anemia of chronic disease related to CKD with superimposed infection causing further drop - Will transfuse for Hgb < 7 (8) Tachycardia Code(s): R00.0 - TACHYCARDIA, UNSPECIFIED Comment: - Persistent tachycardia, particularly with activity - EKG showing sinus tach - Echo previously unremarkable - VQ show intermediate probability of PE, but VQ mismatch may just be d/t pneumonia - LLE US negative for DVT on 10/10 and RLE US negative for DVT on 10/14, so PE can likely be ruled out - Suspect this is a stress response to infection in a patient who has a high resting HR at baseline (9) Thrombocytosis Comment: - Resolved - Likely 2/2 infection (10) Diabetes type I Comment: - Good BG control overall - Continue Lantus, Lispro SS (11) Vaginal candidiasis Code(s): B37.3 - CANDIDIASIS OF VULVA AND VAGINA Comment: - Vaginal complaints resolved - Likely related to IV antibiotics - Completed 3 day course of miconazole suppository (10/09-10/11) (12) Hypertension Code(s): I10 - ESSENTIAL (PRIMARY) HYPERTENSION Comment: - HCTZ and lisinopril on hold for now due to NAZIA (13) DVT prophylaxis Comment: - Heparin SQ (14) Full code status Code(s): Z78.9 - OTHER SPECIFIED HEALTH STATUS Comment: Status and Disposition: Inpatient. Anticipate d/c home when medically stable, pending clinical course. Attending: Luis Cordova
--- NOTE | 2019-10-17 15:51 | OP ---
Operative Report - Blank - Operative Report Date of Operation: 10/17/19 Note: Kidney Biopsy: [id number]: Ultrasound Guidance for needle placement, including imaging, supervision & interpretation by myself [id number]: Percutaneous Needle Kidney Biopsy Date of Procedure 10/17/2019 Procedure Performed: Percutaneous Needle Kidney Biopsy Procedure performed by: Dr. Aisha PABLO, [facility] Nephrology Pre-operative Diagnosis: NAZIA?! Post-operative Diagnosis: Same Operative procedure details/description: Consent obtained. Patient understands risks, benefits, alternatives and wants to proceed. Procedure is indicated for GN DDAVP (30 Mcg was started 20 min prior to the Biopsy). Lt Kidney was chosen, and the inferior pole was visualized using US. Following strict hand hygiene and following the standard sterile precautions, including a gown, cap, face mask and a double pair of sterile gloves. The procedure started with 2 ID time out at the bed side in us suite Patient was put in prone position. Real time US was used for this procedure. Surgical towels (Pillows) were placed under the patient's abdomen to raise his back. Left Back was prepped with 2% Chlorhexidine, and the surgical field was surrounded by sterile surgical towels. A sterile full body drape was placed to cover the patient from head to toe. 1% Lidocaine was used as a local to numb the skin and the subcutaneous tissues. Under real time US guidance the Inferior pole was injected with 1% Lidocaine at the renal capsule and the needle tract. The skin was nicked using # 11 Blade Scalpel, and bleeding was minimal and controlled. The Inferior pole of the Lt Kidney was biopsied under real time US guidance using a 18-G Monopty Biopsy needle, times 3 runs, and samples were obtained and were reviewed by Pathology as adequate and sent to Renal Pathology for LM, IF and EM. A follow up Renal US showed no hematoma and/or complications. Estimated Bleeding < 5 cc. Patient tolerated the procedure well. Patient will be kept in Supine position for the next 6 Hours. Patient will be admitted to Observation.
[2019-10-17] MEDS ORDERED: HYDROmorphone INJ* 0.5 MG/0.5 ML SYRINGE IV SLOW PU PRN (16:16)
[2019-10-17] MEDS ORDERED: Metoprolol Tartrate TAB* 25 MG PO ONE (17:44)
[2019-10-17] MEDS: Acetylcysteine INHALATION SOL* 200 MG/ML NEB.SOLN 10 ML ONE ×3 (20:05→20:14)
[2019-10-17] MEDS: Lidocaine Patch REMOVE* 1 NOTE MISC SCH (20:24)
[2019-10-17] MEDS: Metoprolol Tartrate TAB* 25 MG PO SCH (21:10)
[2019-10-18] MEDS: Albuterol/Ipratropium NEB.SOL* Albuterol 2.5 MG/Ipratropium 0.5 MG 3 ML INH SCH ×4 (00:31→20:40)
[2019-10-18] MEDS: Acetylcysteine INHALATION SOL* 200 MG/ML NEB.SOLN 10 ML ONE (00:32)
[2019-10-18] MEDS: Acetylcysteine INH SOL* 200 MG/ML 4 ML VIAL (for Resp Thpy) INH SCH ×4 (00:33→21:09)
[2019-10-18] MEDS: Linezolid 600 MG IVPREMIX(*) 600 MG/300 ML BAG IVPB SCH ×2 (01:02→17:49)
[2019-10-18] MEDS: oxyCODONE TAB* 5 MG TAB PO PRN ×5 (01:11→20:30)
[2019-10-18 05:23] LABS: ABS Eosinophils 0.9 10^3/ul (0-0.6); ABS Lymphocytes 0.7 10^3/ul (1.0-4.8); ABS Monocytes 0.4 10^3/ul (0-0.8); ABS Neutrophils 5.8 10^3/ul (1.5-7.7); Eosinophil % 11.3 %; Hematocrit 21 % (35-47); Hemoglobin 7.1 g/dL (12.0-16.0); Lymphocyte % 9.3 %; Mean Corpuscular HGB Conc 34 g/dL (31-36); Mean Corpuscular Hemoglobin 28 pg (27-31); Mean Corpuscular Volume 83 fL (80-97); Platelet Count 305 10^3/uL (150-450); Red Blood Count 2.57 10^6 /uL (3.70-4.87); Red Cell Distribution Width 15 % (10-15); White Blood Count 7.8 10^3/uL (3.5-10.8)
[2019-10-18 05:39] LABS: BUN/Creatinine Ratio 6.2 (8-20); Calcium 7.3 mg/dL (8.6-10.3); EGFR African American 10.9 (>60); Potassium 4.2 mmol/L (3.5-5.0)
[2019-10-18] MEDS: Mometasone/Formoter 200/5 MDI INH SCH ×2 (07:56→20:40)
[2019-10-18] MEDS: Insulin LISPRO* 1 UNITS UNIT SUBCUT SCH ×4 (08:09→21:33)
[2019-10-18] MEDS: Metoprolol Tartrate TAB* 25 MG PO SCH ×2 (09:35→20:30)
[2019-10-18] MEDS: Insulin GLARGINE(*) 1 UNITS UNIT SUBCUT SCH (09:35)
[2019-10-18] MEDS: amLODIPine TAB* 5 MG PO SCH (09:35)
[2019-10-18] MEDS: Ferrous Sulfate DROPS* 15 MG/ML PO SCH (09:35)
--- NOTE | 2019-10-18 10:24 | PN ---
Progress Note - Progress Note Date of Service: 10/18/19 SOAP: Subjective: CC: MRSA PNA and parapneumonic effusion HPI: Ms. Luiz Nunn is a 38 yo female with PMH significant for DM1, HTN, CKD 3, HLD, asthma, GERD, seizure in the setting of DKA; who presented to the hospital for shortness of breath after recent dx MRSA bacteremia, MRSA PNA, and Influenza A. Denies fever, chills, nausea, vomiting, diarrhea, or urinary symptoms. She reports urinating a couple times a day. She continues to have shortness of breath, worse with exertion and occasional cough. She feels like the cough is improving. Reports "shaking" 1-3 times daily. She is nervous about getting an HD cath placed. Objective: Vital Signs - 8 hr 10/18/19 10/18/19 10/18/19 07:31 08:00 09:37 Temperature 98.3 F Pulse Rate 110 Respiratory 24 20 24 Rate Blood Pressure 147/70 (mmHg) O2 Sat by Pulse 100 Oximetry 10/18/19 11:36 Temperature 101.7 F Pulse Rate 108 Respiratory 20 Rate Blood Pressure 131/67 (mmHg) O2 Sat by Pulse 98 Oximetry Physical Exam: General: NAD, laying in bed Neurological: Alert and Oriented HEENT: Moist MM Cardiovascular: Heart rate regular, generalized edema Respiratory: Lung sounds clear with bilateral bibasilar crackles, diminished on the right Abdominal: Bowel sounds present; ABD soft, non tender and obese Skin: No rash Laboratory Results - last 24 hr 10/17/19 10/17/19 10/18/19 16:32 20:14 05:10 Sodium 129 L Potassium 4.2 Chloride 101 Carbon Dioxide 22 Anion Gap 6 BUN 33 H Creatinine 5.34 H Est GFR ( Amer) 10.9 Est GFR (Non-Af Amer) 9.0 BUN/Creatinine Ratio 6.2 L Glucose 103 H POC Glucose (mg/dL) 124 H 108 H Calcium 7.3 L 10/18/19 10/18/19 10/18/19 05:10 05:10 07:21 WBC 7.8 RBC 2.57 L Hgb 7.1 L Hct 21 L MCV 83 MCH 28 MCHC 34 RDW 15 Plt Count 305 MPV 6.0 L Neut % (Auto) 73.9 Lymph % (Auto) 9.3 Cascade % (Auto) 5.3 Eos % (Auto) 11.3 Baso % (Auto) 0.2 Absolute Neuts (auto) 5.8 Absolute Lymphs (auto) 0.7 L Absolute Monos (auto) 0.4 Absolute Eos (auto) 0.9 H Absolute Basos (auto) 0.0 Absolute Nucleated RBC 0.0 Nucleated RBC % 0.0 POC Glucose (mg/dL) 99 Blood Type B Positive Antibody Screen Negative Crossmatch See Detail Microbiology 10/15/19 21:00 Urine Culture - Final Urine Pseudomonas Aeruginosa 10/09/19 16:10 Aerobic Blood Culture - Final Blood Venous No Growth Day 5 Anaerobic Blood Culture - Final No Growth Day 5 10/09/19 16:10 Aerobic Blood Culture - Final Blood Venous No Growth Day 5 Anaerobic Blood Culture - Final No Growth Day 5 10/10/19 18:27 Sterile Body Fluid Culture - Final Pleural Fluid MRSA Sterile Body Fluid Culture - Final MRSA Skin and Soft Tissue MRSA/MSSA (PCR - Final Mrsa Positive S.aureus Positive 10/09/19 23:40 Urine Culture - Final Urine Pseudomonas Aeruginosa 10/10/19 18:06 Gram Stain - Final Body Fluid - Pleura 10/09/19 23:40 Legionella Urinary Antigen - Final Urine Negative Legionella Antigen Streptococcus pneumoniae Ag Screen - Final Negative S. pneumo Antigen Assessment: 1. Fevers. Continues to have intermittent fevers, last was yesterday with T max 101.8. Differential dx: New infection, abscess, C diff, PNA. She is currently being treated for PNA and UTI. No sign of renal abscess on US. Denies diarrhea so low suspicion of C diff. Denies back pain. 2. Parapneumonic effusion in the setting of post influenza MRSA PNA. Sputum culture with MRSA and MRSA bacteremia during last admission. S/P thoracentesis, culture with MRSA. Blood cultures with no growth to date. Continues to have intermittent fevers, last T max 101.8 yesterday. Leukocytosis has resolved. CRP elevated. 3. Acute hypoxic respiratory failure. With shortness of breath. Continues to require supplemental oxygen. ? Secondary to fluid overload and/or PNA. 4. UTI. Initial urine culture on 10/08 with pseudomonas, asymptomatic. Continues to deny symptoms. Repeat urine culture on 10/14 with < 100K pseudomonas. 5. Recent MRSA bacteremia, present during last admission. Initially with 3/4 bottles positive on 09/29/19. Persistent positive blood cultures, last cultures obtained on 10/08 with no growth to date. TTE with no signs of vegetation. SAHIL with no signs of endocarditis. No prosthetic material present. Suspect the source is PNA. 6. CKD, stage 3. Now with acute on chronic NAZIA. ? secondary to recent vancomycin use. No signs of renal abscess on US. Nephrology planning on HD catheter placement if Pt agrees with initiation of dialysis soon. 7. DM1. 8. Obesity. BMI 37.4. Plan: Continue Linezolid (day 15 of ABX since blood cultures cleared) and cefepime ( day 2). Will recheck CRP tomorrow. If she develops another fever, would recommend rechecking blood cultures.
--- NOTE | 2019-10-18 10:29 | PN ---
Subjective Date of Service: 10/18/19 Interval History: Ms. Luiz Nunn states that she has decrease in, but continued cough that is occasionally productive. She c/o SOB and is on 4L O2. She c/o decreased UOP, but notes that she has decreased oral intake. She is frustrated with her situation. She otherwise has no other complaints. Family History: Unchanged from Admission Social History: Unchanged from Admission Past Medical History: Unchanged from Admission Objective Active Medications: Acetaminophen (Tylenol Tab*) 650 mg PO Q4H PRN PRN Reason: MILD PAIN or TEMP > 100.4 Acetylcysteine (Acetylcysteine Inh Marisel*) 400 mg INH [id number] AWAKE [facility] Last Admin: 10/18/19 07:55 Dose: 400 mg Albuterol (Ventolin Hfa Inhaler*) 2 puff INH Q4H PRN PRN Reason: SOB/WHEEZING Last Admin: 10/15/19 18:13 Dose: 2 puff Albuterol/Ipratropium (Duoneb (Albuterol 2.5 Mg/Ipratropium 0.5 Mg)) 1 neb INH [id number] AWAKE [facility] Last Admin: 10/18/19 07:55 Dose: 1 neb Amlodipine Besylate (Norvasc Tab*) 5 mg PO DAILY [facility] Last Admin: 10/18/19 09:35 Dose: 5 mg Dextrose (D50w Syringe 50 Ml*) 12.5 gm IV PUSH .FOR FS < 60 - SS PRN PRN Reason: FS < 60 Last Admin: 10/17/19 09:25 Dose: 12.5 gm Ferrous Sulfate (Ferrous Sulfate Drops*) 15 mg PO DAILY [facility] Last Admin: 10/18/19 09:35 Dose: 15 mg Heparin Sodium (Porcine) (Heparin Flush Picc/Ml/Cvc(*)) 1 - 3 ml FLUSH 0600, 1800 [facility]; Protocol Last Admin: 10/18/19 05:05 Dose: 1 ml Hydralazine HCl (Apresoline Iv*) 5 mg IV SLOW PU Q6H PRN PRN Reason: SYSTOLIC BP GREATER THAN: Last Admin: 10/16/19 21:34 Dose: 5 mg Hydromorphone HCl (Dilaudid Inj*) 0.5 mg IV SLOW PU Q4H PRN PRN Reason: PAIN - SEVERE Linezolid (Zyvox 600 Mg Ivpremix(*)) 600 mg in 300 mls @ 300 mls/hr IVPB Q12H [facility] Last Admin: 10/18/19 01:02 Dose: 300 mls/hr Cefepime HCl (Maxipime 1 Gm In Dextrose Duplex (*)) 1 gm in 50 mls @ 100 mls/ hr IV 1200 [facility] Last Admin: 10/17/19 13:05 Dose: 100 mls/hr Insulin Glargine (Lantus(*)) 50 units SUBCUT DAILY [facility] Last Admin: 10/18/19 09:35 Dose: 50 units Insulin Human Lispro (Humalog*) 0 units SUBCUT ACHS [facility]; Protocol Last Admin: 10/18/19 08:09 Dose: Not Given Lidocaine (Lidoderm 5% Patch*) 1 patch TRANSDERM DAILY PRN PRN Reason: PAIN - MILD Last Admin: 10/15/19 13:28 Dose: 1 patch Metoprolol Tartrate (Lopressor Tab*) 25 mg PO BID [facility] Last Admin: 10/18/19 09:35 Dose: 25 mg Mometasone Furoate/Formoterol Fumar (Dulera 200/5 Mdi*) 2 puff INH BID [facility] Last Admin: 10/18/19 07:56 Dose: 2 puff Ondansetron HCl (Zofran Inj*) 4 mg IV Q6H PRN PRN Reason: NAUSEA Last Admin: 10/15/19 17:06 Dose: 4 mg Oxycodone HCl (Roxycodone Tab*) 10 mg PO Q4H PRN PRN Reason: PAIN - MODERATE Last Admin: 10/18/19 09:37 Dose: 10 mg Pharmacy Profile Note (Lidocaine Patch Remove*) 1 note N/A 2100 [facility] Last Admin: 10/17/19 20:24 Dose: Not Given Polyethylene Glycol/Electrolytes (Miralax (17 Gm Dose Lawson)) 17 gm PO DAILY PRN PRN Reason: CONSTIPATION Vital Signs: Temp Pulse Resp BP Pulse Ox 98.3 F 110 24 147/70 100 10/18/19 07:31 10/18/19 07:31 10/18/19 09:37 10/18/19 07:31 10/18/19 07:31 Oxygen Devices in Use Now: Nasal Cannula Appearance: Ms. Luiz Nunn is a 38 yo black female who is sitting up in bed. She has mild increased work of breathing and is on 4L O2. Eyes: No Scleral Icterus, PERRLA Ears/Nose/Mouth/Throat: NL Teeth, Lips, Gums, Clear Oropharnyx, Mucous Membranes Moist Neck: NL Appearance and Movements; NL JVP, Trachea Midline Respiratory: - - increased work of breathing with inability to complete full sentences; bibasilar course rales, R>L; pigtail drain in place Cardiovascular: NL Sounds; No Murmurs; No JVD, RRR Abdominal: NL Sounds; No Tenderness; No Distention, No Hepatosplenomegaly Extremities: No Clubbing, Cyanosis, - - b/l UE, LE edema Neurological: Alert and Oriented x 3 Result Diagrams: 10/18/19 05:10 10/18/19 05:10 Microbiology and Other Data: Microbiology 10/09/19 23:40 Legionella Urinary Antigen - Final Urine Negative Legionella Antigen Streptococcus pneumoniae Ag Screen - Final Negative S. pneumo Antigen Assess/Plan/Problems-Billing Assessment: Ms. Luiz Nunn is a 38 yo F with PMH of DM type 1, CKD stage 3, HTN; recently hospitalized for MRSA bacteremia secondary to pneumonia, readmitted on 10/09/19 for sepsis secondary to right lower lobe pneumonia and found to have pleural effusion. - Patient Problems (1) Parapneumonic effusion Comment: - Right sided pleural effusion, new during this hospitalization - S/p thoracentesis 10/10/19, 275mL fluid removed - Pleural fluid culture positive for MRSA - US 10/15 reveals that the effusion size is unchanged from 10/12 - Pigtail drain placed 10/15 to try to drain remaining fluid; developed small pneumothorax; now connected to PleurEvac on low wall suction per Chery recs -continues to drain small to moderate amount of straw-colored fluid - Continue linezolid (2) MRSA pneumonia Comment: - Recent hospitalization found to have MRSA pneumonia in setting of influenza A based on sputum culture; had received a one time dose of Dalvance the day prior to this current admission - ID consulted - Pulmonology consulted; metanebs recommended - Consolidation does appear improved since prior hospitalization, but now with new pleural effusion further described above - Encourage incentive spirometer and flutter valve - Continue linezolid (3) MRSA bacteremia Comment: - Diagnosed during previous recent hospitalization - SAHIL performed during last hospitaliation 10/08/19 without evidence of vegetation - 2/2 MRSA pneumonia - ID following - Continue linezolid (4) Acute kidney injury superimposed on CKD Comment: -Still producing sufficient amount of urine -Has CKD d/t diabetic nephropathy, baseline Cr is ~1.5 -Had ATN during recent hospitalization; ?vanco-related -FENa 1.4%, indicates intrinsic, likely ATN -BUN/Cr continue to rise with fluid overload -Appreciate Nephrology consult; suspects septic ATN -Kidney biopsy 10/16 and other labs pending for full workup -plan for HD today and tomorrow after HD cath placement (5) UTI (urinary tract infection) Comment: -Previous culture on 10/08 grew <25k colonies Pseudomonas, but repeat culture on 10/14 now growing >100k colonies Psuedomonas -continue cefepime (renal dosing) (6) Anemia Comment: -H&H down, but remains stable -Hgb 7.1 today; will transfuse 1 U PRBC; consent obtained -Likely anemia of chronic disease related to CKD with superimposed infection causing further drop -Will transfuse for Hgb < 7 (7) Acute respiratory failure Comment: - Requiring 4L, but sating in the high 90s, so suspect she could be easily weaned - likely there is a component of anxiety and oxygen is providing comfort - 2/2 pneumonia and pleural effusion; likely anemia, fluid overload contributing - Wean as tolerated (8) Tachycardia Comment: -Persistent tachycardia, particularly with activity -EKG showing sinus tach -Echo previously unremarkable -VQ show intermediate probability of PE, but VQ mismatch may just be d/t pneumonia -LLE US negative for DVT on 10/10 and RLE US negative for DVT on 10/14, so PE can likely be ruled out -Suspect this is a stress response to infection in a patient who has a high resting HR at baseline (9) Diabetes type I Comment: -Good BG control overall; fasting flucose this a.m. 103 -Continue Lantus, Lispro SS (10) Hypertension Comment: -SBP variable 120-170's -HCTZ and lisinopril on hold for now due to NAZIA -continue norvasc -hydralazine prn (11) Thrombocytosis Comment: - Resolved - Likely 2/2 infection (12) Vaginal candidiasis Comment: -Vaginal complaints resolved -Likely related to IV antibiotics -Completed 3 day course of miconazole suppository (10/09-10/11) (13) DVT prophylaxis Comment: -SCDs (14) Full code status Comment: Status and Disposition: Inpatient. Anticipate d/c home when medically stable, pending clinical course.
[2019-10-18] MEDS: Acetaminophen TAB* 325 MG PO PRN ×3 (11:55→23:29)
--- NOTE | 2019-10-18 11:58 | PN ---
Progress Note - Progress Note Date of Service: 10/18/19 Note: Procedure Note Temporary HD Catheter placement Performed by Dr. Kun Dalton, [facility] Nephrology 10/18/2019 Right Internal Jugular Hemodialysis Catheter Placement Procedure indication: NAZIA needs Hemodialysis Access. Consent was obtained, in chart. Patient understands risks, benefits, alternatives and wants to proceed. 98292: Insertion of non-tunneled Dialysis catheter 61675: Ultrasound guidance for vascular Access Rt IJV was chosen, and patency was checked by US. Procedure indicated for Hemodialysis as patient has no other Access. Following strict hand hygiene and following the standard sterile precautions, and a full sterile attire for myself and all involved in the procedure, including a gown, cap, face mask with an eye shield, and a double pair of sterile gloves. The procedure started with 2 ID time out at the bed side. Catheter Insertion Checklist utilized. Patient was put in Trendelenburg position. US was used throughout the procedure. Surgical towels were placed between the shoulder blades. Right Neck and Chest were prepped with 2% Chlorhexidine, and the surgical field was surrounded by sterile surgical towels. A sterile full body drape was placed to cover the patient from head to toe. Rt IJ was chosen. Under real time US guidance the Rt IJV was accessed by a 21-G needle, then a 0.018 micro wire was threaded through the 21-G needle into the vein and the 21- G needle was pulled out, leaving the micro wire in, then a 4-Fr sheath and stylet were passed over the micro wire into the vein. Both, the micro wire and the stylet were removed and the 4-Fr sheath was kept in place. Then, a 0.035 J tip wire was passed through the 4-Fr sheath, then the 4-Fr sheath was removed and the 0.035 J tip wire was kept in the vein with pressure over the venotomy site. Then a # 11 Blade scalpel was used to oneil the skin near the venotomy, followed by sequential dilatation of the venotomy using 12 then 14 Fr dilators. Bleeding was controlled by pressure over the dilated venotomy site. Then a temporary Hemodialysis Catheter (Zack) was passed over the 0.035 wire into the vein to the central circulation with excellent return in both Ports. The 0.035 J tip wire was removed, and both ports flushed with saline, checked again for flow and draw and both worked very well then flushed again with saline Caps were applied over both ports. The catheter was secured and tethered in place using 3-0 Nylon sutures. CXR called ordered stat to verify the location of the tip and r/o any complications. Complications: None Estimated Bleeding: < 5cc Will start HD soon.
[2019-10-18 12:42] LABS: C-ANCA Negative (Negative)
[2019-10-18] MEDS ORDERED: Witch Hazel PAD* JAR TOPICAL SCH (13:00)
--- NOTE | 2019-10-18 14:26 | PN ---
Progress Note - Progress Note Date of Service: 10/18/19 Note: Inpatient Nephrology FU Note: Performed by Dr. Kun Dalton, [facility] Nephrology 10/18/2019 38 YO AAF MRSA pneumonia MRSA Parapneumonic Rt PLEF s/p pigtail drain. On Linezolid & Cefepime In NAZIA on CKD sCr baseline 1.7-1.8~05/2019 Progressive recurrent NAZIA s/p Kidney Biopsy yesterday, report n/a yet sCr trend: 3.64~10/13 4.01~10/14 4.66~10/15 4.96~10/16 5.34~10/17 Agreed to start HD for fluid overload and worsening NAZIA She has been on HD for 90 min already. Worsening Anemia, Hb 7.1, agreed for PRBCs I spoke today to her , Toni at , and updated him that she tolerated HD Catheter placement and HD well so far. Still febrile, tachycardia and SOB Hospital Meds: Acetaminophen Acetylcysteine Albuterol Albuterol/Ipratropium Amlodipine Dextrose Ferrous Sulfate Heparin Sodium Hydralazine Hydromorphone Linezolid Cefepime Insulin Glargine Insulin Human Lispro Lidocaine Metoprolol Mometasone Ondansetron Oxycodone Polyethylene Glycol Kyle Montes Objective: Vital Signs Temp 101.7 F 10/18/19 11:36 Pulse 108 10/18/19 11:36 Resp 20 10/18/19 11:36 BP 131/67 10/18/19 11:36 Pulse Ox 98 10/18/19 11:36 Intake & Output 10/17/19 10/18/19 10/18/19 18:59 06:59 18:59 Intake Total 399 300 720 Output Total 1160 800 Balance -761 -500 720 Intake: IV Fluids 399 300 ABX - LINEZOLID 310 300 NS 30 cefepime 59 Oral 0 0 720 Output: Chest Tube #1 300 Pigtail Drain 210 Urine 950 500 Other: Estimated Void Small # Bowel Movements 0 0 # Voids 0 1 10 Point multi system exam: Constitutional Alert Oriented x 3 HEENT: No Conjunctivitis Abdomen Soft Abdomen No Ascites Heart: Sinus Tach, Severe Upper and LE Edema, No murmur Lungs: Crackles Extremities: ++ edema, no rash Skin no rash Neurology No deficit. CN intact Hem/Lymph: no palpable lymph nodes Musculoskeletal: No joint swelling Laboratory Reviewed Sodium 129 mmol/L (135-145) L 10/18/19 05:10 Potassium 4.2 mmol/L (3.5-5.0) 10/18/19 05:10 BUN 33 mg/dL (6-24) H 10/18/19 05:10 Creatinine 5.34 mg/dL (0.51-0.95) H 10/18/19 05:10 Hemoglobin A1c 7.7 % (4.0-5.6) H 10/16/19 10:40 Calcium 7.3 mg/dL (8.6-10.3) L 10/18/19 05:10 AST TNP 10/09/19 16:10 ALT 16 U/L (7-52) 10/09/19 16:10 Inpatient Acute Dialysis Note for NAZIA and Hypervolemia Performed by Dr. Kun Dalton, [facility] Nephrology 10/18/2019 I saw her on HD machine HD Duration: 2 Hr UF Goal: 2 L/Rx Vitals: BP: 120/80 HR: 110/m sinus tachycardia Blood Flow: 400 cc/min Dialysate Flow: 600 cc/min Bath: K: 2K Ca: 2.5Ca Na: 138 Hco3: 35 Temp: 36 C Dialyzer: Revaclear Max Access: Rt IJ HDC. No Access Related Issues Meds with HD: None Assessment and Plan: NAZIA on CKD, recurrent, likely septic ATN. Pending Kidney Biopsy results Fluid Overload, started on HD. K Ok, but Na dropping, likely hypervolemic Hyponatremia 2/2 NAZIA Advise 1 Unit PRBCs. She'll need HD again tomorrow Advise low threshold to transfer to MICU She and her were informed about lab/radiology results & prognosis. All questions were answered. They were made part of the treatment plan.
[2019-10-18 16:22] LABS: Phospholipase A2 Receptor IFA Negative (Negative); Phospholipase A2 ReceptorELISA <2 RU/mL
[2019-10-18 17:06] LABS: Albumin 1.7 g/dL (3.4-4.7); Albumin/Globulin Ratio 0.38
[2019-10-18] MEDS: CEFEPIME IV SCH (17:49)
[2019-10-18] MEDS: DEXTROSE IV SCH (17:49)
[2019-10-18] MEDS ORDERED: Acetylcysteine INHALATION SOL* 200 MG/ML NEB.SOLN 10 ML ONE (20:33)
[2019-10-18] MEDS: Lidocaine Patch REMOVE* 1 NOTE MISC SCH (21:33)
[2019-10-19] MEDS: oxyCODONE TAB* 5 MG TAB PO PRN ×5 (01:17→20:45)
[2019-10-19] MEDS: Linezolid 600 MG IVPREMIX(*) 600 MG/300 ML BAG IVPB SCH ×2 (01:17→16:36)
[2019-10-19] MEDS: Acetylcysteine INH SOL* 200 MG/ML 4 ML VIAL (for Resp Thpy) INH SCH (01:46)
[2019-10-19] MEDS: Albuterol/Ipratropium NEB.SOL* Albuterol 2.5 MG/Ipratropium 0.5 MG 3 ML INH SCH (01:47)
[2019-10-19] MEDS: Ondansetron INJ* 2 MG/ML VIAL IV PRN (03:22)
[2019-10-19 04:49] LABS: ABS Lymphocytes 0.8 10^3/ul (1.0-4.8); ABS Monocytes 0.5 10^3/ul (0-0.8); ABS Neutrophils 6.4 10^3/ul (1.5-7.7); Eosinophil % 11.4 %; Hematocrit 23 % (35-47); Hemoglobin 7.6 g/dL (12.0-16.0); Lymphocyte % 8.9 %; Mean Corpuscular HGB Conc 33 g/dL (31-36); Mean Corpuscular Hemoglobin 28 pg (27-31); Mean Corpuscular Volume 84 fL (80-97); Mean Platelet Volume 6.2 fL (7.4-10.4); Platelet Count 243 10^3/uL (150-450); Red Blood Count 2.76 10^6 /uL (3.70-4.87); Red Cell Distribution Width 15 % (10-15); White Blood Count 8.7 10^3/uL (3.5-10.8)
[2019-10-19 05:05] LABS: BUN/Creatinine Ratio 5.9 (8-20); C Reactive Protein 183.71 mg/L (<8.01); Calcium 7.3 mg/dL (8.6-10.3); EGFR African American 13.1 (>60); EGFR Non-African American 10.8 (>60); Potassium 3.8 mmol/L (3.5-5.0)
[2019-10-19] MEDS ORDERED: Albuterol/Ipratropium NEB.SOL* Albuterol 2.5 MG/Ipratropium 0.5 MG 3 ML INH PRN (06:04)
[2019-10-19] MEDS: Mometasone/Formoter 200/5 MDI INH SCH ×2 (08:41→20:17)
[2019-10-19] MEDS: Insulin LISPRO* 1 UNITS UNIT SUBCUT SCH ×4 (09:02→22:06)
[2019-10-19] MEDS: Ferrous Sulfate DROPS* 15 MG/ML PO SCH (09:41)
[2019-10-19] MEDS: Metoprolol Tartrate TAB* 25 MG PO SCH ×2 (09:41→20:45)
[2019-10-19] MEDS: amLODIPine TAB* 5 MG PO SCH (09:41)
[2019-10-19] MEDS: Insulin GLARGINE(*) 1 UNITS UNIT SUBCUT SCH ×2 (09:42→10:02)
[2019-10-19] MEDS: DEXTROSE IV SCH (11:19)
[2019-10-19] MEDS: CEFEPIME IV SCH (11:19)
--- NOTE | 2019-10-19 11:22 | PN ---
Progress Note - Progress Note Date of Service: 10/19/19 Note: Inpatient Nephrology FU Note: Performed by Dr. Kun Dalton, [facility] Nephrology 10/19/2019 38 YO AAF MRSA pneumonia, on Linezolid & Cefepime MRSA Parapneumonic Rt PLEF, s/p pigtail drain. In NAZIA on CKD, Non-Oliguric sCr baseline 1.7-1.8~05/2019 Progressive recurrent NAZIA s/p Kidney Biopsy yesterday, report should be available later today. On HD since 10/17 for fluid overload and progressive NAZIA HD access Rt IJ Temporary HD Catheter~10/17 Her , Toni has been updated. Still febrile, tachycardia and SOB Feels a little better. Yesterday tolerated HD and UF was 2 Liters, and she is set for HD at 12:30p today. Hospital Meds: Acetaminophen Albuterol Albuterol/Ipratropium Amlodipine Ferrous Sulfate Heparin Sodium Hydralazine Hydromorphone Linezolid Cefepime Insulin Glargine Insulin Human Lispro Lidocaine Metoprolol Tartrat Mometasone Furoate Ondansetron Oxycodone Polyethylene Glycol/Electrolytes Objective: Vital Signs Temp 98.9 F 10/19/19 03:11 Pulse 104 10/19/19 07:15 Resp 20 10/19/19 09:41 BP 125/65 10/19/19 07:15 Pulse Ox 99 10/19/19 07:15 Intake & Output 10/18/19 10/19/19 10/19/19 18:59 06:59 18:59 Intake Total 940 695 0 Balance 940 695 0 Intake: IV Fluids 650 ABX - LINEZOLID 600 cefepime 50 IVPB 45 ABX - LINEZOLID 30 cefepime 15 Oral 940 0 0 Other: Estimated Void Small Medium # Bowel Movements 0 0 # Voids 1 0 10 Point multi system exam: Constitutional Alert Oriented x 3 HEENT: No Conjunctivitis Abdomen Soft Abdomen No Ascites Heart: Sinus Tach, Severe Upper and LE Edema, No murmur Lungs: Crackles Extremities: ++ edema, no rash Skin no rash Neurology No deficit. CN intact Hem/Lymph: no palpable lymph nodes Musculoskeletal: No joint swelling Laboratory Reviewed Sodium 127 mmol/L (135-145) L 03/27/20 04:20 Potassium 3.8 mmol/L (3.5-5.0) 10/19/19 04:20 BUN 27 mg/dL (6-24) H 10/19/19 04:20 Creatinine 4.56 mg/dL (0.51-0.95) H 10/19/19 04:20 Hemoglobin A1c 7.7 % (4.0-5.6) H 10/16/19 10:40 Calcium 7.3 mg/dL (8.6-10.3) L 10/19/19 04:20 AST TNP 10/09/19 16:10 ALT 16 U/L (7-52) 10/09/19 16:10 Assessment and Plan: NAZIA on CKD, likely septic ATN, pending Kidney Biopsy results Fluid Overload, on HD since yesterday, will ramp up HD treatment today to 3 Hr with goal UF 3L No plans for HD over the weekend and will f/u sCr and UOP trends for any sign of renal recovery. K Ok Na still low, hypervolemic Hyponatremia She and her were informed about lab/radiology results & prognosis. All questions were answered. They were made part of the treatment plan
[2019-10-19] MEDS: Acetaminophen TAB* 325 MG PO PRN ×2 (11:26→16:37)
--- NOTE | 2019-10-19 11:31 | PN ---
Progress Note - Progress Note Date of Service: 10/19/19 SOAP: Subjective: CC: MRSA PNA and parapneumonic effusion HPI: Ms. Luiz Nunn is a 38 yo female with PMH significant for DM1, HTN, CKD 3, HLD, asthma, GERD, seizure in the setting of DKA; who presented to the hospital for shortness of breath after recent dx MRSA bacteremia, MRSA PNA, and Influenza A. Denies fever, chills, nausea, vomiting, diarrhea, or urinary symptoms. She reports urinating a couple times a day. She continues to have shortness of breath, worse with exertion or any movement and occasional cough. She feels like the cough is improving. Also difficulty catching breath while talking. Reports "shaking" 1-3 times daily. She reports lower back pain, she feels is due to being in bed all the time. Objective: Vital Signs - 8 hr 10/19/19 10/19/19 10/19/19 03:32 05:27 07:15 Pulse Rate 104 Respiratory 18 22 26 Rate Blood Pressure 125/65 (mmHg) O2 Sat by Pulse 99 Oximetry Physical Exam: General: Ill appearing, NAD, laying in bed Neurological: Alert and Oriented HEENT: Moist MM Cardiovascular: Heart rate regular, generalized edema Respiratory: Lung sounds clear with bilateral bibasilar crackles, diminished on the right. Lung sounds improved from yesterday Abdominal: Bowel sounds present; ABD soft, non tender and obese MSK: No tenderness with palpation of the neck, back, or spine Skin: No rash Laboratory Results - last 24 hr 10/16/19 10/16/19 10/18/19 10:40 10:40 05:10 Total Protein (PEP) 6.0 L Albumin (PEP) 1.7 L Albumin/Globulin (PEP) 0.38 Mmmow-6-Xlfrlrdjx 0.4 H Owiid-1-Gcwxyoxyd 1.1 H Gdxc-3-Nptucslp 0.8 Gamma Globulins 2.0 H M-Jerel Not Reportable M-Jerel 2 Not Reportable PEP Impression See comment c-ANCA Antibody Negative p-ANCA Antibody Negative Anti-ds DNA IgG Ab <12.3 Phospholip A2 Rec IFA Negative Phospholip A2 Rec DOROTHY <2 Blood Type B Positive Antibody Screen Negative Crossmatch See Detail 10/18/19 10/19/19 10/19/19 20:35 04:20 04:20 WBC 8.7 RBC 2.76 L Hgb 7.6 L Hct 23 L MCV 84 MCH 28 MCHC 33 RDW 15 Plt Count 243 MPV 6.2 L Neut % (Auto) 73.7 Lymph % (Auto) 8.9 [place] % (Auto) 5.8 Eos % (Auto) 11.4 Baso % (Auto) 0.2 Absolute Neuts (auto) 6.4 Absolute Lymphs (auto) 0.8 L Absolute Monos (auto) 0.5 Absolute Eos (auto) 1.0 H Absolute Basos (auto) 0.0 Absolute Nucleated RBC 0.0 Nucleated RBC % 0.0 Sodium 127 L Potassium 3.8 Chloride 97 L Carbon Dioxide 24 Anion Gap 6 BUN 27 H Creatinine 4.56 H Est GFR ( Amer) 13.1 Est GFR (Non-Af Amer) 10.8 BUN/Creatinine Ratio 5.9 L Glucose 97 POC Glucose (mg/dL) 137 H Calcium 7.3 L C-Reactive Protein 183.71 H Microbiology 10/18/19 17:07 Transfusion Reaction Gram Stain - Final Blood Bag 10/15/19 21:00 Urine Culture - Final Urine Pseudomonas Aeruginosa 10/09/19 16:10 Aerobic Blood Culture - Final Blood Venous No Growth Day 5 Anaerobic Blood Culture - Final No Growth Day 5 10/09/19 16:10 Aerobic Blood Culture - Final Blood Venous No Growth Day 5 Anaerobic Blood Culture - Final No Growth Day 5 10/10/19 18:27 Sterile Body Fluid Culture - Final Pleural Fluid MRSA Sterile Body Fluid Culture - Final MRSA Skin and Soft Tissue MRSA/MSSA (PCR - Final Mrsa Positive S.aureus Positive 10/09/19 23:40 Urine Culture - Final Urine Pseudomonas Aeruginosa 10/10/19 18:06 Gram Stain - Final Body Fluid - Pleura 10/09/19 23:40 Legionella Urinary Antigen - Final Urine Negative Legionella Antigen Streptococcus pneumoniae Ag Screen - Final Negative S. pneumo Antigen Assessment: 1. Fevers. Continues to have intermittent fevers, last was yesterday with T max 101.7. Differential dx: New infection, abscess, C diff, PNA. She is currently being treated for PNA and UTI. No sign of renal abscess on US. Denies diarrhea so low suspicion of C diff. Denies back, neck or spine pain and no tenderness with palpation. 2. Parapneumonic effusion in the setting of post influenza MRSA PNA. Sputum culture with MRSA and MRSA bacteremia during last admission. S/P thoracentesis, culture with MRSA. Blood cultures with no growth to date. Continues to have intermittent fevers, last T max 101.7 yesterday. Leukocytosis has resolved. CRP elevated. 3. Acute hypoxic respiratory failure. With shortness of breath. Continues to require supplemental oxygen. ? Secondary to fluid overload and/or PNA. 4. UTI. Initial urine culture on 10/08 with pseudomonas, asymptomatic. Continues to deny symptoms. Repeat urine culture on 10/14 with < 100K pseudomonas. 5. Recent MRSA bacteremia, present during last admission. Initially with 3/4 bottles positive on 09/29/19. Persistent positive blood cultures, last cultures obtained on 10/08 with no growth to date. TTE with no signs of vegetation. SAHIL with no signs of endocarditis. No prosthetic material present. Suspect the source is PNA. 6. CKD, stage 3. Now with acute on chronic NAZIA. ? secondary to recent vancomycin use. No signs of renal abscess on US. S/P HD cath and started HD yesterday. 7. DM1. 8. Obesity. BMI 37.4. Plan: Continue Linezolid (day 16 of ABX since blood cultures cleared) and cefepime ( day 3/5). Will get a repeat chest CT without contrast today.
[2019-10-19] MEDS ORDERED: EPOETIN ALFA-EPBX * 10,000 UNIT/ML VIAL IV ONE (13:45)
[2019-10-19] MEDS ORDERED: Heparin DIALYSIS ONLY(*) 1,000 UNITS/ML VIAL DIALYSIS ONE (14:00)
[2019-10-19 16:44] LABS: Influenza A Molecular Negative (Negative); Influenza B Molecular Negative (Negative)
--- NOTE | 2019-10-19 17:13 | PN ---
Subjective Date of Service: 10/19/19 Interval History: Ms. Luiz Nunn states she continues to have productive cough, shortness of breath, and fevers. She reports that her dyspnea improved during HD, but then returned after termination of HD. She is currently on 3L O2. She had a BM today that was loose. She has no other complaints today. Family History: Unchanged from Admission Social History: Unchanged from Admission Past Medical History: Unchanged from Admission Objective Active Medications: Acetaminophen (Tylenol Tab*) 650 mg PO Q4H PRN PRN Reason: MILD PAIN or TEMP > 100.4 Last Admin: 10/19/19 16:37 Dose: 650 mg Albuterol (Ventolin Hfa Inhaler*) 2 puff INH Q4H PRN PRN Reason: SOB/WHEEZING Last Admin: 10/15/19 18:13 Dose: 2 puff Albuterol/Ipratropium (Duoneb (Albuterol 2.5 Mg/Ipratropium 0.5 Mg)) 1 neb INH [id number] AWAKE PRN PRN Reason: clinically indicated Amlodipine Besylate (Norvasc Tab*) 5 mg PO DAILY [facility] Last Admin: 10/19/19 09:41 Dose: 5 mg Dextrose (D50w Syringe 50 Ml*) 12.5 gm IV PUSH .FOR FS < 60 - SS PRN PRN Reason: FS < 60 Last Admin: 10/17/19 09:25 Dose: 12.5 gm Heparin Sodium (Porcine) (Heparin Flush Picc/Ml/Cvc(*)) 1 - 3 ml FLUSH 0600, 1800 [facility]; Protocol Last Admin: 10/19/19 16:56 Dose: Not Given Hydralazine HCl (Apresoline Iv*) 5 mg IV SLOW PU Q6H PRN PRN Reason: SYSTOLIC BP GREATER THAN: Last Admin: 10/16/19 21:34 Dose: 5 mg Hydromorphone HCl (Dilaudid Inj*) 0.5 mg IV SLOW PU Q4H PRN PRN Reason: PAIN - SEVERE Linezolid (Zyvox 600 Mg Ivpremix(*)) 600 mg in 300 mls @ 300 mls/hr IVPB Q12H [facility] Last Admin: 10/19/19 16:36 Dose: 300 mls/hr Cefepime HCl (Maxipime 1 Gm In Dextrose Duplex (*)) 1 gm in 50 mls @ 100 mls/ hr IV 1200 [facility] Last Admin: 10/19/19 11:19 Dose: 100 mls/hr Insulin Glargine (Lantus(*)) 30 units SUBCUT DAILY [facility] Last Admin: 10/19/19 09:42 Dose: 30 unit Insulin Human Lispro (Humalog*) 0 units SUBCUT ACHS [facility]; Protocol Last Admin: 10/19/19 16:55 Dose: Not Given Lidocaine (Lidoderm 5% Patch*) 1 patch TRANSDERM DAILY PRN PRN Reason: PAIN - MILD Last Admin: 10/15/19 13:28 Dose: 1 patch Metoprolol Tartrate (Lopressor Tab*) 25 mg PO BID [facility] Last Admin: 10/19/19 09:41 Dose: 25 mg Mometasone Furoate/Formoterol Fumar (Dulera 200/5 Mdi*) 2 puff INH BID [facility] Last Admin: 10/19/19 08:41 Dose: 2 puff Ondansetron HCl (Zofran Inj*) 4 mg IV Q6H PRN PRN Reason: NAUSEA Last Admin: 10/19/19 03:22 Dose: 4 mg Oxycodone HCl (Roxycodone Tab*) 10 mg PO Q4H PRN PRN Reason: PAIN - MODERATE Last Admin: 10/19/19 16:36 Dose: 10 mg Pharmacy Profile Note (Lidocaine Patch Remove*) 1 note N/A 2100 [facility] Last Admin: 10/18/19 21:33 Dose: Not Given Polyethylene Glycol/Electrolytes (Miralax (17 Gm Dose Lawson)) 17 gm PO DAILY PRN PRN Reason: CONSTIPATION Last Admin: 10/19/19 09:41 Dose: 17 gm Vital Signs: Temp Pulse Resp BP Pulse Ox 101.3 F 129 22 133/57 98 10/19/19 16:17 10/19/19 16:17 10/19/19 16:36 10/19/19 16:17 10/19/19 16:17 Oxygen Devices in Use Now: Nasal Cannula Appearance: Ms. Luiz Nunn is a young, acutely ill-appearing black female with NC in place who is unable to complete full sentences and has increased work of breathing. Eyes: No Scleral Icterus, PERRLA Ears/Nose/Mouth/Throat: NL Teeth, Lips, Gums, Clear Oropharnyx, Mucous Membranes Moist Neck: NL Appearance and Movements; NL JVP, Trachea Midline Respiratory: - - increased work of breathing, chest expansion symmetrical; b/l course rales, R>L that appear improved from yesterday's exam; no wheeze, rhonchi Cardiovascular: NL Sounds; No Murmurs; No JVD, RRR, - - b/l UE, LE 1-2+ pitting edema Abdominal: NL Sounds; No Tenderness; No Distention, No Hepatosplenomegaly Extremities: No Edema, No Clubbing, Cyanosis Neurological: Alert and Oriented x 3 Result Diagrams: 10/19/19 04:20 10/19/19 04:20 Microbiology and Other Data: Microbiology 10/09/19 23:40 Legionella Urinary Antigen - Final Urine Negative Legionella Antigen Streptococcus pneumoniae Ag Screen - Final Negative S. pneumo Antigen Assess/Plan/Problems-Billing Assessment: Ms. Luiz Nunn is a 38 yo F with PMH of DM type 1, CKD stage 3, HTN; recently hospitalized for MRSA bacteremia secondary to pneumonia, readmitted on 10/09/19 for sepsis secondary to right lower lobe pneumonia and found to have pleural effusion. - Patient Problems (1) Parapneumonic effusion Comment: - Right sided pleural effusion, new during this hospitalization - S/p thoracentesis 10/10/19, 275mL fluid removed - Pleural fluid culture positive for MRSA - US 10/15 reveals that the effusion size is unchanged from 10/12 - Pigtail drain placed 10/15 to try to drain remaining fluid; developed small pneumothorax; now connected to PleurEvac on low wall suction per Chery recchristopher -continues to drain small to moderate amount of straw-colored fluid - Continue linezolid -repeat CT today (2) MRSA pneumonia Comment: - Recent hospitalization found to have MRSA pneumonia in setting of influenza A based on sputum culture; had received a one time dose of Dalvance the day prior to this current admission - ID consulted - Pulmonology consulted; metanebs recommended - Consolidation does appear improved since prior hospitalization, but now with new pleural effusion further described above - Encourage incentive spirometer and flutter valve - Continue linezolid (3) MRSA bacteremia Comment: - Diagnosed during previous recent hospitalization - SAHIL performed during last hospitaliation 10/08/19 without evidence of vegetation - 2/2 MRSA pneumonia - ID following - Continue linezolid (4) Acute kidney injury superimposed on CKD Comment: -Still producing sufficient amount of urine -Has CKD d/t diabetic nephropathy, baseline Cr is ~1.5 -Had ATN during recent hospitalization; ?vanco-related -FENa 1.4%, indicates intrinsic, likely ATN -BUN/Cr continue to rise with fluid overload -Appreciate Nephrology consult; suspects septic ATN -has completed HD 10/17, 10/18 -kidney bx consistent with collapsing FSGS -HIV negative; COVID-19 negative -EBV, parvovirus ordered; repeat COVID-19, influenza (5) UTI (urinary tract infection) Comment: -Previous culture on 10/08 grew <25k colonies Pseudomonas, but repeat culture on 10/14 now growing >100k colonies Psuedomonas -continue cefepime (renal dosing) for total of 5 days (6) Anemia Comment: -H&H down, but remains stable -Likely anemia of chronic disease related to CKD with superimposed infection causing further drop -Hgb 7.4 today -attempted transfusion yesterday, but d/c d/t reaction (temperature) -transfuse 1 U PRBC today and repeat CBC in a.m. -Will transfuse for Hgb < 7 (7) Acute respiratory failure Comment: - Requiring 3L, but sating in the high 90s - 2/2 pneumonia and pleural effusion; likely anemia, fluid overload contributing -1U PRBC today; continued HD per nephrology recs will hopefully improve hypoxia - Wean as tolerated (8) Tachycardia Comment: -Persistent tachycardia, particularly with activity -EKG showing sinus tach -Echo previously unremarkable -VQ show intermediate probability of PE, but VQ mismatch may just be d/t pneumonia -LLE US negative for DVT on 10/10 and RLE US negative for DVT on 10/14, so PE can likely be ruled out -Suspect this is a stress response to infection in a patient who has a high resting HR at baseline (9) Diabetes type I Comment: -Good BG control overall; fasting glucose this a.m. 97 -glargine decreased from 50 to 30 d/t hypoglycemia yesterday and decreased PO intake -Continue Lispro SS (10) Hypertension Comment: -SBP variable 120-130's -HCTZ and lisinopril on hold for now due to NAZIA -continue norvasc -hydralazine prn (11) DVT prophylaxis Comment: -SCDs (12) Full code status Comment: Status and Disposition: Inpatient. Anticipate d/c home when medically stable, pending clinical course.
[2019-10-19] MEDS: Lidocaine Patch REMOVE* 1 NOTE MISC SCH (22:03)
[2019-10-20] MEDS: Ondansetron INJ* 2 MG/ML VIAL IV PRN (00:08)
[2019-10-20] MEDS: oxyCODONE TAB* 5 MG TAB PO PRN ×5 (00:51→19:40)
[2019-10-20] MEDS: Linezolid 600 MG IVPREMIX(*) 600 MG/300 ML BAG IVPB SCH ×2 (02:34→14:06)
[2019-10-20] MEDS: Mometasone/Formoter 200/5 MDI INH SCH ×2 (07:54→19:15)
[2019-10-20] MEDS: Metoprolol Tartrate TAB* 25 MG PO SCH ×2 (08:01→21:53)
[2019-10-20] MEDS: Insulin GLARGINE(*) 1 UNITS UNIT SUBCUT SCH (08:02)
[2019-10-20] MEDS: amLODIPine TAB* 5 MG PO SCH (08:02)
[2019-10-20] MEDS: Insulin LISPRO* 1 UNITS UNIT SUBCUT SCH ×4 (10:37→23:10)
[2019-10-20] MEDS: CEFEPIME IV SCH (12:53)
[2019-10-20] MEDS: DEXTROSE IV SCH (12:53)
--- NOTE | 2019-10-20 14:34 | PN ---
Subjective Date of Service: 10/20/19 Interval History: Ms. Luiz Nunn states she continues to have have occasional productive cough and shortness of breath, although she reports feeling better. She states that she continues to become more SOB with activity, but that sitting up appears to help breathing. No other complaints today. Family History: Unchanged from Admission Social History: Unchanged from Admission Past Medical History: Unchanged from Admission Objective Active Medications: Acetaminophen (Tylenol Tab*) 650 mg PO Q4H PRN PRN Reason: MILD PAIN or TEMP > 100.4 Last Admin: 10/19/19 16:37 Dose: 650 mg Albuterol (Ventolin Hfa Inhaler*) 2 puff INH Q4H PRN PRN Reason: SOB/WHEEZING Last Admin: 10/15/19 18:13 Dose: 2 puff Albuterol/Ipratropium (Duoneb (Albuterol 2.5 Mg/Ipratropium 0.5 Mg)) 1 neb INH [id number] AWAKE PRN PRN Reason: clinically indicated Amlodipine Besylate (Norvasc Tab*) 5 mg PO DAILY [facility] Last Admin: 10/20/19 08:02 Dose: 5 mg Dextrose (D50w Syringe 50 Ml*) 12.5 gm IV PUSH .FOR FS < 60 - SS PRN PRN Reason: FS < 60 Last Admin: 10/17/19 09:25 Dose: 12.5 gm Heparin Sodium (Porcine) (Heparin Flush Picc/Ml/Cvc(*)) 1 - 3 ml FLUSH 0600, 1800 [facility]; Protocol Last Admin: 10/20/19 05:01 Dose: 1 ml Hydralazine HCl (Apresoline Iv*) 5 mg IV SLOW PU Q6H PRN PRN Reason: SYSTOLIC BP GREATER THAN: Last Admin: 10/16/19 21:34 Dose: 5 mg Hydromorphone HCl (Dilaudid Inj*) 0.5 mg IV SLOW PU Q4H PRN PRN Reason: PAIN - SEVERE Linezolid (Zyvox 600 Mg Ivpremix(*)) 600 mg in 300 mls @ 300 mls/hr IVPB Q12H [facility] Last Admin: 10/20/19 14:06 Dose: 300 mls/hr Cefepime HCl (Maxipime 1 Gm In Dextrose Duplex (*)) 1 gm in 50 mls @ 100 mls/ hr IV 1200 [facility] Stop: 10/21/19 20:00 Last Admin: 10/20/19 12:53 Dose: 100 mls/hr Insulin Glargine (Lantus(*)) 30 units SUBCUT DAILY [facility] Last Admin: 10/20/19 08:02 Dose: 320 unit Insulin Human Lispro (Humalog*) 0 units SUBCUT ACHS [facility]; Protocol Last Admin: 10/20/19 12:56 Dose: 4 unit Lidocaine (Lidoderm 5% Patch*) 1 patch TRANSDERM DAILY PRN PRN Reason: PAIN - MILD Last Admin: 10/15/19 13:28 Dose: 1 patch Metoprolol Tartrate (Lopressor Tab*) 25 mg PO BID [facility] Last Admin: 10/20/19 08:01 Dose: 25 mg Mometasone Furoate/Formoterol Fumar (Dulera 200/5 Mdi*) 2 puff INH BID [facility] Last Admin: 10/20/19 07:54 Dose: 2 puff Ondansetron HCl (Zofran Inj*) 4 mg IV Q6H PRN PRN Reason: NAUSEA Last Admin: 10/20/19 00:08 Dose: 4 mg Oxycodone HCl (Roxycodone Tab*) 10 mg PO Q4H PRN PRN Reason: PAIN - MODERATE Last Admin: 10/20/19 10:42 Dose: 10 mg Pharmacy Profile Note (Lidocaine Patch Remove*) 1 note N/A 2100 [facility] Last Admin: 10/19/19 22:03 Dose: Not Given Polyethylene Glycol/Electrolytes (Miralax (17 Gm Dose Lawson)) 17 gm PO DAILY PRN PRN Reason: CONSTIPATION Last Admin: 10/19/19 09:41 Dose: 17 gm Vital Signs: Temp Pulse Resp BP Pulse Ox 98.4 F 99 24 124/57 99 10/20/19 12:50 10/20/19 12:50 10/20/19 12:53 10/20/19 12:50 10/20/19 12:50 Oxygen Devices in Use Now: Nasal Cannula Appearance: Ms. Luiz Nunn is a 38yo black female who is sitting in chair Eyes: No Scleral Icterus, PERRLA Ears/Nose/Mouth/Throat: NL Teeth, Lips, Gums, Clear Oropharnyx, Mucous Membranes Moist Neck: NL Appearance and Movements; NL JVP, Trachea Midline Respiratory: - - mild increased work of breathing, but able to complete full sentences; bibasilar rales, R>L; R chest tube in place with straw-colored drainage Cardiovascular: NL Sounds; No Murmurs; No JVD, RRR, No Edema Abdominal: NL Sounds; No Tenderness; No Distention, No Hepatosplenomegaly Extremities: No Edema, No Clubbing, Cyanosis Neurological: Alert and Oriented x 3 Result Diagrams: 10/19/19 04:20 10/19/19 04:20 Microbiology and Other Data: Microbiology 10/09/19 23:40 Legionella Urinary Antigen - Final Urine Negative Legionella Antigen Streptococcus pneumoniae Ag Screen - Final Negative S. pneumo Antigen Assess/Plan/Problems-Billing Assessment: Ms. Luiz Nunn is a 38 yo F with PMH of DM type 1, CKD stage 3, HTN; recently hospitalized for MRSA bacteremia secondary to pneumonia, readmitted on 10/09/19 for sepsis secondary to right lower lobe pneumonia and found to have pleural effusion. - Patient Problems (1) Parapneumonic effusion Comment: - Right sided pleural effusion, new during this hospitalization - S/p thoracentesis 10/10/19, 275mL fluid removed; fluid is MRSA positive - US 10/15 reveals that the effusion size is unchanged from 10/12 - Pigtail drain placed 10/15; developed small pneumothorax; now connected to PleurEvac on low wall suction per Chery recs -continues to drain small to moderate amount of straw-colored fluid - Continue linezolid -repeat CT 10/18: new left lung opacity, improvement in R lung opacities, findings consistent with b/l pneumonitis; resolution of R pleural effusion; mild mediastinal LAD (2) MRSA pneumonia Comment: - Recent hospitalization found to have MRSA pneumonia in setting of influenza A based on sputum culture; had received a one time dose of Dalvance the day prior to this current admission - ID consulted - Pulmonology consulted; metanebs recommended - Consolidation does appear improved since prior hospitalization, but now with new pleural effusion; pigtail in place and draining - Encourage incentive spirometer and flutter valve - Continue linezolid (3) MRSA bacteremia Comment: - Diagnosed during previous recent hospitalization - SAHIL performed during last hospitaliation 10/08/19 without evidence of vegetation - 2/2 MRSA pneumonia - ID following - Continue linezolid (4) Acute kidney injury superimposed on CKD Comment: -Still producing sufficient amount of urine -Has CKD d/t diabetic nephropathy, baseline Cr is ~1.5 -BUN/Cr continue to rise with fluid overload -Appreciate Nephrology consult -has completed HD 10/17, 10/18 -kidney bx consistent with collapsing FSGS -HIV negative; COVID-19 negative -EBV, parvovirus, SLE workup ordered; repeat COVID-19, influenza (5) UTI (urinary tract infection) Comment: -Previous culture on 10/08 grew <25k colonies Pseudomonas, but repeat culture on 10/14 now growing >100k colonies Psuedomonas -continue cefepime (renal dosing) for total of 5 days (6) Anemia Comment: -H&H down, but remains stable -Likely anemia of chronic disease related to CKD with superimposed infection causing further drop -pt has had 1 partial (d/c d/t transfusion reaction), 1 full transfusion since admission -continue to monitor H/H; transfuse for Hgb < 7 (7) Acute respiratory failure Comment: - Requiring 3L, but sating in the high 90s - 2/2 pneumonia and pleural effusion; likely anemia, fluid overload contributing -continued HD per nephrology recs; has received PRBC - Wean as tolerated (8) Tachycardia Comment: -Persistent tachycardia, particularly with activity -EKG showing sinus tach -Echo previously unremarkable -VQ show intermediate probability of PE, but VQ mismatch may just be d/t pneumonia -LLE US negative for DVT on 10/10 and RLE US negative for DVT on 10/14, so PE can likely be ruled out -Suspect this is a stress response to infection in a patient who has a high resting HR at baseline (9) Diabetes type I Comment: -Good BG control overall; fasting glucose this a.m. 140 -glargine decreased from 50 to 30 d/t hypoglycemia yesterday and decreased PO intake -Continue Lispro SS (10) Hypertension Comment: -SBP variable 110-130's -HCTZ and lisinopril on hold due to NAZIA -continue norvasc -hydralazine prn (has not required this recently) (11) DVT prophylaxis Comment: -SCDs (12) Full code status Comment: Status and Disposition: Inpatient. Anticipate d/c home when medically stable, pending clinical course.
[2019-10-20] MEDS: Lidocaine Patch REMOVE* 1 NOTE MISC SCH (21:52)
[2019-10-20] MEDS ORDERED: Al Hydrox/Mg Hydrox/Simet LIQ* 30 ML UDC PO PRN (22:34)
[2019-10-21] MEDS: oxyCODONE TAB* 5 MG TAB PO PRN ×6 (00:01→23:40)
[2019-10-21] MEDS: Linezolid 600 MG IVPREMIX(*) 600 MG/300 ML BAG IVPB SCH ×2 (01:29→14:42)
[2019-10-21] MEDS: Mometasone/Formoter 200/5 MDI INH SCH ×2 (07:44→20:09)
[2019-10-21] MEDS: Metoprolol Tartrate TAB* 25 MG PO SCH ×2 (09:07→20:59)
[2019-10-21] MEDS: amLODIPine TAB* 5 MG PO SCH (09:07)
[2019-10-21 10:12] LABS: ABS Eosinophils 0.9 10^3/ul (0-0.6); ABS Lymphocytes 0.8 10^3/ul (1.0-4.8); ABS Monocytes 0.6 10^3/ul (0-0.8); Eosinophil % 9.9 %; Hematocrit 27 % (35-47); Hemoglobin 8.9 g/dL (12.0-16.0); Lymphocyte % 8.1 %; Mean Corpuscular HGB Conc 33 g/dL (31-36); Mean Corpuscular Hemoglobin 27 pg (27-31); Mean Corpuscular Volume 83 fL (80-97); Mean Platelet Volume 6.2 fL (7.4-10.4); Platelet Count 250 10^3/uL (150-450); Red Blood Count 3.29 10^6 /uL (3.70-4.87); Red Cell Distribution Width 16 % (10-15); White Blood Count 9.4 10^3/uL (3.5-10.8)
[2019-10-21] MEDS: Insulin LISPRO* 1 UNITS UNIT SUBCUT SCH ×4 (10:22→22:27)
[2019-10-21] MEDS: Insulin GLARGINE(*) 1 UNITS UNIT SUBCUT SCH (10:23)
[2019-10-21 10:27] LABS: Albumin 2.2 g/dL (3.2-5.2); BUN/Creatinine Ratio 5.3 (8-20); Calcium 7.1 mg/dL (8.6-10.3); EGFR African American 13.3 (>60); Globulin 3.9 g/dL (2-4); Potassium 4.2 mmol/L (3.5-5.0); Total Protein 6.1 g/dL (6.4-8.9)
[2019-10-21 10:28] LABS: Albumin/Globulin Ratio 0.6 (1-3); Total Bilirubin 0.4 mg/dL (0.2-1.0)
[2019-10-21 10:53] LABS: C Reactive Protein 115.37 mg/L (<8.01)
[2019-10-21 11:43] LABS: Erythrocyte Sed Rate 74 mm/Hr (0-19)
[2019-10-21] MEDS: CEFEPIME IV SCH (11:59)
[2019-10-21] MEDS: DEXTROSE IV SCH (11:59)
--- NOTE | 2019-10-21 14:58 | PN ---
Subjective Date of Service: 10/21/19 Interval History: Ms. Luiz Nunn states that she feels more SOB today when compared to yesterday; she is currently requiring 2L O2. She continues to have a mild productive cough. She reports LUE edema, pain throughout the length of the arm. She has no other complaints today. Family History: Unchanged from Admission Social History: Unchanged from Admission Past Medical History: Unchanged from Admission Objective Active Medications: Acetaminophen (Tylenol Tab*) 650 mg PO Q4H PRN PRN Reason: MILD PAIN or TEMP > 100.4 Last Admin: 10/19/19 16:37 Dose: 650 mg Al Hydrox/Mg Hydrox/Simethicone (Maalox Plus*) 30 ml PO Q6H PRN PRN Reason: INDIGESTION Albuterol (Ventolin Hfa Inhaler*) 2 puff INH Q4H PRN PRN Reason: SOB/WHEEZING Last Admin: 10/15/19 18:13 Dose: 2 puff Albuterol/Ipratropium (Duoneb (Albuterol 2.5 Mg/Ipratropium 0.5 Mg)) 1 neb INH [id number] AWAKE PRN PRN Reason: clinically indicated Amlodipine Besylate (Norvasc Tab*) 5 mg PO DAILY [facility] Last Admin: 10/21/19 09:07 Dose: 5 mg Dextrose (D50w Syringe 50 Ml*) 12.5 gm IV PUSH .FOR FS < 60 - SS PRN PRN Reason: FS < 60 Last Admin: 10/17/19 09:25 Dose: 12.5 gm Heparin Sodium (Porcine) (Heparin Flush Picc/Ml/Cvc(*)) 1 - 3 ml FLUSH 0600, 1800 [facility]; Protocol Last Admin: 10/21/19 05:21 Dose: 1 ml Hydralazine HCl (Apresoline Iv*) 5 mg IV SLOW PU Q6H PRN PRN Reason: SYSTOLIC BP GREATER THAN: Last Admin: 10/16/19 21:34 Dose: 5 mg Hydromorphone HCl (Dilaudid Inj*) 0.5 mg IV SLOW PU Q4H PRN PRN Reason: PAIN - SEVERE Linezolid (Zyvox 600 Mg Ivpremix(*)) 600 mg in 300 mls @ 300 mls/hr IVPB Q12H [facility] Last Admin: 10/21/19 14:42 Dose: 300 mls/hr Cefepime HCl (Maxipime 1 Gm In Dextrose Duplex (*)) 1 gm in 50 mls @ 100 mls/ hr IV 1200 [facility] Stop: 10/21/19 20:00 Last Admin: 10/21/19 11:59 Dose: 100 mls/hr Insulin Glargine (Lantus(*)) 30 units SUBCUT DAILY [facility] Last Admin: 10/21/19 10:23 Dose: 30 unit Insulin Human Lispro (Humalog*) 0 units SUBCUT ACHS [facility]; Protocol Last Admin: 10/21/19 13:29 Dose: 7 unit Lidocaine (Lidoderm 5% Patch*) 1 patch TRANSDERM DAILY PRN PRN Reason: PAIN - MILD Last Admin: 10/15/19 13:28 Dose: 1 patch Metoprolol Tartrate (Lopressor Tab*) 25 mg PO BID [facility] Last Admin: 10/21/19 09:07 Dose: 25 mg Mometasone Furoate/Formoterol Fumar (Dulera 200/5 Mdi*) 2 puff INH BID [facility] Last Admin: 10/21/19 07:44 Dose: 2 puff Ondansetron HCl (Zofran Inj*) 4 mg IV Q6H PRN PRN Reason: NAUSEA Last Admin: 10/20/19 00:08 Dose: 4 mg Oxycodone HCl (Roxycodone Tab*) 10 mg PO Q4H PRN PRN Reason: PAIN - MODERATE Last Admin: 10/21/19 10:40 Dose: 10 mg Pharmacy Profile Note (Lidocaine Patch Remove*) 1 note N/A 2100 [facility] Last Admin: 10/20/19 21:52 Dose: Not Given Polyethylene Glycol/Electrolytes (Miralax (17 Gm Dose Lawson)) 17 gm PO DAILY PRN PRN Reason: CONSTIPATION Last Admin: 10/19/19 09:41 Dose: 17 gm Vital Signs: Temp Pulse Resp BP Pulse Ox 100.0 F 104 20 129/64 98 10/21/19 14:50 10/21/19 14:50 10/21/19 14:53 10/21/19 14:50 10/21/19 14:50 Oxygen Devices in Use Now: Nasal Cannula Appearance: Ms. Luiz Nnun is a young, obese black female who is sitting up in bed. She has mild increased work of breathing. Eyes: No Scleral Icterus Ears/Nose/Mouth/Throat: NL Teeth, Lips, Gums, Clear Oropharnyx, Mucous Membranes Moist Neck: NL Appearance and Movements; NL JVP, Trachea Midline Respiratory: - - mild increase work of breathing; L basilar crackels, clear elsewhere; tube in place L posterior with no new drainage Cardiovascular: NL Sounds; No Murmurs; No JVD, - - sinus tachycardia Abdominal: NL Sounds; No Tenderness; No Distention, No Hepatosplenomegaly Extremities: No Clubbing, Cyanosis, - - b/l UE, LE edema; LUE > RUE edema Neurological: Alert and Oriented x 3 Result Diagrams: 10/21/19 10:00 10/21/19 10:00 Microbiology and Other Data: Microbiology 10/09/19 23:40 Legionella Urinary Antigen - Final Urine Negative Legionella Antigen Streptococcus pneumoniae Ag Screen - Final Negative S. pneumo Antigen Assess/Plan/Problems-Billing Assessment: Ms. Luiz Nunn is a 38 yo F with PMH of DM type 1, CKD stage 3, HTN; recently hospitalized for MRSA bacteremia secondary to pneumonia, readmitted on 10/09/19 for sepsis secondary to right lower lobe pneumonia and found to have pleural effusion. - Patient Problems (1) Parapneumonic effusion Comment: - Right sided pleural effusion, new during this hospitalization - S/p thoracentesis 10/10/19, 275mL fluid removed; fluid is MRSA positive - US 10/15 reveals that the effusion size is unchanged from 10/12 - Pigtail drain placed 10/15; developed small pneumothorax; now connected to PleurEvac on low wall suction per Chery recs -no new fluid drainage overnight - Continue linezolid -repeat CT 10/18: new left lung opacity, improvement in R lung opacities, findings consistent with b/l pneumonitis; resolution of R pleural effusion; mild mediastinal LAD (2) MRSA pneumonia Comment: - Recent hospitalization found to have MRSA pneumonia in setting of influenza A based on sputum culture; had received a one time dose of Dalvance the day prior to this current admission - ID consulted - Pulmonology consulted; metanebs recommended - Consolidation does appear improved since prior hospitalization, but now with new pleural effusion; pigtail in place with decreased drainage over last 24h - Encourage incentive spirometer and flutter valve - Continue linezolid (3) MRSA bacteremia Comment: - Diagnosed during previous recent hospitalization - SAHIL performed during last hospitaliation 10/08/19 without evidence of vegetation - 2/2 MRSA pneumonia - ID following - Continue linezolid (4) Edema of left upper extremity Comment: -diffuse extremity edema, but now with worsened LUE edema and pain -PICC in place in LUE; unable to draw from PICC -CXR for PICC placement -US to r/o DVT (5) Acute kidney injury superimposed on CKD Comment: -Still producing sufficient amount of urine -Has CKD d/t diabetic nephropathy, baseline Cr is ~1.5 -BUN/Cr continue to rise with fluid overload -Appreciate Nephrology consult -has completed HD 10/17, 10/18 -Cr has been stable at 4.5 -kidney bx consistent with collapsing FSGS -HIV, influenza negative; COVID-19 negative -EBV, parvovirus, SLE workup ordered; repeat COVID-19 (6) UTI (urinary tract infection) Comment: -Previous culture on 10/08 grew <25k colonies Pseudomonas, but repeat culture on 10/14 now growing >100k colonies Psuedomonas -continue cefepime (renal dosing) for total of 5 days (last dose given today) (7) Anemia Comment: -H&H trending up -Likely anemia of chronic disease related to CKD with superimposed infection causing further drop -pt has had 1 partial (d/c d/t transfusion reaction), 1 full transfusion since admission -continue to monitor H/H; transfuse for Hgb < 7 (8) Acute respiratory failure Comment: - Requiring 2L, but sating in the high 90s - 2/2 pneumonia and pleural effusion; likely anemia, fluid overload contributing -continued HD per nephrology recs; has received PRBC - Wean as tolerated (9) Tachycardia Comment: -Persistent tachycardia, particularly with activity -EKG showing sinus tach -Echo previously unremarkable -VQ show intermediate probability of PE, but VQ mismatch may just be d/t pneumonia -LLE US negative for DVT on 10/10 and RLE US negative for DVT on 10/14, so PE can likely be ruled out -Suspect this is a stress response to infection in a patient who has a high resting HR at baseline (10) Diabetes type I Comment: -Good BG control overall; fasting glucose this a.m. 147 -increase glargine to 35U daily -Continue Lispro SS (11) Hypertension Comment: -SBP variable 110-130's -HCTZ and lisinopril on hold due to NAZIA -continue norvasc -hydralazine prn (has not required this recently) (12) DVT prophylaxis Comment: -SCDs (13) Full code status Comment: Status and Disposition: Inpatient. Anticipate d/c home when medically stable, pending clinical course.
[2019-10-21] MEDS ORDERED: Alteplase (CATHFLO)* 2 MG VIAL IV ONE (15:44)
[2019-10-21] MEDS: Ondansetron INJ* 2 MG/ML VIAL IV PRN ×2 (17:48→23:40)
[2019-10-21] MEDS: Lidocaine Patch REMOVE* 1 NOTE MISC SCH (19:43)
[2019-10-21] MEDS ORDERED: Alteplase (CATHFLO)* 2 MG/2 ML VIAL IV ONE (20:17)
[2019-10-22] MEDS: Linezolid 600 MG IVPREMIX(*) 600 MG/300 ML BAG IVPB SCH ×3 (02:12→16:11)
[2019-10-22] MEDS: oxyCODONE TAB* 5 MG TAB PO PRN ×4 (04:38→20:48)
[2019-10-22] MEDS: Ondansetron INJ* 2 MG/ML VIAL IV PRN ×2 (04:39→20:49)
[2019-10-22] MEDS: Mometasone/Formoter 200/5 MDI INH SCH ×2 (07:51→20:31)
[2019-10-22] MEDS: Metoprolol Tartrate TAB* 25 MG PO SCH ×2 (09:27→20:48)
[2019-10-22] MEDS: amLODIPine TAB* 5 MG PO SCH (09:27)
[2019-10-22] MEDS: Insulin GLARGINE(*) 1 UNITS UNIT SUBCUT SCH (09:28)
[2019-10-22] MEDS: Insulin LISPRO* 1 UNITS UNIT SUBCUT SCH ×4 (09:49→22:18)
[2019-10-22 11:03] LABS: EBV Capsid Ag IgG Ab Positive (Negative); EBV Capsid Ag IgM Ab Negative (Negative); Epstein-Barr Nuclear Antigen Positive (Negative)
[2019-10-22] MEDS ORDERED: Heparin DIALYSIS ONLY(*) 1,000 UNITS/ML VIAL DIALYSIS ONE (14:00)
--- NOTE | 2019-10-22 14:15 | PN ---
Subjective Date of Service: 10/22/19 Interval History: Ms. Luiz Nunn continues to have occasional productive cough with shortness of breath that is worse with activity. She has intermittent SOB at rest. She continues to have edema and "tightness" in LUE, but denies pain. No other complaints today. Family History: Unchanged from Admission Social History: Unchanged from Admission Past Medical History: Unchanged from Admission Objective Active Medications: Acetaminophen (Tylenol Tab*) 650 mg PO Q4H PRN PRN Reason: MILD PAIN or TEMP > 100.4 Last Admin: 10/19/19 16:37 Dose: 650 mg Al Hydrox/Mg Hydrox/Simethicone (Maalox Plus*) 30 ml PO Q6H PRN PRN Reason: INDIGESTION Albuterol (Ventolin Hfa Inhaler*) 2 puff INH Q4H PRN PRN Reason: SOB/WHEEZING Last Admin: 10/15/19 18:13 Dose: 2 puff Albuterol/Ipratropium (Duoneb (Albuterol 2.5 Mg/Ipratropium 0.5 Mg)) 1 neb INH [id number] AWAKE PRN PRN Reason: clinically indicated Amlodipine Besylate (Norvasc Tab*) 5 mg PO DAILY [facility] Last Admin: 10/22/19 09:27 Dose: 5 mg Dextrose (D50w Syringe 50 Ml*) 12.5 gm IV PUSH .FOR FS < 60 - SS PRN PRN Reason: FS < 60 Last Admin: 10/17/19 09:25 Dose: 12.5 gm Heparin Sodium (Porcine) (Heparin Flush Picc/Ml/Cvc(*)) 1 - 3 ml FLUSH 0600, 1800 [facility]; Protocol Last Admin: 10/22/19 06:24 Dose: 1 ml Linezolid (Zyvox 600 Mg Ivpremix(*)) 600 mg in 300 mls @ 300 mls/hr IVPB Q12H [facility] Last Admin: 10/22/19 02:12 Dose: 300 mls/hr Insulin Glargine (Lantus(*)) 35 units SUBCUT DAILY [facility] Last Admin: 10/22/19 09:28 Dose: 35 units Insulin Human Lispro (Humalog*) 0 units SUBCUT ACHS [facility]; Protocol Last Admin: 10/22/19 13:27 Dose: 13 unit Lidocaine (Lidoderm 5% Patch*) 1 patch TRANSDERM DAILY PRN PRN Reason: PAIN - MILD Last Admin: 10/15/19 13:28 Dose: 1 patch Metoprolol Tartrate (Lopressor Tab*) 25 mg PO BID [facility] Last Admin: 10/22/19 09:27 Dose: 25 mg Mometasone Furoate/Formoterol Fumar (Dulera 200/5 Mdi*) 2 puff INH BID [facility] Last Admin: 10/22/19 07:51 Dose: 2 puff Ondansetron HCl (Zofran Inj*) 4 mg IV Q6H PRN PRN Reason: NAUSEA Last Admin: 10/22/19 04:39 Dose: 4 mg Oxycodone HCl (Roxycodone Tab*) 10 mg PO Q4H PRN PRN Reason: PAIN - MODERATE Last Admin: 10/22/19 09:27 Dose: 10 mg Pharmacy Profile Note (Lidocaine Patch Remove*) 1 note N/A [facility] Last Admin: 10/21/19 19:43 Dose: Not Given Polyethylene Glycol/Electrolytes (Miralax (17 Gm Dose Lawson)) 17 gm PO DAILY PRN PRN Reason: CONSTIPATION Last Admin: 10/19/19 09:41 Dose: 17 gm Vital Signs: Temp Pulse Resp BP Pulse Ox 98.3 F 93 16 132/71 97 10/22/19 11:15 10/22/19 11:15 10/22/19 13:33 10/22/19 11:15 10/22/19 11:15 Oxygen Devices in Use Now: Nasal Cannula Appearance: Ms. Luiz Nunn is an obese 38F black woman who is seen sitting up in bed during HD. She does not appear dysneic, but is on supplemental O2. Eyes: No Scleral Icterus Ears/Nose/Mouth/Throat: NL Teeth, Lips, Gums, Mucous Membranes Moist Neck: NL Appearance and Movements; NL JVP, Trachea Midline Respiratory: Symmetrical Chest Expansion and Respiratory Effort, - - RLL with rales; otherwise clear without wheeze, rhonchi Cardiovascular: NL Sounds; No Murmurs; No JVD, RRR Abdominal: NL Sounds; No Tenderness; No Distention, No Hepatosplenomegaly Extremities: No Clubbing, Cyanosis, - - diffuse edema t/o all extremities, 2+ pitting; LUE > RUE Neurological: Alert and Oriented x 3 Result Diagrams: 10/21/19 10:00 10/21/19 10:00 Microbiology and Other Data: Microbiology 10/09/19 23:40 Legionella Urinary Antigen - Final Urine Negative Legionella Antigen Streptococcus pneumoniae Ag Screen - Final Negative S. pneumo Antigen Assess/Plan/Problems-Billing Assessment: Ms. Luiz Nnun is a 38 yo F with PMH of DM type 1, CKD stage 3, HTN; recently hospitalized for MRSA bacteremia secondary to pneumonia, readmitted on 10/09/19 for sepsis secondary to right lower lobe pneumonia and found to have pleural effusion. - Patient Problems (1) Parapneumonic effusion Comment: - Right sided pleural effusion, new during this hospitalization - S/p thoracentesis 10/10/19, 275mL fluid removed; fluid is MRSA positive - US 10/15 reveals that the effusion size is unchanged from 10/12 - Pigtail drain placed 10/15; developed small pneumothorax; now connected to PleurEvac on low wall suction per Chery recs -no new fluid drainage overnight - Continue linezolid -repeat CT 10/18: new left lung opacity, improvement in R lung opacities, findings consistent with b/l pneumonitis; resolution of R pleural effusion; mild mediastinal LAD (2) MRSA pneumonia Comment: - Recent hospitalization found to have MRSA pneumonia in setting of influenza A based on sputum culture; had received a one time dose of Dalvance the day prior to this current admission - ID consulted - Pulmonology consulted; metanebs recommended - Consolidation does appear improved since prior hospitalization, but now with new pleural effusion; pigtail in place with decreased drainage over last 48h; plan for removal today - Encourage incentive spirometer and flutter valve - Continue linezolid (3) MRSA bacteremia Comment: - Diagnosed during previous recent hospitalization - SAHIL performed during last hospitaliation 10/08/19 without evidence of vegetation - 2/2 MRSA pneumonia - ID following - Continue linezolid (4) Edema of left upper extremity Comment: -diffuse extremity edema, but now with worsened LUE edema -PICC in place in LUE; unable to draw from PICC -CXR for PICC placement- PICC medially deviated in SVC -RUE negative for DVT -vascular to re-evaluate PICC (5) Acute kidney injury superimposed on CKD Comment: -Still producing sufficient amount of urine -Has CKD d/t diabetic nephropathy, baseline Cr is ~1.5 -BUN/Cr continue to rise with fluid overload -Appreciate Nephrology consult -Cr has been stable at 4.5 -kidney bx consistent with collapsing FSGS -HIV, EBV IgM, influenza negative; COVID-19 negative -parvovirus, SLE workup ordered; repeat COVID-19 -continue HD per nephrology recommendations (6) UTI (urinary tract infection) Comment: -resolved -previous culture on 10/08 grew <25k colonies Pseudomonas, but repeat culture on 10/14 now growing >100k colonies Psuedomonas -continue cefepime (renal dosing) for total of 5 days (last dose given today) (7) Anemia Comment: -H&H trending up -Likely anemia of chronic disease related to CKD with superimposed infection causing further drop -pt has had 1 partial (d/c d/t transfusion reaction), 1 full transfusion since admission -continue to monitor H/H; transfuse for Hgb < 7 (8) Acute respiratory failure Comment: - Requiring 2L, but sating in the high 90s - 2/2 pneumonia and pleural effusion; likely anemia, fluid overload contributing -continued HD per nephrology recs; has received PRBC - Wean as tolerated (9) Tachycardia Comment: -Persistent tachycardia, particularly with activity -EKG showing sinus tach -Echo previously unremarkable -VQ show intermediate probability of PE, but VQ mismatch may just be d/t pneumonia -LLE US negative for DVT on 10/10 and RLE US negative for DVT on 10/14, so PE can likely be ruled out -Suspect this is a stress response to infection in a patient who has a high resting HR at baseline (10) Diabetes type I Comment: -BG 130-170's -continue glargine to 35U daily -Continue Lispro SS (11) Hypertension Comment: -SBP variable 120-130's -HCTZ and lisinopril on hold due to NAZIA -continue norvasc (12) DVT prophylaxis Comment: -SCDs (13) Full code status Comment: Status and Disposition: Inpatient. Anticipate d/c home when medically stable, pending clinical course.
--- NOTE | 2019-10-22 17:09 | PN ---
Progress Note - Progress Note Date of Service: 10/22/19 - nephrology follow-up Note: Chief complaint: NAZIA History of present illness: The patient maintains some urine output of about 500 mL per 24 hours. She was started on dialysis during this hospitalization for volume management and worsening acute kidney injury. Had a kidney biopsy which showed collapsing FSGS. Blood work so far has been negative for recent exposure to EBV, parvovirus, HIV, hepatitis C, hepatitis B. Later in the day COVID 19 by PCR was resulted and it was negative. I saw the patient during dialysis for acute kidney injury. The reason for dialysis is mainly volume overload. Patient has anasarca. She was tired and sleepy at the time of my exam but has no other complaints. Review of systems: Shortness of breath even at rest. Swelling, productive cough. Physical exam Blood pressure 132/81, respiratory rate 18/min, heart rate 93 bpm, temperature 98.3F. Sitting in chair looking very weak. Awake , alert and oriented. She has diffuse and significant edema. Laboratory Last Values WBC 9.4 10^3/uL (3.5-10.8) 10/21/19 10:00 RBC 3.29 10^6 /uL (3.70-4.87) L 10/21/19 10:00 Hgb 8.9 g/dL (12.0-16.0) L 10/21/19 10:00 Hct 27 % (35-47) L 10/21/19 10:00 MCV 83 fL (80-97) 10/21/19 10:00 MCH 27 pg (27-31) 10/21/19 10:00 MCHC 33 g/dL (31-36) 10/21/19 10:00 RDW 16 % (10-15) H 10/21/19 10:00 Plt Count 250 10^3/uL (150-450) 10/21/19 10:00 MPV 6.2 fL (7.4-10.4) L 10/21/19 10:00 Neut % (Auto) 75.2 % 10/21/19 10:00 Lymph % (Auto) 8.1 % 10/21/19 10:00 [place] % (Auto) 6.5 % 10/21/19 10:00 Eos % (Auto) 9.9 % 10/21/19 10:00 Baso % (Auto) 0.3 % 10/21/19 10:00 Absolute Neuts (auto) 7.0 10^3/ul (1.5-7.7) 10/21/19 10:00 Absolute Lymphs (auto) 0.8 10^3/ul (1.0-4.8) L 10/21/19 10:00 Absolute Monos (auto) 0.6 10^3/ul (0-0.8) 10/21/19 10:00 Absolute Eos (auto) 0.9 10^3/ul (0-0.6) H 10/21/19 10:00 Absolute Basos (auto) 0.0 10^3/ul (0-0.2) 10/21/19 10:00 Absolute Nucleated RBC 0.0 10^3/ul 10/21/19 10:00 Immature Gran % 8.0 % (0-9) 10/15/19 05:42 Neutrophils % 70.0 % 10/15/19 05:42 Band Neutrophils % 8.0 % (0-8) 10/15/19 05:42 Lymphocytes % 10.0 % 10/15/19 05:42 Monocytes % 6.0 % 10/15/19 05:42 Eosinophils % 6.0 % 10/15/19 05:42 Nucleated RBC % 0.0 10/21/19 10:00 Normal RBC Morphology Not Reportable 10/15/19 05:42 Polychromasia 1+ 10/15/19 05:42 ESR 74 mm/Hr (0-19) H 10/21/19 10:00 Hem Pathologist Commnt 10/15/19 05:42 INR (Anticoag Therapy) 1.01 (0.82-1.09) 10/17/19 05:28 APTT 32.1 seconds (26.0-38.0) 10/16/19 16:58 Cryofibrinogen Negative (Negative) 10/17/19 01:18 Sodium 127 mmol/L (135-145) L 10/21/19 10:00 Potassium 4.2 mmol/L (3.5-5.0) 10/21/19 10:00 Chloride 93 mmol/L (101-111) L 10/21/19 10:00 Carbon Dioxide 27 mmol/L (22-32) 10/21/19 10:00 Anion Gap 7 mmol/L (2-11) 10/21/19 10:00 BUN 24 mg/dL (6-24) 10/21/19 10:00 Creatinine 4.51 mg/dL (0.51-0.95) H 10/21/19 10:00 Est GFR ( Amer) 13.3 (>60) 10/21/19 10:00 Est GFR (Non-Af Amer) 11.0 (>60) 10/21/19 10:00 BUN/Creatinine Ratio 5.3 (8-20) L 10/21/19 10:00 Glucose 224 mg/dL (70-100) H 10/21/19 10:00 POC Glucose (mg/dL) 179 mg/dL (70-100) H 10/22/19 11:42 Hemoglobin A1c 7.7 % (4.0-5.6) H 10/16/19 10:40 Lactic Acid 0.9 mmol/L (0.5-2.0) 10/09/19 16:10 Calcium 7.1 mg/dL (8.6-10.3) L 10/21/19 10:00 Ionized Calcium 1.05 mmol/L (1.16-1.32) L 10/15/19 05:42 Total Bilirubin 0.40 mg/dL (0.2-1.0) 10/21/19 10:00 AST 19 U/L (13-39) 10/21/19 10:00 ALT 19 U/L (7-52) 10/21/19 10:00 Alkaline Phosphatase 177 U/L (34-104) H 10/21/19 10:00 Lactate Dehydrogenase TNP 10/12/19 11:02 Total Creatine Kinase 41 U/L (10-223) 10/16/19 10:40 Troponin I 0.02 ng/mL (<0.03) 10/09/19 16:10 C-Reactive Protein 115.37 mg/L (<8.01) H 10/21/19 10:00 B-Natriuretic Peptide 71 pg/mL (<=100) 10/09/19 16:10 Total Protein 6.1 g/dL (6.4-8.9) L 10/21/19 10:00 Total Protein (PEP) 6.0 g/dL (6.3 - 7.9) L 10/16/19 10:40 Albumin 2.2 g/dL (3.2-5.2) L 10/21/19 10:00 Albumin (PEP) 1.7 g/dL (3.4-4.7) L 10/16/19 10:40 Globulin 3.9 g/dL (2-4) 10/21/19 10:00 Albumin/Globulin Ratio 0.6 (1-3) L 10/21/19 10:00 Albumin/Globulin (PEP) 0.38 10/16/19 10:40 Wnktz-8-Oohwebrab 0.4 g/dL (0.1-0.3) H 10/16/19 10:40 Mnqpf-1-Wisgyctsm 1.1 g/dL (0.6-1.0) H 10/16/19 10:40 Jpsw-9-Jfpgmyyz 0.8 g/dL (0.7-1.2) 10/16/19 10:40 Gamma Globulins 2.0 g/dL (0.6-1.6) H 10/16/19 10:40 M-Jerel Not Reportable 10/16/19 10:40 M-Jerel 2 Not Reportable 10/16/19 10:40 PEP Impression See comment 10/16/19 10:40 Beta HCG, Quant 1.43 mIU/mL 10/09/19 16:10 Urine Color Yellow 10/15/19 21:00 Urine Appearance Cloudy 10/15/19 21:00 Urine pH 5.0 (5-9) 10/15/19 21:00 Ur Specific [place] 1.009 (1.010-1.030) L 10/15/19 21:00 Urine Protein 2+(100 mg/dl) (Negative) A 10/15/19 21:00 Urine Ketones Negative (Negative) 10/15/19 21:00 Urine Blood 1+ (Negative) A 10/15/19 21:00 Urine Nitrate Negative (Negative) 10/15/19 21:00 Urine Bilirubin Negative (Negative) 10/15/19 21:00 Urine Urobilinogen Negative (Negative) 10/15/19 21:00 Ur Leukocyte Esterase Negative (Negative) 10/15/19 21:00 Urine WBC (Auto) Trace(0-5/hpf) (Absent) 10/15/19 21:00 Urine RBC (Auto) Trace(0-2/hpf) (Absent) 10/15/19 21:00 Ur Squamous Epith Cells Present (Absent) A 10/15/19 21:00 Urine Bacteria Absent (Absent) 10/15/19 21:00 Ur Creatinine Concen 73.38 mg/dL 10/15/19 21:00 Ur Total Protein Conc 255 mg/dL 10/15/19 21:00 U Sodium Concentration 44 mmol/L 10/13/19 03:20 Urine Glucose Negative (Negative) 10/15/19 21:00 U Tot [place] Light Ch 26.3 mg/dL (<0.9000) H 10/15/19 21:00 U Tot Lambda Light Ch 9.34 mg/dL (<0.7000) H 10/15/19 21:00 Tot [place]/Lambda Ratio 2.82 10/15/19 21:00 Fluid Source Pleural 10/10/19 18:27 Fluid Volume 45 mL 10/10/19 18:27 Fluid Color Yellow 10/10/19 18:27 Fluid Appearance Cloudy 10/10/19 18:27 Fluid WBC 589 /mcL (0-758837) 10/10/19 18:27 Fluid RBC 4622 /mcL 10/10/19 18:27 Fluid Tot Cell Count 100 10/10/19 18:27 Fluid Neutrophils 86 % 10/10/19 18:27 Fluid Lymphocytes 14 % 10/10/19 18:27 Fluid Other Cells 6 10/10/19 18:27 Fluid Cell Count Rvw By 10/10/19 18:27 Fluid Glucose 149 mg/dL 10/10/19 18:27 Fluid Total Protein 3.0 g/dL 10/10/19 18:27 Fluid LDH 122 U/L 10/10/19 18:27 Vancomycin Trough 9.9 mcg/mL 10/17/19 01:18 Cryoglobulin Negative %ppt (Negative) 10/17/19 01:18 Rheumatoid Factor < 10 IU/mL (<15) 10/16/19 10:40 c-ANCA Antibody Negative (Negative) 10/16/19 10:40 Proteinase 3 (PR3) < 0.2 U 10/16/19 10:40 p-ANCA Antibody Negative (Negative) 10/16/19 10:40 Myeloperoxidase Ab < 0.2 U 10/16/19 10:40 Anti-ds DNA IgG Ab <12.3 IU/mL 10/16/19 10:40 Glomerular Base Memb Ab <0.2 U 10/16/19 10:40 Complement C3 127 mg/dL (75 - 175) 10/16/19 10:40 Complement C4 27 mg/dL (14 - 40) 10/16/19 10:40 Coronavirus (PCR) Cancelled 10/09/19 16:10 COVID-19 PCR Undetected (Undetected) 10/19/19 16:20 EBV Capsid Ag IgG Ab Positive (Negative) 10/19/19 04:20 EBV Capsid Ag IgM Ab Negative (Negative) 10/19/19 04:20 EBV Nuclear Antigen Positive (Negative) 10/19/19 04:20 EBV Interpretation See comment 10/19/19 04:20 Hepatitis B Antibody Immune (Immune) 10/16/19 10:40 Hep Bs Antigen Nonreactive (Nonreactive) 10/16/19 10:40 Hep B Core Total Ab Negative (Negative) 10/16/19 10:40 Hepatitis C Antibody Negative (Negative) 10/16/19 10:40 Hepatitis C Ab Index 0.14 s/c 10/16/19 10:40 HIV 1&2 Ab/P24 Ag 4thGn Nonreactive (Nonreactive) 10/17/19 06:33 Influenza A (Rapid) Negative (Negative) 10/19/19 16:20 Influenza B (Rapid) Negative (Negative) 10/19/19 16:20 Parvovirus B19 IgG Ab Negative (Negative) 10/19/19 04:20 Parvovirus B19 IgM Ab Negative (Negative) 10/19/19 04:20 Parvovirus Interpret See comment 10/19/19 04:20 Phospholip A2 Rec IFA Negative (Negative) 10/16/19 10:40 Phospholip A2 Rec DOROTHY <2 RU/mL 10/16/19 10:40 Miscellaneous Test 7.0 10/10/19 18:27 Blood Type B Positive 10/18/19 05:10 Antibody Screen Negative 10/18/19 05:10 Crossmatch See Detail 10/18/19 05:10 Transfusion React Rpt 10/18/19 17:07 Donor Unit # [id number] 10/18/19 17:07 Post-Trans Blood Type B Positive 10/18/19 17:07 Post-Trans SHERITA Negative 10/18/19 17:07 Reaction Interpretation 10/18/19 17:07 Medications: Acetaminophen (Tylenol Tab*) 650 mg PO Q4H PRN PRN Reason: MILD PAIN or TEMP > 100.4 Last Admin: 10/19/19 16:37 Dose: 650 mg Al Hydrox/Mg Hydrox/Simethicone (Maalox Plus*) 30 ml PO Q6H PRN PRN Reason: INDIGESTION Albuterol (Ventolin Hfa Inhaler*) 2 puff INH Q4H PRN PRN Reason: SOB/WHEEZING Last Admin: 10/15/19 18:13 Dose: 2 puff Albuterol/Ipratropium (Duoneb (Albuterol 2.5 Mg/Ipratropium 0.5 Mg)) 1 neb INH [id number] AWAKE PRN PRN Reason: clinically indicated Amlodipine Besylate (Norvasc Tab*) 5 mg PO DAILY [facility] Last Admin: 10/22/19 09:27 Dose: 5 mg Dextrose (D50w Syringe 50 Ml*) 12.5 gm IV PUSH .FOR FS < 60 - SS PRN PRN Reason: FS < 60 Last Admin: 10/17/19 09:25 Dose: 12.5 gm Heparin Sodium (Porcine) (Heparin Flush Picc/Ml/Cvc(*)) 1 - 3 ml FLUSH 0600, 1800 [facility]; Protocol Last Admin: 10/22/19 06:24 Dose: 1 ml Linezolid (Zyvox 600 Mg Ivpremix(*)) 600 mg in 300 mls @ 300 mls/hr IVPB 0400, 1600 [facility] Last Admin: 10/22/19 16:11 Dose: 300 mls/hr Insulin Glargine (Lantus(*)) 35 units SUBCUT DAILY [facility] Last Admin: 10/22/19 09:28 Dose: 35 units Insulin Human Lispro (Humalog*) 0 units SUBCUT ACHS [facility]; Protocol Last Admin: 10/22/19 13:27 Dose: 13 unit Lidocaine (Lidoderm 5% Patch*) 1 patch TRANSDERM DAILY PRN PRN Reason: PAIN - MILD Last Admin: 10/15/19 13:28 Dose: 1 patch Metoprolol Tartrate (Lopressor Tab*) 25 mg PO BID [facility] Last Admin: 10/22/19 09:27 Dose: 25 mg Mometasone Furoate/Formoterol Fumar (Dulera 200/5 Mdi*) 2 puff INH BID [facility] Last Admin: 10/22/19 07:51 Dose: 2 puff Ondansetron HCl (Zofran Inj*) 4 mg IV Q6H PRN PRN Reason: NAUSEA Last Admin: 10/22/19 04:39 Dose: 4 mg Oxycodone HCl (Roxycodone Tab*) 10 mg PO Q4H PRN PRN Reason: PAIN - MODERATE Last Admin: 10/22/19 16:10 Dose: 10 mg Pharmacy Profile Note (Lidocaine Patch Remove*) 1 note N/A 2100 [facility] Last Admin: 10/21/19 19:43 Dose: Not Given Polyethylene Glycol/Electrolytes (Miralax (17 Gm Dose Lawson)) 17 gm PO DAILY PRN PRN Reason: CONSTIPATION Last Admin: 10/19/19 09:41 Dose: 17 gm Assessment and Plan patient is a very nice but unfortunate 38-year-old woman with a past medical history of long-standing type 1 diabetes mellitus, CKD stage III and hypertension. Recently was admitted for MRSA pneumonia complicated with bacteremia. She had acute kidney injury at that time with a serum creatinine peaking at about 4 and returning close to baseline at 2 mg/dL on discharge. Readmitted on October 08 for sepsis due to right lower lobar pneumonia, parapneumonic effusion, and acute kidney injury. 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 Final biopsy report is pending. Viral studies are all negative including COVID 19. AA patients are at risk for APOL1 gene mutations which predisposes them to collapsing FSGS. Per report she had no diabetic changes in the kidneys. Collapsing FSGS has a poor renal prognosis. Dialysis initiated especially for volume management. I saw the patient during dialysis today and she tolerated it well. Hypertension well controlled. Anasarca due to nephrotic syndrome NAZIA - on dialysis . please check fasting lipid panel MRSA pneumonia on antibiotics Acute resp failure on 02 DM 1- on insulin
--- NOTE | 2019-10-22 17:41 | PN ---
Progress Note - Progress Note Date of Service: 10/22/19 - Pulm f/u note Note: Pt seen and examined at bedside. Pt reports feeling slightly better. Reports not coughing much, not much sputum production. She is currently getting dialyzed. Still continues to have edema of the extremities. Active Medications Generic Name Dose Route Start Last Admin Trade Name Freq PRN Reason Stop Dose Admin Acetaminophen 650 mg 10/16/19 16:11 10/19/19 16:37 Tylenol Tab* PO 650 mg Q4H PRN Administration MILD PAIN or TEMP > 100.4 Al Hydrox/Mg Hydrox/Simethicone 30 ml 10/20/19 22:34 Maalox Plus* PO Q6H PRN INDIGESTION Albuterol 2 puff 10/12/19 15:33 10/15/19 18:13 Ventolin Hfa Inhaler* INH 2 puff Q4H PRN Administration SOB/WHEEZING Albuterol/Ipratropium 1 neb 10/19/19 06:04 Duoneb (Albuterol 2.5 Mg/Ipratropium 0.5 Mg) INH [id number] AWAKE PRN clinically indicated Amlodipine Besylate 5 mg 10/13/19 21:00 10/22/19 09:27 Norvasc Tab* PO 5 mg DAILY [facility] Administration Dextrose 12.5 gm 10/10/19 14:07 10/17/19 09:25 D50w Syringe 50 Ml* IV PUSH 12.5 gm .FOR FS < 60 - SS PRN Administration FS < 60 Heparin Sodium (Porcine) 1 - 3 ml 10/17/19 18:00 10/22/19 06:24 Heparin Flush Picc/Ml/Cvc(*) FLUSH 1 ml 0600,1800 [facility] Administration Protocol Linezolid 600 mg in 300 mls @ 300 mls/hr 10/22/19 16:00 10/22/19 16:11 Zyvox 600 Mg Ivpremix(*) IVPB 300 mls/hr 0400,1600 [facility] Administration Insulin Glargine 35 units 10/22/19 09:00 10/22/19 09:28 Lantus(*) SUBCUT 35 units DAILY [facility] Administration Insulin Human Lispro 0 units 10/09/19 21:00 10/22/19 13:27 Humalog* SUBCUT 13 unit ACHS [facility] Administration Protocol Lidocaine 1 patch 10/12/19 09:44 10/15/19 13:28 Lidoderm 5% Patch* TRANSDERM 1 patch DAILY PRN Administration PAIN - MILD Metoprolol Tartrate 25 mg 10/17/19 21:00 10/22/19 09:27 Lopressor Tab* PO 25 mg BID [facility] Administration Mometasone Furoate/Formoterol Fumar 2 puff 10/09/19 21:00 10/22/19 07:51 Dulera 200/5 Mdi* INH 2 puff BID [facility] Administration Ondansetron HCl 4 mg 10/09/19 20:04 10/22/19 04:39 Zofran Inj* IV 4 mg Q6H PRN Administration NAUSEA Oxycodone HCl 10 mg 10/17/19 18:02 10/22/19 16:10 Roxycodone Tab* PO 10 mg Q4H PRN Administration PAIN - MODERATE Pharmacy Profile Note 1 note 10/12/19 21:00 10/21/19 19:43 Lidocaine Patch Remove* N/A Not Given [address] [facility] Polyethylene Glycol/Electrolytes 17 gm 10/12/19 11:05 10/19/19 09:41 Miralax (17 Gm Dose [facility]) PO 17 gm DAILY PRN Administration CONSTIPATION Vital Signs Temp Pulse Resp BP Pulse Ox 98.3 F 93 16 132/71 97 10/22/19 11:15 10/22/19 11:15 10/22/19 16:10 10/22/19 11:15 10/22/19 11:15 O/E: Pt in NAD HEENT: PERRLA Lungs: Dimnished at bases, R>L CVS: S1, S2+ Abd: Soft, BS+ Ext: Edema+ Neuro: NO focal deficits Skin: dry Laboratory Results - last 24 hr 10/19/19 10/19/19 10/19/19 04:20 04:20 16:20 POC Glucose (mg/dL) COVID-19 PCR Undetected EBV Capsid Ag IgG Ab Positive EBV Capsid Ag IgM Ab Negative EBV Nuclear Antigen Positive EBV Interpretation See comment Parvovirus B19 IgG Ab Negative Parvovirus B19 IgM Ab Negative Parvovirus Interpret See comment 10/21/19 10/21/19 10/22/19 17:02 20:58 07:26 POC Glucose (mg/dL) 131 H 87 130 H COVID-19 PCR EBV Capsid Ag IgG Ab EBV Capsid Ag IgM Ab EBV Nuclear Antigen EBV Interpretation Parvovirus B19 IgG Ab Parvovirus B19 IgM Ab Parvovirus Interpret 10/22/19 10/22/19 10/22/19 11:42 16:16 16:46 POC Glucose (mg/dL) 179 H 59 L 85 COVID-19 PCR EBV Capsid Ag IgG Ab EBV Capsid Ag IgM Ab EBV Nuclear Antigen EBV Interpretation Parvovirus B19 IgG Ab Parvovirus B19 IgM Ab Parvovirus Interpret I/R: 38 year old female with a past medical history of DM type 1, CKD stage 3 and HTN who was readmitted on 10/09/19 for worsening shortness of breath, cough. Patient recently diagnosed with influenza and post influenza MRSA pneumonia and bacteremia Patient with significant involvement of the right lung with dense consolidation involving entire right lung Patient was on vancomycin, was discharged home to complete antibiotic, returned with worsening shortness of breath and cough Repeat CT chest-slight improvement in the dense consolidation in the right lung , new finding of right pleural effusion Concern for parapneumonic effusion on the right side Pt underwent ultrasound-guided thoracentesis 10/09- 250cc of marli colored fluid was removed Cultures positive for MRSA, LDH, glucose normal, pH slightly low Exudative effusion, however not concerning for empyema Given positive MRSA on pleural fluid, and recurrence, will need to drain the fluid to avoid complications in pleural space in the future Continue with antibiotics, was switched to Linezolid given worsening renal function Continue with Mucomyst and nebulizers with metanebs Continue with O2 supplementation Pig tail for drainage of pleural fluid by IR 10/16/19, not much out put since yesterday Small apical PTX noted, will c/w low suction and pleurevac drainage for now Will clamp chest tube in am and obtain CXR in 1 hr, if no PTX, then will remove chest tube Edema worsening, c/w HD Nephro f/u noted c/w nebs, mucus clearance techniques Metanebs q 4 hrs OOB to chair DVT px: SCD`s and Heparin sq D/w Isabela Turk
[2019-10-22] MEDS: Acetaminophen TAB* 325 MG PO PRN (20:48)
[2019-10-22] MEDS: Lidocaine Patch REMOVE* 1 NOTE MISC SCH (20:52)
[2019-10-23] MEDS: oxyCODONE TAB* 5 MG TAB PO PRN ×3 (02:50→20:20)
[2019-10-23] MEDS: Ondansetron INJ* 2 MG/ML VIAL IV PRN (02:50)
[2019-10-23] MEDS: Linezolid 600 MG IVPREMIX(*) 600 MG/300 ML BAG IVPB SCH ×2 (02:51→15:24)
[2019-10-23] MEDS: Mometasone/Formoter 200/5 MDI INH SCH ×2 (08:33→19:45)
[2019-10-23] MEDS: Insulin LISPRO* 1 UNITS UNIT SUBCUT SCH ×4 (09:00→21:13)
[2019-10-23] MEDS: Metoprolol Tartrate TAB* 25 MG PO SCH ×2 (09:01→21:12)
[2019-10-23] MEDS: Insulin GLARGINE(*) 1 UNITS UNIT SUBCUT SCH (09:01)
[2019-10-23] MEDS: amLODIPine TAB* 5 MG PO SCH (09:01)
[2019-10-23] MEDS: Lidocaine PATCH 5%* 1 PATCH TRANSDERM PRN (09:10)
[2019-10-23 09:16] LABS: Calcium 6.8 mg/dL (8.6-10.3)
[2019-10-23 09:38] LABS: Potassium 4.5 mmol/L (3.5-5.0)
[2019-10-23 09:44] LABS: BUN/Creatinine Ratio 4.9 (8-20); EGFR African American 15.6 (>60); EGFR Non-African American 12.9 (>60)
--- NOTE | 2019-10-23 11:07 | PN ---
Progress Note - Progress Note Date of Service: 10/23/19 SOAP: Subjective: CC: MRSA PNA and parapneumonic effusion HPI: Ms. Luiz Nunn is a 38 yo female with PMH significant for DM1, HTN, CKD 3, HLD, asthma, GERD, seizure in the setting of DKA; who presented to the hospital for shortness of breath after recent dx MRSA bacteremia, MRSA PNA, and Influenza A. Denies fever, chills, nausea, vomiting, diarrhea, or urinary symptoms. Feels like the shortness of breath is improving, but this is worse with exertion and talking (able to talk in frias sentences today) Objective: Vital Signs - 8 hr 10/23/19 10/23/19 10/23/19 03:15 05:41 07:15 Temperature 98.1 F 98.0 F Pulse Rate 107 102 Respiratory 18 20 18 Rate Blood Pressure 117/47 114/69 (mmHg) O2 Sat by Pulse 96 95 Oximetry Physical Exam: General: Ill appearing, NAD, laying in bed Neurological: Alert and Oriented HEENT: Moist MM Cardiovascular: Heart rate regular, generalized edema Respiratory: Lung sounds clear with diminished in bases Abdominal: Bowel sounds present; ABD soft, non tender and obese Skin: No rash Laboratory Results - last 24 hr 10/19/19 10/19/19 10/22/19 04:20 16:20 11:42 POC Glucose (mg/dL) 179 H COVID-19 PCR Undetected Parvovirus B19 IgG Ab Negative Parvovirus B19 IgM Ab Negative Parvovirus Interpret See comment 10/22/19 10/23/19 10/23/19 20:30 08:09 08:51 Sodium 124 L Potassium 4.5 Chloride 96 L Carbon Dioxide 18 L Anion Gap 10 BUN 19 Creatinine 3.91 H Est GFR ( Amer) 15.6 Est GFR (Non-Af Amer) 12.9 BUN/Creatinine Ratio 4.9 L Glucose 219 H POC Glucose (mg/dL) 104 H 210 H Calcium 6.8 L Microbiology 10/18/19 17:07 Transfusion Reaction Culture - Final Blood Bag No Growth Day 5 Transfusion Reaction Gram Stain - Final 10/18/19 16:24 Blood Culture - Preliminary No Source Provided No Growth Day 4 10/21/19 11:08 Stool Occult Blood (MERRILL) - Final Stool 10/15/19 21:00 Urine Culture - Final Urine Pseudomonas Aeruginosa 10/09/19 16:10 Aerobic Blood Culture - Final Blood Venous No Growth Day 5 Anaerobic Blood Culture - Final No Growth Day 5 10/09/19 16:10 Aerobic Blood Culture - Final Blood Venous No Growth Day 5 Anaerobic Blood Culture - Final No Growth Day 5 10/10/19 18:27 Sterile Body Fluid Culture - Final Pleural Fluid MRSA Sterile Body Fluid Culture - Final MRSA Skin and Soft Tissue MRSA/MSSA (PCR - Final Mrsa Positive S.aureus Positive 10/09/19 23:40 Urine Culture - Final Urine Pseudomonas Aeruginosa 10/10/19 18:06 Gram Stain - Final Body Fluid - Pleura 10/09/19 23:40 Legionella Urinary Antigen - Final Urine Negative Legionella Antigen Streptococcus pneumoniae Ag Screen - Final Negative S. pneumo Antigen Assessment: 1. Intermittent low grade fevers. Last low grade fever was 2 days ago. 2. Parapneumonic effusion in the setting of post influenza MRSA PNA. Sputum culture with MRSA and MRSA bacteremia during last admission. S/P thoracentesis, culture with MRSA. Blood cultures with no growth to date. Continues to have intermittent fevers. Leukocytosis has resolved. CRP elevated. 3. Acute hypoxic respiratory failure. With shortness of breath. Continues to require supplemental oxygen. ? Secondary to fluid overload and/or PNA. Improving supplemental oxygen requirements. 4. CKD, stage 3. Now with acute on chronic NAZIA. S/P HD cath and on HD. Renal bx with collapsing FSGS. 5. Recent MRSA bacteremia, present during last admission. Initially with 3/4 bottles positive on 09/29/19. Persistent positive blood cultures, last cultures obtained on 10/17 with no growth to date. TTE with no signs of vegetation. SAHIL with no signs of endocarditis. No prosthetic material present. Suspect the source is PNA. 6. DM1. 7. Obesity. BMI 37.4. Plan: Continue Linezolid (day 14 of ABX since thoracentesis), will plan to switch to vancomycin post dialysis at discharge to complete course of ABX. She has a midline in place. Weekly labs while on IV ABX: CBC, CMP, CRP. Followup with ID outpatient.
[2019-10-23 11:09] LABS: ABS Basophils 0.1 10^3/ul (0-0.2); ABS Eosinophils 0.8 10^3/ul (0-0.6); ABS Lymphocytes 0.9 10^3/ul (1.0-4.8); ABS Monocytes 0.7 10^3/ul (0-0.8); ABS Neutrophils 7.1 10^3/ul (1.5-7.7); Eosinophil % 8.6 %; Hematocrit 26 % (35-47); Hemoglobin 8.8 g/dL (12.0-16.0); Lymphocyte % 9.6 %; Mean Corpuscular HGB Conc 33 g/dL (31-36); Mean Corpuscular Hemoglobin 28 pg (27-31); Mean Corpuscular Volume 83 fL (80-97); Mean Platelet Volume 6.2 fL (7.4-10.4); Platelet Count 252 10^3/uL (150-450); Red Blood Count 3.19 10^6 /uL (3.70-4.87); Red Cell Distribution Width 15 % (10-15); White Blood Count 9.5 10^3/uL (3.5-10.8)
[2019-10-23] MEDS ORDERED: Heparin DIALYSIS ONLY(*) 1,000 UNITS/ML VIAL DIALYSIS ONE (11:30)
--- NOTE | 2019-10-23 14:23 | PN ---
Subjective Date of Service: 10/23/19 Interval History: Ms. Luiz Nunn is feeling poor this morning. She is feeling slightly improved from the last few days, but still very SOB with any amount of exertion. Her LUE feels very edematous. Denies CP, cough, N/V. Poor appetite. No concerns from nursing. Family History: Unchanged from Admission Social History: Unchanged from Admission Past Medical History: Unchanged from Admission Objective Active Medications: Acetaminophen (Tylenol Tab*) 650 mg PO Q4H PRN MILD PAIN or TEMP > 100.4 Al Hydrox/Mg Hydrox/Simethicone (Maalox Plus*) 30 ml PO Q6H PRN INDIGESTION Albuterol (Ventolin Hfa Inhaler*) 2 puff INH Q4H PRN SOB/WHEEZING Albuterol/Ipratropium (Duoneb (Albuterol 2.5 Mg/Ipratropium 0.5 Mg)) 1 neb INH [id number] AWAKE PRN clinically indicated Amlodipine Besylate (Norvasc Tab*) 5 mg PO DAILY RONI Dextrose (D50w Syringe 50 Ml*) 12.5 gm IV PUSH .FOR FS < 60 - SS PRN FS < 60 Heparin Sodium (Porcine) (Heparin Flush Picc/Ml/Cvc(*)) 1 - 3 ml FLUSH 0600, 1800 ORNI; Protocol Linezolid (Zyvox 600 Mg Ivpremix(*)) 600 mg in 300 mls @ 300 mls/hr IVPB 0400, 1600 RONI Insulin Glargine (Lantus(*)) 35 units SUBCUT DAILY RONI Insulin Human Lispro (Humalog*) 0 units SUBCUT ACHS RONI; Protocol Lidocaine (Lidoderm 5% Patch*) 1 patch TRANSDERM DAILY PRN PAIN - MILD Metoprolol Tartrate (Lopressor Tab*) 25 mg PO BID RONI Mometasone Furoate/Formoterol Fumar (Dulera 200/5 Mdi*) 2 puff INH BID RONI Ondansetron HCl (Zofran Inj*) 4 mg IV Q6H PRN NAUSEA Oxycodone HCl (Roxycodone Tab*) 10 mg PO Q4H PRN PAIN - MODERATE Polyethylene Glycol/Electrolytes (Miralax (17 Gm Dose Lawson)) 17 gm PO DAILY PRN CONSTIPATION Vital Signs - 8 hr 10/23/19 10/23/19 10/23/19 07:15 07:52 11:15 Temperature 98.0 F 98.8 F Pulse Rate 102 101 Respiratory 18 18 18 Rate Blood Pressure 114/69 121/62 (mmHg) O2 Sat by Pulse 95 96 Oximetry Oxygen Devices in Use Now: Nasal Cannula - 1.5L Appearance: Middle-aged obese female sitting in bed in [facility] Ears/Nose/Mouth/Throat: Mucous Membranes Moist Neck: NL Appearance and Movements; NL JVP, Trachea Midline Respiratory: Symmetrical Chest Expansion and Respiratory Effort, - - Diminished bilat bases, a few fine crackles right lower lobe Cardiovascular: NL Sounds; No Murmurs; No JVD, RRR Abdominal: NL Sounds; No Tenderness; No Distention Extremities: - - +2-3 pitting BUE, BLE Neurological: Alert and Oriented x 3 Lines/Tubes/Other Access: Clean, Dry and Intact Peripheral IV Nutrition: Taking PO's Result Diagrams: 10/23/19 10:45 10/23/19 08:51 Assess/Plan/Problems-Billing Assessment: Ms. Luiz Nunn is a 38 yo F with PMH of DM type 1, CKD stage 3, HTN; recently hospitalized for MRSA bacteremia secondary to pneumonia, readmitted on 10/09/19 for sepsis secondary to right lower lobe pneumonia and found to have pleural effusion. - Patient Problems (1) MRSA pneumonia Code(s): J15.212 - PNEUMONIA DUE TO METHICILLIN RESISTANT STAPHYLOCOCCUS AUREUS Comment: - Recent hospitalization found to have MRSA pneumonia in setting of influenza A based on sputum culture; had received a one time dose of Dalvance the day prior to this current admission - ID consulted - Pulmonology consulted; metanebs recommended - Consolidation does appear improved since prior hospitalization, but now with new pleural effusion; pigtail in place with decreased drainage - Encourage incentive spirometer and flutter valve - Continue linezolid (day ) (2) Parapneumonic effusion Code(s): J18.9 - PNEUMONIA, UNSPECIFIED ORGANISM; J91.8 - PLEURAL EFFUSION IN OTHER CONDITIONS CLASSIFIED ELSEWHERE Comment: - Right sided pleural effusion, new during this hospitalization - S/p thoracentesis 10/10/19, 275mL fluid removed; fluid is MRSA positive - US 10/15 reveals that the effusion size is unchanged from 10/12 - Repeat CT 10/18: new left lung opacity, improvement in R lung opacities, findings consistent with b/l pneumonitis; resolution of R pleural effusion; mild mediastinal LAD - Pigtail drain placed 10/15; developed small pneumothorax; now connected to PleurEvac on low wall suction per Chery recs - No new fluid drainage overnight - Continue linezolid (3) MRSA bacteremia Code(s): R78.81 - BACTEREMIA; B95.62 - METHICILLIN RESIS STAPH INFCT CAUSING DISEASES CLASSD [id number] Comment: - Diagnosed during previous recent hospitalization - SAHIL performed during last hospitaliation 10/08/19 without evidence of vegetation - 2/2 MRSA pneumonia - ID following - Continue linezolid (4) Acute kidney injury superimposed on CKD Code(s): N17.9 - ACUTE KIDNEY FAILURE, UNSPECIFIED; N18.9 - CHRONIC KIDNEY DISEASE, UNSPECIFIED Comment: - Has CKD d/t diabetic nephropathy, baseline Cr is ~1.5; creatinine now stable at 4.5 - BUN/Cr continue to rise with fluid overload - Appreciate Nephrology consult - Kidney biopsy consistent with collapsing FSGS - HIV, EBV IgM, influenza, parvo negative; COVID-19 negative - SLE workup pending - Continue HD per Nephrology recommendations (5) UTI (urinary tract infection) Comment: - Resolved; completed course of cefepime - Previous culture on 10/08 grew <25k colonies Pseudomonas, but repeat culture on 10/14 now growing >100k colonies Psuedomonas (6) Acute respiratory failure Code(s): J96.00 - ACUTE RESPIRATORY FAILURE, UNSP W HYPOXIA OR HYPERCAPNIA Comment: - Requiring 1.5L, but sating in the high 90s - 2/2 pneumonia and pleural effusion; likely anemia, fluid overload contributing -continued HD per nephrology recs; has received PRBC - Wean as tolerated (7) Anemia Code(s): D64.9 - ANEMIA, UNSPECIFIED Comment: - H&H trending up - Likely anemia of chronic disease related to CKD with superimposed infection causing further drop - Had 1 partial (d/c d/t transfusion reaction), 1 full transfusion since admission - Monitor H/H; transfuse for Hgb < 7 (8) Tachycardia Code(s): R00.0 - TACHYCARDIA, UNSPECIFIED Comment: - Persistent tachycardia, particularly with activity - EKG showing sinus tach - Echo previously unremarkable - VQ show intermediate probability of PE, but VQ mismatch may just be d/t pneumonia - LLE US negative for DVT on 10/10 and RLE US negative for DVT on 10/14, so PE can likely be ruled out - Suspect this is a stress response to infection in a patient who has a high resting HR at baseline - Continue metoprolol (9) Diabetes type I Comment: - Overall good control - Continue Lispro SS, Lantus (10) Vaginal candidiasis Code(s): B37.3 - CANDIDIASIS OF VULVA AND VAGINA Comment: - Vaginal complaints resolved - Likely related to IV antibiotics - Completed 3 day course of miconazole suppository (10/09-10/11) (11) Hypertension Code(s): I10 - ESSENTIAL (PRIMARY) HYPERTENSION Comment: - Normotensive - HCTZ and lisinopril on hold due to NAZIA - Continue amlodipine, metoprolol (12) DVT prophylaxis Comment: - SCDs (13) Full code status Code(s): Z78.9 - OTHER SPECIFIED HEALTH STATUS Comment: Status and Disposition: Inpatient. Anticipate d/c home when medically stable, pending clinical course. Attending: Radha Lombardi
[2019-10-23 15:35] LABS: Sm (Smith) IgG Antibody <0.2 U
--- NOTE | 2019-10-23 16:24 | PN ---
Progress Note - Progress Note Date of Service: 10/23/19 - nephrology Note: Chief complaint: NAZIA due to collapsing variant FSGS. History of present illness: Doing better today. I saw Cesia during dialysis for NAZIA with volume overload and need for volume removal. CXR from today reviewed by me, radiology reading pending. It shows a mild moderate pleural effusion on the right, pigtail catheter in the right pleural space present, bilateral diffuse opacities, more on the right than left. She is awake and not sleepy today. She states she still feels quite out of breath at times. Coughing less. No hemoptysis. Maintains some urine output although is significantly decreased. Denies gross hematuria. Review of systems: Other than shortness of breath with minimal exertion she denies chest pain, palpitations. Cough improved. Minimal sputum production. Yesterdays 24 hour urine output was 500 cc. Medications: Acetaminophen when necessary Maalox when necessary Albuterol when necessary Combivent Linezolid 600 mg IV twice a day Amlodipine 5 mg daily Metoprolol 25 mg by mouth twice a day Insulin glargine 35 units subcutaneously daily Insulin lispro per sliding scale Lidoderm patch Dulera 2 puffs inhaled twice a day Zofran as needed Oxycodone as needed MiraLAX as needed Labs: Sodium 124 from 127 on the . Potassium 4.5, total CO2 18, creatinine 3.91, BUN 19 Albumin on the was 2.2 g/dL . Corrected calcium is 8.2 mg/dL slightly low. Hemoglobin 8.8 g/dl. Physical exam : Blood pressure 128/67, respiratory rate 18/min, heart rate 105 bpm, temperature 98.9F. Sitting in the dialysis chair in no acute distress. She has facial edema Chest is clear to auscultation anteriorly. Heart exam shows S1, S2, regular rate and rhythm, +2 lower extremities edema, improved abdomen is soft and nontender and nondistended. Alert and oriented 3. Assessment and Plan patient is a very nice but unfortunate 38-year-old woman with a past medical history of long-standing type 1 diabetes mellitus, CKD stage III and hypertension. Recently was admitted for MRSA pneumonia complicated with bacteremia. She had acute kidney injury at that time with a serum creatinine peaking at about 4 and returning close to baseline at 2 mg/dL on discharge. Readmitted on March 17 for sepsis due to right lower lobar pneumonia, parapneumonic effusion, and acute kidney injury. Kidney biopsy during this admission showed collapsing FSGS. EM still pending. So far no cause has been identified for FSGS, could be idiopathic. Kidney biopsy did not show pathological changes consistent with diabetic nephropathy. Acute kidney injury secondary to biopsy-proven collapsing FSGS Most probably idiopathic. Awaiting for the electron microscopy results. Patient is not a candidate for steroids or CNIs due to diabetes, her current infection and severe kidney dysfunction. As mentioned in the previous notes collapsing FSGS is a poor prognosis. The risk of treating her with steroids or CNIs is greater than the benefit given the poor prognosis. She is oliguric. Dialysis is needed for maintenance of volume, acid base and electrolytes status. Avoid Maalox due to severely decreased kidney function and risk of accumulation of magnesium and aluminum Please check phosphorus level. Hypocalcemia is mild and asymptomatic. No changes at this time. Hyponatremia:mild and asymptomatic due to NAZIA. Limit free fluid intake to 1 L daily Metabolic acidosis: due to NAZIA should improve with dialysis. not a candidate for po sodium bicarb as it can worsen volume overload. Volume overload/ Anasarca : Dialysis needed to remove volume. Volume status is improved today. She still remains volume overloaded. May add torsemide 100 mg daily to see if she responds to it. Hypertension well controlled. no changes. MRSA pneumonia with parapneumonic effusion: on Linezolid. Anemia of inflammatory disease. She will not respond to Epogen now as the current infection is still ongoing. She may have a dilutional component as well and we may see improvement in hemoglobin as volume is removed. no changes at this time. Acute resp failure resolved with volume removal and antibiotics. She is off supplemental 02 now. DM 1- on insulin
--- NOTE | 2019-10-23 18:21 | PN ---
Progress Note - Progress Note Date of Service: 10/23/19 - Pulm f/u note Note: patient seen and examined at bedside. Patient reports feeling slightly better. She has participated in physical therapy today. Denies significant cough or shortness of breath. Has had dialysis with removal of 4 L Active Medications Generic Name Dose Route Start Last Admin Trade Name Freq PRN Reason Stop Dose Admin Acetaminophen 650 mg 10/16/19 16:11 10/22/19 20:48 Tylenol Tab* PO 650 mg Q4H PRN Administration MILD PAIN or TEMP > 100.4 Albuterol 2 puff 10/12/19 15:33 10/15/19 18:13 Ventolin Hfa Inhaler* INH 2 puff Q4H PRN Administration SOB/WHEEZING Albuterol/Ipratropium 1 neb 10/19/19 06:04 Duoneb (Albuterol 2.5 Mg/Ipratropium 0.5 Mg) INH [id number] AWAKE PRN clinically indicated Amlodipine Besylate 5 mg 10/13/19 21:00 10/23/19 09:01 Norvasc Tab* PO 5 mg DAILY RONI Administration Dextrose 12.5 gm 10/10/19 14:07 10/17/19 09:25 D50w Syringe 50 Ml* IV PUSH 12.5 gm .FOR FS < 60 - SS PRN Administration FS < 60 Heparin Sodium (Porcine) 1 - 3 ml 10/17/19 18:00 10/23/19 16:27 Heparin Flush Picc/Ml/Cvc(*) FLUSH 1 ml 0600,1800 RONI Administration Protocol Linezolid 600 mg in 300 mls @ 300 mls/hr 10/22/19 16:00 10/23/19 15:24 Zyvox 600 Mg Ivpremix(*) IVPB 300 mls/hr 0400,1600 RONI Administration Insulin Glargine 35 units 10/22/19 09:00 10/23/19 09:01 Lantus(*) SUBCUT 35 units DAILY RONI Administration Insulin Human Lispro 0 units 10/09/19 21:00 10/23/19 17:35 Humalog* SUBCUT 6 unit ACHS RONI Administration Protocol Lidocaine 1 patch 10/12/19 09:44 10/23/19 09:10 Lidoderm 5% Patch* TRANSDERM 1 patch DAILY PRN Administration PAIN - MILD Metoprolol Tartrate 25 mg 10/17/19 21:00 10/23/19 09:01 Lopressor Tab* PO 25 mg BID RONI Administration Mometasone Furoate/Formoterol Fumar 2 puff 10/09/19 21:00 10/23/19 08:33 Dulera 200/5 Mdi* INH 2 puff BID RONI Administration Ondansetron HCl 4 mg 10/09/19 20:04 10/23/19 02:50 Zofran Inj* IV 4 mg Q6H PRN Administration NAUSEA Oxycodone HCl 10 mg 10/17/19 18:02 10/23/19 15:22 Roxycodone Tab* PO 10 mg Q4H PRN Administration PAIN - MODERATE Pharmacy Profile Note 1 note 10/12/19 21:00 10/22/19 20:52 Lidocaine Patch Remove* N/A Not Given 2100 RONI Polyethylene Glycol/Electrolytes 17 gm 10/12/19 11:05 10/19/19 09:41 Miralax (17 Gm Dose Lawson) PO 17 gm DAILY PRN Administration CONSTIPATION Vital Signs Temp Pulse Resp BP Pulse Ox 98.9 F 105 16 128/67 95 10/23/19 15:09 10/23/19 15:09 10/23/19 15:58 10/23/19 15:09 10/23/19 15:09 O/E: Pt in NAD HEENT: PERRLA Lungs: Diminished at bases CVS: S1, S2+ Abd: Soft, BS+ Ext: Normal ROM Skin: Dry Neuro: No focal deficits Laboratory Results - last 24 hr 10/21/19 10/22/19 10/22/19 10:00 17:12 20:30 WBC RBC Hgb Hct MCV MCH MCHC RDW Plt Count MPV Neut % (Auto) Lymph % (Auto) [place] % (Auto) Eos % (Auto) Baso % (Auto) Absolute Neuts (auto) Absolute Lymphs (auto) Absolute Monos (auto) Absolute Eos (auto) Absolute Basos (auto) Absolute Nucleated RBC Nucleated RBC % Sodium Potassium Chloride Carbon Dioxide Anion Gap BUN Creatinine Est GFR ( Amer) Est GFR (Non-Af Amer) BUN/Creatinine Ratio Glucose POC Glucose (mg/dL) 138 H 104 H Calcium Sm ([place]) IgG Ab, Quant <0.2 10/23/19 10/23/19 10/23/19 08:09 08:51 10:45 WBC 9.5 RBC 3.19 L Hgb 8.8 L Hct 26 L MCV 83 MCH 28 MCHC 33 RDW 15 Plt Count 252 MPV 6.2 L Neut % (Auto) 74.2 Lymph % (Auto) 9.6 [place] % (Auto) 7.0 Eos % (Auto) 8.6 Baso % (Auto) 0.6 Absolute Neuts (auto) 7.1 Absolute Lymphs (auto) 0.9 L Absolute Monos (auto) 0.7 Absolute Eos (auto) 0.8 H Absolute Basos (auto) 0.1 Absolute Nucleated RBC 0.0 Nucleated RBC % 0.0 Sodium 124 L Potassium 4.5 Chloride 96 L Carbon Dioxide 18 L Anion Gap 10 BUN 19 Creatinine 3.91 H Est GFR ( Amer) 15.6 Est GFR (Non-Af Amer) 12.9 BUN/Creatinine Ratio 4.9 L Glucose 219 H POC Glucose (mg/dL) 210 H Calcium 6.8 L Sm ([place]) IgG Ab, Quant 10/23/19 10/23/19 11:46 16:09 WBC RBC Hgb Hct MCV MCH MCHC RDW Plt Count MPV Neut % (Auto) Lymph % (Auto) [place] % (Auto) Eos % (Auto) Baso % (Auto) Absolute Neuts (auto) Absolute Lymphs (auto) Absolute Monos (auto) Absolute Eos (auto) Absolute Basos (auto) Absolute Nucleated RBC Nucleated RBC % Sodium Potassium Chloride Carbon Dioxide Anion Gap BUN Creatinine Est GFR ( Amer) Est GFR (Non-Af Amer) BUN/Creatinine Ratio Glucose POC Glucose (mg/dL) 121 H 221 H Calcium Sm ([place]) IgG Ab, Quant I/R: 38 year old female with a past medical history of DM type 1, CKD stage 3 and HTN who was readmitted on 10/09/19 for worsening shortness of breath, cough. Patient recently diagnosed with influenza and post influenza MRSA pneumonia and bacteremia Patient with significant involvement of the right lung with dense consolidation involving entire right lung Patient was on vancomycin, was discharged home to complete antibiotic, returned with worsening shortness of breath and cough Repeat CT chest-slight improvement in the dense consolidation in the right lung , new finding of right pleural effusion Concern for parapneumonic effusion on the right side Pt underwent ultrasound-guided thoracentesis 10/09- 250cc of marli colored fluid was removed Cultures positive for MRSA, LDH, glucose normal, pH slightly low Exudative effusion, however not concerning for empyema Given positive MRSA on pleural fluid, and recurrence, will need to drain the fluid to avoid complications in pleural space in the future Continue with antibiotics, was switched to Linezolid given worsening renal function Continue with Mucomyst and nebulizers with metanebs Continue with O2 supplementation Pig tail for drainage of pleural fluid by IR 10/16/19, not much out put since yesterday Small apical PTX noted, will c/w low suction and pleurevac drainage for now CXR reviewed, chest tube removed Pt not in distress, will obtain CXR if sx Will rpt CXR on and will schedule for thoracentesis if fluid accumulates c/w HD Nephro f/u noted c/w mucus clearance techniques Metanebs as needed OOB to chair DVT px: SCD`s and Heparin sq
[2019-10-23] MEDS: Acetaminophen TAB* 325 MG PO PRN (20:24)
[2019-10-23] MEDS: Lidocaine Patch REMOVE* 1 NOTE MISC SCH (21:15)
[2019-10-24] MEDS: Acetaminophen TAB* 325 MG PO PRN (03:19)
[2019-10-24] MEDS: oxyCODONE TAB* 5 MG TAB PO PRN ×2 (03:19→10:22)
[2019-10-24] MEDS: Linezolid 600 MG IVPREMIX(*) 600 MG/300 ML BAG IVPB SCH (03:21)
[2019-10-24] MEDS: Mometasone/Formoter 200/5 MDI INH SCH (08:45)
[2019-10-24] MEDS: Metoprolol Tartrate TAB* 25 MG PO SCH (10:21)
[2019-10-24] MEDS: amLODIPine TAB* 5 MG PO SCH (10:22)
[2019-10-24] MEDS: Insulin LISPRO* 1 UNITS UNIT SUBCUT SCH ×2 (10:23→13:49)
[2019-10-24] MEDS: Insulin GLARGINE(*) 1 UNITS UNIT SUBCUT SCH (10:23)
[2019-10-24 11:37] LABS: ABS Eosinophils 0.9 10^3/ul (0-0.6); ABS Monocytes 0.9 10^3/ul (0-0.8); ABS Neutrophils 8.5 10^3/ul (1.5-7.7); Eosinophil % 7.8 %; Hematocrit 26 % (35-47); Hemoglobin 8.6 g/dL (12.0-16.0); Lymphocyte % 8.5 %; Mean Corpuscular HGB Conc 33 g/dL (31-36); Mean Corpuscular Hemoglobin 27 pg (27-31); Mean Corpuscular Volume 83 fL (80-97); Mean Platelet Volume 6.1 fL (7.4-10.4); Platelet Count 245 10^3/uL (150-450); Red Blood Count 3.16 10^6 /uL (3.70-4.87); Red Cell Distribution Width 15 % (10-15); White Blood Count 11.2 10^3/uL (3.5-10.8)
[2019-10-24 11:50] LABS: BUN/Creatinine Ratio 4.9 (8-20); Calcium 7.2 mg/dL (8.6-10.3); EGFR African American 16.6 (>60); EGFR Non-African American 13.7 (>60); Phosphorus 3.2 mg/dL (2.5-5.0); Potassium 4.2 mmol/L (3.5-5.0)
--- NOTE | 2019-10-24 11:57 | TRS ---
CC: Quintin Larose NP; Dr. Linda Gottlieb; Dr. Fina Castellano; Dr. Moi Mcnulty * DATE OF ADMISSION: 10/09/2019. DATE OF TRANSFER: 10/24/2019. PRIMARY CARE PROVIDER: Quintin Larose NP. INPATIENT ORIENTATION AND MOBILITY SPECIALIST: Dr. Linda Gottlieb. INPATIENT STRATEGIC INSIGHTS LEAD: Dr. Fina Castellano. INPATIENT INFECTIOUS DISEASE: Dr. Moi Mcnulty. ATTENDING PHYSICIAN: Dr. Radha Lombardi * (dictated by Sintia Torres NP). PRIMARY DIAGNOSES: 1. Acute on chronic kidney injury requiring acute dialysis. 2. MRSA pneumonia. 3. Parapneumonic effusion, MRSA positive. 4. MRSA bacteremia, resolved. 5. Urinary tract infection due to pseudomonas, resolved. 6. Acute hypoxic respiratory failure. 7. Anemia of chronic disease. 8. Sinus tachycardia. 9. Sepsis, resolved. SECONDARY DIAGNOSES: 1. Diabetes mellitus type 2. 2. Hypertension. STUDIES WHILE IN THE HOSPITAL: 1. EKG on 10/09/2019 shows sinus tachycardia with a rate of 110, no ST changes , QTC 432. 2. Chest x-ray on 10/09/2019, reads as: Right inflammatory infiltrate with right pleural effusion similar to that seen on previous exam. Left lung field is clear. 3. Chest CT on 10/09/2019, reads as: Improved right lung multifocal pneumonia and associated intervally enlarged pleural effusion. Findings are not typical of COVID- 19. 4. EKG on 10/11/2019 shows sinus tachycardia with a rate of 124, no ST changed , QTC 424. 5. Left leg venous Doppler study on 10/11/2019, reads as: No evidence of deep vein thrombosis. 6. Chest ultrasound on 10/12/2019, reads as: Right pleural effusion. The distance from the skin to the effusion is 3.3 cm. The distance from the skin to the center of the effusion is 5 cm. 7. Chest ultrasound on 10/13/2019, reads as: Similar small right pleural effusion. The distance from the skin surface to the fluid is 3.3 cm. The distance to the center of the effusion is 5.1 cm. 8. EKG on 10/13/2019 shows sinus tachycardia with a rate of 126, no ST changes , QTC 423. 9. Chest x-ray on 10/15/2019, reads as: Persistent multifocal consolidation of the right lung with a right pleural effusion. 10. VQ scan on 10/15/2019, reads as: Several subsegmental perfusion defects are noted in the left upper lobe posteriorly, left base, right upper lobe. Lesion in the right upper lobe appears to correspond to an x-ray abnormality. Findings are consistent with intermediate probability of pulmonary embolus. 11. Right leg venous Doppler study on 10/15/2019, reads as: No evidence for right lower extremity deep venous thrombosis. 12. Chest ultrasound on 10/16/2019, reads as: Right pleural effusion. The distance from the skin to the effusion is 3.3 cm. The distance from the skin to the center of the effusion is 5.1 cm. 13. Chest x-ray on 10/16/2019, reads as: Tiny right apical pneumothorax measuring approximately 5 percent. Right pigtail chest tube projecting over the inferomedial aspect of the right hemithorax. Small right pleural effusion which has decreased in size compared to the prior chest x-ray on 10/15/2019. Multifocal patchy airspace consolidation in both lungs which has progressed compared to the prior chest x-ray on 10/15/2019 and may represent pneumonia. 14. Chest x-ray on 10/16/2019, reads as: Tiny right apical pneumothorax measuring approximately 5 percent which is unchanged compared to the prior chest x-ray on . Right pigtail chest tube terminating along the inferomedial aspect of the right hemithorax. Small right pleural effusion which is similar in size compared to the prior chest x-ray on 10/16/2019. Multifocal airspace consolidation in both lungs which is similar in appearance compared to the prior chest x-ray on 10/16/2019 and may represent pneumonia. 15. Chest x-ray on 10/17/2019, reads as: Persistent small right apical pneumothorax. Persistent diffuse consolidation of the lungs bilaterally. 16. Renal ultrasound on 10/17/2019, reads as: Nondiagnostic imaging of the left kidney due to difficult patient positioning and shortness of breath. 17. Chest x-ray on 10/17/2019, reads as: Left PICC terminates in the region of the upper SVC (it may be near its confluence with the left brachiocephalic vein) . Similar to slightly worsened patchy bilateral airspace opacification. Small right pleural effusion with a pigtail catheter in place. 18. Chest x-ray on 10/18/2019, reads as: Lines and tubes described in the body of the report. Persistent diffuse interstitial and airspace disease. Right pleural effusion. 19. Chest CT on 10/19/2019, reads as: There is new airspace and interstitial opacity in the left lung and slight improvement in airspace opacity, nodular opacities and tree-in-bud opacities in the right lung consistent with bilateral pneumonitis. There is a new right-sided chest tube with resolution of the previously seen right pleural effusion. Stable mild mediastinal lymphadenopathy. There is slight increase in borderline bilateral axillary lymphadenopathy. 20. EKG on 10/20/2019 shows sinus tachycardia with a rate of 104, no ST changes , QTC 424. 21. Left upper extremity venous Doppler study on 10/21/2019, reads as: PICC line in the left cephalic vein. Left upper extremity venous system is unremarkable. 22. Chest x-ray on 10/21/2019, reads as: The PICC line is somewhat medially deviated in the superior vena cava. Bibasilar infiltrates are noted. 23. Chest x-ray on 10/23/2019, reads as: Chest x-ray findings are most consistent with pulmonary edema, likely with a small to moderate right pleural effusion. The right-sided pigtail pleural chest tube has been retracted with only the distal pigtail still possibly within the chest wall. Removing this tube is advised. CONSULTATIONS WHILE IN THE HOSPITAL: 1. Dr. Mcnulty and Kellen Burciaga NP from Infectious Disease. 2. Dr. Gottlieb from Pulmonology. 3. Dr. Dalton and Dr. Castellano from Nephrology. PROCEDURES WHILE IN THE HOSPITAL: 1. Thoracentesis on 10/10/[address] Nevarez. Approximately 275 ml of marli colored fluid was aspirated. 2. Ultrasound-guided thoracentesis with right pigtail catheter placement on with Dr. Parikh. 3. Renal biopsy on 10/17/[address] Dalton. 4. Right internal jugular hemodialysis catheter placement on 10/18/[address] Dalton. HISTORY OF PRESENT ILLNESS/HOSPITAL COURSE: Ms. Luiz Nunn is a 38-year-old female with a past medical history of type 1 diabetes, hypertension, and CKD stage 3 who presented to the emergency room on 10/09/2019 with complaints of shortness of breath and cough. Please see the history and physical by Mandeep Mendiola NP for a complete summary of the events leading up to this hospitalization. In short, the patient was admitted to this facility from 2019 to 09/28/2019. During that time, she was diagnosed with MRSA pneumonia and MRSA bacteremia. Echocardiogram was unremarkable for any vegetation. She was discharged with plans to continue Dalvance; however, upon returning home, she began to feel more short of breath and so presented back to the emergency room the following day. She was noted to be tachycardic, tachypneic, and had concerning imaging as noted above. She was admitted by the Hospitalist Service. The patient was placed on Vancomycin for coverage of her MRSA pneumonia and bacteremia. She did have blood cultures on 10/09/2019 which showed no growth. She was requiring oxygen to maintain appropriate saturations and she ultimately did undergo a thoracentesis on 10/10/2019. That fluid was MRSA positive and so the patient was maintained on Vanco. After the initial thoracentesis, there was still some remaining fluid and so ultimately the patient did have a pigtail drain placed which was connected to the wall suction that showed good drainage and the pigtail drain was removed yesterday on 10/23/2019 per recommendations from Pulmonology. The patient was changed over from Vanco to Linezolid due to worsening renal function. Today will be day 15 of Linezolid and Infectious Disease has recommended 28 days at this point. She did have a PICC line inserted earlier in this hospital stay that ultimately was noted to be not appropriately located and the PICC was pulled out to some degree, although does remain in place and is now considered a midline per our vascular access team. The patient is now only requiring intermittent oxygen, 1.5 to 2 liters, although is still significantly short of breath with exertion. She may require further drainage if the pleural effusion reaccumulates. The patient does has baseline CKD stage 3 with a baseline creatinine around 1.5. Renal function on a previous visit was noted to be worse with a creatinine greater than 2 and during this hospital stay creatinine worsened ultimately up to 4.96. Nephrology was consulted. 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 She did have a dialysis catheter placed as noted above and at this point has received dialysis three times on 10/19/2019, 10/22/2019, and 10/23/2019. During each of those dialysis treatments, 3 to 4 liters were removed, though the patient does remain edematous at this time. Nephrology has recommended continuing acute dialysis. They indicate that there is a poor renal prognosis for recovery, so she may ultimately need to be on chronic hemodialysis. They also have recommended limiting fluid intake to 1 liter per day. The patient did have a urine culture which grew greater than 100,000 colonies of pseudomonas on 10/15/2019. She was treated with a course of Cefepime which she has completed at this time. She is additionally noted to be anemic. She did have a negative stool occult and this is presumed to be anemia of chronic disease. She has received two units of packed red blood cells on 10/18/2019 and 10/19/2019, although one of the units was only partially infused due to the patient meeting criteria for transfusion reaction, although ultimately there was no confirmed transfusion reaction. The patient has been noted to be tachycardic during this hospital stay with heart rates up into the 130s. Looking back at previous records, it appears that the patient does have a high resting heart rate typically in the 90s. All of her EKG's on telemetry have shown sinus tachycardia, so at this point this is presumed to be stress response due to infection in a patient who already has a high resting heart line at baseline. She has been started on Metoprolol which has been shown to be moderately effective in reducing heart rate, as well as blood pressure. Diabetes has been moderately well-managed while here in the hospital. She is noted to have an A1c of 7.7 percent and has been maintained on sliding scale Lispro and daily Glargine. As of today, our dialysis service, [facility], will no longer be providing any inpatient dialysis services and so it has been determined that the patient will need to be transferred to a higher level of care for continued inpatient dialysis. I did confirm this with Dr. Castellano and so she is aware of this transfer. The patient's right IJ will remain in place for further hemodialysis. PHYSICAL EXAMINATION: General: Ms. Luiz Nunn is an obese, - [place]ese female sitting in bed, slightly dyspneic, but in no acute distress. She appears her stated age. HEENT: Head is atraumatic, normocephalic. Visual deng are grossly intact. Lungs: Bases are diminished bilaterally with some scattered fine crackles, though she is otherwise clear throughout. Cardiovascular: Regular rate and rhythm, S1, S2 present. No murmurs, rubs, or gallops. Extremities: The patient has generalized +2 to +3 pitting edema, left arm is worse than the right arm. Lower extremities are about the same. Abdomen: Soft, nontender to palpation. Bowel sounds normoactive throughout. Neuro: Awake, alert and oriented times four. Moves all extremities. Most recent vitals are as follows: Temperature 98.9, heart rate 108, respiratory rate 20, oxygen saturation 98 percent on room air, blood pressure 117/67. CURRENT MEDICATIONS: 1. Acetaminophen 650 mg p.o. q.4 hours prn fever or pain. 2. Albuterol two puffs q.4 hours prn shortness of breath or wheezing. 3. DuoNeb one neb q.6 hours prn shortness of breath or wheezing. 4. Amlodipine 5 mg p.o. daily. 5. Heparin flush per protocol. 6. Glargine 35 units subcu daily. 7. Lispro a.c., at bedtime (1 unit for every 5 gm carbohydrate). 8. Lidocaine patch 5% one transdermal daily prn pain. 9. Linezolid 600 mg daily (renal dosing). 10. Metoprolol Tartrate 25 mg p.o. b.i.d. 11. Dulera 200/5 two puffs b.i.d. 12. Ondansetron 4 mg IV q.6 hours prn nausea or vomiting. 13. Oxycodone 10 mg p.o. q.4 hours prn pain. 14. MiraLax 17 gm daily prn constipation. CONDITION ON TRANSFER: Fair. DISPOSITION: Higher level of care, [facility]. ACCEPTING PHYSICIAN: Dr. Tahmina Lopez. DIET: Consistent carb, renal, 1 liter per day fluid restriction. ACTIVITY: As tolerated. FOLLOW-UP: To be determined at the time of discharge from receiving facility. This is a summarized report of a complex medical history and hospital stay. For further details, please see the entire medical record. TIME SPENT: Approximately 90 minutes were spent on the transfer of this patient. SINTIA TORRES, TRANSFER OPERATOR [id number]/[facility] #: [id number] PAM
[2019-10-24 12:54] VITALS: BP 132/63
[2019-10-24 22:20] LABS: ALP Intestine 2.4 IU/L (0.0-11.0); ALP Liver 1 103.2 IU/L (16.2-70.2); ALP Liver 1% 52.4 % (27.8-76.3); ALP Liver 2 59.7 IU/L (0.0-5.8); ALP Liver 2% 30.3 % (0.0-8.0); ALP Placental NotPresent; Alkaline Phosphate 197 U/L (35 - 104)
== END 2019-10-24 12:45 | disposition short-term general hospital (02) | DRG 720 ==
LOC: ED 15:22 → MED 19:57 → MEDTELE 10-22 20:17
PROVIDERS: ADMIT Internal Medicine; ATTEND Hospitalist
PROC: 5A1D70Z Performance of Urinary Filtration, Intermittent, Less than 6 Hours Per Day (ICD-10-PCS; 2019-10-17)
PROC: 0TB13ZX Excision of Left Kidney, Percutaneous Approach, Diagnostic (ICD-10-PCS; 2019-10-17)
PROC: 02HV33Z Insertion of Infusion Device into Superior Vena Cava, Percutaneous Approach (ICD-10-PCS; 2019-10-17)
PROC: 0W9930Z Drainage of Right Pleural Cavity with Drainage Device, Percutaneous Approach (ICD-10-PCS; 2019-10-17)
PROC: 30233N1 Transfusion of Nonautologous Red Blood Cells into Peripheral Vein, Percutaneous Approach (ICD-10-PCS; principal; 2019-10-19)
PROC: 02HV33Z Insertion of Infusion Device into Superior Vena Cava, Percutaneous Approach (ICD-10-PCS; 2019-10-21)
DX: A41.02 Sepsis due to Methicillin resistant Staphylococcus aureus (principal); J15.212 Pneumonia due to Methicillin resistant Staphylococcus aureus; J96.01 Acute respiratory failure with hypoxia; J10.08 Influenza due to other identified influenza virus with other specified pneumonia; N17.9 Acute kidney failure, unspecified; J90 Pleural effusion, not elsewhere classified; N39.0 Urinary tract infection, site not specified; E87.1 Hypo-osmolality and hyponatremia; J45.909 Unspecified asthma, uncomplicated; K21.9 Gastro-esophageal reflux disease without esophagitis; I12.9 Hypertensive chronic kidney disease with stage 1 through stage 4 chronic kidney disease, or unspecified chronic kidney disease; E10.22 Type 1 diabetes mellitus with diabetic chronic kidney disease; N18.3 Chronic kidney disease, stage 3 (moderate); E78.5 Hyperlipidemia, unspecified; E86.0 Dehydration; B37.3 Candidiasis of vulva and vagina; D47.3 Essential (hemorrhagic) thrombocythemia; R56.9 Unspecified convulsions; E66.9 Obesity, unspecified; D63.1 Anemia in chronic kidney disease; B96.5 Pseudomonas (aeruginosa) (mallei) (pseudomallei) as the cause of diseases classified elsewhere; E87.70 Fluid overload, unspecified; E83.51 Hypocalcemia; Z87.01 Personal history of pneumonia (recurrent); Z86.14 Personal history of Methicillin resistant Staphylococcus aureus infection; Z88.6 Allergy status to analgesic agent; Z91.013 Allergy to seafood; Z53.8 Procedure and treatment not carried out for other reasons; Z68.37 Body mass index [BMI] 37.0-37.9, adult; Z79.899 Other long term (current) drug therapy
CPT/HCPCS: 32555; 36415; 71045; 71046; 71250; 76604; 76775; 78582; 80048; 80053; 80202; 81003; 81015; 82272; 82330; 82550; 82565; 82570; 82585; 82595; 82945; 83036; 83516; 83520; 83605; 83615; 83880; 83883; 83986; 84080; 84100; 84155; 84156; 84157; 84165; 84300; 84484; 84520; 84702; 85025; 85049; 85060; 85610; 85652; 85730; 86038; 86078; 86140; 86160; 86225; 86235; 86255; 86256; 86431; 86664; 86665; 86704; 86706; 86747; 86803; 86850; 86900; 86901; 86922; 87040; 87077; 87086; 87186; 87205; 87340; 87389; 87635; 87640; 87641; 87799; 87899; 88112; 88305; 88329; 89051; 90935; 93005; 94640; 94667; 94668; 99285; A9270-GY; A9540; A9558; C1751; G0257; J0360; J0610; J0692; J1170; J1644; J1650; J1940; J2020; J2060; J2270; J2405; J2597; J2997; J3010; J3370; J7608; P9040; Q5106; U0002

== ENCOUNTER 2019-11-16 21:03 | Emergency (ER) | payer BC ==
[2019-11-16] MEDS ORDERED: Ondansetron INJ* 2 MG/ML VIAL IV ONE (21:10)
[2019-11-16] MEDS ORDERED: Morphine 4 MG/ML VIAL (1 ml) 4 MG/ML VIAL IV ONE (21:10)
--- NOTE | 2019-11-16 21:19 | ED ---
Abdominal Pain/Female - HPI Summary HPI Summary: This pt is a 39 Y/O F [facility] abdominal pain that is rated a 10/10 in severity and described as cramping. She states that she was recently seen at [facility] for influenza and MRSA prior to being transferred to [facility] for dialysis treatment. She recently started dialysis and was discharged from [facility] today. She states that prior to discharge she had no symptoms and was feeling much better. After she arrived home she developed abdominal pain and began vomiting. She states that she has not been able to eat since her discharge. She reports feeling fatigued and weakened. She denies any fevers, chills, headaches, SOB, CP, and sore throat. She states that no one else at her home is sick at the moment. She has a PMHx of type 1 DM and HTN. She states that eating aggravates her symptoms and she has no alleviating factors. - History of Current Complaint Chief Complaint: EDAbdPain Stated Complaint: ABDOMINAL PAIN VOMITING PER EMS Time Seen by Provider: 11/16/19 21:05 Hx Obtained From: Patient Hx Last Menstrual Period: 2019 ?: No Onset/Duration: Sudden Onset, Lasting Hours, Still Present Timing: Constant Severity Initially: Severe Severity Currently: Severe Pain Intensity: 10 Pain Scale Used: 0-10 Numeric Location: Diffuse Radiates: No Character: Cramping Aggravating Factor(s): Food Alleviating Factor(s): Nothing Associated Signs and Symptoms: Positive: Negative - fevers, chills, headaches, SOB, CP, and sore throat, Nausea, Vomiting. Negative: Fever, Chest Pain Allergies/Adverse Reactions: Allergies Allergy/AdvReac Type Severity Reaction Status Date / Time shrimp Allergy Itching Verified 04/23/19 14:17 etodolac AdvReac fainting Verified 04/23/19 14:17 ENVIRONMENTAL/SEASONAL Allergy Unknown Uncoded 03/29/19 19:57 Reaction Details Home Medications: Home Medications Insulin Lispro [Humalog 100 units/ml 5 ml x 3 Pens] 0 - 60 unit SUBCUT TID WITH MEALS MDD 100 units w/ titration priming 05/25/16 [History Confirmed 11/16/19] Insulin GLARGINE(*) [Lantus 100 units/ml 10 ml VIAL (*)] 60 units SUBCUT DAILY 11/19/17 [History Confirmed 11/16/19] Lisinopril TAB* [Prinivil TAB 10 MG*] 40 mg PO DAILY 11/19/17 [History Confirmed 11/16/19] Hydrochlorothiazide TAB* [Hydrodiuril TAB*] 12.5 mg PO QAM 04/23/19 [History Confirmed 11/16/19] Acetaminophen TAB* [Tylenol TAB*] 975 mg PO Q8H PRN tab 10/08/19 [Rx Confirmed 11/16/19] Albuterol HFA INHALER* [Ventolin HFA Inhaler*] 1 - 2 puff INH Q4H PRN #1 mdi [Rx Confirmed 11/16/19] Aspirin 81 mg CHEW TAB* 81 mg PO DAILY #30 tab.chew 10/08/19 [Rx Confirmed 11/15] Ferrous Sulfate TAB* 325 mg PO DAILY #30 tab 10/08/19 [Rx Confirmed 11/16/19] Lactobacillus Acidophilus* 1 cap PO DAILY #20 cap 10/08/19 [Rx Confirmed ] guaiFENesin ER TAB [Mucinex*] 1,200 mg PO BID #28 tab.er 10/08/19 [Rx Confirmed 11/16/19] PMH/Surg Hx/FS Hx/Imm Hx Previously Healthy: Yes Endocrine/Hematology History: Reports: Hx Diabetes - type I Cardiovascular History: Reports: Hx Angina, Hx Hypertension Denies: Hx Coronary Artery Disease, Hx Hypercholesterolemia, Hx Myocardial Infarction, Hx Pacemaker/ICD, Hx Valvular Heart Disease, Other Cardiovascular Problems/Disorders Respiratory History: Reports: Hx Asthma, Other Respiratory Problems/Disorders - FREQUENT SINUS TROUBLE, POST NASAL DRIP Denies: Hx Chronic Obstructive Pulmonary Disease (COPD) GI History: Reports: Hx Gastroesophageal Reflux Disease Denies: Other GI Disorders History: Reports: Other Problems/Disorders - SOMETIMES PROTIEN IN URINE, reports mild elevated creatinine in the past Denies: Hx Renal Disease Musculoskeletal History: Reports: Other Musculoskeletal History - TRIGGER FINGERS BILAT Sensory History: Denies: Hx Contacts or Glasses, Hx Hearing Aid Opthamlomology History: Denies: Hx Contacts or Glasses Neurological History: Reports: Hx Seizures - in setting of DKA, Other Neuro Impairments/Disorders - trigger finger LUZ WITH SURGERY Denies: Hx Headaches Psychiatric History: Denies: Hx Panic Disorder - Cancer History Hx Chemotherapy: No Hx Radiation Therapy: No - Surgical History Surgical History: Yes Surgery Procedure, Year, and Place: 2009/2010 triger finger surg [facility] X7 LUZ. 2013 SINUS [facility]. 2012, SINUS, [facility]. 2-3 MORE SINUS SURGERY. C SECTION 02/2016 Hx Anesthesia Reactions: No - Immunization History Date of Tetanus Vaccine: utd Date of Influenza Vaccine: fall 2016 Immunizations Up to Date: Yes Infectious Disease History: Yes Infectious Disease History: Reports: Hx of Known/Suspected MRSA - Family History Known Family History: Positive: Diabetes Family History: Denies FHx of malignant hyperthermia or anesthesia reaction. - Social History Occupation: Employed Full-time Lives: With Family Alcohol Use: None Hx Substance Use: No Substance Use Type: Reports: None Hx Tobacco Use: No Smoking Status (MU): Never Smoked Tobacco Have You Smoked in the Last Year: No Review of Systems Positive: Fatigue. Negative: Fever, Chills Negative: Sore Throat Negative: Chest Pain Negative: Shortness Of Breath Positive: Abdominal Pain, Vomiting, Nausea Negative: Headache All Other Systems Reviewed And Are Negative: Yes Physical Exam - Summary Physical Exam Summary: Appearance: Well-nourished, Somewhat pale, Retching, appearing uncomfortable Skin: Warm, dry, no obvious rash Eyes: sclera anicteric, no conjunctival pallor ENT: mucous membranes moist, pharynx appears normal Neck: Supple, nontender Respiratory: Clear to auscultation, no signs of respiratory distress Cardiovascular: Normal S1, S2. No murmurs. Normal distal pulses in tibial and radial bilaterally. R upper chest perma-cath port Abdomen: Soft, nontender, normal active bowel sounds present Musculoskeletal: Normal, Strength/ROM Intact Neurological: A&Ox3, awake and alert, mentation is normal, speech is fluent and appropriate Psychiatric: affect is normal, does not appear anxious or depressed Triage Information Reviewed: Yes Vital Signs On Initial Exam: Temp Pulse Resp BP SpO2 FiO2 Vital Signs Reviewed: Yes Diagnostics - Laboratory Result Diagrams: 11/16/19 21:10 11/16/19 21:10 Lab Statement: Any lab studies that have been ordered have been reviewed, and results considered in the medical decision making process. - CT CT A/P CT Interpretation Completed By: Radiologist Summary of CT Findings: 1. No acute findings in the abdomen or pelvis. 2. Cholelithiasis without CT evidence for cholecystitis. 3. Colonic diverticulosis without evidence for diverticulitis. 4. Uterine fibroid, which has decreased in size since the prior CT abdomen and pelvis on 08/27/2018. ED physician has reviewed this report. - EKG 2309 Cardiac Rate: NL - 88 BPM EKG Rhythm: Sinus Rhythm ST Segment: Normal Ectopy: None Summary of EKG Findings: NSR at 88 BPM, P waves, QRS complex, and T waves are within normal limits, T waves and intervals are normal, no ischemic changes. This is a normal EKG. Interpreted by Dr. Huff at 2315 11/16/2019. Abdominal Pain Fem Course/Dx - Course Course Of Treatment: This pt is a 39 Y/O F [facility] for abdominal pain that is rated a 10/10 in severity and described as cramping. She states that she was recently seen at [facility] for influenza and MRSA prior to being transferred to [facility] for dialysis treatment. She recently started dialysis and was discharged from [facility] today. She states that prior to discharge she had no symptoms and was feeling much better. After she arrived home she developed abdominal pain and began vomiting. She states that she has not been able to eat since her discharge. She reports feeling fatigued and weakened. Her PE shows a R upper chest perma-cath port. She has no abdominal tenderness. She has abnormalities in her RBC, Hgb, Hct, and Absolute monos, eos sodium, chloride, creatinine, glucose of 165, calcium, lipase, and albumin/globulin ratio, and a POC glucose of 174. She was given Compazine, morphine, and zofran during her ED course. CT A/P: 1. No acute findings in the abdomen or pelvis. 2. Cholelithiasis without CT evidence for cholecystitis. 3. Colonic diverticulosis without evidence for diverticulitis. 4. Uterine fibroid, which has decreased in size since the prior CT abdomen and pelvis on 08/27/2018. EKG take at 2310 11/16/2019 shows NSR at 88 BPM, P waves, QRS complex, and T waves are within normal limits, T waves and intervals are normal, no ischemic changes. This is a normal EKG. Based on her clinical appearance, the abruptness of the upper abdominal pain, and the paucity of objective findings on diagnostics testing but for cholelithiasis, I suspect she may have suffered a bout of biliary colic. At present her pain has resolved and she feels much better. Plan for now is observation for a couple of hours to make sure her symptoms do not recur. If she does well anticipate discharge for followup with general surgery and nephrology. She will be signed out to Dr. Olson at 0700 pending abdominal US and disosition. She was diagnosed with bilary colic. - Diagnoses Provider Diagnoses: Biliary colic - Critical Care Time Critical Care Statement: Critical care time is provided exclusive of any time spent performing procedures. Discharge ED - Sign-Out/Discharge Documenting (check all that apply): Sign-Out Patient Signing out patient TO: Bc Olson - Discharge Plan Condition: Good Referrals: Quintin Larose, INVESTOR RELATIONS COORDINATOR [Primary Care Provider] - - Attestation Statements Document Initiated by Scribe: Yes Documenting Scribe: Dedrick Penn Provider For Whom Scribe is Documenting (Include Credential): Marino Huff MD Scribe Attestation: Dedrick Newman, scribed for Marino Huff MD on 11/17/19 at 0603. Status of Scribe Document: Ready
[2019-11-16 21:47] LABS: ABS Basophils 0.1 10^3/ul (0-0.2); ABS Eosinophils 1.2 10^3/ul (0-0.6); ABS Neutrophils 5.5 10^3/ul (1.5-7.7); Eosinophil % 12.6 %; Hematocrit 26 % (35-47); Hemoglobin 8.7 g/dL (12.0-16.0); Lymphocyte % 20.5 %; Mean Corpuscular HGB Conc 33 g/dL (31-36); Mean Corpuscular Hemoglobin 29 pg (27-31); Mean Corpuscular Volume 86 fL (80-97); Mean Platelet Volume 6.8 fL (7.4-10.4); Platelet Count 308 10^3/uL (150-450); Red Blood Count 3.02 10^6 /uL (3.70-4.87); Red Cell Distribution Width 18 % (10-15); White Blood Count 9.7 10^3/uL (3.5-10.8)
[2019-11-16] MEDS ORDERED: Morphine 10 MG/ML VIAL (1 ml) IV ONE (21:53)
[2019-11-16] MEDS ORDERED: PROCHLORPERAZINE INJ 5 MG/ML 2 ML VIAL IV ONE (22:06)
[2019-11-16 22:08] LABS: ALT 17 U/L (7-52); Albumin 3.6 g/dL (3.2-5.2); Albumin/Globulin Ratio 0.8 (1-3); Alkaline Phosphatase 55 U/L (34-104); Anion Gap 7 mmol/L (2-11); BUN/Creatinine Ratio 3.5 (8-20); Blood Urea Nitrogen 9 mg/dL (6-24); CO2 Carbon Dioxide 22 mmol/L (22-32); Chloride 94 mmol/L (101-111); EGFR African American 25.6 (>60); EGFR Non-African American 21.2 (>60); Globulin 4.7 g/dL (2-4); Glucose 165 mg/dL (70-100); Sodium 123 mmol/L (135-145); Total Protein 8.3 g/dL (6.4-8.9)
[2019-11-16] MEDS ORDERED: Iodixanol* (CONTRAST) 320 MG/ML 100 ML SDV IV ONE (22:12)
[2019-11-17] MEDS ORDERED: PROCHLORPERAZINE INJ 5 MG/ML 2 ML VIAL IV ONE (03:19)
[2019-11-17] MEDS ORDERED: Morphine 10 MG/ML VIAL (1 ml) IV ONE (03:19)
[2019-11-17] MEDS ORDERED: Piperacillin/Tazobac ADVAN(*) 3.375 GM in NS 0.9% 100 ML* 100 ML IVPB ONE (06:06)
--- NOTE | 2019-11-17 06:57 | ED ---
Progress - Progress Note Progress Note: Pt signed out to Dr. Olson at 11/17/19 0700 shift change pending abd US, repeat bloodwork, and dispo. Pt was diagnosed with bilary colic and gallstones, referred to Dr. Santana, and discharged to home. - Results/Orders Results/Orders: ABD US IMPRESSION: CHOLELITHIASIS WITHOUT SONOGRAPHIC FEATURES OF ACUTE CHOLECYSTITIS. This report was reviewed by Dr. Olson. Course/Dx - Course Course Of Treatment: This pt is a 39 Y/O F BIBA to [facility] for abdominal pain that is rated a 10/10 in severity and described as cramping. She states that she was recently seen at [facility] for influenza and MRSA prior to being transferred to [facility] for dialysis treatment. She recently started dialysis and was discharged from [facility] today. She states that prior to discharge she had no symptoms and was feeling much better. After she arrived home she developed abdominal pain and began vomiting. She states that she has not been able to eat since her discharge. She reports feeling fatigued and weakened. Her PE shows a R upper chest perma-cath port. She has no abdominal tenderness. She has abnormalities in her RBC, Hgb, Hct, and Absolute monos, eos sodium, chloride, creatinine, glucose of 165, calcium, lipase, and albumin/globulin ratio, and a POC glucose of 174. She was given Compazine, morphine, and zofran during her ED course. CT A/P: 1. No acute findings in the abdomen or pelvis. 2. Cholelithiasis without CT evidence for cholecystitis. 3. Colonic diverticulosis without evidence for diverticulitis. 4. Uterine fibroid, which has decreased in size since the prior CT abdomen and pelvis on 08/27/2018. EKG take at 2310 11/16/2019 shows NSR at 88 BPM, P waves, QRS complex, and T waves are within normal limits, T waves and intervals are normal, no ischemic changes. This is a normal EKG. Based on her clinical appearance, the abruptness of the upper abdominal pain, and the paucity of objective findings on diagnostics testing but for cholelithiasis, I suspect she may have suffered a bout of biliary colic. At present her pain has resolved and she feels much better. Plan for now is observation for a couple of hours to make sure her symptoms do not recur. If she does well anticipate discharge for followup with general surgery and nephrology. She will be signed out to Dr. Olson at 0700 pending abdominal US and disosition. She was diagnosed with bilary colic. Pt signed out to Dr. Olson at 11/17/19 0700 shift change pending abd US , repeat bloodwork, and dispo. ABD US IMPRESSION: CHOLELITHIASIS WITHOUT SONOGRAPHIC FEATURES OF ACUTE CHOLECYSTITIS. Pt was diagnosed with bilary colic and gallstones, referred to Dr. Santana, and discharged to home. - Diagnoses Provider Diagnoses: Biliary colic, Gallstones - Critical Care Time Critical Care Statement: Critical care time is provided exclusive of any time spent performing procedures. Discharge ED - Sign-Out/Discharge Documenting (check all that apply): Patient Departure - dc - Discharge Plan Condition: Stable Disposition: HOME Patient Education Materials: Gallstones (ED) Referrals: Quintin Larose [employer] [Primary Care Provider] - Aranza Santana MD [Medical Doctor] - Additional Instructions: Follow up with Dr. Santana this week. If you experience new or worsening symptoms please return to the ER. - Billing Disposition and Condition Condition: STABLE Disposition: Home - Attestation Statements Document Initiated by Williamsibe: Yes Documenting Scribe: Venkat Camejo Provider For Whom Fady is Documenting (Include Credential): Andres Olson DO Scribe Attestation: Venkat Newman scribed for Andres Olson DO on 11/17/19 at 1006. Scribe Documentation Reviewed: Yes Provider Attestation: The documentation as recorded by the Venkat camargo accurately reflects the service I personally performed and the decisions made by Andres toth DO Status of Scribe Document: Viewed
[2019-11-17] MEDS ORDERED: NS 0.9% 1000 ML** 1,000 ML IV ONE (07:38)
[2019-11-17] MEDS ORDERED: Al Hydrox/Mg Hydrox/Simet LIQ* 30 ML UDC PO ONE (07:38)
[2019-11-17] MEDS ORDERED: Lidocaine 2% VISCOUS* 15 ML UDC PO ONE (07:38)
[2019-11-17] MEDS ORDERED: oxyCODONE/Acetamin 5/325 MG* TAB PO ONE (08:56)
[2019-11-17 08:57] VITALS: BP 133/63
== END 2019-11-17 09:10 | disposition home or self-care (01) ==
LOC: ED 21:03
DX: K80.70 Calculus of gallbladder and bile duct without cholecystitis without obstruction (principal); E10.9 Type 1 diabetes mellitus without complications; I10 Essential (primary) hypertension; K21.9 Gastro-esophageal reflux disease without esophagitis; R53.83 Other fatigue; Z79.4 Long term (current) use of insulin; Z79.82 Long term (current) use of aspirin; Z79.899 Other long term (current) drug therapy; Z86.14 Personal history of Methicillin resistant Staphylococcus aureus infection
CPT/HCPCS: 36415; 74177; 76705; 80053; 83605; 83690; 84132; 84450; 85025; 93005; 96374; 96375; 96376; 99285; A9270-GY; J0780; J2270; J2405; J2543; Q9967